=== PATIENT | female | born 1960 | race Caucasian/White ===

== ENCOUNTER 2019-08-20 13:36 | Outpatient (CLI) | payer MEDICAID, SELFPAY ==
--- NOTE | 2019-08-20 | XR_ITS ---
WS: [id number] PROCEDURE: XR chest 2V* [id number] CLINICAL INFORMATION: COPD,SEVERE COMPARISON: June 03, 2018 FINDINGS: Heart: Normal cardiac silhouette. Lungs: Moderate chronic emphysematous changes. No acute pulmonary infiltrates. No focal pneumonia. Bones: Mild thoracic curve convex right. Mild thoracic kyphosis. XR/XR chest 2V* [id number] IMPRESSION: Moderate chronic emphysematous changes. No acute pulmonary infiltrates.
--- NOTE | 2019-09-07 12:24 | PC.SOCIAL ---
Dr Ross notified of sputum culture results. Provider reviewed and ordered Levaquin 750 mg once daily for 7 days.Updated patient and she verbalized understanding. She request the med be called to [facility] employee pharmacy. Called med to Jesus Manuel at pharmacy and he repeated back correct script. Patient had no questions and was advised to complete full 7 days and to berry picker this afternoon. She mentioned still being a little weak. Patient also did indicate she has taken this med before with no side effects.
== END 2019-08-20 13:37 | disposition home or self-care (01) ==
LOC: RADOUTREAD 08-23 07:49
PROVIDERS: Family Provider Family Medicine; Visit Provider Nurse Practitioner Family
DX: Z76.89 Persons encountering health services in other specified circumstances (principal)

== ENCOUNTER 2019-09-03 02:06 | Inpatient (IN) | payer MEDICAID, SELFPAY ==
[2019-09-03] VITALS (163 sets, daily range): BP systolic 74–166; BP diastolic 45–128; PULSE 61–125; RESP 12–32; TEMP 36.4–36.6; O2SAT 83–100; BMI 16.6
--- NOTE | 2019-09-03 02:12 | CTR_ITS ---
PROCEDURE INFORMATION: Exam: CT Head Without Contrast Exam date and time: 09/03/2019 2:14 AM Age: 55 years old Clinical indication: Altered mental status/memory loss; Confusion or disorientation; Additional info: Page/ams TECHNIQUE: Imaging protocol: Computed tomography of the head without contrast. Total DLP: 869.34 mGy-cm Radiation optimization: All CT scans at this facility use at least one of these dose optimization techniques: automated exposure control; mA and/or kV adjustment per patient size (includes targeted exams where dose is matched to clinical indication); or iterative reconstruction. COMPARISON: No relevant prior studies available. FINDINGS: Brain: Normal. No hemorrhage. Unremarkable white matter. No mass effect. Ventricles: Normal. No ventriculomegaly. Bones/joints: Unremarkable. No acute fracture. Sinuses: Visualized sinuses are unremarkable. No fluid levels. Mastoid air cells: Visualized mastoid air cells are well aerated. Soft tissues: Unremarkable. CT/CT head wo con* [id number] IMPRESSION: No acute intracranial abnormality. Radiation Dose CTDIVOL = (mGy): DLP = 869.34 (mGy-cm)
--- NOTE | 2019-09-03 02:12 | XRR_ITS ---
PROCEDURE INFORMATION: Exam: XR Chest, 1 View Exam date and time: 09/03/2019 3:18 AM Age: 55 years old Clinical indication: Device placement; Cough TECHNIQUE: Imaging protocol: XR of the chest Views: Frontal portable supine view of the chest. COMPARISON: No relevant prior studies available. FINDINGS: Tubes, catheters and devices: The endotracheal tube tip is approximately 6.5 cm above the gabby. The feeding tube enters the stomach with the tip off the limits of the image. Lungs: Moderate pulmonary hyperexpansion. Coarse bilateral central pulmonary markings with mild architectural distortion. The lungs are otherwise peripherally clear bilaterally. Pleural space: No pleural effusion. No pneumothorax. Heart/Mediastinum: The heart is normal in size and contour. Bones/joints: Unremarkable. Soft tissues: Calcifications in the left infraspinatus tendon insertion. XR/XR chest 1V portable [id number] IMPRESSION: Moderate pulmonary hyperexpansion.
--- NOTE | 2019-09-03 02:18 | ED_ITS ---
Entered by Melissa Gabriel, acting as scribe for Keely Hyatt HPI - Seizure General: Chief Complaint: Seizure Stated Complaint: POSSIBLE OVERDOSE Time Seen by Provider: 09/03/19 02:09 Source: EMS Mode of arrival: EMS Limitations: altered mental status History of Present Illness: HPI Narrative: 55 y/o female presents to the ED for possible seizure. EMS was called by significant because he though she was seizing. Upon EMS arrival, pt was out of control and fighting. Her significant other reports seeing her smoking something , but he does not know what. EMS administered 2 of Versed and pt went to sleep. [place] [facility] [place] G[place] of 9. Pt appears to have scratches and dried blood on her arms. MD complaint: possible seizure Witnessed: Yes - by Bystander Place: Home Possible Precipitating Event: drug use Review of Systems General: Reports: ROS unobtainable due to medical condition (GCS 9) PFS ED PFSH: Social History Smoking and tobacco status: unknown if ever smoked Physical Exam HENMT: COMMON NORMALS: normocephalic, head/scalp atraumatic, hearing grossly normal bilaterally, external ears normal, EAC's normal, external nose normal and moist oral mucous membranes HEAD & SCALP: normal to inspection, normocephalic and atraumatic FACE & SINUS: normal facial exam and face symmetric NOSE: external nose normal and nares normal EXTERNAL EAR: Yes external ears normal EXTERNAL AUDITORY CANAL: EAC's normal MOUTH: oral and palatal mucosa normal and tongue normal Eye: COMMON NORMALS: PERRL, EOMs intact bilaterally, conjunctivae normal and no scleral icterus GENERAL EYE: normal appearance of both eyes and normal light reflex CONJUNCTIVA: Yes conjunctivae normal SCLERA: sclerae normal CORNEA: Yes corneas normal PUPIL: Yes PERRL DIRECT OPHTHALMOSCOPY: Yes normal light reflex Neck/C-Spine: COMMON NORMALS: full ROM, no lymphadenopathy, supple, no meningeal signs and no JVD GENERAL: Yes normal visual inspection and Yes trachea midline CERVICAL SPINE: Yes cervical ROM normal Chest: COMMONS NORMALS: inspection of chest normal and palpation of chest normal Resp: COMMON NORMALS: normal respiratory effort, no retractions, no use of accessory muscles and clear to auscultation bilaterally EFFORT & INSPECTION: Yes able to speak in complete sentences AUSCULTATION: clear to auscultation bilaterally Cardio: COMMON NORMALS: no JVD, regular rate, regular rhythm, S1 normal heart sound, S2 normal heart sound, no gallops, no clicks, no murmurs and no rub JUGULAR VENOUS DISTENTION: no JVD RATE: regular rate RHYTHM: regular rhythm HEART SOUNDS: S1 normal and S2 normal GI: COMMON NORMALS: soft to palpation, non-tender, no hepatosplenomegaly and no masses INSPECTION: Yes normal to inspection PALPATION: Yes soft and Yes no hepatosplenomegaly : COMMON NORMALS: Yes no CVA tenderness BLADDER/KIDNEY EXAM: Yes no CVA tenderness Back/Pelvis: COMMON NORMALS: no CVA tenderness, thoracic and lumbar spine normal to inspection, no thoracic nor lumbar tenderness and thoraco-lumbar ROM normal Neuro: CORTEZ COMA SCALE: document GCS findings MENINGEAL SIGNS: Yes no meningeal signs Skin: COMMON NORMALS: skin turgor normal, no jaundice, no petechiae and no mottling GENERAL SKIN EXAM: turgor normal Procedures Intubation Time out performed: Yes sedative: Etomidate Mg Given: 20 paralytic: Succinylcholine Mg Given: 100 Laryngoscope: David ET Tube Size: 7.5 ET Tube Uncuffed: Yes Tube Secured Depth (cm): 23 Tube Secured Location: lips Tube Placement Confirmation: visualized tube passing through cords, equal breath sounds bilaterally, no breath sounds over epigastrium and confirmation by capnometry Patient Tolerated Procedure: well Intubation Complications: none Course ED course: 024 -the patient became progressively more unresponsive to the point she was not breathing effectively and becoming hypoxic. She had no gag reflex. I elected to intubate her at that time. Still unclear whether this is a toxic inhalation/ingestion or some other type of respiratory failure. Patient is now on the ventilator and we will proceed with her work-up. Vital Signs: Vital signs: Vital Signs Temperature 97.8 F 09/03/19 02:07 Pulse Rate 86 09/03/19 16:45 Respiratory Rate 23 H 09/03/19 17:36 Blood Pressure 92/55 09/03/19 16:45 Pulse Oximetry 99 09/03/19 16:45 MDM - Seizure MDM Narrative: Medical decision making narrative: 7575 -the case was reviewed with Dr. Quarles. She agrees to admission. The patient comes in altered. EMS reports the patient had smoked some type of drug with her and then began to roll on the ground with agitation. There is been no report of any recent illness per the family. Patient arrived here with a GCS of 9 but then within 15 minutes declined significantly. The fentanyl is believed to cause her positive opiate screen although another type of opiate is possible. The fentanyl was given as a drip after intubation. The patient does test positive for amphetamines which could be the cause of the patient's behavior. CT scan of the head and neck are unremarkable. Currently the patient is resting comfortably on the vent with stable vital signs. She does have an elevated white count but no fever. Her potassium is being replaced IV. Her magnesium is normal. Patient be continued be cared for in the ICU. Lab Data: Labs: Lab Results 09/03/19 09/03/19 09/03/19 Range/Units 02:43 02:43 02:43 WBC 21.5 H (4.0-10.0) 10^3/ uL RBC 4.02 L (4.1-5.3) 10^6/u L Hgb 11.2 L (11.5-15.3) g/dL Hct 33.2 L (37.0-47.0) % MCV 82.6 (81-99) fL MCH 27.9 L (28.0-34.0) pg MCHC 33.7 (30.0-36.0) g/dL RDW 12.5 (12.1-15.1) % Plt Count 302 (130-400) 10^3/c mm MPV 10.5 H (7.4-10.4) fL Neut % (Auto) 94.9 % Lymph % (Auto) 2.1 % [place] % (Auto) 2.0 % Eos % (Auto) 0.0 % Baso % (Auto) 0.2 % Neut # (Auto) 20.4 H (1.8-7.7) 10^3/u L Lymph # (Auto) 0.5 L (0.8-4.8) 10^3/u L [place] # (Auto) 0.4 (0.2-0.9) 10^3/u L Eos # (Auto) 0.0 (0.0-0.8) 10^3/u L Baso # (Auto) 0.0 (0.0-0.1) 10^3/u L Nucleated RBC % (a uto) 0 % Nucleated RBCs # 0.0 /100WBC PT (10.5-13.3) SECO NDS INR (0.8-1.2) APTT (23.9-36.7) SECO NDS Specimen Type Sample Site ABG pH (7.35-7.45) ABG pCO2 (35-45) mmHg ABG pO2 (80.0-100.0) mmH g ABG HCO3 (22-26) mmol/L ABG Base Excess (-2.0-2.0) mmol/ L Herminio Test Hematocrit (37-47) % Respiration Rate % O2 Delivery Device Spontaneous Rate % FiO2 % Tidal Volume PEEP cmH20 Specimen Drawn By Word Processing Machine Operator ID Sodium 133 L (136-145) mmol/L Potassium 2.7 L* (3.5-5.1) mmol/L Chloride 91 L (98-107) mmol/L Carbon Dioxide 24 (22-29) mmol/L Anion Gap 20.7 H (5-19) BUN 10 (6-20) mg/dL Creatinine 0.5 (0.5-0.9) mg/dL GFR Calculation 129.1 (90-130) mL/min Glucose 125 H (65-115) mg/dL Lactic Acid (0.5-2.2) mmol/L Calcium 9.0 (8.5-10.5) mg/dL Phosphorus (2.5-4.5) mg/dL Magnesium 1.8 (1.7-2.3) mg/dL Total Bilirubin 1.1 (0.15-1.2) mg/dL AST 37 H (0-32) U/L ALT 14 (0-33) U/L Alkaline Phosphata se 102 (35-105) IU/L Ammonia 45 (11-51) umol/L Troponin T Baselin e (0-10) ng/mL Troponin T 120 Min [place] (0-10) ng/mL Delta Troponin T (0-10) ABS# Total Protein 6.8 (6.6-8.7) g/dL Albumin 3.5 (3.5-5.2) g/dL Globulin 3.3 (1.3-4.6) g/dL Lipase 9 L (13-60) U/L HCG, Qual (Negative) Urine Color (Yellow) Urine Appearance (CLEAR) Urine pH (5-7) Ur Specific Gravit y (1.005-1.030) Urine Protein (Negative) Urine Glucose (UA) (Normal) Urine Ketones (Negative) Urine Blood (Negative) Urine Nitrate (Negative) Urine Bilirubin (NEGATIVE) Urine Urobilinogen (Negative) mg/dL Ur Leukocyte Angeli ase (Negative) Urine RBC (0-2) /hpf Urine WBC (0-5) /hpf Ur Squamous Epith Cells (0-5) Urine Bacteria (NONE) Hyaline Casts Urine Opiates Scre en (Negative) ng/mL Ur Barbiturates Sc reen (Negative) ng/mL Ur Phencyclidine S crn (Negative) ng/mL Ur Amphetamines Sc reen (Negative) ng/mL U Benzodiazepines Scrn (Negative) ng/mL Urine Cocaine Scre en (Negative) ng/mL U Marijuana (THC) Screen (Negative) ng/mL Ethyl Alcohol < 10 (0-10) mg/dL Serum Ketones (Negative) Hep Bs Antigen (Nonreactive) Hep Bs Antibody (0-8.5) Hepatitis C Antibo dy (Nonreactive) HIV 1&2 Ab & HIV 1 Ag (Non-Reactiv) HIV 1&2 Antibody (Non-Reactiv) 09/03/19 09/03/19 09/03/19 Range/Units 02:43 02:43 02:43 WBC (4.0-10.0) 10^3/ uL RBC (4.1-5.3) 10^6/u L Hgb (11.5-15.3) g/dL Hct (37.0-47.0) % MCV (81-99) fL MCH (28.0-34.0) pg MCHC (30.0-36.0) g/dL RDW (12.1-15.1) % Plt Count (130-400) 10^3/c mm MPV (7.4-10.4) fL Neut % (Auto) % Lymph % (Auto) % [place] % (Auto) % Eos % (Auto) % Baso % (Auto) % Neut # (Auto) (1.8-7.7) 10^3/u L Lymph # (Auto) (0.8-4.8) 10^3/u L [place] # (Auto) (0.2-0.9) 10^3/u L Eos # (Auto) (0.0-0.8) 10^3/u L Baso # (Auto) (0.0-0.1) 10^3/u L Nucleated RBC % (a uto) % Nucleated RBCs # /100WBC PT 15.20 H (10.5-13.3) SECO NDS INR 1.16 (0.8-1.2) APTT 25.2 (23.9-36.7) SECO NDS Specimen Type Sample Site ABG pH (7.35-7.45) ABG pCO2 (35-45) mmHg ABG pO2 (80.0-100.0) mmH g ABG HCO3 (22-26) mmol/L ABG Base Excess (-2.0-2.0) mmol/ L Herminio Test Hematocrit (37-47) % Respiration Rate % O2 Delivery Device Spontaneous Rate % FiO2 % Tidal Volume PEEP cmH20 Specimen Drawn By Word Processing Machine Operator ID Sodium (136-145) mmol/L Potassium (3.5-5.1) mmol/L Chloride (98-107) mmol/L Carbon Dioxide (22-29) mmol/L Anion Gap (5-19) BUN (6-20) mg/dL Creatinine (0.5-0.9) mg/dL GFR Calculation (90-130) mL/min Glucose (65-115) mg/dL Lactic Acid (0.5-2.2) mmol/L Calcium (8.5-10.5) mg/dL Phosphorus (2.5-4.5) mg/dL Magnesium (1.7-2.3) mg/dL Total Bilirubin (0.15-1.2) mg/dL AST (0-32) U/L ALT (0-33) U/L Alkaline Phosphata se (35-105) IU/L Ammonia (11-51) umol/L Troponin T Baselin e (0-10) ng/mL Troponin T 120 Min [place] (0-10) ng/mL Delta Troponin T (0-10) ABS# Total Protein (6.6-8.7) g/dL Albumin (3.5-5.2) g/dL Globulin (1.3-4.6) g/dL Lipase (13-60) U/L HCG, Qual Negative (Negative) Urine Color (Yellow) Urine Appearance (CLEAR) Urine pH (5-7) Ur Specific Gravit y (1.005-1.030) Urine Protein (Negative) Urine Glucose (UA) (Normal) Urine Ketones (Negative) Urine Blood (Negative) Urine Nitrate (Negative) Urine Bilirubin (NEGATIVE) Urine Urobilinogen (Negative) mg/dL Ur Leukocyte Angeli ase (Negative) Urine RBC (0-2) /hpf Urine WBC (0-5) /hpf Ur Squamous Epith Cells (0-5) Urine Bacteria (NONE) Hyaline Casts Urine Opiates Scre en (Negative) ng/mL Ur Barbiturates Sc reen (Negative) ng/mL Ur Phencyclidine S crn (Negative) ng/mL Ur Amphetamines Sc reen (Negative) ng/mL U Benzodiazepines Scrn (Negative) ng/mL Urine Cocaine Scre en (Negative) ng/mL U Marijuana (THC) Screen (Negative) ng/mL Ethyl Alcohol (0-10) mg/dL Serum Ketones Negative (Negative) Hep Bs Antigen (Nonreactive) Hep Bs Antibody (0-8.5) Hepatitis C Antibo dy (Nonreactive) HIV 1&2 Ab & HIV 1 Ag (Non-Reactiv) HIV 1&2 Antibody (Non-Reactiv) 09/03/19 09/03/19 09/03/19 Range/Units 02:43 02:43 02:43 WBC (4.0-10.0) 10^3/ uL RBC (4.1-5.3) 10^6/u L Hgb (11.5-15.3) g/dL Hct (37.0-47.0) % MCV (81-99) fL MCH (28.0-34.0) pg MCHC (30.0-36.0) g/dL RDW (12.1-15.1) % Plt Count (130-400) 10^3/c mm MPV (7.4-10.4) fL Neut % (Auto) % Lymph % (Auto) % [place] % (Auto) % Eos % (Auto) % Baso % (Auto) % Neut # (Auto) (1.8-7.7) 10^3/u L Lymph # (Auto) (0.8-4.8) 10^3/u L [place] # (Auto) (0.2-0.9) 10^3/u L Eos # (Auto) (0.0-0.8) 10^3/u L Baso # (Auto) (0.0-0.1) 10^3/u L Nucleated RBC % (a uto) % Nucleated RBCs # /100WBC PT (10.5-13.3) SECO NDS INR (0.8-1.2) APTT (23.9-36.7) SECO NDS Specimen Type Sample Site ABG pH (7.35-7.45) ABG pCO2 (35-45) mmHg ABG pO2 (80.0-100.0) mmH g ABG HCO3 (22-26) mmol/L ABG Base Excess (-2.0-2.0) mmol/ L Herminio Test Hematocrit (37-47) % Respiration Rate % O2 Delivery Device Spontaneous Rate % FiO2 % Tidal Volume PEEP cmH20 Specimen Drawn By Word Processing Machine Operator ID Sodium (136-145) mmol/L Potassium (3.5-5.1) mmol/L Chloride (98-107) mmol/L Carbon Dioxide (22-29) mmol/L Anion Gap (5-19) BUN (6-20) mg/dL Creatinine (0.5-0.9) mg/dL GFR Calculation (90-130) mL/min Glucose (65-115) mg/dL Lactic Acid (0.5-2.2) mmol/L Calcium (8.5-10.5) mg/dL Phosphorus 3.6 (2.5-4.5) mg/dL Magnesium (1.7-2.3) mg/dL Total Bilirubin (0.15-1.2) mg/dL AST (0-32) U/L ALT (0-33) U/L Alkaline Phosphata se (35-105) IU/L Ammonia (11-51) umol/L Troponin T Baselin e 10 (0-10) ng/mL Troponin T 120 Min [place] (0-10) ng/mL Delta Troponin T (0-10) ABS# Total Protein (6.6-8.7) g/dL Albumin (3.5-5.2) g/dL Globulin (1.3-4.6) g/dL Lipase (13-60) U/L HCG, Qual (Negative) Urine Color (Yellow) Urine Appearance (CLEAR) Urine pH (5-7) Ur Specific Gravit y (1.005-1.030) Urine Protein (Negative) Urine Glucose (UA) (Normal) Urine Ketones (Negative) Urine Blood (Negative) Urine Nitrate (Negative) Urine Bilirubin (NEGATIVE) Urine Urobilinogen (Negative) mg/dL Ur Leukocyte Angeli ase (Negative) Urine RBC (0-2) /hpf Urine WBC (0-5) /hpf Ur Squamous Epith Cells (0-5) Urine Bacteria (NONE) Hyaline Casts Urine Opiates Scre en (Negative) ng/mL Ur Barbiturates Sc reen (Negative) ng/mL Ur Phencyclidine S crn (Negative) ng/mL Ur Amphetamines Sc reen (Negative) ng/mL U Benzodiazepines Scrn (Negative) ng/mL Urine Cocaine Scre en (Negative) ng/mL U Marijuana (THC) Screen (Negative) ng/mL Ethyl Alcohol (0-10) mg/dL Serum Ketones (Negative) Hep Bs Antigen Non-reactive (Nonreactive) Hep Bs Antibody 8.6 H (0-8.5) Hepatitis C Antibo dy (Nonreactive) HIV 1&2 Ab & HIV 1 Ag (Non-Reactiv) HIV 1&2 Antibody (Non-Reactiv) 09/03/19 09/03/19 09/03/19 Range/Units 02:43 02:43 03:20 WBC (4.0-10.0) 10^3/ uL RBC (4.1-5.3) 10^6/u L Hgb (11.5-15.3) g/dL Hct (37.0-47.0) % MCV (81-99) fL MCH (28.0-34.0) pg MCHC (30.0-36.0) g/dL RDW (12.1-15.1) % Plt Count (130-400) 10^3/c mm MPV (7.4-10.4) fL Neut % (Auto) % Lymph % (Auto) % [place] % (Auto) % Eos % (Auto) % Baso % (Auto) % Neut # (Auto) (1.8-7.7) 10^3/u L Lymph # (Auto) (0.8-4.8) 10^3/u L [place] # (Auto) (0.2-0.9) 10^3/u L Eos # (Auto) (0.0-0.8) 10^3/u L Baso # (Auto) (0.0-0.1) 10^3/u L Nucleated RBC % (a uto) % Nucleated RBCs # /100WBC PT (10.5-13.3) SECO NDS INR (0.8-1.2) APTT (23.9-36.7) SECO NDS Specimen Type Sample Site ABG pH (7.35-7.45) ABG pCO2 (35-45) mmHg ABG pO2 (80.0-100.0) mmH g ABG HCO3 (22-26) mmol/L ABG Base Excess (-2.0-2.0) mmol/ L Herminio Test Hematocrit (37-47) % Respiration Rate % O2 Delivery Device Spontaneous Rate % FiO2 % Tidal Volume PEEP cmH20 Specimen Drawn By Word Processing Machine Operator ID Sodium (136-145) mmol/L Potassium (3.5-5.1) mmol/L Chloride (98-107) mmol/L Carbon Dioxide (22-29) mmol/L Anion Gap (5-19) BUN (6-20) mg/dL Creatinine (0.5-0.9) mg/dL GFR Calculation (90-130) mL/min Glucose (65-115) mg/dL Lactic Acid (0.5-2.2) mmol/L Calcium (8.5-10.5) mg/dL Phosphorus (2.5-4.5) mg/dL Magnesium (1.7-2.3) mg/dL Total Bilirubin (0.15-1.2) mg/dL AST (0-32) U/L ALT (0-33) U/L Alkaline Phosphata se (35-105) IU/L Ammonia (11-51) umol/L Troponin T Baselin e (0-10) ng/mL Troponin T 120 Min [place] (0-10) ng/mL Delta Troponin T (0-10) ABS# Total Protein (6.6-8.7) g/dL Albumin (3.5-5.2) g/dL Globulin (1.3-4.6) g/dL Lipase (13-60) U/L HCG, Qual (Negative) Urine Color (Yellow) Urine Appearance (CLEAR) Urine pH (5-7) Ur Specific Gravit y (1.005-1.030) Urine Protein (Negative) Urine Glucose (UA) (Normal) Urine Ketones (Negative) Urine Blood (Negative) Urine Nitrate (Negative) Urine Bilirubin (NEGATIVE) Urine Urobilinogen (Negative) mg/dL Ur Leukocyte Angeli ase (Negative) Urine RBC (0-2) /hpf Urine WBC (0-5) /hpf Ur Squamous Epith Cells (0-5) Urine Bacteria (NONE) Hyaline Casts Urine Opiates Scre en Positve (Negative) ng/mL Ur Barbiturates Sc reen Negative (Negative) ng/mL Ur Phencyclidine S crn Negative (Negative) ng/mL Ur Amphetamines Sc reen Positive H (Negative) ng/mL U Benzodiazepines Scrn Positive H (Negative) ng/mL Urine Cocaine Scre en Negative (Negative) ng/mL U Marijuana (THC) Screen Negative (Negative) ng/mL Ethyl Alcohol (0-10) mg/dL Serum Ketones (Negative) Hep Bs Antigen (Nonreactive) Hep Bs Antibody (0-8.5) Hepatitis C Antibo dy Non-reactive (Nonreactive) HIV 1&2 Ab & HIV 1 Ag Non-reactive (Non-Reactiv) HIV 1&2 Antibody Non-reactive (Non-Reactiv) 09/03/19 09/03/19 09/03/19 Range/Units 03:20 03:58 04:00 WBC (4.0-10.0) 10^3/ uL RBC (4.1-5.3) 10^6/u L Hgb (11.5-15.3) g/dL Hct (37.0-47.0) % MCV (81-99) fL MCH (28.0-34.0) pg MCHC (30.0-36.0) g/dL RDW (12.1-15.1) % Plt Count (130-400) 10^3/c mm MPV (7.4-10.4) fL Neut % (Auto) % Lymph % (Auto) % [place] % (Auto) % Eos % (Auto) % Baso % (Auto) % Neut # (Auto) (1.8-7.7) 10^3/u L Lymph # (Auto) (0.8-4.8) 10^3/u L [place] # (Auto) (0.2-0.9) 10^3/u L Eos # (Auto) (0.0-0.8) 10^3/u L Baso # (Auto) (0.0-0.1) 10^3/u L Nucleated RBC % (a uto) % Nucleated RBCs # /100WBC PT (10.5-13.3) SECO NDS INR (0.8-1.2) APTT (23.9-36.7) SECO NDS Specimen Type arterial Sample Site brachial,right ABG pH 7.38 (7.35-7.45) ABG pCO2 39.3 (35-45) mmHg ABG pO2 156.0 H* (80.0-100.0) mmH g ABG HCO3 23.4 (22-26) mmol/L ABG Base Excess -1.5 (-2.0-2.0) mmol/ L Herminio Test n/a Hematocrit 33.2 L (37-47) % Respiration Rate 14.0 % O2 Delivery Device vent Spontaneous Rate 14.0 % FiO2 40.0 % Tidal Volume .4 PEEP 8.0 cmH20 Specimen Drawn By aleshia Word Processing Machine Operator ID Jh Sodium (136-145) mmol/L Potassium (3.5-5.1) mmol/L Chloride (98-107) mmol/L Carbon Dioxide (22-29) mmol/L Anion Gap (5-19) BUN (6-20) mg/dL Creatinine (0.5-0.9) mg/dL GFR Calculation (90-130) mL/min Glucose (65-115) mg/dL Lactic Acid (0.5-2.2) mmol/L Calcium (8.5-10.5) mg/dL Phosphorus (2.5-4.5) mg/dL Magnesium (1.7-2.3) mg/dL Total Bilirubin (0.15-1.2) mg/dL AST (0-32) U/L ALT (0-33) U/L Alkaline Phosphata se (35-105) IU/L Ammonia (11-51) umol/L Troponin T Baselin e (0-10) ng/mL Troponin T 120 Min [place] 8.77 (0-10) ng/mL Delta Troponin T -1.23 L (0-10) ABS# Total Protein (6.6-8.7) g/dL Albumin (3.5-5.2) g/dL Globulin (1.3-4.6) g/dL Lipase (13-60) U/L HCG, Qual (Negative) Urine Color Yellow (Yellow) Urine Appearance Clear (CLEAR) Urine pH 5 (5-7) Ur Specific Gravit y 1.025 (1.005-1.030) Urine Protein 1+ H (Negative) Urine Glucose (UA) Norm (Normal) Urine Ketones 1+ H (Negative) Urine Blood 3+ H (Negative) Urine Nitrate Negative (Negative) Urine Bilirubin 1+ H (NEGATIVE) Urine Urobilinogen Norm (Negative) mg/dL Ur Leukocyte Angeli ase Negative (Negative) Urine RBC 5-10 H (0-2) /hpf Urine WBC None (0-5) /hpf Ur Squamous Epith Cells 0-4 H (0-5) Urine Bacteria 1+ H (NONE) Hyaline Casts 25-40 H Urine Opiates Scre en (Negative) ng/mL Ur Barbiturates Sc reen (Negative) ng/mL Ur Phencyclidine S crn (Negative) ng/mL Ur Amphetamines Sc reen (Negative) ng/mL U Benzodiazepines Scrn (Negative) ng/mL Urine Cocaine Scre en (Negative) ng/mL U Marijuana (THC) Screen (Negative) ng/mL Ethyl Alcohol (0-10) mg/dL Serum Ketones (Negative) Hep Bs Antigen (Nonreactive) Hep Bs Antibody (0-8.5) Hepatitis C Antibo dy (Nonreactive) HIV 1&2 Ab & HIV 1 Ag (Non-Reactiv) HIV 1&2 Antibody (Non-Reactiv) 09/03/19 Range/Units 04:45 WBC (4.0-10.0) 10^3/ uL RBC (4.1-5.3) 10^6/u L Hgb (11.5-15.3) g/dL Hct (37.0-47.0) % MCV (81-99) fL MCH (28.0-34.0) pg MCHC (30.0-36.0) g/dL RDW (12.1-15.1) % Plt Count (130-400) 10^3/c mm MPV (7.4-10.4) fL Neut % (Auto) % Lymph % (Auto) % [place] % (Auto) % Eos % (Auto) % Baso % (Auto) % Neut # (Auto) (1.8-7.7) 10^3/u L Lymph # (Auto) (0.8-4.8) 10^3/u L [place] # (Auto) (0.2-0.9) 10^3/u L Eos # (Auto) (0.0-0.8) 10^3/u L Baso # (Auto) (0.0-0.1) 10^3/u L Nucleated RBC % (a uto) % Nucleated RBCs # /100WBC PT (10.5-13.3) SECO NDS INR (0.8-1.2) APTT (23.9-36.7) SECO NDS Specimen Type Sample Site ABG pH (7.35-7.45) ABG pCO2 (35-45) mmHg ABG pO2 (80.0-100.0) mmH g ABG HCO3 (22-26) mmol/L ABG Base Excess (-2.0-2.0) mmol/ L Herminio Test Hematocrit (37-47) % Respiration Rate % O2 Delivery Device Spontaneous Rate % FiO2 % Tidal Volume PEEP cmH20 Specimen Drawn By Word Processing Machine Operator ID Sodium (136-145) mmol/L Potassium (3.5-5.1) mmol/L Chloride (98-107) mmol/L Carbon Dioxide (22-29) mmol/L Anion Gap (5-19) BUN (6-20) mg/dL Creatinine (0.5-0.9) mg/dL GFR Calculation (90-130) mL/min Glucose (65-115) mg/dL Lactic Acid 1.3 (0.5-2.2) mmol/L Calcium (8.5-10.5) mg/dL Phosphorus (2.5-4.5) mg/dL Magnesium (1.7-2.3) mg/dL Total Bilirubin (0.15-1.2) mg/dL AST (0-32) U/L ALT (0-33) U/L Alkaline Phosphata se (35-105) IU/L Ammonia (11-51) umol/L Troponin T Baselin e (0-10) ng/mL Troponin T 120 Min [place] (0-10) ng/mL Delta Troponin T (0-10) ABS# Total Protein (6.6-8.7) g/dL Albumin (3.5-5.2) g/dL Globulin (1.3-4.6) g/dL Lipase (13-60) U/L HCG, Qual (Negative) Urine Color (Yellow) Urine Appearance (CLEAR) Urine pH (5-7) Ur Specific Gravit y (1.005-1.030) Urine Protein (Negative) Urine Glucose (UA) (Normal) Urine Ketones (Negative) Urine Blood (Negative) Urine Nitrate (Negative) Urine Bilirubin (NEGATIVE) Urine Urobilinogen (Negative) mg/dL Ur Leukocyte Angeli ase (Negative) Urine RBC (0-2) /hpf Urine WBC (0-5) /hpf Ur Squamous Epith Cells (0-5) Urine Bacteria (NONE) Hyaline Casts Urine Opiates Scre en (Negative) ng/mL Ur Barbiturates Sc reen (Negative) ng/mL Ur Phencyclidine S crn (Negative) ng/mL Ur Amphetamines Sc reen (Negative) ng/mL U Benzodiazepines Scrn (Negative) ng/mL Urine Cocaine Scre en (Negative) ng/mL U Marijuana (THC) Screen (Negative) ng/mL Ethyl Alcohol (0-10) mg/dL Serum Ketones (Negative) Hep Bs Antigen (Nonreactive) Hep Bs Antibody (0-8.5) Hepatitis C Antibo dy (Nonreactive) HIV 1&2 Ab & HIV 1 Ag (Non-Reactiv) HIV 1&2 Antibody (Non-Reactiv) Imaging Data^: CXR: My impression: No acute cardiopulmonary findings. ET tube with good placement. C Spine: Radiologist's impression: [address] [address] [address] Scan Report Signed Patient: HEMA 09/03/2019,DOEUnit #: [id number] : 08/24/1964Acct#:[id number] Age/Sex: 55 / FADM Date: 09/03/19 Loc: ERRoom/Bed: Attending Dr: Ordering Provider/Ordering MD: Keely Hyatt DO Date of Service: 09/03/19 Procedure(s): CT cervical spin wo con* 24089 Accession Number(s): [id number] Report Number: [id number] PROCEDURE INFORMATION: Exam: CT Cervical Spine Without Contrast Exam date and time: 09/03/2019 3:30 AM Age: 55 years old Clinical indication: Neck pain TECHNIQUE: Imaging protocol: Computed tomography images of the cervical spine without contrast. Total DLP: 412.89 mGy-cm Radiation optimization: All CT scans at this facility use at least one of these dose optimization techniques: automated exposure control; mA and/or kV adjustment per patient size (includes targeted exams where dose is matched to clinical indication); or iterative reconstruction. COMPARISON: No relevant prior studies available. FINDINGS: Tubes, catheters and devices: Endotracheal and gastric tube. Vertebrae: Minimal degenerative C4-C5 anterolisthesis. No acute vertebral fracture/subluxation. Discs/Spinal canal/Neural foramina: Diffuse degenerative disc space loss with degenerative disc osteophyte complexes, facet arthropathy, and ligamentum flavum thickening causes up to moderate spinal and foraminal stenosis greatest at C4-C6. Left greater than right degenerative cervical facet arthropathy. Soft tissues: Unremarkable. Lungs: Apical pulmonary scarring. Apical mild pulmonary emphysema. Vague ground-glass left apical opacity. CT/CT cervical spin wo con* [id number] IMPRESSION: No acute vertebral fracture/subluxation. Radiation Dose CTDIVOL = (mGy): DLP = 412.89 (mGy-cm) Dictated By:Molina Pepper MD CT Head: Radiologist's impression: Ordering Provider/Ordering MD: Keely Hyatt DO Date of Service: 09/03/19 Procedure(s): CT head wo con* [id number] Accession Number(s): [id number] Report Number: [id number] PROCEDURE INFORMATION: Exam: CT Head Without Contrast Exam date and time: 09/03/2019 2:14 AM Age: 55 years old Clinical indication: Altered mental status/memory loss; Confusion or disorientation; Additional info: Page/ams TECHNIQUE: Imaging protocol: Computed tomography of the head without contrast. Total DLP: 869.34 mGy-cm Radiation optimization: All CT scans at this facility use at least one of these dose optimization techniques: automated exposure control; mA and/or kV adjustment per patient size (includes targeted exams where dose is matched to clinical indication); or iterative reconstruction. COMPARISON: No relevant prior studies available. FINDINGS: Brain: Normal. No hemorrhage. Unremarkable white matter. No mass effect. Ventricles: Normal. No ventriculomegaly. Bones/joints: Unremarkable. No acute fracture. Sinuses: Visualized sinuses are unremarkable. No fluid levels. Mastoid air cells: Visualized mastoid air cells are well aerated. Soft tissues: Unremarkable. CT/CT head wo con* [id number] IMPRESSION: No acute intracranial abnormality. EKG Data^: EKG 1: Attestation: I personally reviewed and interpreted this EKG as follows: EKG interpretation date: 09/03/19 EKG interpretation time: 03:22 Interpretation: Normal sinus rhythm at 87 beats a minute, prolonged QT, no bl ocks. Nonspecific ST-T wave changes. EKG 2: Attestation: I personally reviewed and interpreted this EKG as follows: EKG interpretation date: 09/03/19 EKG interpretation time: 04:38 Interpretation: Normal sinus rhythm at 79 beats a minute, prolonged QT, nonspecific ST and T wave changes. Unchanged from previous. Discharge Plan Discharge Patient Disposition: Admitted As Inpatient Admit Provider: Richa Calderon Clinical Impression: Altered mental status, Hypokalemia, Amphetamine intoxication Condition: Stable Interventions: ED Discharge Assessment Last Done: 09/03/19 06:02 Discharge Date/Time: 09/03/19 07:15 Coding Level of Care Code ED Insurance Account Specialist for Chg Fwd Exam Comprehensive The documentation recorded by the Harvey nazario Ashley, accurately reflects the service I personally performed and the decisions made by Edmar spencer Eli N
--- NOTE | 2019-09-03 02:30 | PC.NURSE ---
Patient presents in flacid state with occasional flailing of arms and legs. Pt has a hematoma on front of head and various abraisions bilaterally on arms.
[2019-09-03] MEDS: vecuronium 10 mg SDV IVP (02:50)
[2019-09-03 03:00] LABS: INR 1.16 (0.8-1.2)
[2019-09-03 03:01] LABS: Partial Thromboplastin Time 25.2 SECONDS (23.9-36.7)
[2019-09-03 03:06] LABS: Ammonia 45 umol/L (11-51)
[2019-09-03] MEDS: ondansetron 2 mg/ML SDV 2 mL 4 MG IVP (03:12)
[2019-09-03 03:13] LABS: Alanine Aminotransferase 14 U/L (0-33); Albumin Level 3.5 g/dL (3.5-5.2); Alkaline Phosphatase 102 IU/L (35-105); Anion Gap 20.7 (5-19); Blood Urea Nitrogen 10 mg/dL (6-20); Carbon Dioxide 24 mmol/L (22-29); Chloride 91 mmol/L (98-107); Globulin 3.3 g/dL (1.3-4.6); Glomerular Filtration Rate 129.1 mL/min (90-130); Glucose 125 mg/dL (65-115); Lipase 9 U/L (13-60); Magnesium 1.8 mg/dL (1.7-2.3); Sodium 133 mmol/L (136-145); Total Bilirubin 1.1 mg/dL (0.15-1.2); Total Protein 6.8 g/dL (6.6-8.7)
[2019-09-03] MEDS: sodium chloride 0.9% 1,000 ML 100 ML IV (03:13)
[2019-09-03 03:14] LABS: Ketone (Acetest) Serum Negative (Negative)
[2019-09-03] MEDS: propofol 1,000 MG/100 ML INJ 5 MG (03:14)
[2019-09-03] MEDS: succinylcholine 20 mg/mL SDV 10mL 150 MG IV (03:15)
[2019-09-03 03:16] LABS: Troponin(5th) Baseline 10 ng/mL (0-10)
[2019-09-03 03:17] LABS: HCG, Serum Qual Negative (Negative)
[2019-09-03 03:26] LABS: Basophils % 0.2 %; Hematocrit 33.2 % (37.0-47.0); Hemoglobin 11.2 g/dL (11.5-15.3); Lymphocytes # 0.5 10^3/uL (0.8-4.8); Lymphocytes % 2.1 %; Mean Corpuscular HGB Conc 33.7 g/dL (30.0-36.0); Mean Corpuscular Hemoglobin 27.9 pg (28.0-34.0); Mean Corpuscular Volume 82.6 fL (81-99); Mean Platelet Volume 10.5 fL (7.4-10.4); Monocytes # 0.4 10^3/uL (0.2-0.9); Neutrophils # 20.4 10^3/uL (1.8-7.7); Neutrophils % 94.9 %; Nucleated Red Blood Cells % 0 %; Platelet Count 302 10^3/cmm (130-400); Red Blood Count 4.02 10^6/uL (4.1-5.3); Red Cell Distribution Width 12.5 % (12.1-15.1); White Blood Count 21.5 10^3/uL (4.0-10.0)
--- NOTE | 2019-09-03 03:29 | CTR_ITS ---
PROCEDURE INFORMATION: Exam: CT Cervical Spine Without Contrast Exam date and time: 09/03/2019 3:30 AM Age: 55 years old Clinical indication: Neck pain TECHNIQUE: Imaging protocol: Computed tomography images of the cervical spine without contrast. Total DLP: 412.89 mGy-cm Radiation optimization: All CT scans at this facility use at least one of these dose optimization techniques: automated exposure control; mA and/or kV adjustment per patient size (includes targeted exams where dose is matched to clinical indication); or iterative reconstruction. COMPARISON: No relevant prior studies available. FINDINGS: Tubes, catheters and devices: Endotracheal and gastric tube. Vertebrae: Minimal degenerative C4-C5 anterolisthesis. No acute vertebral fracture/subluxation. Discs/Spinal canal/Neural foramina: Diffuse degenerative disc space loss with degenerative disc osteophyte complexes, facet arthropathy, and ligamentum flavum thickening causes up to moderate spinal and foraminal stenosis greatest at C4-C6. Left greater than right degenerative cervical facet arthropathy. Soft tissues: Unremarkable. Lungs: Apical pulmonary scarring. Apical mild pulmonary emphysema. Vague ground-glass left apical opacity. CT/CT cervical spin wo con* [id number] IMPRESSION: No acute vertebral fracture/subluxation. Radiation Dose CTDIVOL = (mGy): DLP = 412.89 (mGy-cm)
--- NOTE | 2019-09-03 03:30 | NPU.GN ---
Scanner not utilized due to no arm band on patient because identity is not verified.
--- NOTE | 2019-09-03 03:32 | PC.NURSE ---
0247 - Etomidate - 20 mg 0248 - Succinylcholine - 150mg 0250 - Vecuronium - 10 0250 - Fentanyl
[2019-09-03 03:53] LABS: Barbiturates Screen Urine Negative (Negative); Benzodiazepines Screen Urine Positive (Negative); Cocaine Screen Urine Negative (Negative); PCP Screen Urine Negative (Negative); THC Screen Urine Negative (Negative)
[2019-09-03 04:08] LABS: Blood Urine 3+ (Negative); Glucose Urine UA Norm (Normal); Ketones Urine 1+ (Negative); Nitrate Urine Negative (Negative); Protein Urine 1+ (Negative); Specific Gravity, Urine 1.025 (1.005-1.030); Urine Appearance Clear (CLEAR); Urine Color Yellow (Yellow); pH Urine 5 (5-7)
[2019-09-03 04:09] LABS: Bilirubin Urine 1+ (NEGATIVE); Leukocyte Esterase Urine Negative (Negative); Urobilinogen Urine Norm (Negative)
[2019-09-03 04:10] LABS: Bacteria Urine 1+; Hyaline Casts Urine 25-40; Squamous Epithelial Cell Urine 0-4 (0-5)
[2019-09-03 04:11] LABS: Add Urine Culture? No
--- NOTE | 2019-09-03 04:13 | ECG_ITS ---
Measurements Intervals [place] Rate: 79 P: 79 KS: 127 QRS: 88 QRSD: 102 T: 73 QT: 458 QTc: 526 SINUS RHYTHM PROLONGED QT INTERVAL No previous ECG available for comparison Electronically Signed On 09-03-2019 11:14:32 NECK PINNER by Francisca Burciaga M.D. [email or web address]
--- NOTE | 2019-09-03 04:36 | PC.NURSE ---
EKG done at 0432 and shown to ER doctor
[2019-09-03 04:37] LABS: ABG PCO2 39.3 mmHg (35-45); ABG PH Result 7.38 (7.35-7.45); Base Excess ABG -1.5 mmol/L (-2.0-2.0); HCO3 ABG 23.4 mmol/L (22-26); Oxygen Device vent
[2019-09-03 04:37] LABS: Alcohol Level < 10 mg/dL (0-10); Aspartate Amino Transferase 37 U/L (0-32); Potassium 2.7 mmol/L (3.5-5.1)
[2019-09-03 04:51] LABS: Amphetamines Screen Urine Positive (Negative)
[2019-09-03 05:02] LABS: Lactic Sepsis W/Reflex 1.3 mmol/L (0.5-2.2)
[2019-09-03] MEDS: potassium chloride premix 40 MEQ/100 ML PREMIX 25 MEQ IV (05:42)
[2019-09-03] MEDS: cefTRIAXone 2,000 MG in sodium chloride 0.9% (plus) 50 ML 100 MG IV (05:43)
[2019-09-03 05:45] LABS: Troponin 5 2HR 8.77 ng/mL (0-10); Troponin 5 2HR Delta -1.23 ABS# (0-10)
--- NOTE | 2019-09-03 06:17 | PM.HP ---
Providers/Chief Complaint Admitting Physician: Richa Calderon MD Primary Care Provider: Unknown Chief Complaint: POSSIBLE OVERDOSE History of Present Illness SELIN GARRIDO 09/03/2017 is a 55 year old female who presented to the emergency room via EMS with was suspected to be a possible overdose. Limited information is known. Somebody called for an ambulance. The story is that she smoked something or took something and a short time later started acting unusual and thrashing around all over the place. The gentleman that was at the scene with her only knew that her name was Shreya. No other information is known. She received 2 mg of intranasal Versed by EMS. She was arousable on arrival and had quit thrashing around so much. Later on she became completely unresponsive and ultimately ended up requiring intubation for airway protection. She was identified as having a white count of 21,000 but no clear source of infection was noted. Review of Systems General: Reports: ROS unobtainable due to endotracheal tube, ROS unobtainable due to medical condition and ROS unobtainable due to mental status Medications/Allergies Additional Medication Information Additional Medication Information: Medications unknown PFSH Acute PFSH: Social History Smoking and tobacco status: unknown if ever smoked Supplemental PFSH Information: Past medical, family and social history not able to be obtained due to medical condition. Vitals/I&O/Wt Last Vital Signs Temp 97.8 F 09/03/19 02:07 Pulse 72 09/03/19 02:12 Resp 14 09/03/19 03:16 BP 124/76 09/03/19 02:12 Pulse Ox 100 09/03/19 02:12 Weight last 48 hrs Weight 45.359 kg Physical Exam Const: GENERAL APPEARANCE: patient mechanically ventilated HENMT: HEAD & SCALP: hematoma left frontal Head hematoma size: 3 cm, Left lateral orbit Head hematoma size: 2 cm Eye: COMMON NORMALS: PERRL and no scleral icterus CONJUNCTIVA: Yes conjunctiva abnormal positive bilateral conjunctival injection diffuse Neck/C-Spine: COMMON NORMALS: supple Resp: COMMON NORMALS: clear to auscultation bilaterally Cardio: COMMON NORMALS: regular rate, regular rhythm and no murmurs GI: COMMON NORMALS: soft to palpation and non-tender AUSCULTATION: Yes normoactive bowel sounds : COMMON NORMALS: Yes external appearance normal Extremity: COMMON NORMALS: normal capillary refill and no clubbing, cyanosis or edema Neuro: COMMON NORMALS: moves all extremities and deep tendon reflexes 2+ bilaterally MOTOR EXAM: strength 5/5 throughout Skin: COMMON NORMALS: no mottling NARRATIVE SKIN EXAM: Hematoma left medial malleolus and proximal to this on medial foot, large on left hip. Hematoma bilateral lateral knees. Smaller on on right hip. Small bruises both hands and forearms. Evidence of old cuts to left thigh. Urinary Catheter Management^: Smith: Cath Placed During This Visit: yes Urethral Indwelling: Yes Reason for Continuing Indwelling Catheter: Accurate Measurement of Urinary Output in Critically Ill Patients Urinary Catheter Date of Insertion: 09/03/19 Urinary Catheter Time of Insertion: 03:00 Data : 09/03/19 02:43 09/03/19 02:43 Micro: Microbiology 09/03/19 02:54 Blood Culture - Preliminary Blood SPECIMEN COLLECTED 09/03/19 02:43 Blood Culture - Preliminary Blood SPECIMEN COLLECTED A&P Assessment and plan (1) Altered mental status: Currently felt secondary to acute intoxication with at least one substance. Amphetamines were positive and not administered here. Urine drug screen also showed benzodiazepines and opiates however these had been administered by medical personnel. Status: Acute Qualifiers: Altered mental status type: unspecified Qualified Code(s): R41.82 - Altered mental status, unspecified Code(s): R41.82 - Altered mental status, unspecified (2) Amphetamine intoxication: With acute delirium and possible seizure activity Status: Acute Qualifiers: Complication of substance-induced condition: with delirium Qualified Code(s): F15.921 - Other stimulant use, unspecified with intoxication delirium Code(s): F15.929 - Other stimulant use, unspecified with intoxication, unspecified (3) Leukocytosis: Suspect reactive in nature to acute events, no clear foci of acute infection at the moment beyond the suggestion of mental status changes which appear to be due to acute intoxication Status: Acute Qualifiers: Leukocytosis type: leukemoid reaction Qualified Code(s): D72.823 - Leukemoid reaction Code(s): D72.829 - Elevated white blood cell count, unspecified (4) Hypokalemia: Suspect secondary to some volume depletion especially with elevated specific gravity, unknown if she takes any chronic medications which might contribute. Has slightly low sodium as well. Status: Acute Code(s): E87.6 - Hypokalemia (5) Normocytic anemia: Likely chronic, no gross blood loss noted at the moment Status: Acute Code(s): D64.9 - Anemia, unspecified Additional A&P Information Inpatient admission ICU care Maintain intubation currently Sedation with fentanyl and propofol started in the emergency room, consider Precedex IV fluids Check magnesium and phosphorus Potassium replacement Repeat labs tomorrow GI prophylaxis DVT prophylaxis with lovenox Supportive care otherwise Case management to assist with identifying patient as able FULL CODE Attestations Medical Necessity Statement*: LYDIA SMALLWOOD's hospital stay will require greater than 2 midnights for patient intubated after acute event as described. Plans as noted Coding Level of Care Code Acute Siding Installer for Abad Fwd Exam Comprehensive Diagnoses Altered mental status R41.82 Altered mental status type: unspecified Amphetamine intoxication F15.921 Complication of substance-induced condition: with delirium Leukocytosis D72.823 Leukocytosis type: leukemoid reaction Hypokalemia E87.6 Normocytic anemia D64.9
--- NOTE | 2019-09-03 07:10 | PC.NURSE ---
COULD NOT SCAN MEDS DUE TO NO NAME.
[2019-09-03 07:39] LABS: Phosphorus 3.6 mg/dL (2.5-4.5)
--- NOTE | 2019-09-03 08:13 | ECG_ITS ---
Measurements Intervals [place] Rate: 87 P: 83 DE: 144 QRS: 87 QRSD: 105 T: 74 QT: 430 QTc: 518 SINUS RHYTHM PROLONGED QT INTERVAL No previous ECG available for comparison Electronically Signed On 09-03-2019 11:15:03 STONE SETTER APPRENTICE by Francisca Burciaga M.D. [email or web address]
[2019-09-03] MEDS: sodium chlor 0.9% + KCl 20 mEq 20 MEQ/1,000 ML BAG 100 MEQ IV ×2 (08:49→18:56)
[2019-09-03] MEDS: enoxaparin 30 mg/0.3 mL Syringe SUBCUT (08:50)
[2019-09-03 10:01] LABS: Influenza A by IFA Negative (Negative); Influenza B by IFA Negative (Negative)
--- NOTE | 2019-09-03 11:09 | PC.CHAP ---
Pastoral Care Encounter/Spiritual Assessment Type of Contact [] Declined size cutter visit [] Patient/Family/Request visit [] Outpatient visit [] Follow-up visit [] Physician referral [] Code/Alert [x] Routine visit [] Staff referral [] Actively dying [] Patient sleeping [] Family support [] [] Out of room [] Palliative care [] [] Receiving care in room [] Pre-surgical visit [] Trauma [] Long length of stay [x] ICU visit [] Other: Relational/Emotional Strength [] Patient feels connected with others/family/visitors/staff [] Distress [] Loneliness/isolation [] Abandonment Spirituality of Patient [] Person of [place] [] Attends Adventism of their [place] [] Believes in Prayer [] Reads Bible or Sabianism materials [] There are Spiritual issues to be addressed Artificial Stone Applicator Interventions [x] Prayer [] Active listening [] Non-anxious presence [] Spiritual/emotional support [] Crisis/trauma care [] Spiritual counseling [] Bereavement support [] Provided bereavement packet [] Provided Bible/devotional materials [] Provided toy/stuffed animal, coloring book to patient or family member [] Provided Communion [] Anointing/[place] [] Salvation [x] Completed spiritual assessment [] Other: Impact on Illness or Injury [] Angry [] Fearful [] Anxious [] Often cries [] Exhaustion [] Unable to work [] Unable to attend methodist [] Unable to walk/stand [] Unable to read [] Unable to drive [] Unable to eat/drink [] Unable to sleep [] Unable to be with family [] Patient intubated [] Other: Summary Patient not responsive. On ventilator. Patient very thin,shows signs of homelessness. Prayed outside room as not to disturb Time spent with patient 5 min
[2019-09-03 11:11] LABS: Arterial Blood Gas Hematocrit 33.2 % (37-47)
[2019-09-03] MEDS: propofol 1,000 MG/100 ML INJ 13.6 MG IV ×2 (11:50→18:37)
--- NOTE | 2019-09-03 13:17 | PM.PN ---
Subjective Subjective: Interval history: Patient is sedated on the ventilator. History and physical reviewed. Nursing is attempting to identify the patient. Medications: Reviewed: Yes Vitals/I&O/Wt Last Vital Signs Temp 97.8 F 09/03/19 02:07 Pulse 101 H 09/03/19 12:10 Resp 14 09/03/19 11:18 BP 148/89 09/03/19 12:10 Pulse Ox 97 09/03/19 12:10 09/02/19 09/03/19 09/03/19 22:59 06:59 14:59 Intake Total 24.0 / 24.0 43.833 / 43.833 Balance 24.0 / 24.0 43.833 / 43.833 Weight last 48 hrs Weight 45.359 kg Physical Exam Narrative: EXAM NARRATIVE: General exam is a thin appearing white female, sedated on the ventilator Neck supple, no masses Cardiovascular regular rate and rhythm. No murmur Lungs clear no wheezing or crackles Abdomen is soft, positive bowel sounds Extremities no cyanosis clubbing or edema Skin scattered bruising Urinary Catheter Management^: Smith: Cath Placed During This Visit: yes Urethral Indwelling: Yes Reason for Continuing Indwelling Catheter: Accurate Measurement of Urinary Output in Critically Ill Patients Urinary Catheter Date of Insertion: 09/03/19 Urinary Catheter Time of Insertion: 03:00 Data : 09/03/19 02:43 09/03/19 02:43 Micro: Microbiology 09/03/19 02:54 Blood Culture - Preliminary Blood SPECIMEN COLLECTED 09/03/19 02:43 Blood Culture - Preliminary Blood SPECIMEN COLLECTED A&P Assessment and plan (1) Altered mental status: Secondary to acute intoxication with amphetamine. It is unknown if other substances are playing a role Status: Acute Qualifiers: Altered mental status type: unspecified Qualified Code(s): R41.82 - Altered mental status, unspecified Code(s): R41.82 - Altered mental status, unspecified (2) Amphetamine intoxication: Acute delirium. Cannot rule out seizure. Status: Acute Qualifiers: Complication of substance-induced condition: with delirium Qualified Code(s): F15.921 - Other stimulant use, unspecified with intoxication delirium Code(s): F15.929 - Other stimulant use, unspecified with intoxication, unspecified (3) Leukocytosis: No infection has been noted currently. Will monitor closely. Further antibiotics have been held. Status: Acute Qualifiers: Leukocytosis type: leukemoid reaction Qualified Code(s): D72.823 - Leukemoid reaction Code(s): D72.829 - Elevated white blood cell count, unspecified (4) Hypokalemia: Supplemented. Repeat check tomorrow Status: Acute Code(s): E87.6 - Hypokalemia (5) Normocytic anemia: Mild. We will continue to follow Status: Acute Code(s): D64.9 - Anemia, unspecified Additional A&P Information Respiratory failure secondary to agitation and inability to control airway. We will continue mechanical ventilation until tomorrow, transition to Precedex, and hopefully extubate if agitation has passed. Continue propofol and fentanyl currently. Precedex has been added secondary to breakthrough agitation GI prophylaxis with Pepcid DVT prophylaxis with lovenox Continue hydration Full code Attestations Medical Necessity Statement*: Needs continued hospitalization secondary to acute ingestion, agitation, respiratory failure requiring mechanical ventilation Critical Care Time: 36 minutes spent in critical care time reviewing ventilator settings, hospital course current laboratory, etc. Coding Level of Care Code Acute Journeyman Pressman for Abad Goyal Diagnoses Altered mental status R41.82 Altered mental status type: unspecified Amphetamine intoxication F15.921 Complication of substance-induced condition: with delirium Leukocytosis D72.823 Leukocytosis type: leukemoid reaction Hypokalemia E87.6 Normocytic anemia D64.9
[2019-09-03] MEDS: famotidine 20 mg/2 mL INJ IVP (13:51)
--- NOTE | 2019-09-03 17:00 | PC.NURSE ---
Pt woke up and attempted extubation. At this time, Dr. Ross was called and an order for Precedex was placed. Precedex was started in addition Propofol and Fentanyl, which were already running at the peak of their ordered titratable level.
[2019-09-03 17:05] LABS: HIV 1 & 2 Antibody Non-Reactive (Non-Reactiv); HIV 1 & 2 Antigen Non-Reactive (Non-Reactiv)
[2019-09-03 17:40] LABS: Hepatitis B Surface AB. 8.6 (0-8.5); Hepatitis B Surface Antigen. Non-Reactive (Nonreactive); Hepatitis C Virus Antibody Non-Reactive (Nonreactive)
[2019-09-03] MEDS: sodium chloride 0.9% 500 ML IV (20:34)
[2019-09-03] MEDS: quetiapine 100 mg Tablet PO (20:39)
--- NOTE | 2019-09-03 21:00 | PC.NURSE ---
patient's son here, left name and phone number, also clarified that patient has no known drug allergies, chart updated to confirm this. Fabby RN
[2019-09-03] MEDS: sodium chloride 0.9% 500 ML 999 ML IV (23:26)
[2019-09-04] VITALS (70 sets, daily range): BP systolic 76–140; BP diastolic 42–76; PULSE 69–144; RESP 14–36; TEMP 36.7; O2SAT 87–97
[2019-09-04] MEDS: famotidine 20 mg/2 mL INJ IVP (00:42)
[2019-09-04] MEDS: propofol 1,000 MG/100 ML INJ 8.2 MG IV (02:58)
[2019-09-04] MEDS: sodium chlor 0.9% + KCl 20 mEq 20 MEQ/1,000 ML BAG 100 MEQ IV (02:59)
[2019-09-04 04:20] LABS: Basophils % 0.5 %; Eosinophils # 0.1 10^3/uL (0.0-0.8); Eosinophils % 1.3 %; Hematocrit 31.6 % (37.0-47.0); Hemoglobin 9.8 g/dL (11.5-15.3); Lymphocytes # 1.3 10^3/uL (0.8-4.8); Lymphocytes % 15.6 %; Mean Corpuscular Hemoglobin 27.3 pg (28.0-34.0); Mean Platelet Volume 10.3 fL (7.4-10.4); Monocytes # 0.6 10^3/uL (0.2-0.9); Monocytes % 6.4 %; Neutrophils # 6.5 10^3/uL (1.8-7.7); Neutrophils % 75.8 %; Nucleated Red Blood Cells % 0 %; Platelet Count 210 10^3/cmm (130-400); Red Blood Count 3.59 10^6/uL (4.1-5.3); Red Cell Distribution Width 13.5 % (12.1-15.1); White Blood Count 8.5 10^3/uL (4.0-10.0)
[2019-09-04 04:40] LABS: Alanine Aminotransferase 10 U/L (0-33); Albumin Level 2.6 g/dL (3.5-5.2); Alkaline Phosphatase 79 IU/L (35-105); Anion Gap 16.6 (5-19); Aspartate Amino Transferase 18 U/L (0-32); Blood Urea Nitrogen 6 mg/dL (6-20); Carbon Dioxide 19 mmol/L (22-29); Chloride 108 mmol/L (98-107); Globulin 2.6 g/dL (1.3-4.6); Glomerular Filtration Rate 164.5 mL/min (90-130); Glucose 90 mg/dL (65-115); Potassium 3.6 mmol/L (3.5-5.1); Sodium 140 mmol/L (136-145); Total Bilirubin 0.3 mg/dL (0.15-1.2); Total Protein 5.2 g/dL (6.6-8.7)
[2019-09-04] MEDS: enoxaparin 30 mg/0.3 mL Syringe SUBCUT (06:34)
--- NOTE | 2019-09-04 06:44 | PC.NURSE ---
patient's son Jose Rafael Joy visited last pm and left phone number to be placed on chart: [phone]. MMorgan RN
--- NOTE | 2019-09-04 07:52 | XRR_ITS ---
PROCEDURE INFORMATION: Exam: XR Chest, 1 View Exam date and time: 09/04/2019 7:53 AM Age: 59 years old Clinical indication: Shortness of breath; Additional info: Resp failure TECHNIQUE: Imaging protocol: XR of the chest Views: 1 view. COMPARISON: No relevant prior studies available. FINDINGS: Tubes, catheters and devices: There is an ET tube with tip at the clavicular heads an orogastric tube with tip just barely entering the stomach. For ideal placement, the orogastric tube should be advanced about 4 cm. Lungs: There is severe hyperinflation. There is interstitial prominence compatible with fibrosis, bronchitis, viral pneumonitis or mild interstitial edema. Asymmetric ground-glass opacity is also noted in the left lung compared to the right concerning for early asymmetric airspace edema or pneumonic infiltrates. Pleural space: Unremarkable. No pleural effusion. No pneumothorax. Heart/Mediastinum: Unremarkable. No cardiomegaly. Bones/joints: Old left rib fracture deformities are noted. XR/XR chest 1V portable [id number] IMPRESSION: 1. There is an ET tube with tip at the clavicular heads an orogastric tube with tip just barely entering the stomach. For ideal placement, the orogastric tube should be advanced about 4 cm. 2. There is interstitial prominence compatible with fibrosis, bronchitis, viral pneumonitis or mild interstitial edema.
--- NOTE | 2019-09-04 07:53 | P.PN_ITS ---
Subjective Subjective: Interval history: Shreya is sedated on the ventilator. She required the addition of norepinephrine last night, secondary to hypotension and received several fluid boluses. Medications: Reviewed: Yes Vitals/I&O/Wt Last Vital Signs Temp 97.5 F L 09/03/19 20:00 Pulse 70 09/04/19 04:45 Resp 14 09/04/19 05:25 BP 128/68 09/04/19 04:45 Pulse Ox 97 09/04/19 04:45 09/03/19 09/04/19 09/04/19 22:59 06:59 14:59 Intake Total 1303.266 / 6096.646 3886.377 / 2350.476 Output Total 450 / 450 200 / 650 Balance 853.266 / 897.099 803.377 / 1700.476 Weight last 48 hrs Weight 45.359 kg Physical Exam Narrative: EXAM NARRATIVE: General exam is a thin appearing white female, sedated on the ventilator Neck supple, no masses Cardiovascular regular rate and rhythm. No murmur Lungs clear no wheezing or crackles Abdomen is soft, positive bowel sounds Extremities no cyanosis clubbing or edema Skin scattered bruising Urinary Catheter Management^: Smith: Cath Placed During This Visit: yes Urethral Indwelling: Yes Reason for Continuing Indwelling Catheter: Accurate Measurement of Urinary Output in Critically Ill Patients Urinary Catheter Date of Insertion: 09/03/19 Urinary Catheter Time of Insertion: 03:00 Data : 09/04/19 03:59 09/04/19 03:59 Micro: Microbiology 09/03/19 02:54 Blood Culture - Preliminary Blood NEGATIVE TO DATE 09/03/19 02:43 Blood Culture - Preliminary Blood NEGATIVE TO DATE 09/03/19 08:00 Gram Stain - Final Sputum - Endotracheal Tube Aspirate A&P Assessment and plan (1) Altered mental status: Secondary to acute intoxication with amphetamine. It is unknown if other substances are playing a role Required endotracheal intubation mechanical ventilation. We will lessen her sedation today of propofol and fentanyl, go up on Precedex, and see if we can awaken her and extubate. We will check an ABG and chest x-ray this morning. Status: Acute Qualifiers: Altered mental status type: unspecified Qualified Code(s): R41.82 - Altered mental status, unspecified Code(s): R41.82 - Altered mental status, unspecified (2) Amphetamine intoxication: Acute delirium. Cannot rule out seizure.. Keppra was started as she had been on this in the past. Status: Acute Qualifiers: Complication of substance-induced condition: with delirium Qualified Code(s): F15.921 - Other stimulant use, unspecified with intoxication delirium Code(s): F15.929 - Other stimulant use, unspecified with intoxication, unspecified (3) Leukocytosis: No infection has been noted currently. Will monitor closely. Further antibiotics have been held. Status: Acute Qualifiers: Leukocytosis type: leukemoid reaction Qualified Code(s): D72.823 - Leukemoid reaction Code(s): D72.829 - Elevated white blood cell count, unspecified (4) Hypokalemia: Resolved Status: Acute Code(s): E87.6 - Hypokalemia (5) Normocytic anemia: Present but stable Status: Acute Code(s): D64.9 - Anemia, unspecified Additional A&P Information Underlying mental health issues. Seroquel was started last night which she was on previous hospital stays. GI prophylaxis with Pepcid DVT prophylaxis with lovenox Continue hydration Full code Attestations Medical Necessity Statement*: Needs continued hospitalization secondary to respiratory failure requiring mechanical ventilation status post intoxication. Coding Level of Care Code Acute Knit Goods Cutter Hand for Abad Goyal Diagnoses Altered mental status R41.82 Altered mental status type: unspecified Amphetamine intoxication F15.921 Complication of substance-induced condition: with delirium Leukocytosis D72.823 Leukocytosis type: leukemoid reaction Hypokalemia E87.6 Normocytic anemia D64.9
[2019-09-04 10:56] LABS: ABG PCO2 43.8 mmHg (35-45); ABG PH Result 7.29 (7.35-7.45); Base Excess ABG -5.4 mmol/L (-2.0-2.0); Blood Gas Allen Test Pos; Blood Gas Sample Site Brachial, left; Blood Gas Sample Type Arterial; Blood Gas Tidal Volume 0.35; Oxygen Device VENT; PO2 ABG 66.4 mmHg (80.0-100.0)
[2019-09-04] MEDS: D5-NS 0.45% + KCL 20 mEq 20 MEQ/1,000 ML BAG 100 MEQ IV ×2 (11:48→21:02)
--- NOTE | 2019-09-04 12:55 | PC.NURSE ---
awaken and off meds extubated and restraints removed at this time alert and cooperative ice chips po given at this time
[2019-09-04] MEDS: levETIRAcetam 500 mg Tablet PO (17:37)
[2019-09-04] MEDS: famotidine 20 mg Tablet PO (17:37)
[2019-09-04] MEDS: LORazepam 0.5 mg Tablet 0.25 MG PO (19:21)
[2019-09-04] MEDS: quetiapine 100 mg Tablet PO (21:02)
--- NOTE | 2019-09-04 22:02 | PC.CHAP ---
Pastoral Care Encounter/Spiritual Assessment Type of Contact [] Declined asbestos coverer visit [] Patient/Family/Request visit [] Outpatient visit [] Follow-up visit [] Physician referral [] Code/Alert [X] Routine visit [] Staff referral [] Actively dying [X] Patient sleeping [] Family support [] [] Out of room [] Palliative care [] [] Receiving care in room [] Pre-surgical visit [] Trauma [] Long length of stay [] ICU visit [] Other: Relational/Emotional Strength [] Patient feels connected with others/family/visitors/staff [] Distress [] Loneliness/isolation [] Abandonment Spirituality of Patient [] Person of [place] [] Attends Voodoo of their [place] [] Believes in Prayer [] Reads Bible or Moravian materials [] There are Spiritual issues to be addressed Model Set Artist Interventions [] Prayer [] Active listening [] Non-anxious presence [] Spiritual/emotional support [] Crisis/trauma care [] Spiritual counseling [] Bereavement support [] Provided bereavement packet [] Provided Bible/devotional materials [] Provided toy/stuffed animal, coloring book to patient or family member [] Provided Communion [] Anointing/[place] [] Salvation [] Completed spiritual assessment [] Other: Impact on Illness or Injury [] Angry [] Fearful [] Anxious [] Often cries [] Exhaustion [] Unable to work [] Unable to attend jehovah's witness [] Unable to walk/stand [] Unable to read [] Unable to drive [] Unable to eat/drink [] Unable to sleep [] Unable to be with family [] Patient intubated [] Other: Summary PATIENT ASLEEP, NEED FOLLOWUP NEXT DAY Time spent with patient
[2019-09-05] VITALS (15 sets, daily range): BP systolic 104–126; BP diastolic 55–73; PULSE 101–111; RESP 20–36; TEMP 36.6–37.1; O2SAT 87–98
[2019-09-05] MEDS: levETIRAcetam 500 mg Tablet PO ×2 (07:49→17:51)
[2019-09-05] MEDS: enoxaparin 30 mg/0.3 mL Syringe SUBCUT (07:49)
[2019-09-05] MEDS: famotidine 20 mg Tablet PO ×2 (07:49→17:51)
--- NOTE | 2019-09-05 11:24 | PC.NURSE ---
Took patient's martell out. Got a walker and portable oxygen to see how patient could ambulate. Ambulated 60 feet and had to sit down. Became moderately short of breath. Taught patient the tripod breathing and pursed lip breathing exercises. Needs the walker as patient is very weak from prolonged immobility. Gait belt used during ambulation. Pt resting on side of bed with present. After ambulation O2 sat was 89% on 2L NC. After 5 minutes of sitting and rest patients O2 was 94% on 2L NC. HR was elevated to 112 and respirations were 36. Pt slowed breathing down to 24 after 5 more minutes of rest and reported some relief of shortness of breath.
--- NOTE | 2019-09-05 13:10 | PM.DCS ---
Discharge Providers Date of Admission: 09/03/19 05:44 Date of Discharge: September 05, 2019 Attending Provider at Admission: Richa Calderon MD Attending Provider at Discharge: Wayne Ross MD Diagnoses at Discharge Discharge Diagnosis (1) Altered mental status: Status: Acute Problem details: Resolved Qualifiers: Altered mental status type: unspecified Qualified Code(s): R41.82 - Altered mental status, unspecified (2) Amphetamine intoxication: Status: Acute Problem details: Resolved. Denied any suicidal attempt. Refused rehabilitation. Qualifiers: Complication of substance-induced condition: with delirium Qualified Code(s): F15.921 - Other stimulant use, unspecified with intoxication delirium (3) Leukocytosis: Status: Acute Problem details: Resolved Qualifiers: Leukocytosis type: leukemoid reaction Qualified Code(s): D72.823 - Leukemoid reaction (4) Hypokalemia: Status: Acute Problem details: Resolved (5) Normocytic anemia: Status: Acute Reason for Visit Reason for Visit: Reason For Visit: POSSIBLE OVERDOSE Hospital Course Hospital Course: Sury is a 59-year-old white female who presented to the hospital with agitation, question of seizure, and reportedly smoking something. She has a history of amphetamine use. Secondary to agitation, and difficulty protecting her airway she was sedated and intubated. Urine drug screen here was positive for amphetamines. She was given supportive care in the ventilator. She was extubated the following day. Her mental status was at baseline. Her common-law /boyfriend arrived. He reported she was back to baseline. He had concerned she was using amphetamine. She had prior history of recent rehabilitation stay. I discussed with her in depth on multiple occasions whether she had any suicidal attempt, severe depression which she denied. Boyfriend confirmed that this had not been a suicide attempt. I offered the patient rehabilitation which she refused. I discussed with the if there was any other concerns regarding her wellbeing. He had no particular concerns. Secondary to all of these reasons she will be discharged home. She was instructed not to use methamphetamine. This appears to be a unintentional complication of stimulant use. A home oxygen evaluation will be done prior to discharge secondary to her history of severe COPD requiring oxygen at baseline and prior history of partial lung removal. Physical Exam Narrative: EXAM NARRATIVE: General exam is no apparent distress Cardiovascular regular rate and rhythm Lungs diminished breath sounds bilaterally but no wheezing or crackles Abdomen is soft, positive bowel sounds Extremities no cyanosis clubbing or edema Urinary Catheter Management^: Smith: Cath Placed During This Visit: yes Urethral Indwelling: Yes Reason for Continuing Indwelling Catheter: Accurate Measurement of Urinary Output in Critically Ill Patients Urinary Catheter Date of Insertion: 09/03/19 Urinary Catheter Time of Insertion: 03:00 Discharge Data Data Completed and Pending: Completed Studies During Hospitalization Category Date Time Status CT cervical spin wo con* 17573 Urge nt Cat Scan 09/03/19 03:[address] head wo con* 7 0450 Urgent Cat Scan 09/03/19 02:12 Completed XR chest 1V moiz ble 82480 Routine Exams 09/04/19 07:52 Completed XR chest 1V moiz ble 28087 Stat Exams 09/03/19 02:12 Completed Pending at discharge Category Date Time Status Blood Culture Sta t Lab 09/03/19 02:54 Results Sputum Culture an d Gram Stain Stat Lab 09/03/19 08:00 Results Vitals: Last Vital Signs Temp 97.9 F 09/05/19 11:16 Pulse 105 H 09/05/19 11:16 Resp 36 H 09/05/19 11:16 BP 126/73 09/05/19 11:16 Pulse Ox 93 09/05/19 11:16 Discharge Plan Discharge Patient Disposition: Home, Self-Care Condition: Stable Prescriptions: New levetiracetam 500 mg Tablet 500 mg PO Q12H Qty: 60 RF: 0 Continued quetiapine 300 mg tablet 300 mg PO BID RF: 0 ProAir HFA 90 mcg/actuation HFA aerosol inhaler 2 puff INHALATION Q6H PRN (Reason: Shortness Of Breath) RF: 0 ipratropium bromide 0.02 % solution See Rx Instructions .ROUTE .COMPLEX RF: 0 Discharge Orders: Discharge Order (Routine); Ordered 09/05/19 Ordered By: Wayne Ross Discharge Diet: Regular Discharge Activity: Increase activity as tolerated Activity Restrictions/Additional Instructions: Arrange for primary care provider follow-up 3 to 5 days Home oxygen evaluation prior to discharge. Notify me for DME order Discharge with walker Do not use drugs, no tobacco. Discharge Attestations Time Spent in Discharge Care*: greater than 30 min Quality Metrics Clinical Quality Measures During this hospital stay, did patient experience: None Coding Level of Care Code Acute Communication Coordinator for Chg Fwd Diagnoses Altered mental status R41.82 Altered mental status type: unspecified Amphetamine intoxication F15.921 Complication of substance-induced condition: with delirium Leukocytosis D72.823 Leukocytosis type: leukemoid reaction Hypokalemia E87.6 Normocytic anemia D64.9
[2019-09-05 17:57] LABS: Glucose Point of Care 60 mg/dL (70-110)
--- NOTE | 2019-09-13 09:28 | PC.SOCIAL ---
Blood culture results reviewed with Dr Ross and no further orders given. He agrees this is more than likely a contaminant.
== END 2019-09-05 18:31 | disposition home or self-care (01) | DRG 896 ==
LOC: ER 05:20 → ICU 05:56 → MEDSURG 09-05 08:15
PROVIDERS: Admitting Provider Hospitalist; Emergency Provider Emergency Medicine; Visit Provider Internal Medicine
DX: F15.229 Other stimulant dependence with intoxication, unspecified (principal); J96.00 Acute respiratory failure, unspecified whether with hypoxia or hypercapnia; E87.6 Hypokalemia; D64.9 Anemia, unspecified; F17.210 Nicotine dependence, cigarettes, uncomplicated; J44.9 Chronic obstructive pulmonary disease, unspecified; I95.9 Hypotension, unspecified
CPT/HCPCS: 12345; 31500; 36415; 36416; 36600; 51702; 70450; 71045; 72125; 80053; 80307; 81001; 82009; 82140; 82803; 82962; 83605; 83690; 83735; 84100; 84484; 84703; 85025; 85610; 85730; 86706; 86803; 87040; 87070; 87077; 87186; 87205; 87340; 87804; 87806; 93005; 94002; 94003; 94799; 96372; 96374; 96375; 99284; J0330; J0696; J1650; J1953; J2405; J2704; J3010; J3480; J3490; J7030; J7040

== ENCOUNTER 2019-09-03 02:06 | Emergency (ER) | payer MEDICAID, SELFPAY | END 2019-09-03 07:15 | disposition admitted as inpatient to this hospital (09) | LOC: ER 10-04 10:44 | PROVIDERS: Emergency Provider Nurse Practitioner Family; Family Provider Family Medicine | DX: F15.929 Other stimulant use, unspecified with intoxication, unspecified (principal); R41.82 Altered mental status, unspecified; E87.6 Hypokalemia | CPT/HCPCS: 51702; 70450; 71045; 72125; 93005; 94002; 94799; 96365; 96366; 96367; 96375; 99291; J0330; J0696; J2405; J2704; J3010; J3480; J3490; J7030 ==

== ENCOUNTER → 2019-09-09 13:08 | Outpatient (BNVA) | payer MEDICAID, SELFPAY | PROVIDERS: Family Provider Family Medicine; Visit Provider Nurse Practitioner Psychiatric/Mental Health | DX: F41.1 Generalized anxiety disorder (principal) | CPT/HCPCS: 90832; 99213 ==

== ENCOUNTER → 2019-10-07 07:40 | Outpatient (BNVA) | payer MEDICAID, SELFPAY | PROVIDERS: Family Provider Family Medicine; Visit Provider Nurse Practitioner Psychiatric/Mental Health | DX: F39 Unspecified mood [affective] disorder (principal); F15.11 Other stimulant abuse, in remission; F17.200 Nicotine dependence, unspecified, uncomplicated | CPT/HCPCS: 99212 ==

== ENCOUNTER → 2019-12-06 07:56 | Outpatient (BNVA) | payer MEDICAID, SELFPAY | PROVIDERS: Family Provider Family Medicine; Visit Provider Nurse Practitioner Psychiatric/Mental Health | DX: F39 Unspecified mood [affective] disorder (principal); F15.11 Other stimulant abuse, in remission; F17.200 Nicotine dependence, unspecified, uncomplicated | CPT/HCPCS: 99212 ==

== ENCOUNTER 2020-01-17 15:40 | Outpatient (CLI) | payer MEDICAID, SELFPAY ==
--- NOTE | 2020-01-17 | USCV_ITS ---
Sury Joy Age: 59 Gender: F : 1960 Exam Date: 01/17/2020 16:05 Ordering Phys: Reema WebsterP TAIL SAWYER Technologist: [place] Lu Exam Location: [facility] [place] Indication: PAD RIGHT LEFT Brachial 109.00 mmHg Brachial 123.00 mmHg Pressure (mmHg) Waveform Pressure (mmHg) Waveform 127.00 ZIPPER LINING FOLDER 144.00 144.00 DPA 136.00 1.17 Ankle/Brachial Index 1.17 94.00 Pre-Exercise Toe Pressure 78.00 0.76 Pre-Exercise Toe/Brachial Index 0.63 FINDINGS Total of 10 systems were reviewed. Except for the ones which are mentioned below, other system review were unremarkable ABIs bilaterally Normal TBI on the right side Slightly diminished TBI on the left side CONCLUSIONS 1. Features of mild peripheral artery disease on the left side 2. No significant arterial obstruction on the right side. Dr Corrine Hoffman MD FAC (Electronically Signed) Final Date: 18 January 2020 08:39 S
== END 2020-01-17 15:41 | disposition home or self-care (01) ==
LOC: RAD 15:43
PROVIDERS: PCP Nurse Practitioner Family; Visit Provider Nurse Practitioner Family
DX: I73.9 Peripheral vascular disease, unspecified (principal)
CPT/HCPCS: 93922; 99212

== ENCOUNTER → 2020-04-10 09:03 | Outpatient (BNVA) | payer MEDICAID, SELFPAY | PROVIDERS: Absent Provider Psychiatry & Neurology Psychiatry; Family Provider Family Medicine; Visit Provider Nurse Practitioner Psychiatric/Mental Health | DX: F39 Unspecified mood [affective] disorder (principal); F17.200 Nicotine dependence, unspecified, uncomplicated; F15.11 Other stimulant abuse, in remission | CPT/HCPCS: G0463 ==

== ENCOUNTER 2023-04-19 14:17 | Emergency (ER) | payer MEDICAID, SELFPAY ==
[2023-04-19 14:25] VITALS: BP 115/54; PULSE 113; RESP 22; TEMP 36.7; O2SAT 91; BMI 15.0
[2023-04-19 15:01] VITALS: BP 152/60; PULSE 111; RESP 18; O2SAT 99
--- NOTE | 2023-04-19 15:02 | ECG_ITS ---
[facility] Test Date: 2023-04-19 Pat Name: Sury Joy Department: Room: Gender: Female Asset Protection Officer: : 1960 Requested By: Grisel Mtz Order Number: [id number] Reading MD: Corrine Hoffman M.D. Measurements Intervals [place] Rate: 109 P: 78 RI: 140 QRS: 91 QRSD: 94 T: 78 QT: 334 QTc: 451 Interpretive Statements SINUS TACHYCARDIA BORDERLINE RIGHT AXIS DEVIATION [QRS AXIS > 90] ABNORMAL RHYTHM ECG Compared to ECG 10/25/2017 14:20:08 Sinus rhythm no longer present Electronically Signed On 04-19-2023 21:27:28 CDT by Corrine Hoffman M.D. [email or web address]
[2023-04-19 15:34] LABS: Basophils # 0.1 10^3/uL (0.0-0.1); Basophils % 0.8 %; Eosinophils # 0.4 10^3/uL (0.0-0.8); Eosinophils % 6.8 %; Hematocrit 36.9 % (36-47); Lymphocytes # 0.9 10^3/uL (0.8-4.8); Lymphocytes % 14.6 %; Mean Corpuscular HGB Conc 30.6 g/dL (30-55); Mean Corpuscular Hemoglobin 29.3 pg (27-33); Mean Corpuscular Volume 95.6 fl (85-98); Mean Platelet Volume 10.1 fL (7.4-10.4); Monocytes # 0.7 10^3/uL (0.2-0.9); Monocytes % 10.1 %; Neutrophils # 4.37 10^3/uL (1.8-7.7); Neutrophils % 67.5 %; Nucleated Red Blood Cells % 0 %; Platelet Count 234 10^3/cmm (157-399); Red Blood Count 3.86 10^6/uL (3.85-5.65); Red Cell Distribution Width 13.2 % (12.1-15.1); White Blood Count 6.46 10^3/uL (3.29-11.43)
[2023-04-19 15:47] LABS: Alanine Aminotransferase 9 U/L (0-33); Albumin Level 3.4 g/dL (3.5-5.2); Alkaline Phosphatase 95 U/L (35-105); Anion Gap 13.3 (5-19); Aspartate Amino Transferase 10 U/L (0-32); Blood Urea Nitrogen 8 mg/dL (8-23); Calcium 8.8 mg/dL (8.5-10.5); Carbon Dioxide 29 mmol/L (22-29); Chloride 101 mmol/L (98-107); Globulin 2.7 g/dL (1.3-4.6); Glomerular Filtration Rate 162.3 mL/min (90-130); Glucose 81 mg/dL (65-115); Osmolality Calculated 287 mOsm/kg (285-295); Potassium 3.3 mmol/L (3.5-5.1); Sodium 140 mmol/L (136-145); Total Bilirubin 0.3 mg/dL (0.15-1.2); Total Protein 6.1 g/dL (6.6-8.7)
[2023-04-19 16:01] VITALS: BP 110/57; PULSE 116; RESP 18; O2SAT 98
--- NOTE | 2023-04-19 16:05 | XRR_ITS ---
PROCEDURE INFORMATION: Exam: XR Chest Exam date and time: 04/19/2023 4:40 PM Age: 63 years old Clinical indication: Cough; Prior surgery; Surgery date: 6+ months; Surgery type: RT upper lobe; Additional info: Wheezing, cough TECHNIQUE: Imaging protocol: Radiologic exam of the chest. Views: 2 views. COMPARISON: CR XR chest 1V portable [id number] 09/03/2019 2:50 AM FINDINGS: Lungs: There are centrilobular emphysematous changes in the bilateral lungs. Right upper lobe scarring. Pleural spaces: Unremarkable. No pleural effusion. No pneumothorax. Heart/Mediastinum: Unremarkable. No cardiomegaly. Bones/joints: Unremarkable. XR/XR chest 2V* [id number] IMPRESSION: 1. There are centrilobular emphysematous changes in the bilateral lungs. 2. Right upper lobe scarring.
[2023-04-19] MEDS: potassium chloride ER 20 mEq Tablet 40 MEQ PO (16:08)
--- NOTE | 2023-04-19 16:14 | W.ED.SOB ---
HPI - SOB/Dyspnea General: Chief Complaint: Shortness of Breath/Dyspnea Stated Complaint: SOB Time Seen by Provider: 04/19/23 14:52 History of Present Illness: HPI Narrative: Shreya Joy is a 63-year-old female that presents to the emergency department with increased shortness of breath and work of breathing. Onset of symptoms in the last 2 days. Patient reports she has had a very wet cough and is been coughing up thick green sputum. Patient has denied fever or chills. She reports that she has baseline COPD/emphysema which is pretty advanced. She has been taking all of her usual meds without relief of symptoms. Associated symptoms: Reports fever(s); Deny abdominal pain, chest congestion, chest pain, dizziness, extremity pain, nausea, orthopnea, palpitations, polydipsia, polyuria or vomiting Review of Systems General: Reports: 10 or more systems reviewed and unremarkable except in HPI and below Const: Reports: fever(s), chills and fatigue; Denies: change in appetite, change in weight or malaise Eyes: Denies: change in vision, eye discomfort, eye discharge or eye redness ENMT: Reports: nasal discharge and post nasal drip; Denies: throat pain, enlarged tonsils, odynophagia, hoarseness, ear or mastoid pain, ear discharge, change in hearing, tinnitus, nasal congestion or sinus pain Card: Denies: chest pain, palpitations, irregular heart rhythm, edema, dyspnea on exertion, orthopnea or leg pain with exertion Resp: Denies: dyspnea, productive cough, non-productive cough, wheezing, stridor or chest congestion GI: Denies: abdominal pain, nausea, vomiting, dysphagia, diarrhea, constipation, bloating, GI cramping or hematochezia : Denies: flank pain, difficulty voiding, dysuria, urinary frequency, urinary urgency, urinary hesitancy, oliguria or hematuria Musc: Denies: neck pain, back pain, extremity pain, joint pain, joint swelling, joint redness, joint warmth or muscle weakness Skin/Breast: Denies: rash, pruritus, erythema, photosensitivity or new lesions Neuro: Denies: headache(s), numbness in extremities, weakness in extremities, sensory changes, lack of coordination, difficulty walking, frequent falls, dizziness, confusion, Slurred speech present, difficulty communicating thoughts, seizure-like activity or involuntary movements Endo: Denies: polyuria, polydipsia or tired all the time Donaldo/Lymph: Denies: easy bruising or easy bleeding PFSH ED PFSH: Medical History (Updated 04/19/23 @ 17:11 by ANANT Levin) Abnormal EKG Affective disorder See comments below. Bilateral numbness and tingling of arms and legs Leg pain Leg swelling Methamphetamine use disorder, mild, in early remission, abuse SOB (shortness of breath) Pt refused stress test Substance abuse in remission Tobacco use disorder, severe, dependence Surgical History Hx of section S/P lobectomy of lung Social History (Updated 03/22/20 @ 14:38 by Danae Marie RN) Smoking and tobacco/nicotine status: current every day tobacco/nicotine user cigarettes Packs smoked per day: 0.5 Years cigarettes smoked: 44 Quit status (tobacco/nicotine): not considering quitting Second hand smoke exposure: No Alcohol intake: former Year of sobriety/quit date alcohol: 2007 Substance/Drug Use: former Date of last use: 08/2019 methamphetamine use, distant use of marijuana, PCP, and acid Lives independently: Yes Household members: none Current occupational status: disabled Do you think of yourself as: Straight/Heterosexual Current gender identity: Female Physical Exam Const: COMMON NORMALS: no acute distress, patient oriented x3 and alert GENERAL APPEARANCE: cooperative ORIENTATION/CONSCIOUSNESS: Yes awake, Yes oriented to person, Yes oriented to place and Yes oriented to time HENMT: COMMON NORMALS: normocephalic and atraumatic HEAD & SCALP: normocephalic and atraumatic FACE & SINUS: normal facial exam MOUTH: Normal oral and palatal mucosa present THROAT: posterior oropharynx normal Eye: COMMON NORMALS: Equal, round and reactive pupils present, EOMs intact bilaterally, conjunctivae normal and no scleral icterus GENERAL EYE: appearance normal, both eyes and all related structures ALIGNMENT: Yes alignment normal PERIORBITAL: periorbital findings normal CONJUNCTIVA: Yes conjunctivae normal PUPIL: Yes Equal, round and reactive pupils present Neck/C-Spine: COMMON NORMALS: full ROM GENERAL: Yes normal visual inspection Lymph: LYMPHATIC: no lymphadenopathy noted Chest: COMMONS NORMALS: normal inspection of the chest Breast/axilla inspection: Yes no chest deformity, asymmetry, normal contours, no nodules, masses, tenderness Resp: EFFORT & INSPECTION: No able to speak in complete sentences, Yes symmetric chest movement, Yes tachypneic, Yes respiratory distress, Yes labored, Yes uses accessory muscles and Yes audible wheezes AUSCULTATION: wheezes left upper and diminished lung sounds bilateral and diffuse Cardio: COMMON NORMALS: regular rhythm and Peripheral pulses 2+ throughout RATE: tachycardic RHYTHM: regular rhythm PERIPHERAL PULSES: Peripheral pulses 2+ throughout GI: COMMON NORMALS: Normal to inspection, nondistended, normoactive bowel sounds present, Soft to palpation, non-tender and No hepatosplenomegaly present INSPECTION: Yes normal to inspection AUSCULTATION: Yes normoactive bowel sounds PALPATION: Yes Soft to palpation and Yes No hepatosplenomegaly present RECTAL EXAM: deferred Extremity: COMMON NORMALS: normal to inspection GENERAL: Yes normal exam except as noted Neuro: COMMON NORMALS: patient oriented x3 SENSORIUM/ORIENTATION: Yes alert, Yes oriented to person, Yes oriented to place and Yes oriented to time CRANIAL NERVES: Yes CN normal except as noted Psych: COMMON NORMALS: mental status grossly normal, Normal thought process present, cooperative, activity/motor behavior normal, denies homicidal ideation and denies suicidal ideation THOUGHT PROCESS: Normal thought process present Skin: COMMON NORMALS: no rashes or lesions noted, no wounds and turgor normal GENERAL SKIN EXAM: no rashes or lesions noted and turgor normal Course Vital Signs: Vital signs: Vital Signs Temperature 98.1 F 04/19/23 14:25 Pulse Rate 109 H 04/19/23 16:25 Respiratory Rate 18 04/19/23 16:25 Blood Pressure 110/57 04/19/23 16:01 Pulse Oximetry 100 04/19/23 16:25 Oxygen Delivery Me thod Aerosol Mask 04/19/23 16:25 Oxygen Flow Rate 3 04/19/23 16:25 MDM - SOB/Dyspnea Medical Decision Making Patient is a 63-year-old end stage pulmonary patient that presents with productive cough and increased shortness of breath. Differential diagnosis includes pneumonia, COPD exacerbation, bronchitis, viral versus bacterial Patient underwent CBC, CMP, chest x-ray, EKG. EKG completed at 1528 and reveals sinus tachycardia without ST elevation, abnormal T wave inversion or ectopy. Chemistry panel reveals hypokalemia which she was treated with 40 mEq p.o. She was given steroids?80 mg methylprednisolone IM She was given a DuoNeb treatment. Unfortunately there was a tremendous delay about an hour and 15 minutes from order to completion. Patient was given ceftriaxone 1 g here and will discharge home with amoxicillin 875 twice daily for 5 days Lab Data 04/19/23 15:09 04/19/23 15:09 Labs/Radiology: Laboratory Results WBC 6.46 10^3/uL (3.29-11.43) 04/19/23 15:09 RBC 3.86 10^6/uL (3.85-5.65) 04/19/23 15:09 Hgb 11.30 g/dL (11.27-16.99) 04/19/23 15:09 Hct 36.9 % (36-47) 04/19/23 15:09 MCV 95.6 fl (85-98) 04/19/23 15:09 MCH 29.3 pg (27-33) 04/19/23 15:09 MCHC 30.6 g/dL (30-55) 04/19/23 15:09 RDW 13.2 % (12.1-15.1) 04/19/23 15:09 Plt Count 234 10^3/cmm (157-399) 04/19/23 15:09 MPV 10.1 fL (7.4-10.4) 04/19/23 15:09 Neut % (Auto) 67.5 % 04/19/23 15:09 Lymph % (Auto) 14.6 % 04/19/23 15:09 Mcpherson % (Auto) 10.1 % 04/19/23 15:09 Eos % (Auto) 6.8 % 04/19/23 15:09 Baso % (Auto) 0.8 % 04/19/23 15:09 Neut # (Auto) 4.37 10^3/uL (1.8-7.7) 04/19/23 15:09 Lymph # (Auto) 0.9 10^3/uL (0.8-4.8) 04/19/23 15:09 Mcpherson # (Auto) 0.7 10^3/uL (0.2-0.9) 04/19/23 15:09 Eos # (Auto) 0.4 10^3/uL (0.0-0.8) 04/19/23 15:09 Baso # (Auto) 0.1 10^3/uL (0.0-0.1) 04/19/23 15:09 Nucleated RBC % (auto) 0 % 04/19/23 15:09 Nucleated RBCs # 0.0 /100WBC 04/19/23 15:09 Sodium 140 mmol/L (136-145) 04/19/23 15:09 Potassium 3.3 mmol/L (3.5-5.1) L 04/19/23 15:09 Chloride 101 mmol/L (98-107) 04/19/23 15:09 Carbon Dioxide 29 mmol/L (22-29) 04/19/23 15:09 Anion Gap 13.3 (5-19) 04/19/23 15:09 BUN 8 mg/dL (8-23) 04/19/23 15:09 Creatinine 0.4 mg/dL (0.5-0.9) L 04/19/23 15:09 GFR Calculation 162.3 mL/min (90-130) H 04/19/23 15:09 Glucose 81 mg/dL (65-115) 04/19/23 15:09 Calculated Osmolality 287 mOsm/kg (285-295) 04/19/23 15:09 Calcium 8.8 mg/dL (8.5-10.5) 04/19/23 15:09 Total Bilirubin 0.3 mg/dL (0.15-1.2) 04/19/23 15:09 AST 10 U/L (0-32) 04/19/23 15:09 ALT 9 U/L (0-33) 04/19/23 15:09 Alkaline Phosphatase 95 U/L (35-105) 04/19/23 15:09 Total Protein 6.1 g/dL (6.6-8.7) L 04/19/23 15:09 Albumin 3.4 g/dL (3.5-5.2) L 04/19/23 15:09 Globulin 2.7 g/dL (1.3-4.6) 04/19/23 15:09 All radiology interpretation(s) finalized by discharge Discharge Plan Discharge Patient Disposition: Home Clinical Impression: COPD (chronic obstructive pulmonary disease), Acute exacerbation of chronic obstructive pulmonary disease Condition: Stable Prescriptions: New amoxicillin-pot clavulanate 875-125 mg tablet 1 tab PO Q12H Qty: 7 0RF prednisone 50 mg tablet 50 mg PO DAILY Qty: 5 0RF No Action cyclobenzaprine 10 mg tablet 10 mg PO TID PRN (Reason: muscle spasm) Anoro Ellipta 62.5-25 mcg/actuation blister with device 1 inh INHALATION Q24H 90 Days Qty: 60 3RF quetiapine [Seroquel] 300 mg tablet 300 mg PO .COMPLEX Qty: 90 2RF Rx Instructions: take one tablet every morning and two at bedtime ProAir HFA 90 mcg/actuation HFA aerosol inhaler 2 puff INHALATION Q6H PRN (Reason: Shortness Of Breath) ipratropium bromide 0.02 % solution See Rx Instructions .ROUTE .COMPLEX Rx Instructions: Inhale contents of 1 vial via neb every six hours Discharge Orders: Discharge ED (Routine); Ordered 04/19/23 Ordered By: Grisel Mtz McTeer Referrals: Ashley Busby MD [Family Provider] - Discharge Diet: Advance as tolerated Discharge Activity: Resume usual activity Patient Instructions: Pain Management, COPD (Chronic Obstructive Pulmonary Disease) (ED) Coding Level of Care Code ED Business Services Tech for Abad Goyal
[2023-04-19 16:25] VITALS: PULSE 109; RESP 18; O2SAT 100
[2023-04-19] MEDS: methylPREDNISolone (DEPO) 80 MG/ML INJ 1 mL IM (16:46)
[2023-04-19 17:36] VITALS: PULSE 106; RESP 18; O2SAT 94
== END 2023-04-19 17:37 | disposition home or self-care (01) ==
PROVIDERS: Nurse Practitioner; Emergency Provider Family Medicine
DX: J44.1 Chronic obstructive pulmonary disease with (acute) exacerbation (principal); F17.210 Nicotine dependence, cigarettes, uncomplicated; Z90.2 Acquired absence of lung [part of]
CPT/HCPCS: 36415; 71046; 80053; 85025; 93005; 94640; 96372; 96374; 99285; J1040

== ENCOUNTER 2023-06-24 10:23 | Emergency (ER) | payer MEDICAID, SELFPAY ==
[2023-06-24 10:24] VITALS: BP 117/64; PULSE 112; TEMP 36.4; O2SAT 93; BMI 15.9
--- NOTE | 2023-06-24 10:36 | ED.C_ITS ---
Documented by User: CARLOS Ivey 06/24/23 11:42 HPI - Psych General: Chief Complaint: Overdose Stated Complaint: Meth Abuse Time Seen by Provider: 06/24/23 10:26 Source: patient and EMS Mode of arrival: EMS Limitations: altered mental status History of Present Illness: Patient is a 63-year-old female with a longstanding history of meth abuse here via EMS for evaluation of paranoia. EMS states they were called out to patient's residence early this morning by her son but patient refused transportation to the emergency department. She states they were called later this morning and return to her residence where patient appeared acutely psychotic fearing that people were trying to shoot her and her son. Patient does admit to smoking methamphetamine and states I got a bad batch . Upon arrival to the emergency department patient is very fidgety and hyperactive. She is mildly tachycardic. She is slightly hypoxic. She does report a history of COPD and states she normally wears 2.5 to 3 L continuous oxygen. Patient tells me her current medications at home include Seroquel, Flexeril, Gabapentin, as well as her COPD medications. MD complaint: other (probable meth induced psychosis ) Onset (ago): hour(s) Duration: constant History of same: Yes Relieving factors: none Exacerbating factors: drug use Context: recent drug abuse Associated psychiatric symptoms: delusions Associated symptoms: Reports delusions and other (paranoia); Deny auditory hallucinations, visual hallucinations, homicidal ideation or suicidal ideation Treatments prior to arrival: none Review of Systems Const: Denies: fever(s) Card: Denies: chest pain, palpitations, lightheadedness, syncope or pre- syncope Resp: Denies: dyspnea GI: Denies: abdominal pain, nausea, vomiting or diarrhea Musc: Denies: neck pain, back pain, extremity pain or joint pain Skin/Breast: Denies: rash Neuro: Denies: headache(s), numbness in extremities, weakness in extremities, sensory changes, lack of coordination, difficulty walking, frequent falls, confusion or seizure-like activity Psych: Reports: paranoia; Denies: panic attacks, hopelessness, visual hallucinations, auditory hallucinations, suicidal ideation or homicidal ideation [facility] ED PFSH: Medical History Abnormal EKG SOB (shortness of breath) Pt refused stress test Substance abuse in remission Bilateral numbness and tingling of arms and legs Leg swelling Leg pain Tobacco use disorder, severe, dependence Affective disorder See comments below. Methamphetamine use disorder, mild, in early remission, abuse Surgical History S/P lobectomy of lung Hx of section Social History Smoking and tobacco/nicotine status: current every day tobacco/nicotine user cigarettes Packs smoked per day: 0.5 Years cigarettes smoked: 44 Quit status (tobacco/nicotine): not considering quitting Second hand smoke exposure: No Alcohol intake: former Year of sobriety/quit date alcohol: 2007 Substance/Drug Use: former Date of last use: 08/2019 methamphetamine use, distant use of marijuana, PCP, and acid Lives independently: Yes Household members: none Current occupational status: disabled Do you think of yourself as: Straight/Heterosexual Current gender identity: Female Physical Exam Const: COMMON NORMALS: alert GENERAL APPEARANCE: disheveled NUTRITIONAL APPEARANCE: thin and underweight ORIENTATION/CONSCIOUSNESS: Yes awake, Yes oriented to person and Yes oriented to place OTHER: looks much older than stated age HENMT: COMMON NORMALS: normocephalic and atraumatic HEAD & SCALP: normal to inspection, normocephalic and atraumatic FACE & SINUS: normal facial exam TEETH & GINGIVA: Yes edentulous and Yes poor dentition Resp: COMMON NORMALS: normal respiratory effort and clear to auscultation bilaterally AUSCULTATION: clear to auscultation bilaterally OTHER: satting normally on her 2-3L O2 Cardio: COMMON NORMALS: regular rhythm RATE: tachycardic RHYTHM: regular rhythm Extremity: GENERAL: Yes normal exam except as noted Neuro: CORTEZ COMA SCALE: document GCS findings [place] coma scale eye opening: Spontaneous [place] coma scale verbal response: Orientated [place] coma scale motor response: Obey commands [place] coma scale total score: 15 SENSORIUM/ORIENTATION: Yes alert, Yes oriented to person and Yes oriented to place Psych: COMMON NORMALS: denies hallucinations, denies homicidal ideation and denies suicidal ideation APPEARANCE: Yes unkempt and Yes disheveled ACTIVITY/MOTOR BEHAVIOR: Yes psychomotor agitation and Yes hyperactivity MOOD & AFFECT: Yes euthymic mood THOUGHT CONTENT: Yes delusions ATTENTION/CONCENTRATION: Yes attention grossly intact and Yes concentration grossly intact MEMORY/COGNITION: Yes memory grossly intact and Yes cognition grossly intact INSIGHT: Fair insight present (Psych) JUDGEMENT: Fair judgement present (Psych) Course Vital Signs: Vital signs: Vital Signs Temperature 97.5 F L 06/24/23 10:24 Pulse Rate 112 H 06/24/23 10:24 Blood Pressure 117/64 06/24/23 10:24 Pulse Oximetry 93 06/24/23 10:24 Oxygen Delivery Me thod Nasal Cannula 06/24/23 10:24 Oxygen Flow Rate 2 06/24/23 10:[address] [facility] - Psych Medical Decision Making Patient here for symptoms related to her recent methamphetamine use. She is not acutely suicidal or homicidal. She has a longstanding methamphetamine user. On arrival to the ED she is alert and oriented and is able to tell me all of her current home medications. She is slightly tachycardic most likely related to her amphetamine use. She was slightly hypoxic upon arrival however she was not on oxygen and tells me she normally wears 2.5 to 3 L continuous oxygen for her COPD. Once on oxygen her saturations quickly norma. Patient is refusing all blood work at this time. Patient did not arrive on a 96-hour hold or with an affidavit. I do not feel hospitalization is going to be overly useful for patient as this seems to be a longstanding chronic problem. She is not interested in drug rehab. Spoke to Dr. Rizzo who also evaluated patient and feels she can be discharged. Her brother is coming to pick her up. Differential Diagnosis Likely drug-induced psychotic disorder Medical Records I reviewed the patient's medical records. No radiology studies performed this visit Discharge Plan Discharge Patient Disposition: Home Clinical Impression: Drug-induced psychotic disorder with delusions, Methamphetamine abuse Condition: Stable Prescriptions: No Action cyclobenzaprine 10 mg tablet 10 mg PO TID PRN (Reason: muscle spasm) albuterol sulfate [ProAir HFA] 90 mcg/actuation HFA aerosol inhaler 2 puff INHALATION Q4H PRN (Reason: Shortness Of Breath) ipratropium-albuterol 0.5 mg-3 mg(2.5 mg base)/3 mL solution for nebulization 3 ml inhalation Q4H PRN (Reason: shortness of breath or wheezing) Qty: 180 0RF cetirizine 10 mg tablet 10 mg PO DAILY quetiapine 200 mg tablet 400 mg PO BID gabapentin 800 mg tablet 800 mg PO TID mirtazapine 15 mg tablet 15 mg PO BEDTIME Discharge Orders: Discharge ED (Routine); Ordered 06/24/23 Ordered By: Jessica Todd Coding Level of Care Code ED Post Partum Nurse for Chg Fwd Documented by User: Avtar Rizzo MD 06/24/23 11:55 HPI - Psych General: Chief Complaint: Overdose Stated Complaint: Meth Abuse Time Seen by Provider: 06/24/23 10:26 PFSH ED PFSH: Medical History Abnormal EKG SOB (shortness of breath) Pt refused stress test Substance abuse in remission Bilateral numbness and tingling of arms and legs Leg swelling Leg pain Tobacco use disorder, severe, dependence Affective disorder See comments below. Methamphetamine use disorder, mild, in early remission, abuse Surgical History S/P lobectomy of lung Hx of section Social History Smoking and tobacco/nicotine status: current every day tobacco/nicotine user cigarettes Packs smoked per day: 0.5 Years cigarettes smoked: 44 Quit status (tobacco/nicotine): not considering quitting Second hand smoke exposure: No Alcohol intake: former Year of sobriety/quit date alcohol: 2007 Substance/Drug Use: former Date of last use: 08/2019 methamphetamine use, distant use of marijuana, PCP, and acid Lives independently: Yes Household members: none Current occupational status: disabled Do you think of yourself as: Straight/Heterosexual Current gender identity: Female Physical Exam Neuro: CORTEZ COMA SCALE: document GCS findings [place] coma scale total score: 15 Course Vital Signs: Vital signs: Vital Signs Temperature 97.5 F L 06/24/23 10:24 Pulse Rate 112 H 06/24/23 10:24 Blood Pressure 117/64 06/24/23 10:24 Pulse Oximetry 93 06/24/23 10:24 Oxygen Delivery Me thod Nasal Cannula 06/24/23 10:24 Oxygen Flow Rate 2 06/24/23 10:[address] [facility] - Psych Medical Decision Making Patient here for symptoms related to her recent methamphetamine use. She is not acutely suicidal or homicidal. She has a longstanding methamphetamine user. On arrival to the ED she is alert and oriented and is able to tell me all of her current home medications. She is slightly tachycardic most likely related to her amphetamine use. She was slightly hypoxic upon arrival however she was not on oxygen and tells me she normally wears 2.5 to 3 L continuous oxygen for her COPD. Once on oxygen her saturations quickly norma. Patient is refusing all blood work at this time. Patient did not arrive on a 96-hour hold or with an affidavit. I do not feel hospitalization is going to be overly useful for patient as this seems to be a longstanding chronic problem. She is not interested in drug rehab. Spoke to Dr. Rizzo who also evaluated patient and feels she can be discharged. Her brother is coming to pick her up. I saw patient with above midlevel she has chronic methamphetamine abuse she has no appearance of acute psychosis here she is not a threat to herself and others she is stable for discharge patient is going home with her brother. Discharge Plan Discharge Patient Disposition: Home Clinical Impression: Drug-induced psychotic disorder with delusions, Methamphetamine abuse Condition: Stable Prescriptions: No Action cyclobenzaprine 10 mg tablet 10 mg PO TID PRN (Reason: muscle spasm) albuterol sulfate [ProAir HFA] 90 mcg/actuation HFA aerosol inhaler 2 puff INHALATION Q4H PRN (Reason: Shortness Of Breath) ipratropium-albuterol 0.5 mg-3 mg(2.5 mg base)/3 mL solution for nebulization 3 ml inhalation Q4H PRN (Reason: shortness of breath or wheezing) Qty: 180 0RF cetirizine 10 mg tablet 10 mg PO DAILY quetiapine 200 mg tablet 400 mg PO BID gabapentin 800 mg tablet 800 mg PO TID mirtazapine 15 mg tablet 15 mg PO BEDTIME Discharge Orders: Discharge ED (Routine); Ordered 06/24/23 Ordered By: Jessica Todd Coding Level of Care Code ED Post Partum Nurse for Abad Goyal
--- NOTE | 2023-06-24 10:59 | PC.PHAR ---
PT UNABLE TO VERIFY MEDICATIONS OR LAST TAKEN. VERIFIED MED LIST WITH KATHERIN AT [facility] 06/24/23.
[2023-06-24 11:55] VITALS: RESP 20
== END 2023-06-24 11:57 | disposition home or self-care (01) ==
PROVIDERS: Emergency Provider Physician Assistant
DX: F15.150 Other stimulant abuse with stimulant-induced psychotic disorder with delusions (principal); J44.9 Chronic obstructive pulmonary disease, unspecified; Z90.2 Acquired absence of lung [part of]; F17.210 Nicotine dependence, cigarettes, uncomplicated; Z99.81 Dependence on supplemental oxygen
CPT/HCPCS: 99281

== ENCOUNTER 2023-06-24 19:26 | Inpatient (IN) | payer MEDICAID, SELFPAY ==
[2023-06-24 19:32] VITALS: BP 104/80; PULSE 67; RESP 18; TEMP 36.7; O2SAT 88; BMI 16.8
--- NOTE | 2023-06-24 20:20 | ED.C_ITS ---
HPI - Psych 2 General: Chief Complaint: Psychiatric Symptoms Stated Complaint: MHE Time Seen by Provider: 06/24/23 19:34 Source: patient and family Mode of arrival: ambulatory Limitations: no limitations History of Present Illness: 63-year-old female who is a chronic hist ory of methamphetamine abuse patient was seen here earlier after she went home she started having worsening hallucinations and delusions placed were called. People outside her house. Patient here is much more paranoid she is screaming in the room not making much sense states she is seeing people she has had recent meth use. Associated symptoms: Reports auditory hallucinations, visual hallucinations and delusions; Deny depression Review of Systems 2 Const: Denies: fever(s), chills, body aches or change in appetite ENMT: Denies: throat pain or dental pain Card: Denies: chest pain Resp: Denies: dyspnea GI: Denies: abdominal pain, nausea, vomiting or diarrhea Musc: Denies: neck pain or back pain Skin/Breast: Denies: rash Neuro: Denies: headache(s) Psych: Reports: paranoia, visual hallucinations and auditory hallucinations; Denies: depression PFSH ED 2 PFSH: Medical History Abnormal EKG SOB (shortness of breath) Pt refused stress test Substance abuse in remission Bilateral numbness and tingling of arms and legs Leg swelling Leg pain Tobacco use disorder, severe, dependence Affective disorder See comments below. Methamphetamine use disorder, mild, in early remission, abuse Surgical History S/P lobectomy of lung Hx of section Social History Smoking and tobacco/nicotine status: current every day tobacco/nicotine user cigarettes Packs smoked per day: 0.5 Years cigarettes smoked: 44 Quit status (tobacco/nicotine): not considering quitting Second hand smoke exposure: No Alcohol intake: former Year of sobriety/quit date alcohol: 2007 Substance/Drug Use: former Date of last use: 08/2019 methamphetamine use, distant use of marijuana, PCP, and acid Lives independently: Yes Household members: none Current occupational status: disabled Do you think of yourself as: Straight/Heterosexual Current gender identity: Female Physical Exam 2 Const: COMMON NORMALS: patient oriented x3 HENMT: COMMON NORMALS: normocephalic and atraumatic HEAD & SCALP: n ormocephalic and atraumatic Eye: COMMON NORMALS: Equal, round and reactive pupils present and EOMs intact bilaterally PUPIL: Yes Equal, round and reactive pupils present Neck/C-Spine: COMMON NORMALS: full ROM and supple Chest: COMMONS NORMALS: normal inspection of the chest and normal palpation of entire chest wall Resp: COMMON NORMALS: normal respiratory effort, No retractions, No use of accessory muscles and clear to auscultation bilaterally AUSCULTATION: clear to auscultation bilaterally Cardio: COMMON NORMALS: regular rate, regular rhythm and No murmurs present (Cardio) RATE: regular rate RHYTHM: regular rhythm GI: COMMON NORMALS: Normal to inspection, nondistended, normoactive bowel sounds present, Soft to palpation, non-tender and no masses PALPATION: Yes Soft to palpation Extremity: COMMON NORMALS: normal to inspection and full ROM Neuro: COMMON NORMALS: patient oriented x3, moves all extremities and no focal motor deficits Psych: SPEECH: Yes excessive THOUGHT PROCESS: disorganized THOUGHT CONTENT: Yes delusions and Yes Hallucination(s) present Skin: COMMON NORMALS: no rashes or lesions noted and no wounds GENERAL SKIN EXAM: no rashes or lesions noted Course 2 Vital Signs: Vital signs: Vital Signs Temperature 98.0 F 06/24/23 19:32 Pulse Rate 67 06/24/23 19:32 Respiratory Rate 18 06/24/23 19:32 Blood Pressure 104/80 06/24/23 19:32 Pulse Oximetry 88 L 06/24/23 19:32 Oxygen Delivery Me thod Room Air 06/24/23 19:32 MDM - Psych Medical Decision Making 63-year-old female presents here with acute psychosis likely meth induced she is medically cleared I spoke to Dr. Montes will admit to the psychiatric unit. Medical Records I reviewed the patient's medical records. Lab Data I reviewed the patient's lab results. 06/24/23 21:40 06/24/23 21:40 Laboratory Results WBC 8.86 10^3/uL (3.29-11.43) 06/24/23 21:40 Corrected WBC Cancelled 06/24/23 20:14 RBC 4.31 10^6/uL (3.85-5.65) 06/24/23 21:40 Hgb 12.80 g/dL (11.27-16.99) 06/24/23 21:40 Hct 39.0 % (36-47) 06/24/23 21:40 MCV 90.5 fl (85-98) 06/24/23 21:40 MCH 29.7 pg (27-33) 06/24/23 21:40 MCHC 32.8 g/dL (30-55) 06/24/23 21:40 RDW 12.5 % (12.1-15.1) 06/24/23 21:40 Plt Count 357 10^3/cmm (157-399) 06/24/23 21:40 MPV 10.3 fL (7.4-10.4) 06/24/23 21:40 Gran % Cancelled 06/24/23 20:14 Neut % (Auto) 67.0 % 06/24/23 21:40 Lymph % (Auto) 20.5 % 06/24/23 21:40 [place] % (Auto) 9.7 % 06/24/23 21:40 Eos % (Auto) 1.6 % 06/24/23 21:40 Baso % (Auto) 1.0 % 06/24/23 21:40 Neut # (Auto) 5.93 10^3/uL (1.8-7.7) 06/24/23 21:40 Lymph # (Auto) 1.8 10^3/uL (0.8-4.8) 06/24/23 21:40 [place] # (Auto) 0.9 10^3/uL (0.2-0.9) 06/24/23 21:40 Eos # (Auto) 0.1 10^3/uL (0.0-0.8) 06/24/23 21:40 Baso # (Auto) 0.1 10^3/uL (0.0-0.1) 06/24/23 21:40 Absolute Gran (auto) Cancelled 06/24/23 20:14 Nucleated RBC % (auto) 0 % 06/24/23 21:40 Nucleated RBCs # 0.0 /100WBC 06/24/23 21:40 Sodium 141 mmol/L (136-145) 06/24/23 21:40 Potassium 3.4 mmol/L (3.5-5.1) L 06/24/23 21:40 Chloride 99 mmol/L (98-107) 06/24/23 21:40 Carbon Dioxide 33 mmol/L (22-29) H 06/24/23 21:40 Anion Gap 12.4 (5-19) 06/24/23 21:40 BUN 14 mg/dL (8-23) 06/24/23 21:40 Creatinine 0.8 mg/dL (0.5-0.9) 06/24/23 21:40 GFR Calculation 72.9 mL/min (90-130) L 06/24/23 21:40 Glucose 116 mg/dL (65-115) H 06/24/23 21:40 Calculated Osmolality 293 mOsm/kg (285-295) 06/24/23 21:40 Calcium 9.7 mg/dL (8.5-10.5) 06/24/23 21:40 Total Bilirubin 0.5 mg/dL (0.15-1.2) 06/24/23 21:40 AST 25 U/L (0-32) 06/24/23 21:40 ALT 21 U/L (0-33) 06/24/23 21:40 Alkaline Phosphatase 76 U/L (35-105) 06/24/23 21:40 Total Protein 6.5 g/dL (6.6-8.7) L 06/24/23 21:40 Albumin 4.5 g/dL (3.5-5.2) 06/24/23 21:40 Globulin 2.0 g/dL (1.3-4.6) 06/24/23 21:40 Salicylates < 0.3 mg/dL (3-10) L 06/24/23 21:40 Acetaminophen < 5.0 ug/mL (10-30) L 06/24/23 21:40 Ethyl Alcohol < 10 mg/dL (0-10) 06/24/23 21:40 No radiology studies performed this visit Discharge Plan Discharge Patient Disposition: Admitted As Inpatient Clinical Impression: Acute psychosis, Methamphetamine abuse Condition: Stable Prescriptions: No Action cyclobenzaprine 10 mg tablet 10 mg PO TID PRN (Reason: muscle spasm) albuterol sulfate [ProAir HFA] 90 mcg/actuation HFA aerosol inhaler 2 puff INHALATION Q4H PRN (Reason: Shortness Of Breath) ipratropium-albuterol 0.5 mg-3 mg(2.5 mg base)/3 mL solution for nebulization 3 ml inhalation Q4H PRN (Reason: shortness of breath or wheezing) Qty: 180 0RF cetirizine 10 mg tablet 10 mg PO DAILY quetiapine 200 mg tablet 400 mg PO BID gabapentin 800 mg tablet 800 mg PO TID mirtazapine 15 mg tablet 15 mg PO BEDTIME Referrals: Reema Webster FNP [Primary Care Provider] - Coding Level of Care Code ED Network Professional for Pareshg Jyotsna
[2023-06-24] MEDS: haloperidol inj 5 mg/mL INJ 1 mL IM (21:39)
[2023-06-24 21:46] LABS: Basophils # 0.1 10^3/uL (0.0-0.1); Eosinophils # 0.1 10^3/uL (0.0-0.8); Eosinophils % 1.6 %; Lymphocytes # 1.8 10^3/uL (0.8-4.8); Lymphocytes % 20.5 %; Mean Corpuscular HGB Conc 32.8 g/dL (30-55); Mean Corpuscular Hemoglobin 29.7 pg (27-33); Mean Corpuscular Volume 90.5 fl (85-98); Mean Platelet Volume 10.3 fL (7.4-10.4); Monocytes # 0.9 10^3/uL (0.2-0.9); Monocytes % 9.7 %; Neutrophils # 5.93 10^3/uL (1.8-7.7); Nucleated Red Blood Cells % 0 %; Platelet Count 357 10^3/cmm (157-399); Red Blood Count 4.31 10^6/uL (3.85-5.65); Red Cell Distribution Width 12.5 % (12.1-15.1); White Blood Count 8.86 10^3/uL (3.29-11.43)
[2023-06-24 22:03] LABS: Acetaminophen < 5.0 ug/mL (10-30); Alanine Aminotransferase 21 U/L (0-33); Albumin Level 4.5 g/dL (3.5-5.2); Alcohol Level < 10 mg/dL (0-10); Alkaline Phosphatase 76 U/L (35-105); Anion Gap 12.4 (5-19); Aspartate Amino Transferase 25 U/L (0-32); Blood Urea Nitrogen 14 mg/dL (8-23); Calcium 9.7 mg/dL (8.5-10.5); Carbon Dioxide 33 mmol/L (22-29); Chloride 99 mmol/L (98-107); Glomerular Filtration Rate 72.9 mL/min (90-130); Glucose 116 mg/dL (65-115); Osmolality Calculated 293 mOsm/kg (285-295); Potassium 3.4 mmol/L (3.5-5.1); Salicylate < 0.3 mg/dL (3-10); Sodium 141 mmol/L (136-145); Total Bilirubin 0.5 mg/dL (0.15-1.2); Total Protein 6.5 g/dL (6.6-8.7)
[2023-06-24 22:22] VITALS: BP 146/88; PULSE 91; RESP 20; O2SAT 100
--- NOTE | 2023-06-24 23:05 | PC.NURSE ---
Patient admission Patient came to unit unable to stand or answer questions. Speech was mumbled and slurred, she just wanted to sleep. Change to cloth scrubs, o2 connected and sitter a bedside
[2023-06-25 06:00] VITALS: RESP 16
[2023-06-25 06:12] VITALS: BP 121/72; PULSE 82; RESP 18; TEMP 36.5; O2SAT 91
[2023-06-25] MEDS: quetiapine 100 mg Tablet 400 MG PO (08:10)
[2023-06-25] MEDS: gabapentin 400 mg Capsule 800 MG PO (08:10)
[2023-06-25] MEDS: cetirizine 10 mg Tablet PO (08:10)
[2023-06-25 10:01] VITALS: PULSE 94; RESP 18; O2SAT 100
--- NOTE | 2023-06-25 11:26 | W.PM.NPUH&PS ---
Providers/Chief Complaint Admitting Physician: Anthony Montes MD Primary Care Provider: YSABEL Zamora Chief Complaint: MHE HPI NPU History of Present Illness Sury Joy is a 63 year old female who presented to the emergency department with complaints of hallucinations and bizarre delusions particularly that people were outside of her home. The patient was admitted to the neuropsychiatric unit for further evaluation and treatment. The patient had been unable to provide any further information but it indicated on the day of admission that she was feeling like people were after her. She had admitted to using methamphetamine and was positive for methamphetamine and benzodiazepines on admission. She had endorsed having auditory and visual hallucinations in the emergency department. She had received Haldol on the night of admission after she had been screaming while stating that people were trying to kill her. She was unable to provide any further information on interview. Inpatient psychiatric history: Per previous records she has had several inpatient hospitalizations. Outpatient psychiatric history: There is a past history of unspecified mood disorder and methamphetamine induced psychosis per previous records. Medical history: Anemia, hypokalemia, leg swelling, COPD Surgical Hx: lung lobectomy Allergies: Codeine and tramadol Medications: Zyrtec, cyclobenzaprine 10 mg 3 times a day, gabapentin 800 mg 3 times a day mirtazapine 15 mg at night, Seroquel 400 mg twice a day, albuterol inhaler. Drug and Alcohol history: per previous records methamphetamine abuse Family psychiatric history: unknown Social History: unknown, Meds NPU Home Medications Medication Instructions Recorded Confirmed Last Taken Type albuterol sulfate 90 mcg/actuation 2 puff inhalation Q4H PRN 09/05/19 06/24/23 09/03/19 History aerosol inhaler (ProAir HFA) Shortness Of Breath cyclobenzaprine 10 mg tablet 10 mg PO TID PRN muscle spasm 10/14/19 06/24/23 Unknown History ipratropium 0.5 mg-albuterol 3 mg 3 ml inhalation Q4H PRN shortness 04/19/23 06/24/23 Unknown Rx (2.5 mg base)/3 mL nebulization of breath or wheezing #180 mL soln cetirizine 10 mg tablet 10 mg PO DAILY 06/24/23 06/24/23 Unknown History gabapentin 800 mg tablet 800 mg PO TID 06/24/23 06/24/23 Unknown History mirtazapine 15 mg tablet 15 mg PO BEDTIME 06/24/23 06/24/23 Unknown History quetiapine 200 mg tablet 400 mg PO BID 06/24/23 06/24/23 Unknown History Allergies Allergy/AdvReac Type Severity Reaction Status Date / Time codeine AdvReac Severe ADR-Vomitin Verified 06/24/23 19:40 g tramadol AdvReac Severe ADR-Seizure Verified 06/24/23 19:40 PFSH NPU PFSH: Medical History Abnormal EKG SOB (shortness of breath) Pt refused stress test Substance abuse in remission Bilateral numbness and tingling of arms and legs Leg swelling Leg pain Tobacco use disorder, severe, dependence Affective disorder See comments below. Methamphetamine use disorder, mild, in early remission, abuse Surgical History S/P lobectomy of lung Hx of section Social History Smoking and tobacco/nicotine status: current every day tobacco/nicotine user cigarettes Packs smoked per day: 0.5 Years cigarettes smoked: 44 Quit status (tobacco/nicotine): not considering quitting Second hand smoke exposure: No Alcohol intake: former Year of sobriety/quit date alcohol: 2007 Substance/Drug Use: former Date of last use: 08/2019 methamphetamine use, distant use of marijuana, PCP, and acid Lives independently: Yes Household members: none Current occupational status: disabled Do you think of yourself as: Straight/Heterosexual Current gender identity: Female Mental Status Exam MSE Comments: The patient appears much older than stated age. She had a oxygen through nasal cannula here on the unit. She was unarousable by rub. She was not able to answer by name at this time. Her gait was not tested. She was not alert to person place or time. She was lying in bed and appeared cachectic. Her speech was slow and slurred and rambling. Her thought process was nonlinear. Her thought content showed no clear evidence of homicidal or suicidal ideation. Her insight is impaired. Her judgment is poor. Her impulse control appeared limited. There was no evidence of any abnormal involuntary motor movements tics or tremors appreciated. She had been responding to internal stimuli briefly while here on the unit. Vitals/I&O/Wt Last Vital Signs Temp 97.7 F 06/25/23 06:12 Pulse 94 06/25/23 10:01 Resp 18 06/25/23 10:01 BP 121/72 06/25/23 06:12 Pulse Ox 100 06/25/23 10:01 O2 Del Method Nasal Cannula 06/25/23 10:01 O2 Flow Rate 3 06/25/23 10:01 Weight last 48 hrs Weight 43.091 kg Data NPU 06/24/23 21:40 06/24/23 21:40 A&P Assessment and plan (1) Amphetamine-induced psychotic disorder: (2) Methamphetamine dependence: (3) Affective disorder: Plan 63-year-old female currently under the presence of methamphetamine likely withdrawing off methamphetamine with the presence of active psychosis and depression. She will continue to require acute inpatient hospitalization. 1. Encourage individual, group and milieu therapy. 2. Recommend sober living treatment at the highest level of care to which the patient is willing to commit. 3. Continue q-15 minute checks for safety.? 4.? Restart current medications. Changes made today include moving seroquel to 800mg at night instead of divided doses, D/C Remeron due to excess sedation. 5.? Will attempt to gather collateral information. Attestations NPU Medical Necessity Statement*: Inpatient hospitalization is medically necessary and deemed to be the clinically appropriate decision at this time. The patient will be started on medications and medications will be adjusted as clinically indicated. The patient will be in the hospital for at least 2 midnights. Her likely length of stay is 6 to 8 days. Coding Level of Care Code Acute Code for [facility] Fwd Diagnoses Amphetamine-induced psychotic disorder F15.959 Methamphetamine dependence F15.20 Affective disorder F39
[2023-06-25 14:00] VITALS: BP 104/66; PULSE 78; RESP 16; TEMP 36.6; O2SAT 100
--- NOTE | 2023-06-25 15:26 | PC.OT ---
OT EVALUATION ATTEMPTED BOTH IN A.M. AND P.M. PATIENT SLEEPING; 1:1 SITTER PRESENT.
[2023-06-25 20:45] VITALS: BP 124/75; PULSE 74; RESP 16; O2SAT 100
[2023-06-26] MEDS: OLANZapine 5 mg ODT PO (02:49)
[2023-06-26 06:00] VITALS: RESP 14
[2023-06-26] MEDS: cetirizine 10 mg Tablet PO (08:28)
[2023-06-26] MEDS: gabapentin 400 mg Capsule 800 MG PO ×3 (08:29→20:32)
[2023-06-26 14:00] VITALS: BP 99/66; PULSE 99; RESP 13; TEMP 37; O2SAT 97
--- NOTE | 2023-06-26 14:38 | W.PM.NPUPNS ---
Subjective NPU Subjective: 63-year-old white female with methamphetamine abuse admitted with paranoia and active psychosis. The patient was more alert this morning and stated that she had been using methamphetamine for several years. She had reported that she was on her current psychotropic medications because of her difficulties with being able to fall asleep. She had reported that the longest period of abstinence without the use of methamphetamine was a few days. She had a continue to appear confused on the milieu. She had continued to state that her family members and strangers around her were trying to kill her. Staff notes the patient required significant redirection. She had slept throughout the night despite Seroquel being held and Remeron being discontinued. Mental Status Exam MSE Comments: The patient appears much older than stated age with poor hygiene and fleeting eye contact. She had a oxygen through nasal cannula here on the unit. She was alert and oriented to person but not place or date. She appeared very confused and her speech was normal in regards to rate and volume with slight slurring noted in speech. Her thought process was linear but superficial. Her thought content showed no evidence of active homicidal or suicidal ideation. She did at times appear to be responding to internal stimuli and reported that she was hearing things that told her that her life was in danger. Her recent and remote memory appeared impaired. Her insight is fair impaired. Her judgment is poor. Her impulse control appeared limited. Her mood was described as okay. Her affect is odd, subdued, and mood incongruent. 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 She will continue to require acute inpatient hospitalization. 1. Encourage individual, group and milieu therapy. 2. Recommend sober living treatment at the highest level of care to which the patient is willing to commit. 3. Continue q-15 minute checks for safety.? 4.? Decrease seroquel to 600mg at night, patient may benefit from another atypical antipsychotic to target agitation and paranoia. 5.? Will attempt to gather collateral information. Attestations NPU Medical Necessity Statement*: Inpatient hospitalization is medically necessary and deemed to be the clinically appropriate decision at this time. The patient will be started on medications and medications will be adjusted as clinically indicated. The patient will be in the hospital for at least 2 midnights. Her likely length of stay is 6 to 8 days. Coding Level of Care Code Acute Code for [facility] Fwd Diagnoses Amphetamine-induced psychotic disorder F15.959 Methamphetamine dependence F15.20 Affective disorder F39
[2023-06-26 16:51] VITALS: PULSE 90; RESP 18; O2SAT 99
[2023-06-26 19:54] VITALS: BP 98/65; PULSE 101; RESP 15; O2SAT 97
[2023-06-26] MEDS: quetiapine 300 mg Tablet 600 MG PO (20:32)
[2023-06-27 06:00] VITALS: BP 115/70; PULSE 97; RESP 15; O2SAT 100
[2023-06-27] MEDS: ipratropium-albuterol 3 mL Neb INHALATION (07:23)
[2023-06-27 07:24] VITALS: PULSE 105; RESP 22; O2SAT 94
[2023-06-27 07:32] VITALS: PULSE 118
[2023-06-27] MEDS: gabapentin 400 mg Capsule 800 MG PO ×3 (08:45→20:44)
[2023-06-27] MEDS: cetirizine 10 mg Tablet PO (08:45)
[2023-06-27 08:49] LABS: Amphetamines Screen Urine Positive (Negative); Barbiturates Screen Urine Negative (Negative); Benzodiazepines Screen Urine Positive (Negative); Cocaine Screen Urine Positive (Negative); Opiate Screen Urine Negative (Negative); PCP Screen Urine Negative (Negative); THC Screen Urine Positive (Negative)
[2023-06-27 08:50] LABS: Bacteria Urine TRACE /hpf; Bilirubin Urine 1+ (Negative); Blood Urine Neg (Negative); Glucose Urine UA Norm (Normal); Ketones Urine 1+ (Negative); Leukocyte Esterase Urine Negative (Negative); Mucus Urine 2+ /hpf; Nitrate Urine Negative (Negative); Protein Urine Trace (Negative); RBC Urine 0-4 /hpf (0-2); Specific Gravity, Urine 1.025 (1.005-1.030); Squamous Epithelial Cell Urine 0-4 /hpf (0-5); Urine Appearance Clear (CLEAR); Urine Color Dark Yellow (Yellow); Urobilinogen Urine 1 mg/dL (Negative); WBC Urine 0-4 /hpf (0-5); pH Urine 5 (5-7)
--- NOTE | 2023-06-27 12:13 | W.PM.NPUPNS ---
Subjective NPU Subjective: 63-year-old white female with methamphetamine abuse admitted with paranoia and active psychosis. Patient was more alert and oriented on the milieu today. She continued to remain in bed with minimal interaction with her peers. She had admitted to the use of methamphetamine and stated that she felt ready to return home soon. The patient had stated that she was receiving her psychiatric medications to help her with her sleep but stated that she was not currently seeing a psychiatrist despite her large dose of Seroquel. She had reported that she was taking her afternoon Seroquel only as needed to help her when she became agitated or frustrated. She had denied having thoughts of hurting herself or others. The patient continued to appear somewhat isolative but did not appear hostile or requiring redirection today. Mental Status Exam MSE Comments: The patient is waif, and appears much older than stated age with poor hygiene and fleeting eye contact. She had a oxygen through nasal cannula here on the unit. She was alert and oriented to person and place today. She appeared less confused and her speech was slow in regards to rate and volume with slight slurring noted in speech. Her thought process was linear but superficial. Her thought content showed no evidence of active homicidal or suicidal ideation. She did not appear to be responding to internal stimuli. Her recent and remote memory appeared impaired. Her insight is fair impaired. Her judgment is poor. Her impulse control appeared limited. Her mood was described as allright. Her affect is odd, subdued, and mood incongruent. Vitals/I&O/Wt Last Vital Signs Temp 98.6 F 06/26/23 14:00 Pulse 118 H 06/27/23 07:32 Resp 22 H 06/27/23 07:24 BP 115/70 06/27/23 06:00 Pulse Ox 94 06/27/23 07:24 O2 Del Method Nasal Cannula 06/27/23 07:24 O2 Flow Rate 3 06/27/23 07:30 06/26/23 06/27/23 06/27/23 22:59 06:59 14:59 Intake Total 600 / 600 Balance 600 / 600 Data NPU 06/24/23 21:40 06/24/23 21:40 A&P Assessment and plan (1) Amphetamine-induced psychotic disorder: (2) Methamphetamine dependence: (3) Affective disorder: Plan 63-year-old female currently under the presence of methamphetamine likely withdrawing off methamphetamine with the presence of active psychosis and depression. She will continue to require acute inpatient hospitalization. 1. Encourage individual, group and milieu therapy. 2. Recommend sober living treatment at the highest level of care to which the patient is willing to commit. 3. Continue q-15 minute checks for safety.? 4.?Continue seroquel to 600mg at night, patient may benefit from another atypical antipsychotic to target agitation and paranoia. She appears slightly less sedated but still in recovery from her chronic meth use and withdrawal off methamphetamine. 5.? Will attempt to gather collateral information. Attestations NPU Medical Necessity Statement*: Inpatient hospitalization is medically necessary and deemed to be the clinically appropriate decision at this time. The patient will be started on medications and medications will be adjusted as clinically indicated. The patient will be in the hospital for at least 2 midnights. Her likely length of stay is 6 to 8 days. Coding Level of Care Code Acute Code for [facility] Fwd Diagnoses Amphetamine-induced psychotic disorder F15.959 Methamphetamine dependence F15.20 Affective disorder F39
--- NOTE | 2023-06-27 12:40 | PC.NURSE ---
Patient's SIS Dagmar Gibsonliff called to leave phone number: [phone].
[2023-06-27 13:47] VITALS: BP 97/58; PULSE 102; RESP 16; TEMP 36.9; O2SAT 94
[2023-06-27] MEDS: quetiapine 300 mg Tablet 600 MG PO (20:44)
[2023-06-27 21:09] VITALS: BP 108/53; PULSE 99; RESP 16; TEMP 36.5; O2SAT 91
[2023-06-28 06:00] VITALS: BP 99/65; PULSE 87; RESP 16; O2SAT 98
[2023-06-28] MEDS: gabapentin 400 mg Capsule 800 MG PO ×3 (09:16→20:32)
[2023-06-28] MEDS: cetirizine 10 mg Tablet PO (09:16)
--- NOTE | 2023-06-28 12:13 | P.NPUPN_ITS ---
Subjective NPU 2 Subjective: Patient presented today reporting that she is ready to go home. She was speaking and fairly magical thinking that she was done with methamphetamine use and that she was not really need to have any formal treatment or follow-up she is just going to discontinue using because she is ready now. We had a discussion about how that is generally not how it works and that people need some situation that allows them to help themselves to be accountable. She seemed to be focused on [place] being on Friday and wanting to be out even though it is unclear where she would go given her difficulties with living arrangement. She did not have a good answer for how she was going to stay sober given that was a stated goal. Mental Status Exam 2 MSE Comments: This is a thin/cachectic white female in hospital scrubs looking older than her stated age with limited grooming and eye contact. Sitting with a sitter as she is on continuous O2 monitoring. No abnormal movements except for mild psychomotor retardation and then psychomotor agitation when she is not given the answer she wants. Mostly uncooperative with exam and mild to moderate distress. Speech was decreased rate and volume and limited. Mood described as fine affect irritable. Thought process mostly organized. Thought content: Patient denied suicidal or homicidal ideation, there were no delusions reported but some paranoia and guardedness noted, she did not appear to be attending to internal stimuli. Attention and concentration were limited and memory was unreliable but none were formally tested. She is alert and oriented times person and place. Insight, judgment and impulse control are limited versus impaired. Vitals/I&O/Wt Last Vital Signs Temp 97.7 F 06/27/23 21:09 Pulse 87 06/28/23 06:00 Resp 16 06/28/23 06:00 BP 99/65 06/28/23 06:00 Pulse Ox 98 06/28/23 06:00 O2 Del Method Nasal Cannula 06/27/23 13:47 O2 Flow Rate 2 06/28/23 08:00 06/27/23 06/28/23 06/28/23 22:59 06:59 14:59 Intake Total 600 / 600 Balance 600 / 600 Data NPU 06/24/23 21:40 06/24/23 21:40 A&P Assessment and plan (1) Amphetamine-induced psychotic disorder: (2) Methamphetamine dependence: (3) Affective disorder: Plan 63-year-old female currently under the presence of methamphetamine likely withdrawing off methamphetamine with the presence of active psychosis and depression. She will continue to require acute inpatient hospitalization. 1. Encourage individual, group and milieu therapy. 2. Recommend sober living treatment at the highest level of care to which the patient is willing to commit. 3. Continue q-15 minute checks for safety.? 4.?Continue seroquel to 600mg at night, patient may benefit from another atypical antipsychotic to target agitation and paranoia. She appears slightly less sedated but still in recovery from her chronic meth use and withdrawal off methamphetamine. 5.? Will attempt to gather collateral information. Attestations NPU 2 Medical Necessity Statement*: Inpatient hospitalization is medically necessary and deemed to be the clinically appropriate decision at this time. The patient will be started on medications and medications will be adjusted as clinically indicated. Her likely length of stay is 5-7 days. Coding Level of Care Code Acute Code for [facility] Fwd Diagnoses Amphetamine-induced psychotic disorder F15.959 Methamphetamine dependence F15.20 Affective disorder F39
[2023-06-28 14:00] VITALS: BP 99/60; PULSE 89; RESP 16; TEMP 36.4; O2SAT 100
[2023-06-28 19:35] VITALS: BP 104/65; PULSE 102; RESP 16; TEMP 36.7; O2SAT 96
[2023-06-28] MEDS: quetiapine 300 mg Tablet 600 MG PO (20:32)
[2023-06-29 06:00] VITALS: BP 102/66; PULSE 86; RESP 17; O2SAT 100
[2023-06-29 09:18] VITALS: PULSE 94; RESP 17; O2SAT 98
[2023-06-29] MEDS: cetirizine 10 mg Tablet PO (09:27)
[2023-06-29] MEDS: gabapentin 400 mg Capsule 800 MG PO ×3 (09:27→19:31)
--- NOTE | 2023-06-29 11:11 | P.NPUPN_ITS ---
Subjective NPU 2 Subjective: Patient presented today reporting that she is doing fine. We did get a chance to speak with her who reports that she is doing much better and that he would be available for her. 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 She has no insight into what she is going to do to remove the methamphetamine from the situation and prevent recurrence. But she is continuing to be hopeful for discharge soon. Mental Status Exam 2 MSE Comments: This is a thin/cachectic white female in hospital scrubs looking older than her stated age with limited grooming and eye contact. Sitting with a sitter as she is on continuous O2 monitoring. No abnormal movements except for mild psychomotor retardation and then psychomotor agitation when she is not given the answer she wants. Mostly uncooperative with exam and mild to moderate distress. Speech was decreased rate and volume and limited. Mood described as fine affect irritable. Thought process mostly organized. Thought content: Patient denied suicidal or homicidal ideation, there were no delusions reported but some paranoia and guardedness noted, she did not appear to be attending to internal stimuli. Attention and concentration were limited and memory was unreliable but none were formally tested. She is alert and oriented times person and place. Insight, judgment and impulse control are limited versus impaired. Vitals/I&O/Wt Last Vital Signs Temp 98.0 F 06/28/23 19:35 Pulse 94 06/29/23 09:18 Resp 17 06/29/23 09:18 BP 102/66 06/29/23 06:00 Pulse Ox 98 06/29/23 09:18 O2 Del Method Nasal Cannula 06/29/23 09:18 O2 Flow Rate 2 06/29/23 09:18 Weight last 48 hrs Weight 38.272 kg Weight 43.091 kg Data NPU 06/24/23 21:40 06/24/23 21:40 A&P Assessment and plan (1) Amphetamine-induced psychotic disorder: (2) Methamphetamine dependence: (3) Affective disorder: Plan 63-year-old female currently under the presence of methamphetamine likely withdrawing off methamphetamine with the presence of active psychosis and depression. She will continue to require acute inpatient hospitalization. 1. Encourage individual, group and milieu therapy. 2. Recommend sober living treatment at the highest level of care to which the patient is willing to commit. 3. Continue q-15 minute checks for safety.? 4.?Continue seroquel to 600mg at night, patient may benefit from another atypical antipsychotic to target agitation and paranoia. She appears slightly less sedated but still in recovery from her chronic meth use and withdrawal off methamphetamine. 5.? Will attempt to gather collateral information. Attestations NPU 2 Medical Necessity Statement*: Inpatient hospitalization is medically necessary and deemed to be the clinically appropriate decision at this time. The patient will be started on medications and medications will be adjusted as clinically indicated. Her likely length of stay is 1-4 days. Coding Level of Care Code Acute Code for [facility] Fwd Diagnoses Amphetamine-induced psychotic disorder F15.959 Methamphetamine dependence F15.20 Affective disorder F39
[2023-06-29 14:00] VITALS: BP 110/68; PULSE 88; RESP 16; TEMP 36.6; O2SAT 100
[2023-06-29] MEDS: quetiapine 300 mg Tablet 600 MG PO (19:32)
[2023-06-29] MEDS: trazodone 50 mg Tablet PO (19:32)
[2023-06-29 19:36] VITALS: BP 118/64; PULSE 96; RESP 16; TEMP 37.1; O2SAT 98
[2023-06-30 06:00] VITALS: BP 107/65; PULSE 95; RESP 16; O2SAT 99
[2023-06-30] MEDS: cetirizine 10 mg Tablet PO (08:18)
[2023-06-30] MEDS: gabapentin 400 mg Capsule 800 MG PO (08:18)
[2023-06-30 10:26] VITALS: BP 107/65; PULSE 95; RESP 16; O2SAT 99
--- NOTE | 2023-06-30 10:32 | W.PM.NPUDCS ---
Diagnoses at Discharge Discharge Diagnosis (1) Amphetamine-induced psychotic disorder: Status: Acute (2) Methamphetamine dependence: Status: Acute (3) Affective disorder: Status: Chronic Permanent problem details: See comments below. Reason for Visit Reason for Visit: MHE Brief History: History of Present Illness Sury Joy is a 63 year old female who presented to the emergency department with complaints of hallucinations and bizarre delusions particularly that people were outside of her home. The patient was admitted to the neuropsychiatric unit for further evaluation and treatment. The patient had been unable to provide any further information but it indicated on the day of admission that she was feeling like people were after her. She had admitted to using methamphetamine and was positive for methamphetamine and benzodiazepines on admission. She had endorsed having auditory and visual hallucinations in the emergency department. She had received Haldol on the night of admission after she had been screaming while stating that people were trying to kill her. She was unable to provide any further information on interview. Inpatient psychiatric history: Per previous records she has had several inpatient hospitalizations. Outpatient psychiatric history: There is a past history of unspecified mood disorder and methamphetamine induced psychosis per previous records. Medical history: Anemia, hypokalemia, leg swelling, COPD Surgical Hx: lung lobectomy Allergies: Codeine and tramadol Medications: Zyrtec, cyclobenzaprine 10 mg 3 times a day, gabapentin 800 mg 3 times a day mirtazapine 15 mg at night, Seroquel 400 mg twice a day, albuterol inhaler. Drug and Alcohol history: per previous records methamphetamine abuse Family psychiatric history: unknown Social History: unknown, Hospital Course Hospital Course She slowly acclimated to the individual, group and milieu therapies provided. She presented psychosis positive for methamphetamine with a history of methamphetamine use disorder. Her home medications were continued with Remeron being discontinued and Seroquel being decreased from 800 mg to 600 mg p.o. nightly. She was often a hostile interviewee. With the absence of the methamphetamine and the medication changes she showed improvement. We worked with her to get some sense of what baseline looks like. She had positive response to that regimen. She worked with the social work team for her appropriate aftercare appointments. She had significant improvement and was able to contract for safety outside of the hospital prior to discharge. During the hospitalization, the patient had routine laboratory studies which were within normal limits except for a few outliers.? Additionally, there was a general medical evaluation which was also within normal limits and revealed no new acute processes.? At the time of discharge, she denied psychosis or lethality.? Mood and anxiety were well managed.? The patient endorsed a plan to avoid all drugs of abuse and follow up with the aftercare recommendations of the treatment team.? The patient was evaluated and deemed to be absent credible lethality and had achieved the maximum benefit from an inpatient hospitalization, and so was discharged. Mental Status Exam MSE Comments: This is a thin/cachectic white female in hospital scrubs looking older than her stated age with limited grooming and eye contact. Sitting with a sitter as she is on continuous O2 monitoring. No abnormal movements except for mild psychomotor retardation. More cooperative with exam in no acute distress. Speech was more normal rate and volume and limited. Mood described as better, affect congruent. Thought process mostly organized. Thought content: Patient denied suicidal or homicidal ideation, there were no delusions reported or noted, she did not appear to be attending to internal stimuli. Attention and concentration were improving and memory was unreliable but none were formally tested. She is alert and oriented times 3. Insight, judgment and impulse control are limited, but improving. Discharge Data Studies Completed and Pending: Laboratory Results WBC 8.86 10^3/uL (3.2 9-11.43) 06/24/23 21:40 Corrected WBC Cancelled 06/24/23 20:14 RBC 4.31 10^6/uL (3.8 5-5.65) 06/24/23 21:40 Hgb 12.80 g/dL (11.27 -16.99) 06/24/23 21:40 Hct 39.0 % (36-47) 06/24/23 21:40 MCV 90.5 fl (85-98) 06/24/23 21:40 MCH 29.7 pg (27-33) 06/24/23 21:40 MCHC 32.8 g/dL (30-55) 06/24/23 21:40 RDW 12.5 % (12.1-15.1 ) 06/24/23 21:40 Plt Count 357 10^3/cmm (157 -399) 06/24/23 21:40 MPV 10.3 fL (7.4-10.4 ) 06/24/23 21:40 Gran % Cancelled 06/24/23 20:14 Neut % (Auto) 67.0 % 06/24/23 21:40 Lymph % (Auto) 20.5 % 06/24/23 21:40 Hitchcock % (Auto) 9.7 % 06/24/23 21:40 Eos % (Auto) 1.6 % 06/24/23 21:40 Baso % (Auto) 1.0 % 06/24/23 21:40 Neut # (Auto) 5.93 10^3/uL (1.8 -7.7) 06/24/23 21:40 Lymph # (Auto) 1.8 10^3/uL (0.8- 4.8) 06/24/23 21:40 Hitchcock # (Auto) 0.9 10^3/uL (0.2- 0.9) 06/24/23 21:40 Eos # (Auto) 0.1 10^3/uL (0.0- 0.8) 06/24/23 21:40 Baso # (Auto) 0.1 10^3/uL (0.0- 0.1) 06/24/23 21:40 Absolute Gran (aut o) Cancelled 06/24/23 20:14 Nucleated RBC % (a uto) 0 % 06/24/23 21:40 Nucleated RBCs # 0.0 /100WBC 06/24/23 21:40 Sodium 141 mmol/L (136-1 45) 06/24/23 21:40 Potassium 3.4 mmol/L (3.5-5 .1) L 06/24/23 21:40 Chloride 99 mmol/L (98-107 ) 06/24/23 21:40 Carbon Dioxide 33 mmol/L (22-29) H 06/24/23 21:40 Anion Gap 12.4 (5-19) 06/24/23 21:40 BUN 14 mg/dL (8-23) 06/24/23 21:40 Creatinine 0.8 mg/dL (0.5-0. 9) 06/24/23 21:40 GFR Calculation 72.9 mL/min (90-1 30) L 06/24/23 21:40 Glucose 116 mg/dL (65-115 ) H 06/24/23 21:40 Calculated Osmolal ity 293 mOsm/kg (285- 295) 06/24/23 21:40 Calcium 9.7 mg/dL (8.5-10 .5) 06/24/23 21:40 Total Bilirubin 0.5 mg/dL (0.15-1 .2) 06/24/23 21:40 AST 25 U/L (0-32) 06/24/23 21:40 ALT 21 U/L (0-33) 06/24/23 21:40 Alkaline Phosphata se 76 U/L (35-105) 06/24/23 21:40 Total Protein 6.5 g/dL (6.6-8.7 ) L 06/24/23 21:40 Albumin 4.5 g/dL (3.5-5.2 ) 06/24/23 21:40 Globulin 2.0 g/dL (1.3-4.6 ) 06/24/23 21:40 Urine Color Dark yellow (Yel low) 06/27/23 07:39 Urine Appearance Clear (CLEAR) 06/27/23 07:39 Urine pH 5 (5-7) 06/27/23 07:39 Ur Specific Gravit y 1.025 (1.005-1.0 30) 06/27/23 07:39 Urine Protein Trace (Negative) 06/27/23 07:39 Urine Glucose (UA) Norm (Normal) 06/27/23 07:39 Urine Ketones 1+ (Negative) H 06/27/23 07:39 Urine Blood Neg (Negative) 06/27/23 07:39 Urine Nitrate Negative (Negati ve) 06/27/23 07:39 Urine Bilirubin 1+ (Negative) H 06/27/23 07:39 Urine Urobilinogen 1 mg/dL (Negative ) H 06/27/23 07:39 Ur Leukocyte Angeli ase Negative (Negati ve) 06/27/23 07:39 Urine RBC 0-4 /hpf (0-2) H 06/27/23 07:39 Urine WBC 0-4 /hpf (0-5) H 06/27/23 07:39 Ur Squamous Epith Cells 0-4 /hpf (0-5) H 06/27/23 07:39 Amorphous Sediment Not Reportable 06/27/23 07:39 Urine Bacteria Trace /hpf (NONE) 06/27/23 07:39 Urine Mucus 2+ /hpf 06/27/23 07:39 Salicylates < 0.3 mg/dL (3-10 ) L 06/24/23 21:40 Urine Opiates Scre en Negative ng/mL (N egative) 06/27/23 07:39 Acetaminophen < 5.0 ug/mL (10-3 0) L 06/24/23 21:40 Ur Barbiturates Sc reen Negative ng/mL (N egative) 06/27/23 07:39 Ur Phencyclidine S crn Negative ng/mL (N egative) 06/27/23 07:39 Ur Amphetamines Sc reen Positive ng/mL (N egative) H 06/27/23 07:39 U Benzodiazepines Scrn Positive ng/mL (N egative) H 06/27/23 07:39 Urine Cocaine Scre en Positive ng/mL (N egative) H 06/27/23 07:39 U Marijuana (THC) Screen Positive ng/mL (N egative) H 06/27/23 07:39 Ethyl Alcohol < 10 mg/dL (0-10) 06/24/23 21:40 Vitals: Last Vital Signs Temp 98.8 F 06/29/23 19:36 Pulse 95 06/30/23 10:26 Resp 16 06/30/23 10:26 BP 107/65 06/30/23 10:26 Pulse Ox 99 06/30/23 10:26 O2 Del Method Nasal Cannula 06/29/23 14:00 O2 Flow Rate 3 06/30/23 08:19 Discharge Plan Discharge Patient Disposition: Home Condition: Stable Prescriptions: New trazodone 50 mg Tablet 50 mg PO BEDTIME PRN (Reason: Sleep) 30 Days Qty: 30 1RF Continued cyclobenzaprine 10 mg tablet 10 mg PO TID PRN (Reason: muscle spasm) albuterol sulfate [ProAir HFA] 90 mcg/actuation HFA aerosol inhaler 2 puff INHALATION Q4H PRN (Reason: Shortness Of Breath) ipratropium-albuterol 0.5 mg-3 mg(2.5 mg base)/3 mL solution for nebulization 3 ml inhalation Q4H PRN (Reason: shortness of breath or wheezing) Qty: 180 0RF cetirizine 10 mg tablet 10 mg PO DAILY gabapentin 800 mg tablet 800 mg PO TID Discontinued quetiapine 200 mg tablet 400 mg PO BID mirtazapine 15 mg tablet 15 mg PO BEDTIME quetiapine [Seroquel] 200 mg tablet 400 mg PO BID No Action quetiapine 200 mg tablet 400 mg PO BID mirtazapine 15 mg tablet 15 mg PO BEDTIME Discharge Orders: Discharge Order (Routine); Ordered 06/30/23 Ordered By: Anthony Montes Referrals: [facility] [Outside] Reema Webster FNP [Primary Care Provider] - Discharge Diet: Regular Discharge Activity: Resume usual activity Patient Instructions: Trazodone (By mouth), Quetiapine (By mouth), Methamphetamine Use Disorder (DC), Opioid Safety Discharge Attestations NPU Time Spent in Discharge Care*: less than 30 min Specific Discharge Activities: Specific discharge activities: educating patient, discussing with protective services case worker/social workers/dc planners, documenting/other paperwork and evaluating patient/reviewing data Coding Level of Care Code Acute Code for [facility] Fwd Diagnoses Amphetamine-induced psychotic disorder F15.959 Methamphetamine dependence F15.20 Affective disorder F39
== END 2023-06-30 12:08 | disposition home or self-care (01) | DRG 897 ==
LOC: ER 22:10 → NP 22:20
PROVIDERS: Psychiatry & Neurology Psychiatry; Admitting Provider Psychiatry & Neurology Psychiatry; Emergency Provider Emergency Medicine; PCP Nurse Practitioner Family; Visit Provider Psychiatry & Neurology Psychiatry
DX: F15.251 Other stimulant dependence with stimulant-induced psychotic disorder with hallucinations (principal); R64 Cachexia; Z68.1 Body mass index [BMI] 19.9 or less, adult; J44.9 Chronic obstructive pulmonary disease, unspecified; F17.210 Nicotine dependence, cigarettes, uncomplicated; F39 Unspecified mood [affective] disorder; E87.6 Hypokalemia; Z90.2 Acquired absence of lung [part of]
CPT/HCPCS: 80053; 80306; 80307; 81001; 85025; 94640; 96372; 97165; 99285; J1630; J2060

== ENCOUNTER 2023-07-01 00:59 | Emergency (ER) | payer MEDICAID, SELFPAY ==
[2023-07-01] VITALS (8 sets, daily range): BP systolic 84–135; BP diastolic 46–75; PULSE 80–116; RESP 16–17; TEMP 36.4; O2SAT 88–100; BMI 14.5
--- NOTE | 2023-07-01 01:26 | XRR_ITS ---
PROCEDURE INFORMATION: Exam: XR Chest Exam date and time: 07/01/2023 1:30 AM Age: 63 years old Clinical indication: Shortness of breath; Prior surgery; Surgery date: 6+ months; Surgery type: RT lobectomy; Patient HX: SOB. History of copd. TECHNIQUE: Imaging protocol: Radiologic exam of the chest. Views: 1 view. COMPARISON: CR XR chest 2V* [id number] 04/19/2023 4:40 PM FINDINGS: Lungs: Surgical changes of prior right upper lobectomy with scarring. No new focal consolidation. Background emphysema. Lung hyperexpansion consistent with COPD. Pleural spaces: No large pleural effusion. No pneumothorax. Heart/Mediastinum: No cardiomegaly. Nodular opacity in the superior aspect of the right mainstem bronchus, may represent confluence of overlapping structures or adenopathy, not definitely seen on prior exam, although there are slight differences in patient positioning. Bones/joints: No acute abnormality. XR/XR chest 1V portable [id number] IMPRESSION: 1. No consolidation. 2. Question right nodule or adenopathy, not definitely seen on prior exam, although there are slight differences in patient positioning, could also be confluence of overlapping structures.
--- NOTE | 2023-07-01 01:26 | ECG_ITS ---
[facility] Test Date: 2023-07-01 Pat Name: Sury Joy Department: Room: Gender: Female Tank Charger: : 1960 Requested By: Ranjan Montez Order Number: [id number] Lizzette MD: Corrine Hoffman M.D. Measurements Intervals [place] Rate: 97 P: 71 MS: 117 QRS: 87 QRSD: 90 T: 74 QT: 360 QTc: 459 Interpretive Statements SINUS RHYTHM WITH SHORT MS INTERVAL Compared to ECG 04/19/2023 15:28:15 Short MS interval now present Sinus tachycardia no longer present Electronically Signed On 07-02-2023 0:30:09 SUPERVISING LIBRARIAN by Corrine Hoffmna M.D. [id number]
[2023-07-01 02:19] LABS: Basophils # 0.1 10^3/uL (0.0-0.1); Basophils % 1.2 %; Eosinophils # 0.2 10^3/uL (0.0-0.8); Eosinophils % 4.1 %; Hematocrit 34.7 % (36-47); Lymphocytes # 1.1 10^3/uL (0.8-4.8); Lymphocytes % 25.1 %; Mean Corpuscular HGB Conc 31.1 g/dL (30-55); Mean Corpuscular Hemoglobin 29.1 pg (27-33); Mean Corpuscular Volume 93.5 fl (85-98); Mean Platelet Volume 10.3 fL (7.4-10.4); Monocytes # 0.4 10^3/uL (0.2-0.9); Monocytes % 9.4 %; Nucleated Red Blood Cells % 0 %; Platelet Count 204 10^3/cmm (157-399); Red Blood Count 3.71 10^6/uL (3.85-5.65); Red Cell Distribution Width 12.4 % (12.1-15.1); White Blood Count 4.34 10^3/uL (3.29-11.43)
[2023-07-01 02:37] LABS: Add Urine Microscopic? NO; Charge for UA Resulting for Rev
[2023-07-01 02:41] LABS: Bilirubin Urine Neg (Negative); Blood Urine Neg (Negative); Glucose Urine UA Norm (Normal); Ketones Urine Negative (Negative); Leukocyte Esterase Urine Negative (Negative); Nitrate Urine Negative (Negative); Protein Urine Neg (Negative); Sulfosalicylic Acid Urine Negative (Negative); Urine Appearance Clear (CLEAR); Urine Color Light yellow (Yellow); Urobilinogen Urine Neg (Negative); pH Urine 8 (5-7)
[2023-07-01 02:49] LABS: Amphetamines Screen Urine Positive (Negative); Barbiturates Screen Urine Negative (Negative); Benzodiazepines Screen Urine Negative (Negative); Cocaine Screen Urine Negative (Negative); Opiate Screen Urine Negative (Negative); PCP Screen Urine Negative (Negative); THC Screen Urine Negative (Negative)
[2023-07-01 02:52] LABS: SARS Covid-2 Antigen negative (Negative)
[2023-07-01 02:56] LABS: Alanine Aminotransferase 10 U/L (0-33); Albumin Level 3.4 g/dL (3.5-5.2); Alkaline Phosphatase 55 U/L (35-105); Anion Gap 8.3 (5-19); Aspartate Amino Transferase 12 U/L (0-32); Blood Urea Nitrogen 14 mg/dL (8-23); Calcium 8.9 mg/dL (8.5-10.5); Carbon Dioxide 35 mmol/L (22-29); Chloride 103 mmol/L (98-107); Globulin 1.9 g/dL (1.3-4.6); Glomerular Filtration Rate 162.3 mL/min (90-130); Glucose 103 mg/dL (65-115); Osmolality Calculated 295 mOsm/kg (285-295); Potassium 4.3 mmol/L (3.5-5.1); Salicylate 0.6 mg/dL (3-10); Sodium 142 mmol/L (136-145); Thyroid Stimulating Hormone 2.69 uIU/mL (0.27-4.20); Total Bilirubin 0.2 mg/dL (0.15-1.2); Total Protein 5.3 g/dL (6.6-8.7)
[2023-07-01 02:58] LABS: Acetaminophen < 5.0 ug/mL (10-30); Alcohol Level < 10 mg/dL (0-10)
--- NOTE | 2023-07-01 07:01 | W.ED.PSYCHS ---
Documented by User: Ranjan Carrillo DO 07/02/23 15:08 HPI - Psych General: Chief Complaint: Psychiatric Symptoms Stated Complaint: hearing voices Time Seen by Provider: 07/01/23 01:13 History of Present Illness: 63-year-old female who was discharged from the neuropsychiatric facility 06/30. She presents 13 or 14 hours after discharge. Her chief complaint is that she is hearing voices. The voices are telling the patient that they are going to kill her and her . She is exhibiting no suicidal ideation or homicidal ideation, only intrusive thoughts of these voices. She seems improved to some degree on arrival, and has been calm. Her notes that she had a good day Day, ate a good meal, and seem to interact well with family. It was only later in the night that she began to complain of hearing voices again. Review of Systems General: Reports: Other (taken from the patient and her whom as he is more alert. ) Const: Denies: fever(s) Card: Denies: chest pain Resp: Denies: dyspnea, productive cough or non-productive cough GI: Denies: vomiting PFSH ED PFSH: Medical History Abnormal EKG SOB (shortness of breath) Pt refused stress test Substance abuse in remission Bilateral numbness and tingling of arms and legs Leg swelling Leg pain Tobacco use disorder, severe, dependence Affective disorder See comments below. Methamphetamine use disorder, mild, in early remission, abuse Surgical History S/P lobectomy of lung Hx of section Social History Smoking and tobacco/nicotine status: current every day tobacco/nicotine user cigarettes Packs smoked per day: 0.5 Years cigarettes smoked: 44 Quit status (tobacco/nicotine): not considering quitting Second hand smoke exposure: No Alcohol intake: former Year of sobriety/quit date alcohol: 2007 Substance/Drug Use: former Date of last use: 08/2019 methamphetamine use, distant use of marijuana, PCP, and acid Lives independently: Yes Household members: none Current occupational status: disabled Do you think of yourself as: Straight/Heterosexual Current gender identity: Female Physical Exam Const: COMMON NORMALS: no acute distress GENERAL APPEARANCE: cooperative, lethargic (mildly), frail appearing (mildly) and appears older than stated age ORIENTATION/CONSCIOUSNESS: Yes lethargic (mildly) HENMT: COMMON NORMALS: normocephalic, atraumatic and Normal external nose present HEAD & SCALP: normocephalic and atraumatic FACE & SINUS: normal facial exam NOSE: Normal external nose present Eye: COMMON NORMALS: Equal, round and reactive pupils present and EOMs intact bilaterally PUPIL: Yes Equal, round and reactive pupils present Neck/C-Spine: GENERAL: Yes trachea midline Chest: CHEST: Yes Symmetrical chest wall rise Resp: COMMON NORMALS: normal respiratory effort, No retractions, No use of accessory muscles and clear to auscultation bilaterally AUSCULTATION: clear to auscultation bilaterally Cardio: COMMON NORMALS: regular rate and regular rhythm RATE: regular rate RHYTHM: regular rhythm GI: COMMON NORMALS: Normal to inspection, nondistended, normoactive bowel sounds present Extremity: COMMON NORMALS: no pedal edema Neuro: SUSSY COMA SCALE: document GCS findings Young coma scale eye opening: To sound Young coma scale verbal response: Orientated Young coma scale motor response: Obey commands Sussy coma scale total score: 14 SENSORIUM/ORIENTATION: Yes lethargic (mildly) SENSORY EXAM: Yes extremities (intact) Course Vital Signs: Vital signs: Vital Signs Temperature 97.5 F L 07/01/23 01:06 Pulse Rate 91 07/01/23 11:56 Respiratory Rate 16 07/01/23 06:51 Blood Pressure 104/60 07/01/23 11:56 Pulse Oximetry 100 07/01/23 11:56 Oxygen Delivery Me thod Nasal Cannula 07/01/23 09:30 [facility] - Psych Medical Decision Making Medically, this patient is quite stable. I spoke with psychiatry earlier this morning, and he would like to evaluate the patient in the ER. Currently no NPU beds are available for this patient, but some may free up later today if deemed necessary to admit by psychiatry. Interestingly, her urine is positive yet again for amphetamines, which could be a source of the psychosis. Otherwise, laboratory workup is quite unremarkable. Discharge planning per psychiatry recommendations. She is checked out at shift change. Lab Data 07/01/23 02:10 07/01/23 02:10 Radiology Impressions Chest X-Ray 07/01/23 01:26 IMPRESSION: 1. No consolidation. 2. Question right nodule or adenopathy, not definitely seen on prior exam, although there are slight differences in patient positioning, could also be confluence of overlapping structures. Laboratory Results WBC 4.34 10^3/uL (3.29-11.43) 07/01/23 02:10 RBC 3.71 10^6/uL (3.85-5.65) L 07/01/23 02:10 Hgb 10.80 g/dL (11.27-16.99) L 07/01/23 02:10 Hct 34.7 % (36-47) L 07/01/23 02:10 MCV 93.5 fl (85-98) 07/01/23 02:10 MCH 29.1 pg (27-33) 07/01/23 02:10 MCHC 31.1 g/dL (30-55) 07/01/23 02:10 RDW 12.4 % (12.1-15.1) 07/01/23 02:10 Plt Count 204 10^3/cmm (157-399) 07/01/23 02:10 MPV 10.3 fL (7.4-10.4) 07/01/23 02:10 Neut % (Auto) 60.0 % 07/01/23 02:10 Lymph % (Auto) 25.1 % 07/01/23 02:10 [place] % (Auto) 9.4 % 07/01/23 02:10 Eos % (Auto) 4.1 % 07/01/23 02:10 Baso % (Auto) 1.2 % 07/01/23 02:10 Neut # (Auto) 2.60 10^3/uL (1.8-7.7) 07/01/23 02:10 Lymph # (Auto) 1.1 10^3/uL (0.8-4.8) 07/01/23 02:10 [place] # (Auto) 0.4 10^3/uL (0.2-0.9) 07/01/23 02:10 Eos # (Auto) 0.2 10^3/uL (0.0-0.8) 07/01/23 02:10 Baso # (Auto) 0.1 10^3/uL (0.0-0.1) 07/01/23 02:10 Nucleated RBC % (auto) 0 % 07/01/23 02:10 Nucleated RBCs # 0.0 /100WBC 07/01/23 02:10 Sodium 142 mmol/L (136-145) 07/01/23 02:10 Potassium 4.3 mmol/L (3.5-5.1) 07/01/23 02:10 Chloride 103 mmol/L (98-107) 07/01/23 02:10 Carbon Dioxide 35 mmol/L (22-29) H 07/01/23 02:10 Anion Gap 8.3 (5-19) 07/01/23 02:10 BUN 14 mg/dL (8-23) 07/01/23 02:10 Creatinine 0.4 mg/dL (0.5-0.9) L 07/01/23 02:10 GFR Calculation 162.3 mL/min (90-130) H 07/01/23 02:10 Glucose 103 mg/dL (65-115) 07/01/23 02:10 Calculated Osmolality 295 mOsm/kg (285-295) 07/01/23 02:10 Calcium 8.9 mg/dL (8.5-10.5) 07/01/23 02:10 Total Bilirubin 0.2 mg/dL (0.15-1.2) 07/01/23 02:10 AST 12 U/L (0-32) 07/01/23 02:10 ALT 10 U/L (0-33) 07/01/23 02:10 Alkaline Phosphatase 55 U/L (35-105) 07/01/23 02:10 Total Protein 5.3 g/dL (6.6-8.7) L 07/01/23 02:10 Albumin 3.4 g/dL (3.5-5.2) L 07/01/23 02:10 Globulin 1.9 g/dL (1.3-4.6) 07/01/23 02:10 TSH 2.69 uIU/mL (0.27-4.20) 07/01/23 02:10 Urine Color Light yellow (Yellow) 07/01/23 02:30 Urine Appearance Clear (CLEAR) 07/01/23 02:30 Urine pH 8 (5-7) H 07/01/23 02:30 Ur Specific [place] 1.010 (1.005-1.030) 07/01/23 02:30 Urine Protein Neg (Negative) 07/01/23 02:30 Urine Glucose (UA) Norm (Normal) 07/01/23 02:30 Urine Ketones Negative (Negative) 07/01/23 02:30 Urine Blood Neg (Negative) 07/01/23 02:30 Urine Nitrate Negative (Negative) 07/01/23 02:30 Urine Bilirubin Neg (Negative) 07/01/23 02:30 Prot Sulfosalicylic Acd Negative (Negative) 07/01/23 02:30 Urine Urobilinogen Neg mg/dL (Negative) 07/01/23 02:30 Ur Leukocyte Esterase Negative (Negative) 07/01/23 02:30 Salicylates 0.6 mg/dL (3-10) L 07/01/23 02:10 Urine Opiates Screen Negative ng/mL (Negative) 07/01/23 02:30 Acetaminophen < 5.0 ug/mL (10-30) L 07/01/23 02:10 Ur Barbiturates Screen Negative ng/mL (Negative) 07/01/23 02:30 Ur Phencyclidine Scrn Negative ng/mL (Negative) 07/01/23 02:30 Ur Amphetamines Screen Positive ng/mL (Negative) H 07/01/23 02:30 U Benzodiazepines Scrn Negative ng/mL (Negative) 07/01/23 02:30 Urine Cocaine Screen Negative ng/mL (Negative) 07/01/23 02:30 U Marijuana (THC) Screen Negative ng/mL (Negative) 07/01/23 02:30 Ethyl Alcohol < 10 mg/dL (0-10) 07/01/23 02:10 SARS-CoV-2 Ag (Rapid) negative (Negative) 07/01/23 02:30 Discharge Plan Discharge Patient Disposition: Home Clinical Impression: Methamphetamine abuse, Amphetamine-induced psychotic disorder, Acute psychosis Condition: Stable Prescriptions: No Action cyclobenzaprine 10 mg tablet 10 mg PO TID PRN (Reason: muscle spasm) albuterol sulfate [ProAir HFA] 90 mcg/actuation HFA aerosol inhaler 2 puff INHALATION Q4H PRN (Reason: Shortness Of Breath) ipratropium-albuterol 0.5 mg-3 mg(2.5 mg base)/3 mL solution for nebulization 3 ml inhalation Q4H PRN (Reason: shortness of breath or wheezing) Qty: 180 0RF quetiapine 200 mg tablet 400 mg PO BID mirtazapine 15 mg tablet 15 mg PO BEDTIME cetirizine 10 mg tablet 10 mg PO DAILY gabapentin 800 mg tablet 800 mg PO TID trazodone 50 mg Tablet 50 mg PO BEDTIME PRN (Reason: Sleep) 30 Days Qty: 30 1RF Discharge Orders: Discharge ED (Routine); Ordered 07/01/23 Ordered By: Rodolfo Liu Referrals: Reema Webster FNP [Primary Care Provider] - Discharge Diet: Usual diet Discharge Activity: Resume usual activity Patient Instructions: Methamphetamine Abuse, Methamphetamine Use Disorder (ED), Opioid Safety, Pain Management Activity Restrictions/Additional Instructions: Thank you for choosing [facility] for your healthcare needs today. Please realize this is an emergency room and that we are providing you with a medical screening exam and this may not be complete and all inclusive of all the testing and or work up that you may need to determine your ailment or severity of your illness. It is very important that you follow up as instructed or that you return to the Emergency Department should you have concerns or if your condition changes or worsens in any way. Abstain from methamphetamines (do not use methamphetamines). It is bad for you Sign Out Sign Out Data: Patient Sign Out occurred on 07/01/23 at 08:12. Patient's care was discussed, and care was transferred from Ranjan Carrillo DO to Rodolfo Liu DO. Coding Level of Care Code ED Book Cleaner for Chg Fwd Documented by User: Rodolfo Liu DO 07/01/23 11:20 HPI - Psych General: Chief Complaint: Psychiatric Symptoms Stated Complaint: hearing voices Time Seen by Provider: 07/01/23 01:13 PFS ED PFSH: Medical History Abnormal EKG SOB (shortness of breath) Pt refused stress test Substance abuse in remission Bilateral numbness and tingling of arms and legs Leg swelling Leg pain Tobacco use disorder, severe, dependence Affective disorder See comments below. Methamphetamine use disorder, mild, in early remission, abuse Surgical History S/P lobectomy of lung Hx of section Social History Smoking and tobacco/nicotine status: current every day tobacco/nicotine user cigarettes Packs smoked per day: 0.5 Years cigarettes smoked: 44 Quit status (tobacco/nicotine): not considering quitting Second hand smoke exposure: No Alcohol intake: former Year of sobriety/quit date alcohol: 2007 Substance/Drug Use: former Date of last use: 08/2019 methamphetamine use, distant use of marijuana, PCP, and acid Lives independently: Yes Household members: none Current occupational status: disabled Do you think of yourself as: Straight/Heterosexual Current gender identity: Female Course Vital Signs: Vital signs: Vital Signs Temperature 97.5 F L 07/01/23 01:06 Pulse Rate 91 07/01/23 11:56 Respiratory Rate 16 07/01/23 06:51 Blood Pressure 104/60 07/01/23 11:56 Pulse Oximetry 100 07/01/23 11:56 Oxygen Delivery Me thod Nasal Cannula 07/01/23 09:30 [facility] - Psych Medical Decision Making Medically, this patient is quite stable. I spoke with psychiatry earlier this morning, and he would like to evaluate the patient in the ER. Currently no NPU beds are available for this patient, but some may free up later today if deemed necessary to admit by psychiatry. Interestingly, her urine is positive yet again for amphetamines, which could be a source of the psychosis. Otherwise, laboratory workup is quite unremarkable. Discharge planning per psychiatry recommendations. She is checked out at shift change. Care assumed at change of shift patient has not had any difficulty or need for further psychosis. Dr. Montes had been consulted by Dr. Carrillo. He seen the patient advised discharge and abstention from methamphetamines Differential Diagnosis Likely acute psychosis and drug-induced psychotic disorder Medical Records I reviewed the patient's medical records. Lab Data I reviewed the patient's lab results. 07/01/23 02:10 07/01/23 02:10 Radiology Impressions Chest X-Ray 07/01/23 01:26 IMPRESSION: 1. No consolidation. 2. Question right nodule or adenopathy, not definitely seen on prior exam, although there are slight differences in patient positioning, could also be confluence of overlapping structures. Laboratory Results WBC 4.34 10^3/uL (3.29-11.43) 07/01/23 02:10 RBC 3.71 10^6/uL (3.85-5.65) L 07/01/23 02:10 Hgb 10.80 g/dL (11.27-16.99) L 07/01/23 02:10 Hct 34.7 % (36-47) L 07/01/23 02:10 MCV 93.5 fl (85-98) 07/01/23 02:10 MCH 29.1 pg (27-33) 07/01/23 02:10 MCHC 31.1 g/dL (30-55) 07/01/23 02:10 RDW 12.4 % (12.1-15.1) 07/01/23 02:10 Plt Count 204 10^3/cmm (157-399) 07/01/23 02:10 MPV 10.3 fL (7.4-10.4) 07/01/23 02:10 Neut % (Auto) 60.0 % 07/01/23 02:10 Lymph % (Auto) 25.1 % 07/01/23 02:10 [place] % (Auto) 9.4 % 07/01/23 02:10 Eos % (Auto) 4.1 % 07/01/23 02:10 Baso % (Auto) 1.2 % 07/01/23 02:10 Neut # (Auto) 2.60 10^3/uL (1.8-7.7) 07/01/23 02:10 Lymph # (Auto) 1.1 10^3/uL (0.8-4.8) 07/01/23 02:10 [place] # (Auto) 0.4 10^3/uL (0.2-0.9) 07/01/23 02:10 Eos # (Auto) 0.2 10^3/uL (0.0-0.8) 07/01/23 02:10 Baso # (Auto) 0.1 10^3/uL (0.0-0.1) 07/01/23 02:10 Nucleated RBC % (auto) 0 % 07/01/23 02:10 Nucleated RBCs # 0.0 /100WBC 07/01/23 02:10 Sodium 142 mmol/L (136-145) 07/01/23 02:10 Potassium 4.3 mmol/L (3.5-5.1) 07/01/23 02:10 Chloride 103 mmol/L (98-107) 07/01/23 02:10 Carbon Dioxide 35 mmol/L (22-29) H 07/01/23 02:10 Anion Gap 8.3 (5-19) 07/01/23 02:10 BUN 14 mg/dL (8-23) 07/01/23 02:10 Creatinine 0.4 mg/dL (0.5-0.9) L 07/01/23 02:10 GFR Calculation 162.3 mL/min (90-130) H 07/01/23 02:10 Glucose 103 mg/dL (65-115) 07/01/23 02:10 Calculated Osmolality 295 mOsm/kg (285-295) 07/01/23 02:10 Calcium 8.9 mg/dL (8.5-10.5) 07/01/23 02:10 Total Bilirubin 0.2 mg/dL (0.15-1.2) 07/01/23 02:10 AST 12 U/L (0-32) 07/01/23 02:10 ALT 10 U/L (0-33) 07/01/23 02:10 Alkaline Phosphatase 55 U/L (35-105) 07/01/23 02:10 Total Protein 5.3 g/dL (6.6-8.7) L 07/01/23 02:10 Albumin 3.4 g/dL (3.5-5.2) L 07/01/23 02:10 Globulin 1.9 g/dL (1.3-4.6) 07/01/23 02:10 TSH 2.69 uIU/mL (0.27-4.20) 07/01/23 02:10 Urine Color Light yellow (Yellow) 07/01/23 02:30 Urine Appearance Clear (CLEAR) 07/01/23 02:30 Urine pH 8 (5-7) H 07/01/23 02:30 Ur Specific [place] 1.010 (1.005-1.030) 07/01/23 02:30 Urine Protein Neg (Negative) 07/01/23 02:30 Urine Glucose (UA) Norm (Normal) 07/01/23 02:30 Urine Ketones Negative (Negative) 07/01/23 02:30 Urine Blood Neg (Negative) 07/01/23 02:30 Urine Nitrate Negative (Negative) 07/01/23 02:30 Urine Bilirubin Neg (Negative) 07/01/23 02:30 Prot Sulfosalicylic Acd Negative (Negative) 07/01/23 02:30 Urine Urobilinogen Neg mg/dL (Negative) 07/01/23 02:30 Ur Leukocyte Esterase Negative (Negative) 07/01/23 02:30 Salicylates 0.6 mg/dL (3-10) L 07/01/23 02:10 Urine Opiates Screen Negative ng/mL (Negative) 07/01/23 02:30 Acetaminophen < 5.0 ug/mL (10-30) L 07/01/23 02:10 Ur Barbiturates Screen Negative ng/mL (Negative) 07/01/23 02:30 Ur Phencyclidine Scrn Negative ng/mL (Negative) 07/01/23 02:30 Ur Amphetamines Screen Positive ng/mL (Negative) H 07/01/23 02:30 U Benzodiazepines Scrn Negative ng/mL (Negative) 07/01/23 02:30 Urine Cocaine Screen Negative ng/mL (Negative) 07/01/23 02:30 U Marijuana (THC) Screen Negative ng/mL (Negative) 07/01/23 02:30 Ethyl Alcohol < 10 mg/dL (0-10) 07/01/23 02:10 SARS-CoV-2 Ag (Rapid) negative (Negative) 07/01/23 02:30 All radiology interpretation(s) finalized by discharge Discharge Plan Discharge Patient Disposition: Home Clinical Impression: Methamphetamine abuse, Amphetamine-induced psychotic disorder, Acute psychosis Condition: Stable Prescriptions: No Action cyclobenzaprine 10 mg tablet 10 mg PO TID PRN (Reason: muscle spasm) albuterol sulfate [ProAir HFA] 90 mcg/actuation HFA aerosol inhaler 2 puff INHALATION Q4H PRN (Reason: Shortness Of Breath) ipratropium-albuterol 0.5 mg-3 mg(2.5 mg base)/3 mL solution for nebulization 3 ml inhalation Q4H PRN (Reason: shortness of breath or wheezing) Qty: 180 0RF quetiapine 200 mg tablet 400 mg PO BID mirtazapine 15 mg tablet 15 mg PO BEDTIME cetirizine 10 mg tablet 10 mg PO DAILY gabapentin 800 mg tablet 800 mg PO TID trazodone 50 mg Tablet 50 mg PO BEDTIME PRN (Reason: Sleep) 30 Days Qty: 30 1RF Discharge Orders: Discharge ED (Routine); Ordered 07/01/23 Ordered By: Rodolfo Liu Referrals: Reema Webster FNP [Primary Care Provider] - Discharge Diet: Usual diet Discharge Activity: Resume usual activity Patient Instructions: Methamphetamine Abuse, Methamphetamine Use Disorder (ED), Opioid Safety, Pain Management Activity Restrictions/Additional Instructions: Thank you for choosing [facility] for your healthcare needs today. Please realize this is an emergency room and that we are providing you with a medical screening exam and this may not be complete and all inclusive of all the testing and or work up that you may need to determine your ailment or severity of your illness. It is very important that you follow up as instructed or that you return to the Emergency Department should you have concerns or if your condition changes or worsens in any way. Abstain from methamphetamines (do not use methamphetamines). It is bad for you Sign Out Sign Out Data: Patient Sign Out occurred on 07/01/23 at 08:12. Patient's care was discussed, and care was transferred from Ranjan Carrillo DO to Rodolfo Liu DO. Coding Level of Care Code ED Book Cleaner for Abad Goyal
--- NOTE | 2023-07-01 09:29 | PC.NURSE ---
pt was placed in paper scrubs at 0920 and belongings were removed from pts room.
--- NOTE | 2023-07-01 11:20 | P.NPUCON_ITS ---
Providers/Reason for Consult 2 Consulting Physican/Specialty*: Anthony Montes MD. Psychiatry. Reason for Consult*: Evaluate for safety for discharge. Primary Care Provider: YSABEL Zamora Psych Consult HPI History of Present Illness Sury Joy is a 63 year old female who presented to the emergency department with the following report: Chief Complaint: Psychiatric Symptoms Stated Complaint: hearing voices Time Seen by Provider: 07/01/23 01:13 History of Present Illness: 63-year-old female who was discharged from the neuropsychiatric facility 06/30. She presents 13 or 14 hours after discharge. Her chief complaint is that she is hearing voices. The voices are telling the patient that they are going to kill her and her . She is exhibiting no suicidal ideation or homicidal ideation, only intrusive thoughts of these voices. She seems improved to some degree on arrival, and has been calm. Her notes that she had a good day Uli Day, ate a good meal, and seem to interact well with family. It was only later in the night that she began to complain of hearing voices again. Patient presented to the emergency department having just been discharged from the inpatient psychiatric unit yesterday and a psychiatric consult was requested to determine whether we admission was indicated. Patient presents today reporting that she made some air in taking her medication. We discussed the fact that she had not been gone long enough to make it air that should lead to some kind of clinical relevance. She was an absolute denial that she relapsed even though her behavior was suggestive of relapse. She was very insistent however that there was no need for readmission. She reported that she wanted to have another chance to get a ride. We spent most of the time talking about recovery and sobriety and the different resources that are available. We also talked about the crisis stabilization center and the resources that exist there for moments of challenges. She was able to contract for safety outside the hospital. We discussed the importance of her following up as scheduled and considering more intense sober living services. Per her 06/30/2023 [facility] inpatient psychiatric discharge summary: Discharge Diagnosis (1) Amphetamine-induced psychotic disorder: Status: Acute (2) Methamphetamine dependence: Status: Acute (3) Affective disorder: Status: Chronic Permanent problem details: See comments below. Reason for Visit Reason for Visit: MHE Brief History: History of Present Illness Sury Joy is a 63 year old female who presented to the emergency department with complaints of hallucinations and bizarre delusions particularly that people were outside of her home. The patient was admitted to the neuropsychiatric unit for further evaluation and treatment. The patient had been unable to provide any further information but it indicated on the day of admission that she was feeling like people were after her. She had admitted to using methamphetamine and was positive for methamphetamine and benzodiazepines on admission. She had endorsed having auditory and visual hallucinations in the emergency department. She had received Haldol on the night of admission after she had been screaming while stating that people were trying to kill her. She was unable to provide any further information on interview. Inpatient psychiatric history: Per previous records she has had several inpatient hospitalizations. Outpatient psychiatric history: There is a past history of unspecified mood disorder and methamphetamine induced psychosis per previous records. Medical history: Anemia, hypokalemia, leg swelling, COPD Surgical Hx: lung lobectomy Allergies: Codeine and tramadol Medications: Zyrtec, cyclobenzaprine 10 mg 3 times a day, gabapentin 800 mg 3 times a day mirtazapine 15 mg at night, Seroquel 400 mg twice a day, albuterol inhaler. Drug and Alcohol history: per previous records methamphetamine abuse Family psychiatric history: unknown Social History: unknown, Hospital Course She slowly acclimated to the individual, group and milieu therapies provided. She presented psychosis positive for methamphetamine with a history of methamphetamine use disorder. Her home medications were continued with Remeron being discontinued and Seroquel being decreased from 800 mg to 600 mg p.o. nightly. She was often a hostile interviewee. With the absence of the methamphetamine and the medication changes she showed improvement. We worked with her to get some sense of what baseline looks like. She had positive response to that regimen. She worked with the social work team for her appropriate aftercare appointments. She had significant improvement and was able to contract for safety outside of the hospital prior to discharge. During the hospitalization, the patient had routine laboratory studies which were within normal limits except for a few outliers. Additionally, there was a general medical evaluation which was also within normal limits and revealed no new acute processes. At the time of discharge, she denied psychosis or lethality. Mood and anxiety were well managed. The patient endorsed a plan to avoid all drugs of abuse and follow up with the aftercare recommendations of the treatment team. The patient was evaluated and deemed to be absent credible lethality and had achieved the maximum benefit from an inpatient hospitalization, and so was discharged. Meds Home Medications and Allergies Home Medications Medication Instructions Recorded Confirmed Last Taken Type albuterol sulfate 90 mcg/actuation 2 puff inhalation Q4H PRN 09/05/19 07/01/23 09/03/19 History aerosol inhaler (ProAir HFA) Shortness Of Breath cyclobenzaprine 10 mg tablet 10 mg PO TID PRN muscle spasm 10/14/19 07/01/23 06/30/23 History ipratropium 0.5 mg-albuterol 3 mg 3 ml inhalation Q4H PRN shortness 04/19/23 07/01/23 Unknown Rx (2.5 mg base)/3 mL nebulization of breath or wheezing #180 mL soln cetirizine 10 mg tablet 10 mg PO DAILY 06/24/23 07/01/23 06/30/23 History gabapentin 800 mg tablet 800 mg PO TID 06/24/23 07/01/23 06/30/23 History trazodone 50 mg tablet 50 mg PO BEDTIME PRN Sleep 30 days 06/30/23 07/01/23 06/30/23 Rx #30 tabs mirtazapine 15 mg tablet 15 mg PO BEDTIME 07/01/23 07/01/23 06/30/23 History quetiapine 200 mg tablet 400 mg PO BID 07/01/23 07/01/23 06/30/23 History Allergies Allergy/AdvReac Type Severity Reaction Status Date / Time codeine AdvReac Severe ADR-Vomitin Verified 06/24/23 19:40 g tramadol AdvReac Severe ADR-Seizure Verified 06/24/23 19:40 PFSH NPU 2 PFSH: Medical History Abnormal EKG SOB (shortness of breath) Pt refused stress test Substance abuse in remission Bilateral numbness and tingling of arms and legs Leg swelling Leg pain Tobacco use disorder, severe, dependence Affective disorder See comments below. Methamphetamine use disorder, mild, in early remission, abuse Surgical History S/P lobectomy of lung Hx of section Social History Smoking and tobacco/nicotine status: current every day tobacco/nicotine user cigarettes Packs smoked per day: 0.5 Years cigarettes smoked: 44 Quit status (tobacco/nicotine): not considering quitting Second hand smoke exposure: No Alcohol intake: former Year of sobriety/quit date alcohol: 2007 Substance/Drug Use: former Date of last use: 08/2019 methamphetamine use, distant use of marijuana, PCP, and acid Lives independently: Yes Household members: none Current occupational status: disabled Do you think of yourself as: Straight/Heterosexual Current gender identity: Female Mental Status Exam 2 MSE Comments: This is a thin/cachectic white female in hospital scrubs looking older than her stated age with limited grooming and eye contact. Patient with nasal cannula and continuous O2 in. No abnormal movements except for mild psychomotor retardation. Cooperative with exam in no acute distress. Speech was more normal rate and volume. Mood described as better than earlier, affect congruent. Thought process mostly organized. Thought content: Patient denied suicidal or homicidal ideation, there were no delusions reported or noted, she did not appear to be attending to internal stimuli. Attention and concentration were intact and memory was unreliable but none were formally tested. She is alert and oriented times 3. Insight, judgment and impulse control are limited. Vitals/I&O/Wt Last Vital Signs Temp 97.5 F L 07/01/23 01:06 Pulse 98 07/01/23 10:19 Resp 16 07/01/23 06:51 BP 135/75 07/01/23 10:19 Pulse Ox 97 07/01/23 10:19 O2 Del Method Nasal Cannula 07/01/23 09:30 Weight last 48 hrs Weight 37.195 kg Data NPU 07/01/23 02:10 07/01/23 02:10 A&P Assessment and plan (1) Amphetamine-induced psychotic disorder: (2) Methamphetamine dependence: (3) Affective disorder: Plan 63-year-old female with significant history of addiction specifically methamphetamine use disorder who was just discharged from the inpatient unit yesterday returns reporting she made some medication errors by reporting she can run through this from home. 1. Continue current medication. 2. No credible lethality noted. No need for inpatient hospitalization. 3. Agree with discharge to home with scheduled follow-up. 4. Appears that she relapsed. We discussed the importance of sobriety. She continues to be resistant to any drug and alcohol treatment. Attestations NPU 2 Medical Necessity Statement*: N/A. Please see primary provider note for medical necessity but no need for inpatient psychiatric services necessary at this time. Coding Level of Care Code Acute Code for [facility] Fwd Diagnoses Amphetamine-induced psychotic disorder F15.959 Methamphetamine dependence F15.20 Affective disorder F39
== END 2023-07-01 11:57 | disposition home or self-care (01) ==
PROVIDERS: Emergency Medicine; Emergency Provider Family Medicine; PCP Nurse Practitioner Family
DX: F23 Brief psychotic disorder (principal); F15.159 Other stimulant abuse with stimulant-induced psychotic disorder, unspecified; Z11.52 Encounter for screening for COVID-19; F17.210 Nicotine dependence, cigarettes, uncomplicated
CPT/HCPCS: 36415; 71045; 80053; 80306; 80307; 81003; 84443; 85025; 87426; 93005; 99285

== ENCOUNTER 2023-09-09 17:19 | Emergency (ER) | payer MEDICAID, SELFPAY ==
[2023-09-09 17:22] VITALS: BP 101/51; PULSE 110; TEMP 36.8; O2SAT 97
--- NOTE | 2023-09-09 17:25 | XRR_ITS ---
PROCEDURE INFORMATION: Exam: XR Chest Exam date and time: 09/09/2023 5:32 PM Age: 63 years old Clinical indication: Other: Weakness; Prior surgery; Surgery date: 6+ months; Surgery type: RT lobectomy TECHNIQUE: Imaging protocol: Radiologic exam of the chest. Views: 1 view. COMPARISON: CR XR chest 1V portable [id number] 07/01/2023 1:30 AM FINDINGS: Pulmonary emphysema. Patient is status post a lobectomy on the right. Cardiomediastinal silhouette does not appear changed from 04/19/2023.. Hyperexpansion of the left lung. Lungs: Clear. Pleural spaces: No pleural effusion identified. Heart/Mediastinum: Cardiomediastinal silhouette is stable. Bones/joints: No acute osseous abnormality identified. XR/XR chest 1V portable [id number] IMPRESSION: 1. Stable postoperative appearance of the chest. The previously noted focal density superimposing the superior aspect of the right mainstem bronchus is less apparent currently than on previous. Please note that due to the postoperative configuration of the chest, assessment in the right perihilar region is limited.
--- NOTE | 2023-09-09 17:56 | ED_ITS ---
HPI - Overdose 2 General: Chief Complaint: Overdose Stated Complaint: Hallucinations -Poss drug abuse Time Seen by Provider: 09/09/23 17:21 Source: patient and EMS Mode of arrival: EMS Limitations: no limitations History of Present Illness: 63-year-old female is very well-known to the ER presents here from home after snorting meth last night and been hallucinating at home. Patient here is moving constantly she denies SI or HI. Patient is very frail appearing she denies any pain anywhere. She denies hearing or seeing anything currently at this time. But does appear to be under the influence of methamphetamine Review of Systems 2 Const: Denies: fever(s) or chills ENMT: Denies: throat pain or dental pain Card: Denies: chest pain Resp: Denies: dyspnea GI: Denies: abdominal pain, nausea, vomiting or diarrhea Musc: Denies: neck pain or back pain Skin/Breast: Denies: rash Neuro: Denies: headache(s) Psych: Reports: auditory hallucinations PFSH ED 2 PFSH: Medical History Abnormal EKG SOB (shortness of breath) Pt refused stress test Substance abuse in remission Bilateral numbness and tingling of arms and legs Leg swelling Leg pain Tobacco use disorder, severe, dependence Affective disorder See comments below. Methamphetamine use disorder, mild, in early remission, abuse Surgical History S/P lobectomy of lung Hx of section Social History Smoking and tobacco/nicotine status: current every day tobacco/nicotine user cigarettes Packs smoked per day: 0.5 Years cigarettes smoked: 44 Quit status (tobacco/nicotine): not considering quitting Second hand smoke exposure: No Alcohol intake: former Year of sobriety/quit date alcohol: 2007 Substance/Drug Use: former Date of last use: 08/2019 methamphetamine use, distant use of marijuana, PCP, and acid Lives independently: Yes Household members: none Current occupational status: disabled Do you think of yourself as: Straight/Heterosexual Current gender identity: Female Physical Exam 2 Const: COMMON NORMALS: patient oriented x3 GENERAL APPEARANCE: disheveled and frail appearing HENMT: COMMON NORMALS: normocephalic and atraumatic HEAD & SCALP: n ormocephalic and atraumatic Eye: COMMON NORMALS: Equal, round and reactive pupils present and EOMs intact bilaterally PUPIL: Yes Equal, round and reactive pupils present Neck/C-Spine: COMMON NORMALS: full ROM and supple Chest: COMMONS NORMALS: normal inspection of the chest and normal palpation of entire chest wall Resp: COMMON NORMALS: normal respiratory effort, No retractions, No use of accessory muscles and clear to auscultation bilaterally AUSCULTATION: clear to auscultation bilaterally Cardio: COMMON NORMALS: regular rate, regular rhythm and No murmurs present (Cardio) RATE: regular rate RHYTHM: regular rhythm GI: COMMON NORMALS: Normal to inspection, nondistended, normoactive bowel sounds present, Soft to palpation, non-tender and no masses PALPATION: Yes Soft to palpation Extremity: COMMON NORMALS: normal to inspection and full ROM Neuro: COMMON NORMALS: patient oriented x3, moves all extremities and no focal motor deficits Psych: COMMON NORMALS: mental status grossly normal, Normal thought process present and cooperative THOUGHT PROCESS: Normal thought process present Skin: COMMON NORMALS: no rashes or lesions noted and no wounds GENERAL SKIN EXAM: no rashes or lesions noted Course 2 Vital Signs: Vital signs: Vital Signs Temperature 98.2 F 09/09/23 17:22 Pulse Rate 105 H 09/09/23 18:38 Blood Pressure 84/54 09/09/23 18:38 Pulse Oximetry 93 09/09/23 18:38 Oxygen Delivery Me thod Room Air 09/09/23 17:22 MDM - Overdose Medical Decision Making Patient presents here with methamphetamine abuse blood work here is all normal she has been seen here for multiple times for this she is currently calm no longer hallucinating at this point does not require psych admission discharged with her . Medical Records I reviewed the patient's medical records. Lab Data I reviewed the patient's lab results. 09/09/23 18:05 09/09/23 18:05 Radiology Impressions Chest X-Ray 09/09/23 17:25 IMPRESSION: 1. Stable postoperative appearance of the chest. The previously noted focal density superimposing the superior aspect of the right mainstem bronchus is less apparent currently than on previous. Please note that due to the postoperative configuration of the chest, assessment in the right perihilar region is limited. Laboratory Results WBC 5.03 10^3/uL (3.29-11.43) 09/09/23 18:05 RBC 3.92 10^6/uL (3.85-5.65) 09/09/23 18:05 Hgb 11.20 g/dL (11.27-16.99) L 09/09/23 18:05 Hct 34.1 % (36-47) L 09/09/23 18:05 MCV 87.0 fl (85-98) 09/09/23 18:05 MCH 28.6 pg (27-33) 09/09/23 18:05 MCHC 32.8 g/dL (30-55) 09/09/23 18:05 RDW 13.2 % (12.1-15.1) 09/09/23 18:05 Plt Count 318 10^3/cmm (157-399) 09/09/23 18:05 MPV 10.0 fL (7.4-10.4) 09/09/23 18:05 Neut % (Auto) 67.3 % 09/09/23 18:05 Lymph % (Auto) 22.3 % 09/09/23 18:05 [place] % (Auto) 7.6 % 09/09/23 18:05 Eos % (Auto) 1.0 % 09/09/23 18:05 Baso % (Auto) 1.4 % 09/09/23 18:05 Neut # (Auto) 3.39 10^3/uL (1.8-7.7) 09/09/23 18:05 Lymph # (Auto) 1.1 10^3/uL (0.8-4.8) 09/09/23 18:05 [place] # (Auto) 0.4 10^3/uL (0.2-0.9) 09/09/23 18:05 Eos # (Auto) 0.1 10^3/uL (0.0-0.8) 09/09/23 18:05 Baso # (Auto) 0.1 10^3/uL (0.0-0.1) 09/09/23 18:05 Nucleated RBC % (auto) 0 % 09/09/23 18:05 Nucleated RBCs # 0.0 /100WBC 09/09/23 18:05 PT 13.10 SECONDS (12.1-14.9) 09/09/23 18:05 INR 0.96 (0.8-1.2) 09/09/23 18:05 Sodium 138 mmol/L (136-145) 09/09/23 18:05 Potassium 3.7 mmol/L (3.5-5.1) 09/09/23 18:05 Chloride 101 mmol/L (98-107) 09/09/23 18:05 Carbon Dioxide 28 mmol/L (22-29) 09/09/23 18:05 Anion Gap 12.7 (5-19) 09/09/23 18:05 BUN 17 mg/dL (8-23) 09/09/23 18:05 Creatinine 0.5 mg/dL (0.5-0.9) 09/09/23 18:05 GFR Calculation 125.4 mL/min (90-130) 09/09/23 18:05 Glucose 116 mg/dL (65-115) H 09/09/23 18:05 Calculated Osmolality 289 mOsm/kg (285-295) 09/09/23 18:05 Lactic Acid 1.3 mmol/L (0.5-2.2) 09/09/23 18:05 Calcium 8.8 mg/dL (8.5-10.5) 09/09/23 18:05 Magnesium 1.8 mg/dL (1.7-2.3) 09/09/23 18:05 Total Bilirubin 0.6 mg/dL (0.15-1.2) 09/09/23 18:05 AST 20 U/L (0-32) 09/09/23 18:05 ALT 14 U/L (0-33) 09/09/23 18:05 Alkaline Phosphatase 71 U/L (35-105) 09/09/23 18:05 Creatine Kinase 155 U/L (26-192) 09/09/23 18:05 Total Protein 6.1 g/dL (6.6-8.7) L 09/09/23 18:05 Albumin 4.1 g/dL (3.5-5.2) 09/09/23 18:05 Globulin 2.0 g/dL (1.3-4.6) 09/09/23 18:05 Salicylates < 0.3 mg/dL (3-10) L 09/09/23 18:05 Acetaminophen < 5.0 ug/mL (10-30) L 09/09/23 18:05 Ethyl Alcohol < 10 mg/dL (0-10) 09/09/23 18:05 All radiology interpretation(s) finalized by discharge EKG Data EKG 1: I personally reviewed and interpreted this EKG as follows: EKG interpretation date: 09/09/23 EKG interpretation time: 18:13 Interpretation: nsr hr [address] or t wave abnormalities qrs 100 qtc 429 Discharge Plan Discharge Patient Disposition: Home Clinical Impression: Methamphetamine abuse Condition: Stable Prescriptions: No Action cyclobenzaprine 10 mg tablet 10 mg PO TID PRN (Reason: muscle spasm) albuterol sulfate [ProAir HFA] 90 mcg/actuation HFA aerosol inhaler 2 puff INHALATION Q4H PRN (Reason: Shortness Of Breath) ipratropium-albuterol 0.5 mg-3 mg(2.5 mg base)/3 mL solution for nebulization 3 ml inhalation Q4H PRN (Reason: shortness of breath or wheezing) Qty: 180 0RF quetiapine 200 mg tablet 400 mg PO BID mirtazapine 15 mg tablet 15 mg PO BEDTIME cetirizine 10 mg tablet 10 mg PO DAILY gabapentin 800 mg tablet 800 mg PO TID trazodone 50 mg Tablet 50 mg PO BEDTIME PRN (Reason: Sleep) 30 Days Qty: 30 1RF Discharge Orders: Discharge ED (Routine); Ordered 09/09/23 Ordered By: Avtar Rizzo Referrals: Reema Webster FNP [Primary Care Provider] - Discharge Diet: Advance as tolerated Discharge Activity: Resume usual activity Patient Instructions: Methamphetamine Abuse Coding Level of Care Code ED Environmental Services Manager for [facility]
--- NOTE | 2023-09-09 17:59 | PC.NURSE ---
PT REQUESTED TO BE IN ROOM. DR SPIKE LYNN. PT CALM AND COOPERATIVE AT THIS TIME. AT BEDSIDE.
--- NOTE | 2023-09-09 18:13 | ECG_ITS ---
[facility] Test Date: 2023-09-09 Pat Name: Sury Joy Department: Room: Gender: Female Digital Media Planner: : 1960 Requested By: Avtar Rizzo Order Number: [id number] Reading MD: Corrine Hoffman M.D. Measurements Intervals [place] Rate: 99 P: 85 UT: 129 QRS: 96 QRSD: 100 T: 88 QT: 372 QTc: 479 Interpretive Statements SINUS RHYTHM BORDERLINE RIGHT AXIS DEVIATION [QRS AXIS > 90] Compared to ECG 07/01/2023 01:47:48 Short UT interval no longer present Electronically Signed On 09-09-2023 18:31:28 PROJECT SCIENTIST by Corrine Hoffman M.D. [id number]
[2023-09-09] MEDS: sodium chloride 0.9% 1,000 ML 999 ML IV ×2 (18:15→18:16)
[2023-09-09 18:18] LABS: Basophils # 0.1 10^3/uL (0.0-0.1); Basophils % 1.4 %; Eosinophils # 0.1 10^3/uL (0.0-0.8); Hematocrit 34.1 % (36-47); Lymphocytes # 1.1 10^3/uL (0.8-4.8); Lymphocytes % 22.3 %; Mean Corpuscular HGB Conc 32.8 g/dL (30-55); Mean Corpuscular Hemoglobin 28.6 pg (27-33); Monocytes # 0.4 10^3/uL (0.2-0.9); Monocytes % 7.6 %; Neutrophils # 3.39 10^3/uL (1.8-7.7); Neutrophils % 67.3 %; Nucleated Red Blood Cells % 0 %; Platelet Count 318 10^3/cmm (157-399); Red Blood Count 3.92 10^6/uL (3.85-5.65); Red Cell Distribution Width 13.2 % (12.1-15.1); White Blood Count 5.03 10^3/uL (3.29-11.43)
[2023-09-09 18:34] LABS: INR 0.96 (0.8-1.2)
[2023-09-09 18:36] LABS: Lactic Sepsis W/Reflex 1.3 mmol/L (0.5-2.2)
[2023-09-09 18:38] VITALS: BP 84/54; PULSE 105; O2SAT 93
[2023-09-09 18:41] LABS: Alanine Aminotransferase 14 U/L (0-33); Albumin Level 4.1 g/dL (3.5-5.2); Alkaline Phosphatase 71 U/L (35-105); Blood Urea Nitrogen 17 mg/dL (8-23); Calcium 8.8 mg/dL (8.5-10.5); Carbon Dioxide 28 mmol/L (22-29); Chloride 101 mmol/L (98-107); Creatine Phosphokinase 155 U/L (26-192); Glomerular Filtration Rate 125.4 mL/min (90-130); Glucose 116 mg/dL (65-115); Magnesium 1.8 mg/dL (1.7-2.3); Osmolality Calculated 289 mOsm/kg (285-295); Sodium 138 mmol/L (136-145); Total Bilirubin 0.6 mg/dL (0.15-1.2); Total Protein 6.1 g/dL (6.6-8.7)
[2023-09-09 18:54] LABS: Acetaminophen < 5.0 ug/mL (10-30); Alcohol Level < 10 mg/dL (0-10); Anion Gap 12.7 (5-19); Potassium 3.7 mmol/L (3.5-5.1); Salicylate < 0.3 mg/dL (3-10)
[2023-09-09 18:55] LABS: Aspartate Amino Transferase 20 U/L (0-32)
[2023-09-09] MEDS: quetiapine 100 mg Tablet PO (19:56)
[2023-09-09 20:04] VITALS: BP 105/48; PULSE 88; RESP 18; O2SAT 90
== END 2023-09-09 19:59 | disposition home or self-care (01) ==
PROVIDERS: Emergency Provider Emergency Medicine; PCP Nurse Practitioner Family
DX: F15.10 Other stimulant abuse, uncomplicated (principal); F17.210 Nicotine dependence, cigarettes, uncomplicated
CPT/HCPCS: 36415; 71045; 80053; 80307; 82550; 83605; 83735; 85025; 85610; 87040; 93005; 96360; 96361; 99285; J7030

== ENCOUNTER 2023-09-12 02:25 | Inpatient (IN) | payer MEDICAID, SELFPAY ==
[2023-09-12 02:26] VITALS: BP 87/50; PULSE 107; RESP 20; TEMP 36.9; O2SAT 95; BMI 12.4
--- NOTE | 2023-09-12 02:38 | ED.C_ITS ---
Documented by User: Juancarlos Ness DO 09/12/23 02:47 HPI - Psych 2 General: Chief Complaint: Psychiatric Symptoms Stated Complaint: Med reaction Time Seen by Provider: 09/12/23 02:35 History of Present Illness: Patient presents to the ER with complaints from the EMS with patient took her trazodone and Seroquel about an hour and a half ago and now she is hearing things and seeing things. Patient does not deny this however patient goes on to state that she is having anxiety and she has not taken Valium in a long time but took some Valium as well. The patient states she is suicidal and homicidal. Patient says she wants to take a gun and kill her and herself. qPatient does admit to being here a couple days ago for similar instances and at first she request no blood or urine to be drawn but then she agrees to it. Patient is very squirmy and fidgety and can barely sit still does appear that she is acting like she has been using methamphetamines. Review of Systems 2 General: Reports: 10 or more systems reviewed and unremarkable except in HPI and below PFSH ED 2 PFSH: Medical History Methamphetamine abuse Abnormal EKG SOB (shortness of breath) Pt refused stress test Substance abuse in remission Bilateral numbness and tingling of arms and legs Leg swelling Leg pain Tobacco use disorder, severe, dependence Affective disorder See comments below. Methamphetamine use disorder, mild, in early remission, abuse Surgical History S/P lobectomy of lung Hx of section Social History Smoking and tobacco/nicotine status: current every day tobacco/nicotine user cigarettes Packs smoked per day: 0.5 Years cigarettes smoked: 44 Quit status (tobacco/nicotine): not considering quitting Second hand smoke exposure: No Alcohol intake: former Year of sobriety/quit date alcohol: 2007 Substance/Drug Use: former Date of last use: 08/2019 methamphetamine use, distant use of marijuana, PCP, and acid Lives independently: Yes Household members: none Current occupational status: disabled Do you think of yourself as: Straight/Heterosexual Current gender identity: Female Physical Exam 2 Const: COMMON NORMALS: no acute distress, average body habitus, patient oriented x3, no limitations, healthy appearing, alert and well nourished HENMT: COMMON NORMALS: normocephalic, atraumatic, hearing grossly normal bilaterally, external ears normal, Normal external nose present, moist oral mucous membranes and oropharynx normal HEAD & SCALP: normocephalic and atraumatic NOSE: Normal external nose present EXTERNAL EAR: Yes external ears normal Neck/C-Spine: COMMON NORMALS: no JVD Chest: COMMONS NORMALS: normal inspection of the chest and normal palpation of entire chest wall Resp: COMMON NORMALS: normal respiratory effort, No retractions, No use of accessory muscles and clear to auscultation bilaterally AUSCULTATION: clear to auscultation bilaterally Cardio: COMMON NORMALS: no JVD, regular rate, regular rhythm, S1 normal heart sound present, S2 normal heart sound present, No gallops present (Cardio), No clicks present (Cardio) and No rub (Cardio) RATE: regular rate RHYTHM: r egular rhythm HEART SOUNDS: S1 normal heart sound present and S2 normal heart sound present GI: COMMON NORMALS: Normal to inspection, nondistended, normoactive bowel sounds present, Soft to palpation, non-tender, No hepatosplenomegaly present and no masses PALPATION: Yes Soft to palpation and Yes No hepatosplenomegaly present Neuro: COMMON NORMALS: patient oriented x3 SENSORIUM/ORIENTATION: Yes alert Course 2 Vital Signs: Vital signs: Vital Signs Temperature 98.4 F 09/12/23 02:26 Pulse Rate 74 09/12/23 07:15 Respiratory Rate 16 09/12/23 07:15 Blood Pressure 122/65 09/12/23 07:15 Pulse Oximetry 90 09/12/23 07:15 Oxygen Delivery Me thod Room Air 09/12/23 07:15 Oxygen Flow Rate 2 09/12/23 05:50 MDM - Psych Differential Diagnosis Likely suicidal ideation and drug-induced psychotic disorder Medical Records I reviewed the patient's medical records. Lab Data I reviewed the patient's lab results. 09/12/23 02:41 09/12/23 02:41 Laboratory Results WBC 6.02 10^3/uL (3.29-11.43) 09/12/23 02:41 RBC 3.87 10^6/uL (3.85-5.65) 09/12/23 02:41 Hgb 11.20 g/dL (11.27-16.99) L 09/12/23 02:41 Hct 33.6 % (36-47) L 09/12/23 02:41 MCV 86.8 fl (85-98) 09/12/23 02:41 MCH 28.9 pg (27-33) 09/12/23 02:41 MCHC 33.3 g/dL (30-55) 09/12/23 02:41 RDW 13.3 % (12.1-15.1) 09/12/23 02:41 Plt Count 282 10^3/cmm (157-399) 09/12/23 02:41 MPV 9.8 fL (7.4-10.4) 09/12/23 02:41 Neut % (Auto) 65.2 % 09/12/23 02:41 Lymph % (Auto) 21.8 % 09/12/23 02:41 [place] % (Auto) 9.5 % 09/12/23 02:41 Eos % (Auto) 2.3 % 09/12/23 02:41 Baso % (Auto) 1.0 % 09/12/23 02:41 Neut # (Auto) 3.93 10^3/uL (1.8-7.7) 09/12/23 02:41 Lymph # (Auto) 1.3 10^3/uL (0.8-4.8) 09/12/23 02:41 [place] # (Auto) 0.6 10^3/uL (0.2-0.9) 09/12/23 02:41 Eos # (Auto) 0.1 10^3/uL (0.0-0.8) 09/12/23 02:41 Baso # (Auto) 0.1 10^3/uL (0.0-0.1) 09/12/23 02:41 Nucleated RBC % (auto) 0 % 09/12/23 02:41 Nucleated RBCs # 0.0 /100WBC 09/12/23 02:41 Sodium 137 mmol/L (136-145) 09/12/23 02:41 Potassium 3.2 mmol/L (3.5-5.1) L 09/12/23 02:41 Chloride 99 mmol/L (98-107) 09/12/23 02:41 Carbon Dioxide 28 mmol/L (22-29) 09/12/23 02:41 Anion Gap 13.2 (5-19) 09/12/23 02:41 BUN 9 mg/dL (8-23) 09/12/23 02:41 Creatinine 0.7 mg/dL (0.5-0.9) 09/12/23 02:41 GFR Calculation 85.1 mL/min (90-130) L 09/12/23 02:41 Glucose 101 mg/dL (65-115) 09/12/23 02:41 Calculated Osmolality 283 mOsm/kg (285-295) L 09/12/23 02:41 Calcium 8.5 mg/dL (8.5-10.5) 09/12/23 02:41 Total Bilirubin 0.5 mg/dL (0.15-1.2) 09/12/23 02:41 AST 17 U/L (0-32) 09/12/23 02:41 ALT 16 U/L (0-33) 09/12/23 02:41 Alkaline Phosphatase 69 U/L (35-105) 09/12/23 02:41 Total Protein 5.6 g/dL (6.6-8.7) L 09/12/23 02:41 Albumin 3.8 g/dL (3.5-5.2) 09/12/23 02:41 Globulin 1.8 g/dL (1.3-4.6) 09/12/23 02:41 Salicylates 0.5 mg/dL (3-10) L 09/12/23 02:41 Acetaminophen < 5.0 ug/mL (10-30) L 09/12/23 02:41 Ethyl Alcohol < 10 mg/dL (0-10) 09/12/23 02:41 No radiology studies performed this visit Discharge Plan Discharge Patient Disposition: Admitted As Inpatient Clinical Impression: Suicidal ideation, Drug-induced psychotic disorder Condition: Stable Prescriptions: No Action cyclobenzaprine 10 mg tablet 10 mg PO TID PRN (Reason: muscle spasm) albuterol sulfate [ProAir HFA] 90 mcg/actuation HFA aerosol inhaler 2 puff INHALATION Q4H PRN (Reason: Shortness Of Breath) ipratropium-albuterol 0.5 mg-3 mg(2.5 mg base)/3 mL solution for nebulization 3 ml inhalation Q4H PRN (Reason: shortness of breath or wheezing) Qty: 180 0RF quetiapine 200 mg tablet 400 mg PO BID mirtazapine 15 mg tablet 15 mg PO BEDTIME cetirizine 10 mg tablet 10 mg PO DAILY gabapentin 800 mg tablet 800 mg PO TID trazodone 50 mg Tablet 50 mg PO BEDTIME PRN (Reason: Sleep) 30 Days Qty: 30 1RF Referrals: Reema Webster FNP [Primary Care Provider] - Coding Level of Care Code ED Food Safety Field Specialist for Chg Fwd Documented by User: Dimas Hawk DO 09/12/23 07:57 HPI - Psych 2 General: Chief Complaint: Psychiatric Symptoms Stated Complaint: Med reaction Time Seen by Provider: 09/12/23 02:35 PFSH ED 2 PFSH: Medical History Methamphetamine abuse Abnormal EKG SOB (shortness of breath) Pt refused stress test Substance abuse in remission Bilateral numbness and tingling of arms and legs Leg swelling Leg pain Tobacco use disorder, severe, dependence Affective disorder See comments below. Methamphetamine use disorder, mild, in early remission, abuse Surgical History S/P lobectomy of lung Hx of section Social History Smoking and tobacco/nicotine status: current every day tobacco/nicotine user cigarettes Packs smoked per day: 0.5 Years cigarettes smoked: 44 Quit status (tobacco/nicotine): not considering quitting Second hand smoke exposure: No Alcohol intake: former Year of sobriety/quit date alcohol: 2007 Substance/Drug Use: former Date of last use: 08/2019 methamphetamine use, distant use of marijuana, PCP, and acid Lives independently: Yes Household members: none Current occupational status: disabled Do you think of yourself as: Straight/Heterosexual Current gender identity: Female Course 2 Reevaluation(s): Reevaluation #1: This patient was checked out to me as being transported to our emergency department endorsing symptoms of suicidality and homicidality. I interviewed the patient briefly. She is alert and aware of herself and surroundings. She does admit to regular methamphetamine use. She does also still admit that she has feelings of harming herself and as well as others in her family. No other focal findings other than her thin body habitus noted at this time. Discussed with psychiatry and she will admitted for further evaluation. Time: 07:56 Vital Signs: Vital signs: Vital Signs Temperature 98.4 F 09/12/23 02:26 Pulse Rate 74 09/12/23 07:15 Respiratory Rate 16 09/12/23 07:15 Blood Pressure 122/65 09/12/23 07:15 Pulse Oximetry 90 09/12/23 07:15 Oxygen Delivery Me thod Room Air 09/12/23 07:15 Oxygen Flow Rate 2 09/12/23 05:50 MDM - Psych Medical Decision Making Patient who presented to this emergency department by EMS after expressing thoughts of harming herself and others by using a gun to shoot both herself and others in her family. The patient continues to endorse the symptoms when interviewed by a second ER physician and therefore is being admitted to psychiatry for further evaluation. Lab Data 09/12/23 02:41 09/12/23 02:41 Laboratory Results WBC 6.02 10^3/uL (3.29-11.43) 09/12/23 02:41 RBC 3.87 10^6/uL (3.85-5.65) 09/12/23 02:41 Hgb 11.20 g/dL (11.27-16.99) L 09/12/23 02:41 Hct 33.6 % (36-47) L 09/12/23 02:41 MCV 86.8 fl (85-98) 09/12/23 02:41 MCH 28.9 pg (27-33) 09/12/23 02:41 MCHC 33.3 g/dL (30-55) 09/12/23 02:41 RDW 13.3 % (12.1-15.1) 09/12/23 02:41 Plt Count 282 10^3/cmm (157-399) 09/12/23 02:41 MPV 9.8 fL (7.4-10.4) 09/12/23 02:41 Neut % (Auto) 65.2 % 09/12/23 02:41 Lymph % (Auto) 21.8 % 09/12/23 02:41 [place] % (Auto) 9.5 % 09/12/23 02:41 Eos % (Auto) 2.3 % 09/12/23 02:41 Baso % (Auto) 1.0 % 09/12/23 02:41 Neut # (Auto) 3.93 10^3/uL (1.8-7.7) 09/12/23 02:41 Lymph # (Auto) 1.3 10^3/uL (0.8-4.8) 09/12/23 02:41 [place] # (Auto) 0.6 10^3/uL (0.2-0.9) 09/12/23 02:41 Eos # (Auto) 0.1 10^3/uL (0.0-0.8) 09/12/23 02:41 Baso # (Auto) 0.1 10^3/uL (0.0-0.1) 09/12/23 02:41 Nucleated RBC % (auto) 0 % 09/12/23 02:41 Nucleated RBCs # 0.0 /100WBC 09/12/23 02:41 Sodium 137 mmol/L (136-145) 09/12/23 02:41 Potassium 3.2 mmol/L (3.5-5.1) L 09/12/23 02:41 Chloride 99 mmol/L (98-107) 09/12/23 02:41 Carbon Dioxide 28 mmol/L (22-29) 09/12/23 02:41 Anion Gap 13.2 (5-19) 09/12/23 02:41 BUN 9 mg/dL (8-23) 09/12/23 02:41 Creatinine 0.7 mg/dL (0.5-0.9) 09/12/23 02:41 GFR Calculation 85.1 mL/min (90-130) L 09/12/23 02:41 Glucose 101 mg/dL (65-115) 09/12/23 02:41 Calculated Osmolality 283 mOsm/kg (285-295) L 09/12/23 02:41 Calcium 8.5 mg/dL (8.5-10.5) 09/12/23 02:41 Total Bilirubin 0.5 mg/dL (0.15-1.2) 09/12/23 02:41 AST 17 U/L (0-32) 09/12/23 02:41 ALT 16 U/L (0-33) 09/12/23 02:41 Alkaline Phosphatase 69 U/L (35-105) 09/12/23 02:41 Total Protein 5.6 g/dL (6.6-8.7) L 09/12/23 02:41 Albumin 3.8 g/dL (3.5-5.2) 09/12/23 02:41 Globulin 1.8 g/dL (1.3-4.6) 09/12/23 02:41 Salicylates 0.5 mg/dL (3-10) L 09/12/23 02:41 Acetaminophen < 5.0 ug/mL (10-30) L 09/12/23 02:41 Ethyl Alcohol < 10 mg/dL (0-10) 09/12/23 02:41 Discharge Plan Discharge Patient Disposition: Admitted As Inpatient Clinical Impression: Suicidal ideation, Drug-induced psychotic disorder Condition: Stable Prescriptions: No Action cyclobenzaprine 10 mg tablet 10 mg PO TID PRN (Reason: muscle spasm) albuterol sulfate [ProAir HFA] 90 mcg/actuation HFA aerosol inhaler 2 puff INHALATION Q4H PRN (Reason: Shortness Of Breath) ipratropium-albuterol 0.5 mg-3 mg(2.5 mg base)/3 mL solution for nebulization 3 ml inhalation Q4H PRN (Reason: shortness of breath or wheezing) Qty: 180 0RF quetiapine 200 mg tablet 400 mg PO BID mirtazapine 15 mg tablet 15 mg PO BEDTIME cetirizine 10 mg tablet 10 mg PO DAILY gabapentin 800 mg tablet 800 mg PO TID trazodone 50 mg Tablet 50 mg PO BEDTIME PRN (Reason: Sleep) 30 Days Qty: 30 1RF Referrals: Reema Webster, SECURITIES COMPLIANCE EXAMINER [Primary Care Provider] - Coding Level of Care Code ED Food Safety Field Specialist for Chg J[facility]ots[facility]
[2023-09-12 02:53] LABS: Basophils # 0.1 10^3/uL (0.0-0.1); Eosinophils # 0.1 10^3/uL (0.0-0.8); Eosinophils % 2.3 %; Hematocrit 33.6 % (36-47); Lymphocytes # 1.3 10^3/uL (0.8-4.8); Lymphocytes % 21.8 %; Mean Corpuscular HGB Conc 33.3 g/dL (30-55); Mean Corpuscular Hemoglobin 28.9 pg (27-33); Mean Corpuscular Volume 86.8 fl (85-98); Mean Platelet Volume 9.8 fL (7.4-10.4); Monocytes # 0.6 10^3/uL (0.2-0.9); Monocytes % 9.5 %; Neutrophils # 3.93 10^3/uL (1.8-7.7); Neutrophils % 65.2 %; Nucleated Red Blood Cells % 0 %; Platelet Count 282 10^3/cmm (157-399); Red Blood Count 3.87 10^6/uL (3.85-5.65); Red Cell Distribution Width 13.3 % (12.1-15.1); White Blood Count 6.02 10^3/uL (3.29-11.43)
[2023-09-12 03:08] LABS: Alanine Aminotransferase 16 U/L (0-33); Albumin Level 3.8 g/dL (3.5-5.2); Alkaline Phosphatase 69 U/L (35-105); Anion Gap 13.2 (5-19); Aspartate Amino Transferase 17 U/L (0-32); Blood Urea Nitrogen 9 mg/dL (8-23); Calcium 8.5 mg/dL (8.5-10.5); Carbon Dioxide 28 mmol/L (22-29); Chloride 99 mmol/L (98-107); Creatinine Clr Calc Pharmacy 42.3032; Globulin 1.8 g/dL (1.3-4.6); Glomerular Filtration Rate 85.1 mL/min (90-130); Glucose 101 mg/dL (65-115); Osmolality Calculated 283 mOsm/kg (285-295); Potassium 3.2 mmol/L (3.5-5.1); Salicylate 0.5 mg/dL (3-10); Sodium 137 mmol/L (136-145); Total Bilirubin 0.5 mg/dL (0.15-1.2); Total Protein 5.6 g/dL (6.6-8.7)
[2023-09-12 03:19] LABS: Acetaminophen < 5.0 ug/mL (10-30); Alcohol Level < 10 mg/dL (0-10)
[2023-09-12 05:50] VITALS: RESP 18
[2023-09-12 07:15] VITALS: BP 122/65; PULSE 74; RESP 16; O2SAT 90
--- NOTE | 2023-09-12 07:58 | PC.PHAR ---
pt states her takes care of her medications-khang escamilla [phone] verified pts medications-states the pt is no longer taking ropinirole 1mg hs ext shows last filled 03/28/23 30d/s-khang states the pts quetiapine was dced-khang states the pts trazodone 50mg hs is taken every night rx filled 09/02/23 30d/s 50mg hs prn-khang states the pt takes zyrtec 10mg daily prn rx filled 08/01/23 90d/s 10mg daily
[2023-09-12 10:14] VITALS: BP 88/60; PULSE 96; RESP 16; TEMP 36.7; O2SAT 92
[2023-09-12] MEDS: hyDROXYzine 25 mg Capsule 50 MG PO (12:31)
[2023-09-12 14:00] VITALS: BP 93/53; PULSE 86; RESP 17; TEMP 36.9; O2SAT 97
--- NOTE | 2023-09-12 15:10 | P.NPUHP_ITS ---
Providers/Chief Complaint 2 Admitting Physician: Rajinder Alicia MD Primary Care Provider: YSABEL Zamora Chief Complaint: Med reaction HPI NPU History of Present Illness Sury Joy is a 63 year old female Who presented to the emergency department with complaints of auditory hallucinations despite reports of being compliant with her trazodone and Seroquel prescribed. The patient had also reported auditory and visual hallucinations. She was admitted to the neuropsychiatric unit for further evaluation and treatment. She reports that she had a desire to take a gun out and kill her along with herself. She had reported that she uses methamphetamines nearly every day for several months. She reported no new changes since her last admission onto the neuropsychiatric unit in June 2023. No new changes were reported since her last hospitalization on the unit 2 and half months ago. Excerpt from HPI from ED by Dr. Montes, Psychiatrist, below History of Present Illness Sury Joy is a 63 year old female who presented to the emergency department with the following report: Chief Complaint: Psychiatric Symptoms Stated Complaint: hearing voices Time Seen by Provider: 07/01/23 01:13 History of Present Illness: 63-year-old female who was discharged from the neuropsychiatric facility 06/30. She presents 13 or 14 hours after discharge. Her chief complaint is that she is hearing voices. The voices are telling the patient that they are going to kill her and her . She is exhibiting no suicidal ideation or homicidal ideation, only intrusive thoughts of these voices. She seems improved to some degree on arrival, and has been calm. Her notes that she had a good day Uli Day, ate a good meal, and seem to interact well with family. It was only later in the night that she began to complain of hearing voices again. Patient presented to the emergency department having just been discharged from the inpatient psychiatric unit yesterday and a psychiatric consult was requested to determine whether we admission was indicated. Patient presents today reporting that she made some air in taking her medication. We discussed the fact that she had not been gone long enough to make it air that should lead to some kind of clinical relevance. She was an absolute denial that she relapsed even though her behavior was suggestive of relapse. She was very insistent however that there was no need for readmission. She reported that she wanted to have another chance to get a ride. We spent most of the time talking about recovery and sobriety and the different resources that are available. We also talked about the crisis stabilization center and the resources that exist there for moments of challenges. She was able to contract for safety outside the hospital. We discussed the importance of her following up as scheduled and considering more intense sober living services. Per her 06/30/2023 [facility] inpatient psychiatric discharge summary: Discharge Diagnosis (1) Amphetamine-induced psychotic disorder: Status: Acute (2) Methamphetamine dependence: Status: Acute (3) Affective disorder: Status: Chronic Permanent problem details: See comments below. Reason for Visit Reason for Visit: MHE Brief History: History of Present Illness Sury Joy is a 63 year old female who presented to the emergency department with complaints of hallucinations and bizarre delusions particularly that people were outside of her home. The patient was admitted to the neuropsychiatric unit for further evaluation and treatment. The patient had been unable to provide any further information but it indicated on the day of admission that she was feeling like people were after her. She had admitted to using methamphetamine and was positive for methamphetamine and benzodiazepines on admission. She had endorsed having auditory and visual hallucinations in the emergency department. She had received Haldol on the night of admission after she had been screaming while stating that people were trying to kill her. She was unable to provide any further information on interview. Inpatient psychiatric history: Per previous records she has had several inpatient hospitalizations. Outpatient psychiatric history: There is a past history of unspecified mood disorder and methamphetamine induced psychosis per previous records. Medical history: Anemia, hypokalemia, leg swelling, COPD Surgical Hx: lung lobectomy Allergies: Codeine and tramadol Medications: Zyrtec, cyclobenzaprine 10 mg 3 times a day, gabapentin 800 mg 3 times a day mirtazapine 15 mg at night, Seroquel 400 mg twice a day, albuterol inhaler. Drug and Alcohol history: per previous records methamphetamine abuse Family psychiatric history: unknown Social History: unknown, Hospital Course She slowly acclimated to the individual, group and milieu therapies provided. She presented psychosis positive for methamphetamine with a history of methamphetamine use disorder. Her home medications were continued with Remeron being discontinued and Seroquel being decreased from 800 mg to 600 mg p.o. nightly. She was often a hostile interviewee. With the absence of the methamphetamine and the medication changes she showed improvement. We worked with her to get some sense of what baseline looks like. She had positive response to that regimen. She worked with the social work team for her appropriate aftercare appointments. She had significant improvement and was able to contract for safety outside of the hospital prior to discharge. During the hospitalization, the patient had routine laboratory studies which were within normal limits except for a few outliers. Additionally, there was a general medical evaluation which was also within normal limits and revealed no new acute processes. At the time of discharge, she denied psychosis or lethality. Mood and anxiety were well managed. The patient endorsed a plan to avoid all drugs of abuse and follow up with the aftercare recommendations of the treatment team. The patient was evaluated and deemed to be absent credible lethality and had achieved the maximum benefit from an inpatient hospitalization, and so was discharged. Meds NPU Home Medications Medication Instructions Recorded Confirmed Last Taken Type albuterol sulfate 90 mcg/actuation 2 puff inhalation Q4H PRN 09/05/19 09/12/23 09/03/19 History aerosol inhaler (ProAir HFA) Shortness Of Breath cyclobenzaprine 10 mg tablet 10 mg PO TID PRN muscle spasm 10/14/19 09/12/23 06/30/23 History ipratropium 0.5 mg-albuterol 3 mg 3 ml inhalation Q4H PRN shortness 04/19/23 09/12/23 Unknown Rx (2.5 mg base)/3 mL nebulization of breath or wheezing #180 mL soln cetirizine 10 mg tablet 10 mg PO DAILY PRN Allergy Symptoms 06/24/23 09/12/23 06/30/23 History gabapentin 800 mg tablet 800 mg PO TID 06/24/23 09/12/23 06/30/23 History quetiapine 300 mg tablet 600 mg PO BEDTIME 09/12/23 09/12/23 Unknown History trazodone 50 mg tablet 50 mg PO BEDTIME Sleep 09/12/23 09/12/23 Unknown History Allergies Allergy/AdvReac Type Severity Reaction Status Date / Time codeine AdvReac Severe ADR-Vomitin Verified 06/24/23 19:40 g tramadol AdvReac Severe ADR-Seizure Verified 06/24/23 19:40 PFSH NPU 2 PFSH: Medical History Methamphetamine abuse Abnormal EKG SOB (shortness of breath) Pt refused stress test Substance abuse in remission Bilateral numbness and tingling of arms and legs Leg swelling Leg pain Tobacco use disorder, severe, dependence Affective disorder See comments below. Methamphetamine use disorder, mild, in early remission, abuse Surgical History S/P lobectomy of lung Hx of section Social History Smoking and tobacco/nicotine status: current every day tobacco/nicotine user cigarettes Packs smoked per day: 0.5 Years cigarettes smoked: 44 Quit status (tobacco/nicotine): not considering quitting Second hand smoke exposure: No Alcohol intake: former Year of sobriety/quit date alcohol: 2007 Substance/Drug Use: former Date of last use: 08/2019 methamphetamine use, distant use of marijuana, PCP, and acid Lives independently: Yes Household members: none Current occupational status: disabled Do you think of yourself as: Straight/Heterosexual Current gender identity: Female Mental Status Exam 2 MSE Comments: The patient appears much older than stated age and is emaciated with poor hygiene. She had a oxygen through nasal cannula here on the unit. She was unarousable by rub to arm again. She was not able to answer by name at this time. Her gait was not tested. She was not alert to person place or time. She was lying in bed and appeared cachectic and lethargic. Her speech was nonexistent, with some slurring noted. Her thought process was nonlinear. Her thought content showed no clear evidence of homicidal or suicidal ideation. Her insight is impaired. Her judgment is poor. Her impulse control appeared limited. There was no evidence of any abnormal involuntary motor movements tics or tremors appreciated. She did appear to be responding to internal stimuli when arriving here on unit, but not at time of full interview. Vitals/I&O/Wt Last Vital Signs Temp 98.1 F 09/12/23 10:14 Pulse 96 09/12/23 10:14 Resp 16 09/12/23 10:14 BP 88/60 09/12/23 10:14 Pulse Ox 92 09/12/23 10:14 O2 Del Method Nasal Cannula 09/12/23 10:04 O2 Flow Rate 2 09/12/23 05:50 Weight last 48 hrs Weight 31.751 kg Data NPU 09/12/23 02:41 09/12/23 02:41 A&P Assessment and plan (1) Amphetamine-induced psychotic disorder: (2) Methamphetamine dependence: (3) Depression, unspecified: Plan 63-year-old female currently under the presence of methamphetamine again likely withdrawing off methamphetamine with the presence of active psychosis and depression. She will continue to require acute inpatient hospitalization. 1. Encourage individual, group and milieu therapy. 2. Recommend sober living treatment at the highest level of care to which the patient is willing to commit. 3. Continue q-15 minute checks for safety.? 4.? Restart current medications. 5.? Will attempt to gather collateral information. Involuntary Hold Information 2 96 Hour Hold: 96 Hour Involuntary Admission: No Attestations NPU 2 Medical Necessity Statement*: Inpatient hospitalization is medically necessary and deemed to be the clinically appropriate decision at this time. The patient will be started on medications and medications will be adjusted as clinically indicated. The patient will be in the hospital for at least 2 midnights. Her likely length of stay is 6 to 8 days. Coding Level of Care Code Acute Code for [facility] Fwd Diagnoses Amphetamine-induced psychotic disorder F15.959 Methamphetamine dependence F15.20 Depression, unspecified F32.A
[2023-09-12] MEDS: OLANZapine 5 mg ODT PO ×2 (15:12→20:22)
[2023-09-12] MEDS: haloperidol 5 mg Tablet PO (16:32)
[2023-09-12] MEDS: benztropine 1 mg Tablet PO (16:37)
[2023-09-12 17:04] LABS: Amphetamines Screen Urine Positive (Negative); Barbiturates Screen Urine Negative (Negative); Benzodiazepines Screen Urine Positive (Negative); Cocaine Screen Urine Negative (Negative); Opiate Screen Urine Negative (Negative); PCP Screen Urine Negative (Negative); THC Screen Urine Negative (Negative)
[2023-09-12 17:11] LABS: Urine Appearance Clear (CLEAR); Urine Color Yellow (Yellow)
[2023-09-12 17:12] LABS: Add Urine Microscopic? YES; Bilirubin Urine Neg (Negative); Blood Urine Neg (Negative); Glucose Urine UA Norm (Normal); Ketones Urine Negative (Negative); Leukocyte Esterase Urine Trace (Negative); Nitrate Urine Negative (Negative); Protein Urine Neg (Negative); Urobilinogen Urine Norm (Negative); pH Urine 5 (5-7)
[2023-09-12 17:13] LABS: Add Urine Culture? No; Bacteria Urine TRACE /hpf; Mucus Urine 2+ /hpf; Squamous Epithelial Cell Urine 0-4 /hpf (0-5); WBC Urine 0-4 /hpf (0-5)
[2023-09-12 19:48] VITALS: BP 96/51; PULSE 79; RESP 16; TEMP 36.8; O2SAT 100
[2023-09-12] MEDS: trazodone 50 mg Tablet PO (20:21)
[2023-09-12] MEDS: quetiapine 300 mg Tablet 600 MG PO (20:21)
--- NOTE | 2023-09-12 21:52 | PC.NURSE ---
PT IN BED RESTING WITH O2 AT 2 L VIA NC. PT DENIES PAIN. DENIES SI/HIAND AVH AT THIS TIME. PT RATES ANXIETY 6/10 AND DEPRESSION 0/10. PT REQUESTS MEDICATIONS FOR ANXIETY AND SLEEP. PT RECEIVED SCHEDULED DOSE OF SEROQUEL AND PRN ZYDIS 5 MG ORDERED FOR ANXIETY. PT IS NOTED TO HAVE A FLAT AFFECT AND IS DEMANIDING WITH STAFF. PT REPORTS SHE DOES NOT WANT TO WALK TO THE NURSES STATION AND THE NURSE CAN BRING MY MEDS TO ME. I ALSO WANT CHOCOLATE ICE CREAM AND CHOCOLATE MILK. PT IS NOTED TO BE CONFUSED AT TIMES. SITTER IS AT BEDSIDE DUE TO CONTINOUS OXYGEN ADMINISTRATION. RR 18 AT 100% ON 2LO2. ALL QUESTIONS ANSWERED AND SUPPORT WAS VOICED.
--- NOTE | 2023-09-12 22:38 | PC.NURSE ---
PT IS ON CONTINUOS OXYGEN THERAPY, DR. ROCHA NOTIFIED AND NEW ORDERS RECEIVED FOR OXYGEN THERAPY 2 LO2 VIA VT. ORDERS PLACED PT EDUCATED AND VERBALIZED UNDERSTANDING. SUPPORT VOICED.
[2023-09-13 06:00] VITALS: BP 93/55; PULSE 70; RESP 15; TEMP 36.6; O2SAT 92
--- NOTE | 2023-09-13 06:38 | PC.NURSE ---
PT REQUIRED PRN MEDICATION LAST NIGHT FOR REPORTS OF INCREASED ANXIETY. PT RECEIVED SCHEDULED SEROQUEL AND TRAZODONE, THEN RECEIVED ZYDIS 5 MG ORDERED FOR ANXIETY. MEDICATION DEEMED EFFECTIVE AT THIS TIME. PT HAS SLEPT APPROXIMATELY 10-11 HOURS THIS SHIFT WITH SITTER AT BEDSIDE. PT CONTINUES TO REST WITH EYES CLOSED ON 2 LO2 VIA NC WITH NO DISTRESS NOTED AT THIS TIME.
--- NOTE | 2023-09-13 11:39 | W.PM.NPUPNS ---
Subjective NPU Subjective: Patient presented today reporting that she is feeling better than yesterday. She reports that she is here because she was using methamphetamines again and became psychotic. She reports that she filled out a application for [facility] and we discussed the need for sober living treatment. She talked about where she could go if she was discharged but we discussed the fact that her feelings of the ability to remain sober and avoid the psychosis were limited. We discussed her side effect of using being not eating and her poor nutritional state and the need to correct that. She denied any side effects to the medication. Mental Status Exam MSE Comments: This is a thin/cachectic white female in hospital scrubs looking older than her stated age with limited grooming and eye contact. Sitting with a sitter as she is on continuous O2 monitoring. No abnormal movements except for mild psychomotor retardation. Cooperative with exam in mild distress. Speech was slightly increased rate and mostly normal volume. Mood described as better, affect congruent. Thought process mostly organized. Thought content: Patient denied suicidal or homicidal ideation, there were no delusions reported or noted but she did endorse having some paranoia, she did not appear to be attending to internal stimuli but did endorse having some auditory but denied visual hallucinations. Attention and concentration appeared intact and memory appeared reliable but none were formally tested. She is alert and oriented times 3. Insight, judgment and impulse control are limited. Vitals/I&O/Wt Last Vital Signs Temp 97.8 F 09/13/23 06:00 Pulse 70 09/13/23 06:00 Resp 15 09/13/23 06:00 BP 93/55 09/13/23 06:00 Pulse Ox 92 09/13/23 06:00 O2 Del Method Nasal Cannula 09/13/23 06:00 O2 Flow Rate 2 09/13/23 06:00 Weight last 48 hrs Weight 31.751 kg Data NPU 09/12/23 02:41 09/12/23 02:41 A&P Assessment and plan (1) Amphetamine-induced psychotic disorder: (2) Methamphetamine dependence: (3) Depression, unspecified: Plan 63-year-old female currently under the presence of methamphetamine again withdrawing off methamphetamine with the presence of active psychosis and depression. She will continue to require acute inpatient hospitalization. 1. Encourage individual, group and milieu therapy. 2. Recommend sober living treatment at the highest level of care to which the patient is willing to commit. 3. Continue q-15 minute checks for safety.? 4.? Restart current medications. 5.? Will attempt to gather collateral information. Involuntary Hold Information 96 Hour Hold: 96 Hour Involuntary Admission: No Attestations NPU Medical Necessity Statement*: Inpatient hospitalization is medically necessary and deemed to be the clinically appropriate decision at this time. The patient will be started on medications and medications will be adjusted as clinically indicated. Her likely length of stay is 5-7 days. Coding Level of Care Code Acute Code for [facility] F[facility] Diagnoses Amphetamine-induced psychotic disorder F15.959 Methamphetamine dependence F15.20 Depression, unspecified F32.A
[2023-09-13 14:00] VITALS: BP 85/50; PULSE 80; RESP 14; TEMP 36.8; O2SAT 100
[2023-09-13] MEDS: hyDROXYzine 25 mg Capsule 50 MG PO (20:07)
[2023-09-13] MEDS: quetiapine 300 mg Tablet 600 MG PO (20:07)
[2023-09-13] MEDS: trazodone 50 mg Tablet PO (20:20)
[2023-09-13 20:41] VITALS: PULSE 90; RESP 20; O2SAT 97
[2023-09-13] MEDS: ipratropium-albuterol 3 mL Neb INHALATION (20:41)
[2023-09-13 20:52] VITALS: BP 92/52; PULSE 82; RESP 15; TEMP 36.9; O2SAT 98
--- NOTE | 2023-09-13 21:32 | PC.NURSE ---
PT IN BED RESTING WITH SITTER AT BED SIDE. PT IS ON 2LO2 VIA NC AND CONTINUOS. PT O2 SAT WAS NOTED TO BE 99% ON RA. DENIES PAIN. DENIES SI/HI AND VH AT THIS TIME. PT ENDORSES HEARING VOICES THAT TELL HER TO HARM HERSELF, BUT STATES SHE IS NOTE SUICIDAL AND IS NOT GOING TO HURT HERSELF AFTER ALL THESE YEARS. PT AMBULATED TO NURSES STATION AND REPORTED SOB AND WHEEZING, REQUESTING RT COME TO GIVE BREATHING TX. PULSE OX TAKEN AND WAS 94%. RT WAS NOTIFIED AND THEY DID COMET TO PT ROOM AND COMPLETE TREATMENT. RATES ANXIETY 12/14 AND DEPRESSION 02/13. PT RECEIVED VISTARIL 50 MG ORDERED FOR INCREASED ANXIETY. PT NOTED TO BE DEMANDING WITH STAFF AT TIMES AND HAS FLAT AFFECT. ALL QUESTIONS WERE ANSWERED AND SUPPORT WAS VOICED.
[2023-09-14 06:00] VITALS: BP 104/65; PULSE 80; RESP 15; TEMP 36.2; O2SAT 94
--- NOTE | 2023-09-14 06:04 | PC.NURSE ---
PT REQUIRED PRN MEDICATIONS THIS SHIFT FOR REPORTS OF INCREASED ANXIETY. PT DID TAKE SEROQUEL AND TRAZODONE AT HS FOR SLEEP AND THEN WAS GIVEN VISTARIL ORDERED FOR ANXIETY. MEDIATION IS DEEMED EFFECTIVE AT THIS TIME. PT HAS SLEPT APPROXIMATELY 9-10 HOURS THIS SHIFT AND HAS HAD NO OTHER COMPLAINTS OF ANXIETY. PT CONTINUES TO REST WITH EYES CLOSED WITH 2 LO2 VIA NC WITH NO DISTRESS NOTED AT THIS TIME. SITTER REMAINS AT BEDSIDE.
--- NOTE | 2023-09-14 07:36 | P.NPUPN_ITS ---
Subjective NPU 2 Subjective: Patient presented today reporting that she is doing better. Unfortunately spent much of the time giving reasons why she should be discharged tomorrow as she feels her significant other needs her at some appointments. We talked about the significant level of impairment that she has secondary to her methamphetamine use leading to not eating leading to her cachectic presentation, oxygen necessity etc. We discussed working with the social work team in the morning to figure out what the options are from a inpatient rehab status and letting that impact our decision making. She denied any side effects to her medication. Mental Status Exam 2 MSE Comments: This is a thin/cachectic white female in hospital scrubs looking older than her stated age with limited grooming and eye contact. No abnormal movements except for mild psychomotor retardation. Cooperative with exam in mild distress. Speech was slightly increased rate and mostly normal volume. Mood described as better, affect congruent. Thought process mostly organized. Thought content: Patient denied suicidal or homicidal ideation, there were no delusions reported or noted but she did endorse having some paranoia, she did not appear to be attending to internal stimuli but did endorse having some auditory but denied visual hallucinations. Attention and concentration appeared intact and memory appeared reliable but none were formally tested. She is alert and oriented times 3. Insight, judgment and impulse control are limited. Vitals/I&O/Wt Last Vital Signs Temp 97.2 F L 09/14/23 06:00 Pulse 80 09/14/23 06:00 Resp 15 09/14/23 06:00 BP 104/65 09/14/23 06:00 Pulse Ox 94 09/14/23 06:00 O2 Del Method Nasal Cannula 09/14/23 06:00 O2 Flow Rate 2 09/14/23 06:00 Weight last 48 hrs Weight 35.97 kg Data NPU 09/12/23 02:41 09/12/23 02:41 A&P Assessment and plan (1) Amphetamine-induced psychotic disorder: (2) Methamphetamine dependence: (3) Depression, unspecified: Plan 63-year-old female currently under the presence of methamphetamine again withdrawing off methamphetamine with the presence of active psychosis and depression. She will continue to require acute inpatient hospitalization. 1. Encourage individual, group and milieu therapy. 2. Recommend sober living treatment at the highest level of care to which the patient is willing to commit. 3. Patient had been on one-to-one due to use of O2. Had a respiratory consult demonstrating no continued need for oxygen and so one-to-one was changed back to every 15 minute checks. 4.? Restarted current medications. 5.? Will attempt to gather collateral information. 6. Obtain PT/OT consult to assess her mobility given her significant frailty. Involuntary Hold Information 2 96 Hour Hold: 96 Hour Involuntary Admission: No Attestations NPU 2 Medical Necessity Statement*: Inpatient hospitalization is medically necessary and deemed to be the clinically appropriate decision at this time. The patient will be started on medications and medications will be adjusted as clinically indicated. Her likely length of stay is 2-4 days. Coding Level of Care Code Acute Code for [facility] Diagnoses Amphetamine-induced psychotic disorder F15.959 Methamphetamine dependence F15.20 Depression, unspecified F32.A
[2023-09-14 09:57] VITALS: PULSE 81; RESP 18; O2SAT 98
[2023-09-14 14:00] VITALS: BP 99/60; PULSE 99; RESP 16; TEMP 36.8; O2SAT 95
[2023-09-14] MEDS: hyDROXYzine 25 mg Capsule 50 MG PO (15:50)
[2023-09-14] MEDS: trazodone 50 mg Tablet PO (19:41)
[2023-09-14] MEDS: gabapentin 400 mg Capsule PO (19:41)
[2023-09-14] MEDS: quetiapine 300 mg Tablet 600 MG PO (19:42)
[2023-09-14 20:05] VITALS: BP 113/76; PULSE 89; RESP 16; TEMP 36.6; O2SAT 95
[2023-09-14] MEDS: OLANZapine 5 mg ODT PO (21:02)
[2023-09-15 06:00] VITALS: BP 100/66; PULSE 89; RESP 16; O2SAT 94
--- NOTE | 2023-09-15 08:14 | PC.NURSE ---
RESTING IN BED, AROUSES TO VOICE. PT ISOLATES AND IS WITHDRAWN TO ROOM. PT DENIES PAIN. DENIES SI/HI AND VH AT THIS TIME. ENDORSES HEARING VOICES BUT THATS NOT UNUSUAL. PT STATES THEY DO NOT BOTHER HER AND SHE ACTUALLY LIKES THEM. RATES ANXIETY AND DEPRESSION 0/10. EVASIVE WITH ASSESSMENT. ALL QUESTIONS ANSWERED AND SUPPORT WAS VOICED.
[2023-09-15] MEDS: gabapentin 400 mg Capsule PO ×2 (08:43→14:24)
--- NOTE | 2023-09-15 08:46 | PC.NURSE ---
pt performed 3 stand and sits o2 stayed at 92%. handled procedure well.
[2023-09-15 09:11] VITALS: PULSE 89; RESP 16; O2SAT 94
[2023-09-15] MEDS: hyDROXYzine 25 mg Capsule 50 MG PO (13:46)
[2023-09-15 14:00] VITALS: BP 105/65; PULSE 102; RESP 15; TEMP 36.6; O2SAT 96
[2023-09-15 16:22] VITALS: PULSE 102; RESP 22; O2SAT 96
[2023-09-15] MEDS: ipratropium-albuterol 3 mL Neb INHALATION (16:22)
--- NOTE | 2023-09-15 16:34 | P.NPUDS_ITS ---
Diagnoses at Discharge Discharge Diagnosis (1) Amphetamine-induced psychotic disorder: Status: Acute (2) Methamphetamine dependence: Status: Acute (3) Depression, unspecified: Status: Acute Reason for Visit Reason for Visit: Med reaction Brief History: History of Present Illness Sury Joy is a 63 year old female Who presented to the emergency department with complaints of auditory hallucinations despite reports of being compliant with her trazodone and Seroquel prescribed. The patient had also reported auditory and visual hallucinations. She was admitted to the neuropsychiatric unit for further evaluation and treatment. She reports that she had a desire to take a gun out and kill her along with herself. She had reported that she uses methamphetamines nearly every day for several months. She reported no new changes since her last admission onto the neuropsychiatric unit in June 2023. No new changes were reported since her last hospitalization on the unit 2 and half months ago. Excerpt from HPI from ED by Dr. Montes, Psychiatrist, below History of Present Illness Sury Joy is a 63 year old female who presented to the emergency department with the following report: Chief Complaint: Psychiatric Symptoms Stated Complaint: hearing voices Time Seen by Provider: 07/01/23 01:13 History of Present Illness: 63-year-old female who was discharged fr om the neuropsychiatric facility 06/30. She presents 13 or 14 hours after discharge. Her chief complaint is that she is hearing voices. The voices are telling the patient that they are going to kill her and her . She is exhibiting no suicidal ideation or homicidal ideation, only intrusive thoughts of these voices. She seems improved to some degree on arrival, and has been calm. Her notes that she had a good day [place], ate a good meal, and seem to interact well with family. It was only later in the night that she began to complain of hearing voices again. Patient presented to the emergency department having just been discharged from the inpatient psychiatric unit yesterday and a psychiatric consult was requested to determine whether we admission was indicated. Patient presents today reporting that she made some air in taking her medication. We discussed the fact that she had not been gone long enough to make it air that should lead to some kind of clinical relevance. She was an absolute denial that she relapsed even though her behavior was suggestive of relapse. She was very insistent however that there was no need for readmission. She reported that she wanted to have another chance to get a ride. We spent most of the time talking about recovery and sobriety and the different resources that are available. We also talked about the crisis stabilization center and the resources that exist there for moments of challenges. She was able to contract for safety outside the hospital. We discussed the importance of her following up as scheduled and considering more intense sober living services. Per her 06/30/2023 [facility] inpatient psychiatric discharge summary: Discharge Diagnosis (1) Amphetamine-induced psychotic disord er: Status: Acute (2) Methamphetamine dependence: Status: Acute (3) Affective disorder: Status: Chronic Permanent problem details: See comments below. Reason for Visit Reason for Visit: MHE Brief History: History of Present Illness Sury Joy is a 63 year old female who presented to the emergency department with complaints of hallucinations and bizarre delusions particularly that people were outside of her home. The patient was admitted to the neuropsychiatric unit for further evaluation and treatment. The patient had been unable to provide any further information but it indicated on the day of admission that she was feeling like people were after her. She had admitted to using methamphetamine and was positive for methamphetamine and benzodiazepines on admission. She had endorsed having auditory and visual hallucinations in the emergency department. She had received Haldol on the night of admission after she had been screaming while stating that people were trying to kill her. She was unable to provide any further information on interview. Inpatient psychiatric history: Per previous records she has had several inpatient hospitalizations. Outpatient psychiatric history: There is a past history of unspecified mood disorder and methamphetamine induced psychosis per previous records. Medical history: Anemia, hypokalemia, leg swelling, COPD Surgical Hx: lung lobectomy Allergies: Codeine and tramadol Medications: Zyrtec, cyclobenzaprine 10 mg 3 times a day, gabapentin 800 mg 3 times a day mirtazapine 15 mg at night, Seroquel 400 mg twice a day, albuterol inhaler. Drug and Alcohol history: per previous records methamphetamine abuse Family psychiatric history: unknown Social History: unknown, Hospital Course Hospital Course She slowly acclimated to the individual, group and milieu therapies provided. She once again presented psychosis positive for methamphetamine with a history of methamphetamine use disorder. Her home medications were restarted given her nonadherence and use. With the absence of the methamphetamine and the medications restarted, she showed improvement. She had positive response. She worked with the social work team for her appropriate aftercare appointments. She had modest improvement and was able to contract for safety outside of the hospital prior to discharge. During the hospitalization, the patient had rout ine laboratory studies which were within normal limits except for a few outliers. Additionally, there was a general medical evaluation which was also within normal limits and revealed no new acute processes. At the time of discharge, she denied psychosis or lethality. Mood and anxiety were well managed. The patient endorsed a plan to avoid all drugs of abuse and follow up with the aftercare recommendations of the treatment team. The patient was evaluated and deemed to be absent credible lethality and had achieved the maximum benefit from an inpatient hospitalization, and so was discharged. Involuntary Hold Information 96 Hour Hold: 96 Hour Involuntary Admission: No Mental Status Exam MSE Comments: This is a thin/cachectic white female in hospital scrubs looking older than her stated age with limited grooming and eye contact. No abnormal movements except for mild psychomotor retardation. Cooperative with exam in mild distress. Speech was slightly increased rate and mostly normal volume. Mood described as better, affect congruent. Thought process mostly organized. Thought content: Patient denied suicidal or homicidal ideation, there were no delusions reported or noted, she did not appear to be attending to internal stimuli and denied auditory or visual hallucinations. Attention and concentration appeared intact and memory appeared reliable but none were formally tested. She is alert and oriented times 3. Insight, judgment and impulse control are limited. Discharge Data Studies Completed and Pending: Laboratory Results WBC 6.02 10^3/uL (3.2 9-11.43) 09/12/23 02:41 RBC 3.87 10^6/uL (3.8 5-5.65) 09/12/23 02:41 Hgb 11.20 g/dL (11.27 -16.99) L 09/12/23 02:41 Hct 33.6 % (36-47) L 09/12/23 02:41 MCV 86.8 fl (85-98) 09/12/23 02:41 MCH 28.9 pg (27-33) 09/12/23 02:41 MCHC 33.3 g/dL (30-55) 09/12/23 02:41 RDW 13.3 % (12.1-15.1 ) 09/12/23 02:41 Plt Count 282 10^3/cmm (157 -399) 09/12/23 02:41 MPV 9.8 fL (7.4-10.4) 09/12/23 02:41 Neut % (Auto) 65.2 % 09/12/23 02:41 Lymph % (Auto) 21.8 % 09/12/23 02:41 [place] % (Auto) 9.5 % 09/12/23 02:41 Eos % (Auto) 2.3 % 09/12/23 02:41 Baso % (Auto) 1.0 % 09/12/23 02:41 Neut # (Auto) 3.93 10^3/uL (1.8 -7.7) 09/12/23 02:41 Lymph # (Auto) 1.3 10^3/uL (0.8- 4.8) 09/12/23 02:41 [place] # (Auto) 0.6 10^3/uL (0.2- 0.9) 09/12/23 02:41 Eos # (Auto) 0.1 10^3/uL (0.0- 0.8) 09/12/23 02:41 Baso # (Auto) 0.1 10^3/uL (0.0- 0.1) 09/12/23 02:41 Nucleated RBC % (a uto) 0 % 09/12/23 02:41 Nucleated RBCs # 0.0 /100WBC 09/12/23 02:41 Sodium 137 mmol/L (136-1 45) 09/12/23 02:41 Potassium 3.2 mmol/L (3.5-5 .1) L 09/12/23 02:41 Chloride 99 mmol/L (98-107 ) 09/12/23 02:41 Carbon Dioxide 28 mmol/L (22-29) 09/12/23 02:41 Anion Gap 13.2 (5-19) 09/12/23 02:41 BUN 9 mg/dL (8-23) 09/12/23 02:41 Creatinine 0.7 mg/dL (0.5-0. 9) 09/12/23 02:41 GFR Calculation 85.1 mL/min (90-1 30) L 09/12/23 02:41 Glucose 101 mg/dL (65-115 ) 09/12/23 02:41 Calculated Osmolal ity 283 mOsm/kg (285- 295) L 09/12/23 02:41 Calcium 8.5 mg/dL (8.5-10 .5) 09/12/23 02:41 Total Bilirubin 0.5 mg/dL (0.15-1 .2) 09/12/23 02:41 AST 17 U/L (0-32) 09/12/23 02:41 ALT 16 U/L (0-33) 09/12/23 02:41 Alkaline Phosphata se 69 U/L (35-105) 09/12/23 02:41 Total Protein 5.6 g/dL (6.6-8.7 ) L 09/12/23 02:41 Albumin 3.8 g/dL (3.5-5.2 ) 09/12/23 02:41 Globulin 1.8 g/dL (1.3-4.6 ) 09/12/23 02:41 Urine Color Yellow (Yellow) 09/12/23 16:15 Urine Appearance Clear (CLEAR) 09/12/23 16:15 Urine pH 5 (5-7) 09/12/23 16:15 Ur Specific Gravit y 1.010 (1.005-1.0 30) 09/12/23 16:15 Urine Protein Neg (Negative) 09/12/23 16:15 Urine Glucose (UA) Norm (Normal) 09/12/23 16:15 Urine Ketones Negative (Negati ve) 09/12/23 16:15 Urine Blood Neg (Negative) 09/12/23 16:15 Urine Nitrate Negative (Negati ve) 09/12/23 16:15 Urine Bilirubin Neg (Negative) 09/12/23 16:15 Urine Urobilinogen Norm mg/dL (Negat nelly) 09/12/23 16:15 Ur Leukocyte Angeli ase Trace (Negative) H 09/12/23 16:15 Urine RBC None /hpf (0-2) 09/12/23 16:15 Urine WBC 0-4 /hpf (0-5) H 09/12/23 16:15 Ur Squamous Epith Cells 0-4 /hpf (0-5) H 09/12/23 16:15 Amorphous Sediment Not Reportable 09/12/23 16:15 Urine Bacteria Trace /hpf (NONE) 09/12/23 16:15 Urine Mucus 2+ /hpf 09/12/23 16:15 Salicylates 0.5 mg/dL (3-10) L 09/12/23 02:41 Urine Opiates Scre en Negative ng/mL (N egative) 09/12/23 16:15 Acetaminophen < 5.0 ug/mL (10-3 0) L 09/12/23 02:41 Ur Barbiturates Sc reen Negative ng/mL (N egative) 09/12/23 16:15 Ur Phencyclidine S crn Negative ng/mL (N egative) 09/12/23 16:15 Ur Amphetamines Sc reen Positive ng/mL (N egative) H 09/12/23 16:15 U Benzodiazepines Scrn Positive ng/mL (N egative) H 09/12/23 16:15 Urine Cocaine Scre en Negative ng/mL (N egative) 09/12/23 16:15 U Marijuana (THC) Screen Negative ng/mL (N egative) 09/12/23 16:15 Ethyl Alcohol < 10 mg/dL (0-10) 09/12/23 02:41 Vitals: Last Vital Signs Temp 97.8 F 09/15/23 14:00 Pulse 102 H 09/15/23 16:22 Resp 22 H 09/15/23 16:22 BP 105/65 09/15/23 14:00 Pulse Ox 96 09/15/23 16:22 O2 Del Method Room Air 09/15/23 16:22 O2 Flow Rate 2 09/14/23 09:57 Discharge Plan Discharge Patient Disposition: Home Condition: Stable Prescriptions: Continued ipratropium-albuterol 0.5 mg-3 mg(2.5 mg base)/3 mL solution for nebulization 3 ml inhalation Q4H PRN (Reason: shortness of breath or wheezing) Qty: 180 0RF cetirizine 10 mg tablet 10 mg PO DAILY PRN (Reason: Allergy Symptoms) Changed trazodone 50 mg tablet 50 mg PO BEDTIME 30 Days Qty: 30 1RF Discontinued quetiapine 300 mg tablet 600 mg PO BEDTIME gabapentin 800 mg tablet 800 mg PO TID No Action olanzapine 5 mg Tablet 5 mg PO BEDTIME 30 Days Qty: 30 1RF hydroxyzine pamoate 25 mg Capsule 50 mg PO Q6H PRN (Reason: Anxiety) 30 Days Qty: 120 1RF paliperidone 6 mg Tablet Extended Release 24hr 6 mg PO BEDTIME 30 Days Qty: 30 1RF Discharge Orders: Discharge Order (Routine); Ordered 09/15/23 Ordered By: Anthony Montes Referrals: [facility] [Other] () Reema Webster FNP [Primary Care Provider] - Discharge Diet: Regular Discharge Activity: Resume usual activity Patient Instructions: Hydroxyzine (By mouth), Gabapentin (By mouth), Methamphetamine Abuse, Depression (DC), Methamphetamine Use Disorder (DC), Help Prevent Suicide (DC), Polysubstance Use Disorder (DC), Opioid Safety Discharge Attestations NPU Time Spent in Discharge Care*: less than 30 min Specific Discharge Activities: Specific discharge activities: educating patient, discussing with community case manager/social workers/dc planners, documenting/o ther paperwork and evaluating patient/reviewing data Coding Level of Care Code Acute Code for [facility] Fwd Diagnoses Amphetamine-induced psychotic disorder F15.959 Methamphetamine dependence F15.20 Depression, unspecified F32.A
[2023-09-15 16:42] VITALS: BP 105/65; PULSE 102; RESP 15; TEMP 36.6; O2SAT 96
--- NOTE | 2023-09-15 16:59 | PC.NURSE ---
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 PT STATES HER BOYFRIEND IS SUPPOSE TO PICK HER UP AND TAKE HER TO HER SON'S HOUSE IN [place]. RN WENT OVER APT TIMES WITH IN [place]. PT VERBALIZED UNDERSTANDING. LEFT WITH ALL BELONGINGS. ALL QUESTIONS ANSWERED AND SUPPORT WAS VOICED.
== END 2023-09-15 18:30 | disposition home or self-care (01) | DRG 897 ==
LOC: ER 07:57 → NP 09:08
PROVIDERS: Admitting Provider Psychiatry & Neurology Psychiatry; Emergency Provider Emergency Medicine; PCP Nurse Practitioner Family; Visit Provider Psychiatry & Neurology Psychiatry
DX: F15.251 Other stimulant dependence with stimulant-induced psychotic disorder with hallucinations (principal); R45.851 Suicidal ideations; R64 Cachexia; Z68.1 Body mass index [BMI] 19.9 or less, adult; R45.850 Homicidal ideations; F17.210 Nicotine dependence, cigarettes, uncomplicated; Z90.2 Acquired absence of lung [part of]; F32.A Depression, unspecified
CPT/HCPCS: 80053; 80306; 80307; 81001; 85025; 94640; 97150; 97161; 97165; 99285

== ENCOUNTER 2023-09-23 23:13 | Inpatient (IN) | payer MEDICAID, SELFPAY ==
[2023-09-23 23:15] VITALS: BP 103/60; PULSE 104; RESP 16; TEMP 36.6; O2SAT 92; BMI 14.1
--- NOTE | 2023-09-23 23:23 | ECG_ITS ---
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 Measurements Intervals [place] Rate: 95 P: 76 IL: 128 QRS: 91 QRSD: 98 T: 80 QT: 392 QTc: 493 Interpretive Statements SINUS RHYTHM BORDERLINE RIGHT AXIS DEVIATION [QRS AXIS > 90] Compared to ECG 09/09/2023 18:13:41 No significant changes Electronically Signed On 09-24-2023 16:52:26 CDT by Paddy Ivory M.D. [email or web address]
[2023-09-23 23:44] LABS: Basophils % 0.9 %; Eosinophils # 0.2 10^3/uL (0.0-0.8); Eosinophils % 4.1 %; Hematocrit 30.7 % (36-47); Lymphocytes # 1.2 10^3/uL (0.8-4.8); Lymphocytes % 27.1 %; Mean Corpuscular HGB Conc 32.2 g/dL (30-55); Mean Corpuscular Hemoglobin 29.2 pg (27-33); Mean Corpuscular Volume 90.6 fl (85-98); Mean Platelet Volume 9.4 fL (7.4-10.4); Monocytes # 0.4 10^3/uL (0.2-0.9); Monocytes % 9.1 %; Neutrophils # 2.57 10^3/uL (1.8-7.7); Neutrophils % 58.6 %; Nucleated Red Blood Cells % 0 %; Platelet Count 223 10^3/cmm (157-399); Red Blood Count 3.39 10^6/uL (3.85-5.65); Red Cell Distribution Width 13.8 % (12.1-15.1); White Blood Count 4.39 10^3/uL (3.29-11.43)
--- NOTE | 2023-09-23 23:51 | ED.C_ITS ---
HPI - Psych 2 General: Chief Complaint: Psychiatric Symptoms Stated Complaint: auditory hallucinations Time Seen by Provider: 09/23/23 23:22 History of Present Illness: 63-year-old female presents to the emerg ency department from her home via EMS personnel. Patient was recently seen and admitted to the inpatient neuropsychiatric unit and discharged on 09/15/2023. EMS personnel state that the patient today stated that she was hearing voices telling her that they were going to kill her family. She denies suicidal ideation or homicidal ideation. She does appear to be very cachectic and frail-appearing. She does not appear to be in acute distress but does appear to be withdrawn and has poor eye contact during the initial ER interview. She does appear to be preoccupied with the thought that someone is telling her they are going to kill her family lending to findings of paranoia. She denies tactile hallucinations or visual hallucinations. She does have a recent history of depression and methamphetamine use. Associated symptoms: Reports auditory hallucinations; Deny visual hallucinations, homicidal ideation or suicidal ideation Review of Systems 2 General: Reports: 10 or more systems reviewed and unremarkable except in HPI and below Card: Denies: chest pain Resp: Denies: dyspnea Psych: Reports: auditory hallucinations; Denies: visual hallucinations, tactile hallucinations, suicidal ideation or homicidal ideation [facility] ED 2 PFSH: Medical History Methamphetamine abuse Abnormal EKG SOB (shortness of breath) Pt refused stress test Substance abuse in remission Bilateral numbness and tingling of arms and legs Leg swelling Leg pain Tobacco use disorder, severe, dependence Affective disorder See comments below. Methamphetamine use disorder, mild, in early remission, abuse Surgical History S/P lobectomy of lung Hx of section Social History Smoking and tobacco/nicotine status: current every day tobacco/nicotine user cigarettes Packs smoked per day: 0.5 Years cigarettes smoked: 44 Quit status (tobacco/nicotine): not considering quitting Second hand smoke exposure: No Alcohol intake: former Year of sobriety/quit date alcohol: 2007 Substance/Drug Use: former Date of last use: 08/2019 methamphetamine use, distant use of marijuana, PCP, and acid Lives independently: Yes Household members: none Current occupational status: disabled Do you think of yourself as: Straight/Heterosexual Current gender identity: Female Physical Exam 2 Narrative: EXAM NARRATIVE: Constitutional: Thin, cachectic, frail. Vital signs as documented. No acute distress at present. Alert and oriented-to person, place, time and situation. Head, eyes, ears, nose, mouth, throat: Normocephalic, atraumatic. Pupils-equal, round, reactive to light. No scleral icterus. Normal-appearing external ears. Normal appearing nasal turbinates, no drainage. No obvious oral lesions, posterior oropharynx without erythema or exudates. Neck: Supple, trachea is midline, no lymphadenopathy, no jugular venous distension. Lungs: clear to auscultation to all lung chairez. Symmetrical rise and fall of chest, no obvious signs of increased work of breathing at present. Cardiac: Regular rate and rhythm, positive S1, S2. No murmurs, rubs or gallops that I can appreciate Abdomen: Soft, non-tender to palpation, normal active bowel sounds to all quadrants. Extremities: 2+ pulses in the upper extremities that are equal bilaterally, 2+ pulses in the lower extremities that are equal bilaterally. Non-edematous. Moves all extremities well, sensation to all extremities are noted. Skin: Warm, dry, intact. Psych: Auditory hallucinations, withdrawn, denies suicidal ideation/homicidal ideation Course 2 Vital Signs: Vital signs: Vital Signs Temperature 97.8 F 09/24/23 01:20 Pulse Rate 104 H 09/24/23 01:20 Respiratory Rate 16 09/24/23 01:20 Blood Pressure 103/60 09/24/23 01:20 Pulse Oximetry 92 09/24/23 01:20 Oxygen Delivery Me thod Room Air 09/24/23 01:13 MDM - Psych Medical Decision Making Physical exam completed and documented I will obtain laboratory evaluation for medical psych clearance and contact the psychiatrist to request admission to the neuropsychiatric unit. Medical Records I reviewed the patient's medical records. Lab Data I reviewed the patient's lab results. 09/23/23 23:40 09/23/23 23:40 Laboratory Results WBC 4.39 10^3/uL (3.29-11.43) 09/23/23 23:40 RBC 3.39 10^6/uL (3.85-5.65) L 09/23/23 23:40 Hgb 9.90 g/dL (11.27-16.99) L 09/23/23 23:40 Hct 30.7 % (36-47) L 09/23/23 23:40 MCV 90.6 fl (85-98) 09/23/23 23:40 MCH 29.2 pg (27-33) 09/23/23 23:40 MCHC 32.2 g/dL (30-55) 09/23/23 23:40 RDW 13.8 % (12.1-15.1) 09/23/23 23:40 Plt Count 223 10^3/cmm (157-399) 09/23/23 23:40 MPV 9.4 fL (7.4-10.4) 09/23/23 23:40 Neut % (Auto) 58.6 % 09/23/23 23:40 Lymph % (Auto) 27.1 % 09/23/23 23:40 [place] % (Auto) 9.1 % 09/23/23 23:40 Eos % (Auto) 4.1 % 09/23/23 23:40 Baso % (Auto) 0.9 % 09/23/23 23:40 Neut # (Auto) 2.57 10^3/uL (1.8-7.7) 09/23/23 23:40 Lymph # (Auto) 1.2 10^3/uL (0.8-4.8) 09/23/23 23:40 [place] # (Auto) 0.4 10^3/uL (0.2-0.9) 09/23/23 23:40 Eos # (Auto) 0.2 10^3/uL (0.0-0.8) 09/23/23 23:40 Baso # (Auto) 0.0 10^3/uL (0.0-0.1) 09/23/23 23:40 Nucleated RBC % (auto) 0 % 09/23/23:40 Nucleated RBCs # 0.0 /100WBC 09/23/23 23:40 Sodium 141 mmol/L (136-145) 09/23/23 23:40 Potassium 3.3 mmol/L (3.5-5.1) L 09/23/23 23:40 Chloride 100 mmol/L (98-107) 09/23/23 23:40 Carbon Dioxide 36 mmol/L (22-29) H 09/23/23 23:40 Anion Gap 8.3 (5-19) 09/23/23 23:40 BUN 10 mg/dL (8-23) 09/23/23 23:40 Creatinine 0.5 mg/dL (0.5-0.9) 09/23/23 23:40 GFR Calculation 125.4 mL/min (90-130) 09/23/23 23:40 Glucose 85 mg/dL (65-115) 09/23/23 23:40 Calculated Osmolality 290 mOsm/kg (285-295) 09/23/23 23:40 Calcium 8.6 mg/dL (8.5-10.5) 09/23/23 23:40 Total Bilirubin 0.2 mg/dL (0.15-1.2) 09/23/23 23:40 AST 8 U/L (0-32) 09/23/23 23:40 ALT 9 U/L (0-33) 09/23/23 23:40 Alkaline Phosphatase 78 U/L (35-105) 09/23/23 23:40 Total Protein 5.3 g/dL (6.6-8.7) L 09/23/23 23:40 Albumin 3.5 g/dL (3.5-5.2) 09/23/23 23:40 Globulin 1.8 g/dL (1.3-4.6) 09/23/23 23:40 TSH 0.97 uIU/mL (0.27-4.20) 09/23/23 23:40 Urine Color Yellow (Yellow) 09/23/23 23:47 Urine Appearance Clear (CLEAR) 09/23/23 23:47 Urine pH 7 (5-7) 09/23/23 23:47 Ur Specific [place] 1.005 (1.005-1.030) 09/23/23 23:47 Urine Protein Neg (Negative) 09/23/23 23:47 Urine Glucose (UA) Norm (Normal) 09/23/23 23:47 Urine Ketones Negative (Negative) 09/23/23 23:47 Urine Blood Neg (Negative) 09/23/23 23:47 Urine Nitrate Negative (Negative) 09/23/23 23:47 Urine Bilirubin Neg (Negative) 09/23/23 23:47 Urine Urobilinogen Neg mg/dL (Negative) 09/23/23 23:47 Ur Leukocyte Esterase Negative (Negative) 09/23/23 23:47 Salicylates < 0.3 mg/dL (3-10) L 09/23/23 23:40 Urine Opiates Screen Negative ng/mL (Negative) 09/23/23 23:47 Acetaminophen < 5.0 ug/mL (10-30) L 09/23/23 23:40 Ur Barbiturates Screen Negative ng/mL (Negative) 09/23/23 23:47 Ur Phencyclidine Scrn Negative ng/mL (Negative) 09/23/23 23:47 Ur Amphetamines Screen Positive ng/mL (Negative) H 09/23/23 23:47 U Benzodiazepines Scrn Positive ng/mL (Negative) H 09/23/23 23:47 Urine Cocaine Screen Negative ng/mL (Negative) 09/23/23 23:47 U Marijuana (THC) Screen Negative ng/mL (Negative) 09/23/23 23:47 Ethyl Alcohol < 10 mg/dL (0-10) 09/23/23 23:40 No radiology studies performed this visit Discharge Plan Discharge Patient Disposition: Admitted As Inpatient Admit Provider: Anthony Montes Clinical Impression: Paranoid behavior, Auditory hallucination, Methamphetamine abuse Condition: Stable Coding Level of Care Code ED Bunch [employer]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
[2023-09-23 23:53] LABS: Add Urine Microscopic? NO; Charge for UA Resulting for Rev
[2023-09-24] VITALS (8 sets, daily range): BP systolic 95–113; BP diastolic 59–71; PULSE 63–110; RESP 15–20; TEMP 36.5–36.6; O2SAT 92–96
[2023-09-24 00:04] LABS: Bilirubin Urine Neg (Negative); Blood Urine Neg (Negative); Glucose Urine UA Norm (Normal); Ketones Urine Negative (Negative); Leukocyte Esterase Urine Negative (Negative); Nitrate Urine Negative (Negative); Protein Urine Neg (Negative); Specific Gravity, Urine 1.005 (1.005-1.030); Urine Appearance Clear (CLEAR); Urine Color Yellow (Yellow); Urobilinogen Urine Neg (Negative); pH Urine 7 (5-7)
[2023-09-24 00:10] LABS: Amphetamines Screen Urine Positive (Negative); Barbiturates Screen Urine Negative (Negative); Benzodiazepines Screen Urine Positive (Negative); Cocaine Screen Urine Negative (Negative); Opiate Screen Urine Negative (Negative); PCP Screen Urine Negative (Negative); THC Screen Urine Negative (Negative)
[2023-09-24 00:22] LABS: Alanine Aminotransferase 9 U/L (0-33); Albumin Level 3.5 g/dL (3.5-5.2); Alkaline Phosphatase 78 U/L (35-105); Anion Gap 8.3 (5-19); Aspartate Amino Transferase 8 U/L (0-32); Blood Urea Nitrogen 10 mg/dL (8-23); Calcium 8.6 mg/dL (8.5-10.5); Carbon Dioxide 36 mmol/L (22-29); Chloride 100 mmol/L (98-107); Creatinine Clr Calc Pharmacy 67.6853; Globulin 1.8 g/dL (1.3-4.6); Glomerular Filtration Rate 125.4 mL/min (90-130); Glucose 85 mg/dL (65-115); Osmolality Calculated 290 mOsm/kg (285-295); Potassium 3.3 mmol/L (3.5-5.1); Sodium 141 mmol/L (136-145); Thyroid Stimulating Hormone 0.97 uIU/mL (0.27-4.20); Total Bilirubin 0.2 mg/dL (0.15-1.2); Total Protein 5.3 g/dL (6.6-8.7)
[2023-09-24 00:27] LABS: Acetaminophen < 5.0 ug/mL (10-30); Alcohol Level < 10 mg/dL (0-10); Salicylate < 0.3 mg/dL (3-10)
--- NOTE | 2023-09-24 01:55 | PC.NURSE ---
Admission Note Pt arrived to NPU at 0108 by wheelchair. Pt states that she is here because for the past month she has been hearing voices telling her that they are going to torture and kill her family and make her watch. Pt denies SI/HI upon assessment. Pt states that she hasnt used meth since the last time she was admitted. Pt was dressed into NPU scrubs and is observed to be very unsteady on her feet. Pt belongings were placed in NPU storage closet. Pt kept her glasses and a ring on her person. Staff attempted to take off ring but were unable to do so. Pt is now observed resting in bed quietly with eyes closed. Behavioral monitoring continues
[2023-09-24] MEDS: ipratropium-albuterol 3 mL Neb INHALATION (16:32)
--- NOTE | 2023-09-24 17:01 | P.NPUHP_ITS ---
Providers/Chief Complaint 2 Admitting Physician: Anthony Montes MD Primary Care Provider: YSABEL Zamora Chief Complaint: auditory hallucinations HPI NPU History of Present Illness Sury Joy is a 63 year old female recently discharged from the neuropsychiatric unit on 09/15/2023 who presented to the emergency department arriving via EMS with reports that she was hearing voices telling her that they were going to kill her family. The patient had reported that she had been sober off of methamphetamine since her discharge although she had tested positive for marijuana and amphetamine during her toxicology screen here. Patient was admitted to the neuropsychiatric unit involuntarily for further evaluation and treatment. The patient reports that she has been scared that the voices have not gone away and she endorsed being compliant with her medications as prescribed. She states that she had been taking her Seroquel 600 mg at night, gabapentin 400 mg 3 times a day and cyclobenzaprine as previously prescribed. She did not not endorse any new changes from her previous evaluation here 9 days prior. Excerpt from NPU Discharge Summary on 09/15/23. History of Present Illness Sury Joy is a 63 year old female Who presented to the emergency department with complaints of auditory hallucinations despite reports of being compliant with her trazodone and Seroquel prescribed. The patient had also reported auditory and visual hallucinations. She was admitted to the neuropsychiatric unit for further evaluation and treatment. She reports that she had a desire to take a gun out and kill her along with herself. She had reported that she uses methamphetamines nearly every day for several months. She reported no new changes since her last admission onto the neuropsychiatric unit in June 2023. No new changes were reported since her last hospitalization on the unit 2 and half months ago. Excerpt from HPI from ED by Dr. Montes, Psychiatrist, below History of Present Illness Sury Joy is a 63 year old female who presented to the emergency department with the following report: Chief Complaint: Psychiatric Symptoms Stated Complaint: hearing voices Time Seen by Provider: 07/01/23 01:13 History of Present Illness: 63-year-old female who was discharged from the neuropsychiatric facility 06/30. She presents 13 or 14 hours after discharge. Her chief complaint is that she is hearing voices. The voices are telling the patient that they are going to kill her and her . She is exhibiting no suicidal ideation or homicidal ideation, only intrusive thoughts of these voices. She seems improved to some degree on arrival, and has been calm. Her notes that she had a good day Uli Day, ate a good meal, and seem to interact well with family. It was only later in the night that she began to complain of hearing voices again. Patient presented to the emergency department having just been discharged from the inpatient psychiatric unit yesterday and a psychiatric consult was requested to determine whether we admission was indicated. Patient presents today reporting that she made some air in taking her medication. We discussed the fact that she had not been gone long enough to make it air that should lead to some kind of clinical relevance. She was an absolute denial that she relapsed even though her behavior was suggestive of relapse. She was very insistent however that there was no need for readmission. She reported that she wanted to have another chance to get a ride. We spent most of the time talking about recovery and sobriety and the different resources that are available. We also talked about the crisis stabilization center and the resources that exist there for moments of challenges. She was able to contract for safety outside the hospital. We discussed the importance of her following up as scheduled and considering more intense sober living services. Per her 06/30/2023 [facility] inpatient psychiatric discharge summary: Discharge Diagnosis (1) Amphetamine-induced psychotic disorder: Status: Acute (2) Methamphetamine dependence: Status: Acute (3) Affective disorder: Status: Chronic Permanent problem details: See comments below. Reason for Visit Reason for Visit: MHE Brief History: History of Present Illness Sury Joy is a 63 year old female who presented to the emergency department with complaints of hallucinations and bizarre delusions particularly that people were outside of her home. The patient was admitted to the neuropsychiatric unit for further evaluation and treatment. The patient had been unable to provide any further information but it indicated on the day of admission that she was feeling like people were after her. She had admitted to using methamphetamine and was positive for methamphetamine and benzodiazepines on admission. She had endorsed having auditory and visual hallucinations in the emergency department. She had received Haldol on the night of admission after she had been screaming while stating that people were trying to kill her. She was unable to provide any further information on interview. Inpatient psychiatric history: Per previous records she has had several inpatient hospitalizations. Outpatient psychiatric history: There is a past history of unspecified mood disorder and methamphetamine induced psychosis per previous records. Medical history: Anemia, hypokalemia, leg swelling, COPD Surgical Hx: lung lobectomy Allergies: Codeine and tramadol Medications: Zyrtec, cyclobenzaprine 10 mg 3 times a day, gabapentin 800 mg 3 times a day mirtazapine 15 mg at night, Seroquel 400 mg twice a day, albuterol inhaler. Drug and Alcohol history: per previous records methamphetamine abuse Family psychiatric history: unknown Social History: unknown, Hospital Course She slowly acclimated to the individual, group and milieu therapies provided. She presented psychosis positive for methamphetamine with a history of methamphetamine use disorder. Her home medications were continued with Remeron being discontinued and Seroquel being decreased from 800 mg to 600 mg p.o. nightly. She was often a hostile interviewee. With the absence of the methamphetamine and the medication changes she showed improvement. We worked with her to get some sense of what baseline looks like. She had positive response to that regimen. She worked with the social work team for her appropriate aftercare appointments. She had significant improvement and was able to contract for safety outside of the hospital prior to discharge. During the hospitalization, the patient had routine laboratory studies which were within normal limits except for a few outliers. Additionally, there was a general medical evaluation which was also within normal limits and revealed no new acute processes. At the time of discharge, she denied psychosis or lethality. Mood and anxiety were well managed. The patient endorsed a plan to avoid all drugs of abuse and follow up with the aftercare recommendations of the treatment team. The patient was evaluated and deemed to be absent credible lethality and had achieved the maximum benefit from an inpatient hospitalization, and so was discharged. Meds NPU Home Medications Medication Instructions Recorded Confirmed Last Taken Type cyclobenzaprine 10 mg tablet 10 mg PO TID PRN muscle spasm 10/14/19 09/24/23 06/30/23 History ipratropium 0.5 mg-albuterol 3 mg 3 ml inhalation Q4H PRN shortness 04/19/23 09/24/23 Unknown Rx (2.5 mg base)/3 mL nebulization of breath or wheezing #180 mL soln cetirizine 10 mg tablet 10 mg PO DAILY PRN Allergy Symptoms 06/24/23 09/24/23 06/30/23 History gabapentin 400 mg capsule 400 mg PO TID 30 days #90 caps 09/15/23 09/24/23 Unknown Rx quetiapine 300 mg tablet 600 mg (2 x 300 mg) PO BEDTIME 30 09/15/23 09/24/23 Unknown Rx days #60 tabs trazodone 50 mg tablet 50 mg PO BEDTIME Sleep 30 days #30 09/15/23 09/24/23 Unknown Rx tabs Allergies Allergy/AdvReac Type Severity Reaction Status Date / Time codeine AdvReac Severe ADR-Vomitin Verified 09/23/23 23:21 g tramadol AdvReac Severe ADR-Seizure Verified 09/23/23 23:21 PFSH NPU 2 PFSH: Medical History Methamphetamine abuse Abnormal EKG SOB (shortness of breath) Pt refused stress test Substance abuse in remission Bilateral numbness and tingling of arms and legs Leg swelling Leg pain Tobacco use disorder, severe, dependence Affective disorder See comments below. Methamphetamine use disorder, mild, in early remission, abuse Surgical History S/P lobectomy of lung Hx of section Social History Smoking and tobacco/nicotine status: current every day tobacco/nicotine user cigarettes Packs smoked per day: 0.5 Years cigarettes smoked: 44 Quit status (tobacco/nicotine): not considering quitting Second hand smoke exposure: No Alcohol intake: former Year of sobriety/quit date alcohol: 2007 Substance/Drug Use: former Date of last use: 08/2019 methamphetamine use, distant use of marijuana, PCP, and acid Lives independently: Yes Household members: none Current occupational status: disabled Do you think of yourself as: Straight/Heterosexual Current gender identity: Female Mental Status Exam 2 MSE Comments: This is a thin/cachectic white female in hospital scrubs looking much older than her stated age with limited grooming and eye contact. No abnormal movements except for moderate psychomotor retardation. She was cooperative with exam in moderate to severe distress. Speech was slightly decreased in rate and decreased in volume with increased latency in speech. Mood described as depressed, affect was tearful and dysphoric. Thought process was linear and organized. Thought content: Patient endorsed suicidal ideation but no homicidal ideation, there were no delusions reported but endorsed paranoia. She did not appear to be attending to internal stimuli but did endorse having some auditory but denied visual hallucinations. Attention and concentration appeared intact and memory appeared reliable but none were formally tested. She is alert and oriented times x3. Insight, judgment and impulse control are limited. Vitals/I&O/Wt Last Vital Signs Temp 97.8 F 09/24/23 14:00 Pulse 92 09/24/23 16:34 Resp 20 H 09/24/23 16:34 BP 95/59 09/24/23 14:00 Pulse Ox 94 09/24/23 16:34 O2 Del Method Room Air 09/24/23 16:34 Weight last 48 hrs Weight 36.287 kg Data NPU 09/23/23 23:40 09/23/23 23:40 A&P Assessment and plan (1) Amphetamine-induced psychotic disorder: (2) Methamphetamine dependence: (3) Depression, unspecified: Plan 63-year-old female currently under the presence of methamphetamine again with the presence of active psychosis and depression. She will continue to require acute inpatient hospitalization. 1. Encourage individual, group and milieu therapy. 2. Recommend sober living treatment at the highest level of care to which the patient is willing to commit. 3. Continue q-15 minute checks for safety.? 4.?Patient agreeable to trial of new antipsychotic to target psychosis. Seroquel appears wholly ineffective and we will begin taper. 5.? Will attempt to gather collateral information. Involuntary Hold Information 2 96 Hour Hold: 96 Hour Involuntary Admission: No Attestations NPU 2 Medical Necessity Statement*: Inpatient hospitalization is medically necessary and deemed to be the clinically appropriate decision at this time. The patient will be started on medications and medications will be adjusted as clinically indicated. The patient will be in the hospital for at least 2 midnights. Her likely length of stay is 6 to 8 days. Coding Level of Care Code Acute Code for g Fwd Diagnoses Amphetamine-induced psychotic disorder F15.959 Methamphetamine dependence F15.20 Depression, unspecified F32.A
[2023-09-24] MEDS: hyDROXYzine 25 mg Capsule 50 MG PO ×2 (17:21→23:22)
[2023-09-24] MEDS: trazodone 50 mg Tablet PO ×2 (20:05→21:13)
[2023-09-24] MEDS: paliperidone ER 3 mg Tablet PO (20:05)
[2023-09-25 06:00] VITALS: BP 121/73; PULSE 92; RESP 16; TEMP 36.6; O2SAT 97
[2023-09-25] MEDS: OLANZapine 5 mg ODT PO ×2 (08:44→21:54)
[2023-09-25] MEDS: ibuprofen 600 mg Tablet PO (08:44)
--- NOTE | 2023-09-25 08:53 | PC.NURSE ---
PT STATES I'M PISSED THAT WON'T GIVE ME MY SEROQUEL, I HAVEN'T SLEPT AT ALL. PT DENIES SI/HI AND AVH AT THIS TIME. PT DID REPORT WATCHING THE PAINT CRAWL UP THE WALL ALL NIGHT. PT ALSO REPORTS HER BROTHER VOICE SHE HEARD YESTERDAY WAS REAL, IT WAS REALLY HIM. RATES ANXIETY 10/14 AND DEPRESSION 11/13. ZYDIS 5 MG WAS GIVEN FOR INCREASED ANXIETY. RATES PAIN IN SHOULDER 12/14, IBUPROFEN WAS GIVEN ORDERED FOR PAIN, SEE MAR FOR DETAILS. ALL QUESTIONS ANSWERED AND SUPPORT WAS VOICED.
[2023-09-25] MEDS: ipratropium-albuterol 3 mL Neb INHALATION (09:06)
[2023-09-25 09:07] VITALS: PULSE 90; RESP 18; O2SAT 95
[2023-09-25 14:00] VITALS: BP 105/65; PULSE 96; RESP 20; TEMP 36.6; O2SAT 97
--- NOTE | 2023-09-25 14:15 | P.NPUPN_ITS ---
Subjective NPU 2 Subjective: 63-year-old white female with methamphet amine abuse admitted voluntarily with paranoia and active psychosis. She had continued to expressed to staff that she was seeing things bleeding on the wall. She had reported having some difficulties with falling asleep. She reported no side effects from her Invega oral. She had reported that her plan was to return home to live in [place] with a family member. She had minimized the significance of her methamphetamine use of greater than 20 years. She had reported in the past that she had felt like her thoughts were racing. No episodes of aggression were noted. Mental Status Exam 2 MSE Comments: This is a thin/cachectic white female in hospital scrubs looking much older than her stated age with limited grooming and fair eye contact. No abnormal movements except for moderate psychomotor retardation. She was cooperative with exam in moderate to severe distress. Speech was slightly decreased in rate and decreased in volume with increased latency in speech. Mood described as better, affect was odd and subdued. Thought process was linear and organized. Thought content: Patient denied suicidal ideation but no homicidal ideation. There was continued evidence of paranoia and she did appear to be responding to internal stimuli. Attention and concentration appeared intact and memory appeared reliable but none were formally tested. She is alert and oriented times x3. Insight is impaired. Her judgment and impulse control are limited. Vitals/I&O/Wt Last Vital Signs Temp 97.9 F 09/25/23 06:00 Pulse 90 09/25/23 09:07 Resp 18 09/25/23 09:07 BP 121/73 09/25/23 06:00 Pulse Ox 95 09/25/23 09:07 O2 Del Method Room Air 09/25/23 09:07 Weight last 48 hrs Weight 36.287 kg Data NPU 09/23/23 23:40 09/23/23 23:40 A&P Assessment and plan (1) Amphetamine-induced psychotic disorder: (2) Methamphetamine dependence: (3) Depression, unspecified: Plan 63-year-old female currently under the presence of methamphetamine again with the presence of active psychosis and depression. She will continue to require acute inpatient hospitalization. 1. Encourage individual, group and milieu therapy. 2. Recommend sober living treatment at the highest level of care to which the patient is willing to commit. 3. Continue q-15 minute checks for safety.? 4.?Increase Invega to 6mg at night. 5.? Will attempt to gather collateral information. Involuntary Hold Information 2 96 Hour Hold: 96 Hour Involuntary Admission: No Attestations NPU 2 Medical Necessity Statement*: Inpatient hospitalization is medically necessary and deemed to be the clinically appropriate decision at this time. The patient will be started on medications and they will be adjusted as clinically indicated. Her likely length of stay is 6 to 8 days. Coding Level of Care Code [facility] Amphetamine-induced psychotic disorder F15.959 Methamphetamine dependence F15.20 Depression, unspecified F32.A
[2023-09-25 20:13] VITALS: BP 116/64; PULSE 104; RESP 18; TEMP 36.3
[2023-09-25] MEDS: trazodone 50 mg Tablet PO (20:37)
[2023-09-25] MEDS: hyDROXYzine 25 mg Capsule 50 MG PO (20:37)
[2023-09-25] MEDS: paliperidone ER 6 mg Tablet PO (20:37)
[2023-09-25] MEDS: OLANZapine 5 mg TABLET PO (20:37)
[2023-09-26 06:00] VITALS: BP 120/70; PULSE 83; RESP 16; TEMP 36.4; O2SAT 98
--- NOTE | 2023-09-26 08:40 | PC.NURSE ---
RESTING IN ROOM. DENIES SI/HI AND AVH AT THIS TIME. RATES SHOULDER PAIN 6/10 PT STATES SHE WILL COME AND GET HER MEDICINE FOR IT LATER. RATES ANXIETY 10 AND DEPRESSION /10. PT STATES SHE SLEPT BETTER LAST NIGHT AND FEELS THE NEW MEDICATION DID WORK BETTER. PT DOES WITHDRAW AND ISOLATE TO ROOM. PT STATES I LIKE LAYING IN BED ALL DAY THAT'S ALL I DO AT HOME. ALL QUESTIONS ANSWERED AND SUPPORT WAS VOICED.
[2023-09-26 12:09] VITALS: PULSE 83; RESP 16; O2SAT 95
[2023-09-26] MEDS: ipratropium-albuterol 3 mL Neb INHALATION (12:09)
[2023-09-26 14:00] VITALS: BP 139/88; PULSE 102; RESP 22; TEMP 36.6; O2SAT 97
--- NOTE | 2023-09-26 18:19 | PC.NURSE ---
PT C/O OF BOTTOM HURTING RN INTO ASSESS AND COCCYX IS SLIGHTLY RED BUT NO OPEN AREAS ARE IDENTIFIED. PROTECTIVE OINTMENT APPLIED. PT EDUCATED TO NOT SLEEP ON BACK, USE PILLOW IN THE HARD CHAIRS AND ENCOURAGED SHOWER AND HYGIENE. PT HAS NOT SHOWERED SINCE ARRIVAL. PT STATES SHE CAN ONLY TAKES BATHS DUE TO THE STEAM IN THE SHOWER GETS HER SHORT OF BREATH. PT WAS INFORMED SHE CAN SHOWER IN THE JOSEPH SHOWER AND ADJUST THE WATER TEMPERATURE OR LEAVE THE DOOR OPEN IN THE BATHROOM WHILE SHE SHOWERS. PT STATED OK I WILL. ALL QUESTIONS ANSWERED AND SUPPORT WAS VOICED.
--- NOTE | 2023-09-26 19:06 | P.NPUPN_ITS ---
Subjective NPU 2 Subjective: Patient presented today reporting that she was feeling better and began discussing discharge planning. We discussed concerns about repeating the previous errors from the past hospitalization where she rushed off and came right back. She reports that she feels the medication is better and we discussed planning for discharge early next week. She denied any side effects to the medication and reports that she is eating a little better. Mental Status Exam 2 MSE Comments: This is a thin/cachectic white female in hospital scrubs looking much older than her stated age with limited grooming and fair eye contact. No abnormal movements except for moderate psychomotor retardation. She was cooperative with exam in moderate distress. Speech was slightly decreased in rate and decreased in volume with some latency in speech. Mood described as better, affect was odd and subdued. Thought process was linear and organized. Thought content: Patient denied suicidal or homicidal ideation. There was continued evidence of paranoia and she did appear to be responding to internal stimuli. Attention and concentration appeared intact and memory appeared reliable but none were formally tested. She is alert and oriented times x3. Insight is impaired. Her judgment and impulse control are limited. Vitals/I&O/Wt Last Vital Signs Temp 98 F 09/26/23 14:00 Pulse 102 H 09/26/23 14:00 Resp 22 H 09/26/23 14:00 BP 139/88 09/26/23 14:00 Pulse Ox 97 09/26/23 14:00 O2 Del Method Room Air 09/26/23 14:00 Data NPU 09/23/23 23:40 09/23/23 23:40 A&P Assessment and plan (1) Amphetamine-induced psychotic disorder: (2) Methamphetamine dependence: (3) Depression, unspecified: Plan 63-year-old female currently under the presence of methamphetamine again with the presence of active psychosis and depression. She will continue to require acute inpatient hospitalization. 1. Encourage individual, group and milieu therapy. 2. Recommend sober living treatment at the highest level of care to which the patient is willing to commit. 3. Continue q-15 minute checks for safety.? 4.?Increased Invega to 6mg at night. 5.? Will attempt to gather collateral information. Involuntary Hold Information 2 96 Hour Hold: 96 Hour Involuntary Admission: No Attestations NPU 2 Medical Necessity Statement*: Inpatient hospitalization is medically necessary and deemed to be the clinically appropriate decision at this time. The patient will be started on medications and they will be adjusted as clinically indicated. Her likely length of stay is 5-7 days. Coding Level of Care Code [facility] Amphetamine-induced psychotic disorder F15.959 Methamphetamine dependence F15.20 Depression, unspecified F32.A
[2023-09-26 20:12] VITALS: BP 89/59; PULSE 118; RESP 18; TEMP 36.3; O2SAT 98
[2023-09-26] MEDS: OLANZapine 5 mg TABLET PO (20:13)
[2023-09-26] MEDS: paliperidone ER 6 mg Tablet PO (20:14)
[2023-09-26] MEDS: ibuprofen 600 mg Tablet PO (20:14)
[2023-09-26] MEDS: hyDROXYzine 25 mg Capsule 50 MG PO (21:50)
[2023-09-26] MEDS: trazodone 50 mg Tablet PO ×2 (21:50→23:05)
[2023-09-27] MEDS: OLANZapine 5 mg ODT PO ×2 (00:32→22:25)
[2023-09-27] MEDS: acetaminophen 325 mg Tablet 650 MG PO ×2 (00:36→20:46)
[2023-09-27 06:00] VITALS: RESP 14
--- NOTE | 2023-09-27 06:15 | PC.NURSE ---
Pt requested not to be woke up for vital signs this morning. pt not able to fall asleep until 0200. hr clerk notified.
[2023-09-27 09:14] VITALS: RESP 16; O2SAT 97
--- NOTE | 2023-09-27 11:33 | P.NPUPN_ITS ---
Subjective NPU 2 Subjective: Patient presented today reporting that she is feeling okay. She has been very focused on restarting the Neurontin. However I did have the opportunity to discuss the situation with Dr. Alicia and he had discussed with her how she had been essentially sleeping the day away on the unit when she has been here and that he had concerns that the Neurontin was the source of that lethargy. We discussed sober living treatment and she seems to be wavering on commitment to a more intensive or inpatient treatment. She otherwise denied side effects to the medication. Mental Status Exam 2 MSE Comments: This is a thin/cachectic white female in hospital scrubs looking much older than her stated age with limited grooming and fair eye contact. No abnormal movements except for moderate psychomotor retardation. She was cooperative with exam in moderate distress. Speech was slightly decreased in rate and decreased in volume with some latency in speech. Mood described as better, affect was odd and subdued. Thought process was linear and organized. Thought content: Patient denied suicidal or homicidal ideation. There was continued evidence of paranoia and she did appear to be responding to internal stimuli. Attention and concentration appeared intact and memory appeared reliable but none were formally tested. She is alert and oriented times x3. Insight is impaired. Her judgment and impulse control are limited. Vitals/I&O/Wt Last Vital Signs Temp 97.4 F L 09/26/23 20:12 Pulse 118 H 09/26/23 20:12 Resp 16 09/27/23 09:14 BP 89/59 09/26/23 20:12 Pulse Ox 97 09/27/23 09:14 O2 Del Method Room Air 09/27/23 09:14 Data NPU 09/23/23 23:40 09/23/23 23:40 A&P Assessment and plan (1) Amphetamine-induced psychotic disorder: (2) Methamphetamine dependence: (3) Depression, unspecified: Plan 63-year-old female currently under the presence of methamphetamine again with the presence of active psychosis and depression. She will continue to require acute inpatient hospitalization. 1. Encourage individual, group and milieu therapy. 2. Recommend sober living treatment at the highest level of care to which the patient is willing to commit. 3. Continue q-15 minute checks for safety.? 4.?Increased Invega to 6mg at night. 5.? Will attempt to gather collateral information. Involuntary Hold Information 2 96 Hour Hold: 96 Hour Involuntary Admission: No Attestations NPU 2 Medical Necessity Statement*: Inpatient hospitalization is medically necessary and deemed to be the clinically appropriate decision at this time. The patient will be started on medications and they will be adjusted as clinically indicated. Her likely length of stay is 5-7 days. Coding Level of Care Code Acute Code for [facility] Diagnoses Amphetamine-induced psychotic disorder F15.959 Methamphetamine dependence F15.20 Depression, unspecified F32.A
[2023-09-27] MEDS: ipratropium-albuterol 3 mL Neb INHALATION (11:47)
[2023-09-27 11:48] VITALS: PULSE 97; RESP 16; O2SAT 98
[2023-09-27 11:54] VITALS: PULSE 100
[2023-09-27 14:00] VITALS: BP 107/64; PULSE 113; RESP 17; O2SAT 99
[2023-09-27 19:48] VITALS: BP 102/48; PULSE 108; RESP 16; TEMP 36.3; O2SAT 94
[2023-09-27] MEDS: trazodone 50 mg Tablet PO ×2 (20:47→22:25)
[2023-09-27] MEDS: paliperidone ER 6 mg Tablet PO (20:47)
[2023-09-27] MEDS: OLANZapine 5 mg TABLET PO (20:47)
[2023-09-27] MEDS: hyDROXYzine 25 mg Capsule 50 MG PO (20:47)
[2023-09-28 06:00] VITALS: BP 110/68; PULSE 84; RESP 16; O2SAT 96
[2023-09-28] MEDS: ipratropium-albuterol 3 mL Neb INHALATION (08:01)
[2023-09-28 08:02] VITALS: PULSE 94; RESP 16; O2SAT 96
[2023-09-28 08:03] VITALS: O2SAT 96
--- NOTE | 2023-09-28 09:03 | PC.NURSE ---
During shift assessment, patient stated that she was feeling angry and upset because she was unable to sleep during the night, stating them pills they give me to sleep don't work. Because of this, patient is experiecing anxiety and depression. Patient denies SI, HI, AVH.
--- NOTE | 2023-09-28 11:37 | P.NPUPN_ITS ---
Subjective NPU 2 Subjective: Patient presented today reporting that she is feeling optimistic about the prospect of discharge in the next couple of days. She talked about going to her son's place again in [place]. Reports that she did actually get there but was only there for 2 days. We discussed the need for significant sober living interventions and she reported being open to that possibility but seemed more focused on discharge. She denied any side effects to the medication. Mental Status Exam 2 MSE Comments: This is a thin/cachectic white female in hospital scrubs looking much older than her stated age with limited grooming and fair eye contact. No abnormal movements except for moderate psychomotor retardation. She was cooperative with exam in moderate distress. Speech was slightly decreased in rate and decreased in volume with some latency in speech. Mood described as better, affect was odd and subdued. Thought process was linear and organized. Thought content: Patient denied suicidal or homicidal ideation. There was continued evidence of paranoia and she did appear to be responding to internal stimuli. Attention and concentration appeared intact and memory appeared reliable but none were formally tested. She is alert and oriented times x3. Insight is impaired. Her judgment and impulse control are limited. Vitals/I&O/Wt Last Vital Signs Temp 97.4 F L 09/27/23 19:48 Pulse 94 09/28/23 08:02 Resp 16 09/28/23 08:02 BP 110/68 09/28/23 06:00 Pulse Ox 96 09/28/23 08:03 O2 Del Method Room Air 09/28/23 08:03 Weight last 48 hrs Weight 36.741 kg Data NPU 09/23/23 23:40 09/23/23 23:40 A&P Assessment and plan (1) Amphetamine-induced psychotic disorder: (2) Methamphetamine dependence: (3) Depression, unspecified: Plan 63-year-old female currently under the presence of methamphetamine again with the presence of active psychosis and depression. She will continue to require acute inpatient hospitalization. 1. Encourage individual, group and milieu therapy. 2. Recommend sober living treatment at the highest level of care to which the patient is willing to commit. 3. Continue q-15 minute checks for safety.? 4.?Increased Invega to 6mg at night. 5.? Will attempt to gather collateral information. Involuntary Hold Information 2 96 Hour Hold: 96 Hour Involuntary Admission: No Attestations NPU 2 Medical Necessity Statement*: Inpatient hospitalization is medically necessary and deemed to be the clinically appropriate decision at this time. The patient will be started on medications and they will be adjusted as clinically indicated. Her likely length of stay is 3-5 days. Coding Level of Care Code Acute Code for [facility] Diagnoses Amphetamine-induced psychotic disorder F15.959 Methamphetamine dependence F15.20 Depression, unspecified F32.A
[2023-09-28] MEDS: acetaminophen 325 mg Tablet 650 MG PO (13:11)
[2023-09-28 14:00] VITALS: BP 106/74; PULSE 100; RESP 16; O2SAT 98
[2023-09-28 20:12] VITALS: BP 110/55; PULSE 72; RESP 16; TEMP 36.4; O2SAT 95
[2023-09-28] MEDS: trazodone 50 mg Tablet PO (21:33)
[2023-09-28] MEDS: hyDROXYzine 25 mg Capsule 50 MG PO (21:33)
[2023-09-28] MEDS: paliperidone ER 6 mg Tablet PO (21:33)
[2023-09-28] MEDS: ibuprofen 600 mg Tablet PO (21:34)
[2023-09-28] MEDS: OLANZapine 5 mg TABLET PO (21:35)
[2023-09-28] MEDS: OLANZapine 5 mg ODT PO (22:51)
[2023-09-29 06:00] VITALS: RESP 15
--- NOTE | 2023-09-29 06:28 | PC.NURSE ---
Pt requested not to woke up to obtain vital signs. Respiration rate : 15. information technology assistant notified.
[2023-09-29] MEDS: ipratropium-albuterol 3 mL Neb INHALATION (09:11)
[2023-09-29 09:12] VITALS: PULSE 102; RESP 16; O2SAT 95
[2023-09-29 09:15] VITALS: PULSE 101
--- NOTE | 2023-09-29 13:15 | W.PM.NPUDCS ---
Diagnoses at Discharge Discharge Diagnosis (1) Amphetamine-induced psychotic disorder: Status: Acute (2) Methamphetamine dependence: Status: Acute (3) Depression, unspecified: Status: Acute Reason for Visit Reason for Visit: auditory hallucinations Brief History: History of Present Illness Sury Joy is a 63 year old female recently discharged from the neuropsychiatric unit on 09/15/2023 who presented to the emergency department arriving via EMS with reports that she was hearing voices telling her that they were going to kill her family. The patient had reported that she had been sober off of methamphetamine since her discharge although she had tested positive for marijuana and amphetamine during her toxicology screen here. Patient was admitted to the neuropsychiatric unit involuntarily for further evaluation and treatment. The patient reports that she has been scared that the voices have not gone away and she endorsed being compliant with her medications as prescribed. She states that she had been taking her Seroquel 600 mg at night, gabapentin 400 mg 3 times a day and cyclobenzaprine as previously prescribed. She did not not endorse any new changes from her previous evaluation here 9 days prior. Excerpt from NPU Discharge Summary on 09/15/23. History of Present Illness Sury Joy is a 63 year old female Who presented to the emergency department with complaints of auditory hallucinations despite reports of being compliant with her trazodone and Seroquel prescribed. The patient had also reported auditory and visual hallucinations. She was admitted to the neuropsychiatric unit for further evaluation and treatment. She reports that she had a desire to take a gun out and kill her along with herself. She had reported that she uses methamphetamines nearly every day for several months. She reported no new changes since her last admission onto the neuropsychiatric unit in June 2023. No new changes were reported since her last hospitalization on the unit 2 and half months ago. Excerpt from HPI from ED by Dr. Montes, Psychiatrist, below History of Present Illness Sury Joy is a 63 year old female who presented to the emergency department with the following report: Chief Complaint: Psychiatric Symptoms Stated Complaint: hearing voices Time Seen by Provider: 07/01/23 01:13 History of Present Illness: 63-year-old female who was discharged from the neuropsychiatric facility 06/30. She presents 13 or 14 hours after discharge. Her chief complaint is that she is hearing voices. The voices are telling the patient that they are going to kill her and her . She is exhibiting no suicidal ideation or homicidal ideation, only intrusive thoughts of these voices. She seems improved to some degree on arrival, and has been calm. Her notes that she had a good day [place] [employer], ate a good meal, and seem to interact well with family. It was only later in the night that she began to complain of hearing voices again. Patient presented to the emergency department having just been discharged from the inpatient psychiatric unit yesterday and a psychiatric consult was requested to determine whether we admission was indicated. Patient presents today reporting that she made some air in taking her medication. We discussed the fact that she had not been gone long enough to make it air that should lead to some kind of clinical relevance. She was an absolute denial that she relapsed even though her behavior was suggestive of relapse. She was very insistent however that there was no need for readmission. She reported that she wanted to have another chance to get a ride. We spent most of the time talking about recovery and sobriety and the different resources that are available. We also talked about the crisis stabilization center and the resources that exist there for moments of challenges. She was able to contract for safety outside the hospital. We discussed the importance of her following up as scheduled and considering more intense sober living services. Per her 06/30/2023 [facility] inpatient psychiatric discharge summary: Discharge Diagnosis (1) Amphetamine-induced psychotic disorder: Status: Acute (2) Methamphetamine dependence: Status: Acute (3) Affective disorder: Status: Chronic Permanent problem details: See comments below. Reason for Visit Reason for Visit: MHE Brief History: History of Present Illness Sury Joy is a 63 year old female who presented to the emergency department with complaints of hallucinations and bizarre delusions particularly that people were outside of her home. The patient was admitted to the neuropsychiatric unit for further evaluation and treatment. The patient had been unable to provide any further information but it indicated on the day of admission that she was feeling like people were after her. She had admitted to using methamphetamine and was positive for methamphetamine and benzodiazepines on admission. She had endorsed having auditory and visual hallucinations in the emergency department. She had received Haldol on the night of admission after she had been screaming while stating that people were trying to kill her. She was unable to provide any further information on interview. Inpatient psychiatric history: Per previous records she has had several inpatient hospitalizations. Outpatient psychiatric history: There is a past history of unspecified mood disorder and methamphetamine induced psychosis per previous records. Medical history: Anemia, hypokalemia, leg swelling, COPD Surgical Hx: lung lobectomy Allergies: Codeine and tramadol Medications: Zyrtec, cyclobenzaprine 10 mg 3 times a day, gabapentin 800 mg 3 times a day mirtazapine 15 mg at night, Seroquel 400 mg twice a day, albuterol inhaler. Drug and Alcohol history: per previous records methamphetamine abuse Family psychiatric history: unknown Social History: unknown, Hospital Course Hospital Course She slowly acclimated to the individual, group and milieu therapies provided. She once again presented psychosis positive for methamphetamine with a history of methamphetamine use disorder. Most of her home medications were discontinued including Seroquel, Neurontin, and cyclobenzaprine and Invega, zyprexa, and vistaril were started. With the absence of the methamphetamine and the medications changes, she showed improvement. She worked with the social work team for her appropriate aftercare appointments but she still was resistant to intensive inpatient sober living treatment. She had significant improvement and was able to contract for safety outside of the hospital prior to discharge. During the hospitalization, the patient had routine laboratory studies which were within normal limits except for a few outliers. Additionally, there was a general medical evaluation which was also within normal limits and revealed no new acute processes. At the time of discharge, she denied psychosis or lethality. Mood and anxiety were well managed. The patient endorsed a plan to avoid all drugs of abuse and follow up with the aftercare recommendations of the treatment team. The patient was evaluated and deemed to be absent credible lethality and had achieved the maximum benefit from an inpatient hospitalization, and so was discharged. Involuntary Hold Information 96 Hour Hold: 96 Hour Involuntary Admission: No Mental Status Exam MSE Comments: This is a thin/cachectic white female in hospital scrubs looking much older than her stated age with limited grooming and fair eye contact. No abnormal movements except for moderate psychomotor retardation. She was cooperative with exam in mild distress. Speech was slightly decreased in rate and decreased in volume with some latency in speech. Mood described as better, affect was brighter. Thought process was linear and organized. Thought content: Patient denied suicidal or homicidal ideation. There was continued evidence of paranoia and she did not appear to be responding to internal stimuli. Attention and concentration appeared intact and memory appeared reliable but none were formally tested. She is alert and oriented times x3. Insight is impaired. Her judgment and impulse control are limited. Discharge Data Studies Completed and Pending: Laboratory Results WBC 4.39 10^3/uL (3.2 9-11.43) 09/23/23 23:40 RBC 3.39 10^6/uL (3.8 5-5.65) L 09/23/23 23:40 Hgb 9.90 g/dL (11.27- 16.99) L 09/23/23 23:40 Hct 30.7 % (36-47) L 09/23/23 23:40 MCV 90.6 fl (85-98) 09/23/23 23:40 MCH 29.2 pg (27-33) 09/23/23 23:40 MCHC 32.2 g/dL (30-55) 09/23/23 23:40 RDW 13.8 % (12.1-15.1 ) 09/23/23 23:40 Plt Count 223 10^3/cmm (157 -399) 09/23/23 23:40 MPV 9.4 fL (7.4-10.4) 09/23/23 23:40 Neut % (Auto) 58.6 % 09/23/23 23:40 Lymph % (Auto) 27.1 % 09/23/23 23:40 Tompkins % (Auto) 9.1 % 09/23/23 23:40 Eos % (Auto) 4.1 % 09/23/23 23:40 Baso % (Auto) 0.9 % 09/23/23 23:40 Neut # (Auto) 2.57 10^3/uL (1.8 -7.7) 09/23/23 23:40 Lymph # (Auto) 1.2 10^3/uL (0.8- 4.8) 09/23/23 23:40 Tompkins # (Auto) 0.4 10^3/uL (0.2- 0.9) 09/23/23 23:40 Eos # (Auto) 0.2 10^3/uL (0.0- 0.8) 09/23/23 23:40 Baso # (Auto) 0.0 10^3/uL (0.0- 0.1) 09/23/23 23:40 Nucleated RBC % (a uto) 0 % 09/23/23 23:40 Nucleated RBCs # 0.0 /100WBC 09/23/23 23:40 Sodium 141 mmol/L (136-1 45) 09/23/23 23:40 Potassium 3.3 mmol/L (3.5-5 .1) L 09/23/23 23:40 Chloride 100 mmol/L (98-10 7) 09/23/23 23:40 Carbon Dioxide 36 mmol/L (22-29) H 09/23/23 23:40 Anion Gap 8.3 (5-19) 09/23/23 23:40 BUN 10 mg/dL (8-23) 09/23/23 23:40 Creatinine 0.5 mg/dL (0.5-0. 9) 09/23/23 23:40 GFR Calculation 125.4 mL/min (90- 130) 09/23/23 23:40 Glucose 85 mg/dL (65-115) 09/23/23 23:40 Calculated Osmolal ity 290 mOsm/kg (285- 295) 09/23/23 23:40 Calcium 8.6 mg/dL (8.5-10 .5) 09/23/23 23:40 Total Bilirubin 0.2 mg/dL (0.15-1 .2) 09/23/23 23:40 AST 8 U/L (0-32) 09/23/23 23:40 ALT 9 U/L (0-33) 09/23/23 23:40 Alkaline Phosphata se 78 U/L (35-105) 09/23/23 23:40 Total Protein 5.3 g/dL (6.6-8.7 ) L 09/23/23 23:40 Albumin 3.5 g/dL (3.5-5.2 ) 09/23/23 23:40 Globulin 1.8 g/dL (1.3-4.6 ) 09/23/23 23:40 TSH 0.97 uIU/mL (0.27 -4.20) 09/23/23 23:40 Urine Color Yellow (Yellow) 09/23/23 23:47 Urine Appearance Clear (CLEAR) 09/23/23 23:47 Urine pH 7 (5-7) 09/23/23 23:47 Ur Specific Gravit y 1.005 (1.005-1.0 30) 09/23/23 23:47 Urine Protein Neg (Negative) 09/23/23 23:47 Urine Glucose (UA) Norm (Normal) 09/23/23 23:47 Urine Ketones Negative (Negati ve) 09/23/23 23:47 Urine Blood Neg (Negative) 09/23/23 23:47 Urine Nitrate Negative (Negati ve) 09/23/23 23:47 Urine Bilirubin Neg (Negative) 09/23/23 23:47 Urine Urobilinogen Neg mg/dL (Negati ve) 09/23/23 23:47 Ur Leukocyte Angeli ase Negative (Negati ve) 09/23/23 23:47 Salicylates < 0.3 mg/dL (3-10 ) L 09/23/23 23:40 Urine Opiates Scre en Negative ng/mL (N egative) 09/23/23 23:47 Acetaminophen < 5.0 ug/mL (10-3 0) L 09/23/23 23:40 Ur Barbiturates Sc reen Negative ng/mL (N egative) 09/23/23 23:47 Ur Phencyclidine S crn Negative ng/mL (N egative) 09/23/23 23:47 Ur Amphetamines Sc reen Positive ng/mL (N egative) H 09/23/23 23:47 U Benzodiazepines Scrn Positive ng/mL (N egative) H 09/23/23 23:47 Urine Cocaine Scre en Negative ng/mL (N egative) 09/23/23 23:47 U Marijuana (THC) Screen Negative ng/mL (N egative) 09/23/23 23:47 Ethyl Alcohol < 10 mg/dL (0-10) 09/23/23 23:40 Vitals: Last Vital Signs Temp 97.5 F L 09/28/23 20:12 Pulse 101 H 09/29/23 09:15 Resp 16 09/29/23 09:12 BP 110/55 09/28/23 20:12 Pulse Ox 95 09/29/23 09:12 O2 Del Method Room Air 09/29/23 09:12 Discharge Plan Discharge Patient Disposition: Home Condition: Stable Prescriptions: New olanzapine 5 mg Tablet 5 mg PO BEDTIME 30 Days Qty: 30 1RF hydroxyzine pamoate 25 mg Capsule 50 mg PO Q6H PRN (Reason: Anxiety) 30 Days Qty: 120 1RF paliperidone 6 mg Tablet Extended Release 24hr 6 mg PO BEDTIME 30 Days Qty: 30 1RF Continued ipratropium-albuterol 0.5 mg-3 mg(2.5 mg base)/3 mL solution for nebulization 3 ml inhalation Q4H PRN (Reason: shortness of breath or wheezing) Qty: 180 0RF trazodone 50 mg tablet 50 mg PO BEDTIME 30 Days Qty: 30 1RF cetirizine 10 mg tablet 10 mg PO DAILY PRN (Reason: Allergy Symptoms) Discontinued cyclobenzaprine 10 mg tablet 10 mg PO TID PRN (Reason: muscle spasm) gabapentin 400 mg Capsule 400 mg PO TID 30 Days Qty: 90 1RF quetiapine 300 mg tablet 600 mg PO BEDTIME 30 Days Qty: 60 1RF Discharge Orders: Discharge Order (Routine); Ordered 09/29/23 Ordered By: Anthony Montes Referrals: [facility] [Other] - 10/14/23 10:45 am (Initial intake with Irena Khalil) Reema Webster FNP [Primary Care Provider] - Discharge Diet: Regular Discharge Activity: Resume usual activity Patient Instructions: Hydroxyzine (By mouth), Olanzapine (By mouth), Paliperidone (By mouth), Depression (DC), Methamphetamine Use Disorder (DC), Hallucinations (ED), Psychotic Disorder (DC), Opioid Safety Discharge Attestations NPU Time Spent in Discharge Care*: less than 30 min Specific Discharge Activities: Specific discharge activities: educating patient, discussing with case supervisor/social workers/dc planners, documenting/other paperwork and evaluating patient/reviewing data Coding Level of Care Code Acute Code for [facility] Diagnoses Amphetamine-induced psychotic disorder F15.959 Methamphetamine dependence F15.20 Depression, unspecified F32.A
[2023-09-29 13:27] VITALS: PULSE 101; TEMP 36.4
[2023-09-29 13:39] VITALS: BP 121/64; PULSE 119; RESP 16; TEMP 37; O2SAT 98
== END 2023-09-29 15:09 | disposition home or self-care (01) | DRG 897 ==
LOC: ER 09-24 00:02 → NP 09-24 01:12
PROVIDERS: Admitting Provider Psychiatry & Neurology Psychiatry; Emergency Provider Internal Medicine; PCP Nurse Practitioner Family; Visit Provider Psychiatry & Neurology Psychiatry
DX: F15.251 Other stimulant dependence with stimulant-induced psychotic disorder with hallucinations (principal); F32.A Depression, unspecified
CPT/HCPCS: 36415; 80053; 80306; 80307; 81003; 84443; 85025; 93005; 94640; 94664; 97150; 97165; 99285

== ENCOUNTER 2023-11-08 23:01 | Emergency (ER) | payer MEDICAID, SELFPAY ==
[2023-11-08 23:05] VITALS: BP 133/83; PULSE 99; RESP 20; TEMP 36.8; O2SAT 95; BMI 14.1
--- NOTE | 2023-11-08 23:19 | XRR_ITS ---
PROCEDURE INFORMATION: Exam: XR Chest Exam date and time: 11/09/2023 12:22 AM Age: 63 years old Clinical indication: Intercostal; Patient HX: SOB; Svt; Chest pain TECHNIQUE: Imaging protocol: Radiologic exam of the chest. Views: 1 view. COMPARISON: CR XR chest 1V portable [id number] 09/09/2023 5:32 PM FINDINGS: Lungs: Unremarkable. No consolidation. Pleural spaces: Unremarkable. No pleural effusion. No pneumothorax. Heart/Mediastinum: Unremarkable. No cardiomegaly. Bones/joints: Unremarkable. XR/XR chest 1V portable [id number] IMPRESSION: No acute findings.
--- NOTE | 2023-11-08 23:20 | ECG_ITS ---
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 Measurements Intervals [place] Rate: 92 P: 79 [place]: 130 QRS: 86 QRSD: 102 T: 73 QT: 380 QTc: 472 Interpretive Statements SINUS RHYTHM Compared to ECG 09/24/2023 00:01:11 No significant changes Electronically Signed On 11-09-2023 12:03:03 CDT by Paddy Ivory M.D. [email or web address]/[id number] f
[2023-11-08 23:27] LABS: Basophils % 0.4 %; Eosinophils # 0.1 10^3/uL (0.0-0.8); Eosinophils % 0.5 %; Hematocrit 35.3 % (36-47); Lymphocytes % 10.5 %; Mean Corpuscular HGB Conc 33.1 g/dL (30-55); Mean Corpuscular Hemoglobin 29.7 pg (27-33); Mean Corpuscular Volume 89.6 fl (85-98); Mean Platelet Volume 9.5 fL (7.4-10.4); Monocytes # 0.4 10^3/uL (0.2-0.9); Monocytes % 4.5 %; Neutrophils # 8.04 10^3/uL (1.8-7.7); Neutrophils % 83.7 %; Nucleated Red Blood Cells % 0 %; Platelet Count 260 10^3/cmm (157-399); Red Blood Count 3.94 10^6/uL (3.85-5.65); Red Cell Distribution Width 12.6 % (12.1-15.1); White Blood Count 9.61 10^3/uL (3.29-11.43)
--- NOTE | 2023-11-08 23:35 | ED_ITS ---
Documented by User: YSABEL Arceo 11/09/23 00:34 HPI - Arrhythmia/Palpitations 2 General: Chief Complaint: Arrhythmia/Palpitations Stated Complaint: SOB, SVT Time Seen by Provider: 11/08/23 23:18 History of Present Illness: 63-year-old female comes in today for SV T. Patient was in SVT and was converted by EMS with adenosine. Patient does endorse the use of methamphetamines today. Patient appears nontoxic. Patient is alert and oriented. Patient moves all extremities well. Patient knows that she is not to use methamphetamines as this may aggravate her SVT. Review of Systems 2 General: Reports: 10 or more systems reviewed and unremarkable except in HPI and below PFSH ED 2 PFSH: Medical History Methamphetamine abuse Abnormal EKG SOB (shortness of breath) Pt refused stress test Substance abuse in remission Bilateral numbness and tingling of arms and legs Leg swelling Leg pain Tobacco use disorder, severe, dependence Affective disorder See comments below. Methamphetamine use disorder, mild, in early remission, abuse Surgical History S/P lobectomy of lung Hx of section Social History Smoking and tobacco/nicotine status: current every day tobacco/nicotine user cigarettes Packs smoked per day: 0.5 Years cigarettes smoked: 44 Quit status (tobacco/nicotine): not considering quitting Second hand smoke exposure: No Alcohol intake: former Year of sobriety/quit date alcohol: 2007 Substance/Drug Use: former Date of last use: 08/2019 methamphetamine use, distant use of marijuana, PCP, and acid Lives independently: Yes Household members: none Current occupational status: disabled Do you think of yourself as: Straight/Heterosexual Current gender identity: Female Physical Exam 2 Const: COMMON NORMALS: alert HENMT: COMMON NORMALS: normocephalic HEAD & SCALP: normocephalic Neck/C-Spine: COMMON NORMALS: full ROM Chest: COMMONS NORMALS: normal inspection of the chest Resp: COMMON NORMALS: normal respiratory effort and clear to auscultation bilaterally AUSCULTATION: clear to auscultation bilaterally Cardio: COMMON NORMALS: regular rate and regular rhythm RATE: regular rate RHYTHM: regular rhythm GI: COMMON NORMALS: non-tender Back/Pelvis: COMMON NORMALS: thoracic and lumbar spine normal to inspection Extremity: COMMON NORMALS: no pedal edema Neuro: SENSORIUM/ORIENTATION: Yes alert Skin: COMMON NORMALS: turgor normal GENERAL SKIN EXAM: turgor normal Course 2 Vital Signs: Vital signs: Vital Signs Temperature 98.2 F 11/08/23 23:05 Pulse Rate 113 H 11/09/23 03:27 Respiratory Rate 18 11/09/23 03:27 Blood Pressure 133/83 11/09/23 03:27 Pulse Oximetry 95 11/08/23 23:05 MDM - Arrhythmia/Palpitations Medical Decision Making 63-year-old female comes in today for SVT. EMS converted the patient with 6 mg of adenosine. Patient comes in at this time with a heart rate in the 90s to low 100s. Patient appears nontoxic. Patient endorses the use of methamphetamines. Differential diagnosis includes not limited to SVT, electrolyte imbalance, acute drug intoxication, anxiety. CBC was unremarkable. CMP did note a bump in her creatinine to 1.0, sodium was 146, potassium was 3.3, and her glucose was 145. The patient probably has some mild dehydration secondary to methamphetamine use. Patient was given a 500 mL bolus which is approximately 15 mL/kg for patient's weight. Patient did have a mild increase in troponin at 20 which I think was not significant for ACS and was more likely stress from the methamphetamines and the short SVT event. Recommended oral fluids. Patient was able to eat and drink in the ER. Patient denies any chest pain and was discharged home after the fluids. Lab Data 11/08/23 23:20 11/08/23 23:20 Radiology Impressions Chest X-Ray 11/08/23 23:19 IMPRESSION: No acute findings. Laboratory Results WBC 9.61 10^3/uL (3.29-11.43) 11/08/23 23:20 RBC 3.94 10^6/uL (3.85-5.65) 11/08/23 23:20 Hgb 11.70 g/dL (11.27-16.99) 11/08/23 23:20 Hct 35.3 % (36-47) L 11/08/23 23:20 MCV 89.6 fl (85-98) 11/08/23 23:20 MCH 29.7 pg (27-33) 11/08/23 23:20 MCHC 33.1 g/dL (30-55) 11/08/23 23:20 RDW 12.6 % (12.1-15.1) 11/08/23 23:20 Plt Count 260 10^3/cmm (157-399) 11/08/23 23:20 MPV 9.5 fL (7.4-10.4) 11/08/23 23:20 Neut % (Auto) 83.7 % 11/08/23 23:20 Lymph % (Auto) 10.5 % 11/08/23 23:20 [place] % (Auto) 4.5 % 11/08/23 23:20 Eos % (Auto) 0.5 % 11/08/23 23:20 Baso % (Auto) 0.4 % 11/08/23 23:20 Neut # (Auto) 8.04 10^3/uL (1.8-7.7) H 11/08/23 23:20 Lymph # (Auto) 1.0 10^3/uL (0.8-4.8) 11/08/23 23:20 [place] # (Auto) 0.4 10^3/uL (0.2-0.9) 11/08/23 23:20 Eos # (Auto) 0.1 10^3/uL (0.0-0.8) 11/08/23 23:20 Baso # (Auto) 0.0 10^3/uL (0.0-0.1) 11/08/23 23:20 Nucleated RBC % (auto) 0 % 11/08/23 23:20 Nucleated RBCs # 0.0 /100WBC 11/08/23 23:20 Sodium 146 mmol/L (136-145) H 11/08/23 23:20 Potassium 3.3 mmol/L (3.5-5.1) L 11/08/23 23:20 Chloride 104 mmol/L (98-107) 11/08/23 23:20 Carbon Dioxide 22 mmol/L (22-29) 11/08/23 23:20 Anion Gap 23.3 (5-19) H 11/08/23 23:20 BUN 26 mg/dL (8-23) H 11/08/23 23:20 Creatinine 1.0 mg/dL (0.5-0.9) H 11/08/23 23:20 GFR Calculation 56.4 mL/min (90-130) L 11/08/23 23:20 Glucose 145 mg/dL (65-115) H 11/08/23 23:20 Calculated Osmolality 309 mOsm/kg (285-295) H 11/08/23 23:20 Calcium 9.5 mg/dL (8.5-10.5) 11/08/23 23:20 Total Bilirubin 1.3 mg/dL (0.15-1.2) H 11/08/23 23:20 AST 47 U/L (0-32) H 11/08/23 23:20 ALT 27 U/L (0-33) 11/08/23 23:20 Alkaline Phosphatase 106 U/L (35-105) H 11/08/23 23:20 Troponin T Baseline 20 ng/L (0-10) H 11/08/23 23:20 Troponin T 120 Minute 24.80 ng/L (0-10) H 11/09/23 01:31 Delta Troponin T 4.80 ABS# (0-10) 11/09/23 01:31 Total Protein 6.4 g/dL (6.6-8.7) L 11/08/23 23:20 Albumin 4.4 g/dL (3.5-5.2) 11/08/23 23:20 Globulin 2.0 g/dL (1.3-4.6) 11/08/23 23:20 XR interpretation done by ED provider, pending radiology final review Discharge Plan Discharge Patient Disposition: Home Clinical Impression: Acute dehydration, SVT (supraventricular tachycardia) Amphetamine intoxication Qualifiers: Complication of substance-induced condition: uncomplicated Qualified Code(s): F 15.920 - Other stimulant use, unspecified with intoxication, uncomplicated Condition: Stable Prescriptions: No Action ipratropium-albuterol 0.5 mg-3 mg(2.5 mg base)/3 mL solution for nebulization 3 ml inhalation Q4H PRN (Reason: shortness of breath or wheezing) Qty: 180 0RF trazodone 50 mg tablet 50 mg PO BEDTIME 30 Days Qty: 30 1RF olanzapine 5 mg Tablet 5 mg PO BEDTIME 30 Days Qty: 30 1RF hydroxyzine pamoate 25 mg Capsule 50 mg PO Q6H PRN (Reason: Anxiety) 30 Days Qty: 120 1RF paliperidone 6 mg Tablet Extended Release 24hr 6 mg PO BEDTIME 30 Days Qty: 30 1RF cetirizine 10 mg tablet 10 mg PO DAILY PRN (Reason: Allergy Symptoms) Discharge Orders: Discharge ED (Routine); Ordered 11/09/23 Ordered By: Burt Gage Referrals: Reema Webster FNP [Primary Care Provider] - Discharge Diet: Usual diet Discharge Activity: Increase activity as tolerated Patient Instructions: Supraventricular Tachycardia (ED) Activity Restrictions/Additional Instructions: Drink plenty of water to maintain hydration. Try to limit methamphetamine use. Follow-up with primary care for further instructions. Return to ED for new concerns. Coding Level of Care Code ED Glaze Supervisor for Chg Fwd Documented by User: Ranjan Carrillo DO 11/09/23 17:00 HPI - Arrhythmia/Palpitations 2 General: Chief Complaint: Arrhythmia/Palpitations Stated Complaint: SOB, SVT Time Seen by Provider: 11/08/23 23:18 [facility] ED 2 PFSH: Medical History Methamphetamine abuse Abnormal EKG SOB (shortness of breath) Pt refused stress test Substance abuse in remission Bilateral numbness and tingling of arms and legs Leg swelling Leg pain Tobacco use disorder, severe, dependence Affective disorder See comments below. Methamphetamine use disorder, mild, in early remission, abuse Surgical History S/P lobectomy of lung Hx of section Social History Smoking and tobacco/nicotine status: current every day tobacco/nicotine user cigarettes Packs smoked per day: 0.5 Years cigarettes smoked: 44 Quit status (tobacco/nicotine): not considering quitting Second hand smoke exposure: No Alcohol intake: former Year of sobriety/quit date alcohol: 2007 Substance/Drug Use: former Date of last use: 08/2019 methamphetamine use, distant use of marijuana, PCP, and acid Lives independently: Yes Household members: none Current occupational status: disabled Do you think of yourself as: Straight/Heterosexual Current gender identity: Female Course 2 Vital Signs: Vital signs: Vital Signs Temperature 98.2 F 11/08/23 23:05 Pulse Rate 113 H 11/09/23 03:27 Respiratory Rate 18 11/09/23 03:27 Blood Pressure 133/83 11/09/23 03:27 Pulse Oximetry 95 11/08/23 23:05 MDM - Arrhythmia/Palpitations Medical Decision Making 63-year-old female comes in today for SVT. EMS converted the patient with 6 mg of adenosine. Patient comes in at this time with a heart rate in the 90s to low 100s. Patient appears nontoxic. Patient endorses the use of methamphetamines. Differential diagnosis includes not limited to SVT, electrolyte imbalance, acute drug intoxication, anxiety. CBC was unremarkable. CMP did note a bump in her creatinine to 1.0, sodium was 146, potassium was 3.3, and her glucose was 145. The patient probably has some mild dehydration secondary to methamphetamine use. Patient was given a 500 mL bolus which is approximately 15 mL/kg for patient's weight. Patient did have a mild increase in troponin at 20 which I think was not significant for ACS and was more likely stress from the methamphetamines and the short SVT event. Recommended oral fluids. Patient was able to eat and drink in the ER. Patient denies any chest pain and was discharged home after the fluids. This patient was originally seen by YSABEL Dueñas. I agree with his history, evaluation, and treatment. Lab Data 11/08/23 23:20 11/08/23 23:20 Radiology Impressions Chest X-Ray 11/08/23 23:19 IMPRESSION: No acute findings. Laboratory Results WBC 9.61 10^3/uL (3.29-11.43) 11/08/23 23:20 RBC 3.94 10^6/uL (3.85-5.65) 11/08/23 23:20 Hgb 11.70 g/dL (11.27-16.99) 11/08/23 23:20 Hct 35.3 % (36-47) L 11/08/23 23:20 MCV 89.6 fl (85-98) 11/08/23 23:20 MCH 29.7 pg (27-33) 11/08/23 23:20 MCHC 33.1 g/dL (30-55) 11/08/23 23:20 RDW 12.6 % (12.1-15.1) 11/08/23 23:20 Plt Count 260 10^3/cmm (157-399) 11/08/23 23:20 MPV 9.5 fL (7.4-10.4) 11/08/23 23:20 Neut % (Auto) 83.7 % 11/08/23 23:20 Lymph % (Auto) 10.5 % 11/08/23 23:20 [place] % (Auto) 4.5 % 11/08/23 23:20 Eos % (Auto) 0.5 % 11/08/23 23:20 Baso % (Auto) 0.4 % 11/08/23 23:20 Neut # (Auto) 8.04 10^3/uL (1.8-7.7) H 11/08/23 23:20 Lymph # (Auto) 1.0 10^3/uL (0.8-4.8) 11/08/23 23:20 [place] # (Auto) 0.4 10^3/uL (0.2-0.9) 11/08/23 23:20 Eos # (Auto) 0.1 10^3/uL (0.0-0.8) 11/08/23 23:20 Baso # (Auto) 0.0 10^3/uL (0.0-0.1) 11/08/23 23:20 Nucleated RBC % (auto) 0 % 11/08/23 23:20 Nucleated RBCs # 0.0 /100WBC 11/08/23 23:20 Sodium 146 mmol/L (136-145) H 11/08/23 23:20 Potassium 3.3 mmol/L (3.5-5.1) L 11/08/23 23:20 Chloride 104 mmol/L (98-107) 11/08/23 23:20 Carbon Dioxide 22 mmol/L (22-29) 11/08/23 23:20 Anion Gap 23.3 (5-19) H 11/08/23 23:20 BUN 26 mg/dL (8-23) H 11/08/23 23:20 Creatinine 1.0 mg/dL (0.5-0.9) H 11/08/23 23:20 GFR Calculation 56.4 mL/min (90-130) L 11/08/23 23:20 Glucose 145 mg/dL (65-115) H 11/08/23 23:20 Calculated Osmolality 309 mOsm/kg (285-295) H 11/08/23 23:20 Calcium 9.5 mg/dL (8.5-10.5) 11/08/23 23:20 Total Bilirubin 1.3 mg/dL (0.15-1.2) H 11/08/23 23:20 AST 47 U/L (0-32) H 11/08/23 23:20 ALT 27 U/L (0-33) 11/08/23 23:20 Alkaline Phosphatase 106 U/L (35-105) H 11/08/23 23:20 Troponin T Baseline 20 ng/L (0-10) H 11/08/23 23:20 Troponin T 120 Minute 24.80 ng/L (0-10) H 11/09/23 01:31 Delta Troponin T 4.80 ABS# (0-10) 11/09/23 01:31 Total Protein 6.4 g/dL (6.6-8.7) L 11/08/23 23:20 Albumin 4.4 g/dL (3.5-5.2) 11/08/23 23:20 Globulin 2.0 g/dL (1.3-4.6) 11/08/23 23:20 Discharge Plan Discharge Patient Disposition: Home Clinical Impression: Acute dehydration, SVT (supraventricular tachycardia) Amphetamine intoxication Qualifiers: Complication of substance-induced condition: uncomplicated Qualified Code(s): F 15.920 - Other stimulant use, unspecified with intoxication, uncomplicated Condition: Stable Prescriptions: No Action ipratropium-albuterol 0.5 mg-3 mg(2.5 mg base)/3 mL solution for nebulization 3 ml inhalation Q4H PRN (Reason: shortness of breath or wheezing) Qty: 180 0RF trazodone 50 mg tablet 50 mg PO BEDTIME 30 Days Qty: 30 1RF olanzapine 5 mg Tablet 5 mg PO BEDTIME 30 Days Qty: 30 1RF hydroxyzine pamoate 25 mg Capsule 50 mg PO Q6H PRN (Reason: Anxiety) 30 Days Qty: 120 1RF paliperidone 6 mg Tablet Extended Release 24hr 6 mg PO BEDTIME 30 Days Qty: 30 1RF cetirizine 10 mg tablet 10 mg PO DAILY PRN (Reason: Allergy Symptoms) Discharge Orders: Discharge ED (Routine); Ordered 11/09/23 Ordered By: Burt Gage Referrals: Reema Webster FNP [Primary Care Provider] - Discharge Diet: Usual diet Discharge Activity: Increase activity as tolerated Patient Instructions: Supraventricular Tachycardia (ED) Activity Restrictions/Additional Instructions: Drink plenty of water to maintain hydration. Try to limit methamphetamine use. Follow-up with primary care for further instructions. Return to ED for new concerns. Coding Level of Care Code ED Glaze Supervisor for Abad Goyal
[2023-11-08 23:44] LABS: Troponin(5th) Baseline 20 ng/L (0-10)
[2023-11-08 23:47] LABS: Alanine Aminotransferase 27 U/L (0-33); Albumin Level 4.4 g/dL (3.5-5.2); Alkaline Phosphatase 106 U/L (35-105); Anion Gap 23.3 (5-19); Aspartate Amino Transferase 47 U/L (0-32); Blood Urea Nitrogen 26 mg/dL (8-23); Calcium 9.5 mg/dL (8.5-10.5); Carbon Dioxide 22 mmol/L (22-29); Chloride 104 mmol/L (98-107); Creatinine Clr Calc Pharmacy 33.8427; Glomerular Filtration Rate 56.4 mL/min (90-130); Glucose 145 mg/dL (65-115); Osmolality Calculated 309 mOsm/kg (285-295); Potassium 3.3 mmol/L (3.5-5.1); Sodium 146 mmol/L (136-145); Total Bilirubin 1.3 mg/dL (0.15-1.2); Total Protein 6.4 g/dL (6.6-8.7)
[2023-11-09] MEDS: sodium chloride 0.9% 500 ML 999 ML IV (00:48)
[2023-11-09 03:27] VITALS: BP 133/83; PULSE 113; RESP 18
== END 2023-11-09 01:40 | disposition home or self-care (01) ==
PROVIDERS: Emergency Provider Nurse Practitioner Family; PCP Nurse Practitioner Family
DX: I47.10 Supraventricular tachycardia, unspecified (principal); E86.0 Dehydration; F15.929 Other stimulant use, unspecified with intoxication, unspecified; F17.210 Nicotine dependence, cigarettes, uncomplicated
CPT/HCPCS: 36415; 71045; 80053; 84484; 85025; 93005; 96360; 99285; J7040

== ENCOUNTER 2023-11-19 00:11 | Emergency (ER) | payer MEDICAID, SELFPAY ==
[2023-11-19 00:14] VITALS: BP 147/106; PULSE 122; RESP 20; O2SAT 96; BMI 14.1
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
[2023-11-19] MEDS: tetanus-dipt-pertussis 0.5 mL SDV IM (00:22)
[2023-11-19 00:44] VITALS: BP 147/106; PULSE 95; RESP 22; O2SAT 95
== END 2023-11-19 00:46 | disposition home or self-care (01) ==
PROVIDERS: Emergency Provider Emergency Medicine; PCP Nurse Practitioner Family
DX: S41.111A Laceration without foreign body of right upper arm, initial encounter (principal); Y35 Legal intervention; Z23 Encounter for immunization; F17.210 Nicotine dependence, cigarettes, uncomplicated
CPT/HCPCS: 90471; 90715; 99283

== ENCOUNTER 2024-01-04 07:28 | Emergency (ER) | payer MEDICAID, SELFPAY ==
--- NOTE | 2024-01-04 07:40 | ED_ITS ---
HPI - Altered Mental Status 2 General: Chief Complaint: Altered Mental Status Stated Complaint: ANXIETY Time Seen by Provider: 01/04/24 07:32 Source: patient Mode of arrival: ambulatory History of Present Illness: 63-year-old female presents emergency ro om via EMS with altered mental status. Patient is acutely paranoid and psychotic. She thinks someone is going to shoot her. She was found on the floor. She admits to having done methamphetamine and taken her Seroquel. She denies suicidal or homicidal ideation. She is requesting to be admitted to the psychiatric unit. She has a known history of chronic methamphetamine abuse. Associated symptoms: Reports delusions Review of Systems 2 Const: Denies: fever(s) or chills Card: Denies: chest pain Resp: Denies: dyspnea GI: Denies: abdominal pain : Denies: dysuria, urinary frequency or urinary urgency Musc: Denies: neck pain or back pain Skin/Breast: Denies: rash PFSH ED 2 PFSH: Medical History Methamphetamine abuse Methamphetamine abuse Abnormal EKG SOB (shortness of breath) Pt refused stress test Substance abuse in remission Bilateral numbness and tingling of arms and legs Leg swelling Leg pain Tobacco use disorder, severe, dependence Affective disorder See comments below. Methamphetamine use disorder, mild, in early remission, abuse Surgical History S/P lobectomy of lung Hx of section Social History Smoking and tobacco/nicotine status: current every day tobacco/nicotine user cigarettes Packs smoked per day: 0.5 Years cigarettes smoked: 44 Quit status (tobacco/nicotine): not considering quitting Second hand smoke exposure: No Alcohol intake: former Year of sobriety/quit date alcohol: 2007 Substance/Drug Use: former Date of last use: 08/2019 methamphetamine use, distant use of marijuana, PCP, and acid Lives independently: Yes Household members: none Current occupational status: disabled Do you think of yourself as: Straight/Heterosexual Current gender identity: Female Physical Exam 2 Const: GENERAL APPEARANCE: disheveled and frail appearing NUTRITIONAL APPEARANCE: cachectic (Significant temporal wasting) O RIENTATION/CONSCIOUSNESS: Yes awake HENMT: COMMON NORMALS: normocephalic, atraumatic and hearing grossly normal bilaterally HEAD & SCALP: normocephalic and atraumatic Resp: COMMON NORMALS: normal respiratory effort, No retractions, No use of accessory muscles and clear to auscultation bilaterally AUSCULTATION: clear to auscultation bilaterally Cardio: COMMON NORMALS: regular rate, regular rhythm and No murmurs present (Cardio) RATE: regular rate RHYTHM: regular rhythm GI: COMMON NORMALS: Soft to palpation and No hepatosplenomegaly present A USCULTATION: Yes normoactive bowel sounds PALPATION: Yes Soft to palpation, No Tenderness to palpation present (GI), No Guarding due to palpation present (GI) and Yes No hepatosplenomegaly present Extremity: COMMON NORMALS: normal to inspection, capillary refill normal, no clubbing, cyanosis or edema, no calf tenderness and no pedal edema Psych: THOUGHT CONTENT: Yes delusions Skin: COMMON NORMALS: no rashes or lesions noted GENERAL SKIN EXAM: no rashes or lesions noted MDM - Altered Mental Status Medical Decision Making Patient is able to ambulate medically clear she does have a mild cystitis for which we will give her Macrobid 1 p.o. twice daily for 7 days. Patient is extremely underweight with a BMI of 12 she is not able to care for self at this point. She has been well-behaved since she is arrived here. We discussed with Dr. Zhu they will accept her on transfer Medical Records I reviewed the patient's medical records. Lab Data I reviewed the patient's lab results. 01/04/24 08:24 01/04/24 08:24 Radiology Impressions Chest X-Ray 01/04/24 07:40 IMPRESSION: Unchanged COPD and right upper lobe scarring without acute abnormality Laboratory Results WBC 7.83 10^3/uL (3.29-11.43) 01/04/24 08:24 RBC 4.05 10^6/uL (3.85-5.65) 01/04/24 08:24 Hgb 11.90 g/dL (11.27-16.99) 01/04/24 08:24 Hct 35.5 % (36-47) L 01/04/24 08:24 MCV 87.7 fl (85-98) 01/04/24 08:24 MCH 29.4 pg (27-33) 01/04/24 08:24 MCHC 33.5 g/dL (30-55) 01/04/24 08:24 RDW 12.5 % (12.1-15.1) 01/04/24 08:24 Plt Count 317 10^3/cmm (157-399) 01/04/24 08:24 MPV 9.1 fL (7.4-10.4) 01/04/24 08:24 Neut % (Auto) 71.4 % 01/04/24 08:24 Lymph % (Auto) 17.4 % 01/04/24 08:24 [place] % (Auto) 7.7 % 01/04/24 08:24 Eos % (Auto) 2.0 % 01/04/24 08:24 Baso % (Auto) 1.1 % 01/04/24 08:24 Neut # (Auto) 5.59 10^3/uL (1.8-7.7) 01/04/24 08:24 Lymph # (Auto) 1.4 10^3/uL (0.8-4.8) 01/04/24 08:24 [place] # (Auto) 0.6 10^3/uL (0.2-0.9) 01/04/24 08:24 Eos # (Auto) 0.2 10^3/uL (0.0-0.8) 01/04/24 08:24 Baso # (Auto) 0.1 10^3/uL (0.0-0.1) 01/04/24 08:24 Nucleated RBC % (auto) 0 % 01/04/24 08:24 Nucleated RBCs # 0.0 /100WBC 01/04/24 08:24 Sodium 138 mmol/L (136-145) 01/04/24 08:24 Potassium 3.4 mmol/L (3.5-5.1) L 01/04/24 08:24 Chloride 100 mmol/L (98-107) 01/04/24 08:24 Carbon Dioxide 29 mmol/L (22-29) 01/04/24 08:24 Anion Gap 12.4 (5-19) 01/04/24 08:24 BUN 12 mg/dL (8-23) 01/04/24 08:24 Creatinine 0.5 mg/dL (0.5-0.9) 01/04/24 08:24 GFR Calculation 125.4 mL/min (90-130) 01/04/24 08:24 Glucose 144 mg/dL (65-115) H 01/04/24 08:24 Calculated Osmolality 288 mOsm/kg (285-295) 01/04/24 08:24 Calcium 8.6 mg/dL (8.5-10.5) 01/04/24 08:24 Magnesium 2.0 mg/dL (1.7-2.3) 01/04/24 08:24 Total Bilirubin 0.3 mg/dL (0.15-1.2) 01/04/24 08:24 AST 21 U/L (0-32) 01/04/24 08:24 ALT 15 U/L (0-33) 01/04/24 08:24 Alkaline Phosphatase 94 U/L (35-105) 01/04/24 08:24 Total Protein 6.2 g/dL (6.6-8.7) L 01/04/24 08:24 Albumin 3.9 g/dL (3.5-5.2) 01/04/24 08:24 Globulin 2.3 g/dL (1.3-4.6) 01/04/24 08:24 Lipase 60 U/L (13-60) 01/04/24 08:24 TSH 2.26 uIU/mL (0.27-4.20) 01/04/24 08:24 Urine Color Yellow (Yellow) 01/04/24 09:26 Urine Appearance Clear (CLEAR) 01/04/24 09:26 Urine pH 5 (5-7) 01/04/24 09:26 Ur Specific [place] 1.010 (1.005-1.030) 01/04/24 09:26 Urine Protein Neg (Negative) 01/04/24 09:26 Urine Glucose (UA) Norm (Normal) 01/04/24 09: Urine Ketones Negative (Negative) 01/04/24 09: Urine Blood Neg (Negative) 01/04/24 09: Urine Nitrate Negative (Negative) 01/04/24 09: Urine Bilirubin Neg (Negative) 01/04/24 09: Urine Urobilinogen Norm mg/dL (Negative) 01/04/24 09:26 Ur Leukocyte Esterase 1+ (Negative) H 01/04/24 09:26 Urine RBC None /hpf (0-2) 01/04/24 09:26 Urine WBC 5-10 /hpf (0-5) H 01/04/24 09:26 Ur Squamous Epith Cells 0-4 /hpf (0-5) H 01/04/24 09:26 Amorphous Sediment Not Reportable 01/04/24 09:26 Urine Bacteria Trace /hpf (NONE) 01/04/24 09:26 Salicylates 0.9 mg/dL (3-10) L 01/04/24 08:24 Urine Opiates Screen Negative ng/mL (Negative) 01/04/24 09:26 Acetaminophen < 5.0 ug/mL (10-30) L 01/04/24 08:24 Ur Barbiturates Screen Negative ng/mL (Negative) 01/04/24 09:26 Ur Phencyclidine Scrn Negative ng/mL (Negative) 01/04/24 09:26 Ur Amphetamines Screen Positive ng/mL (Negative) H 01/04/24 09:26 U Benzodiazepines Scrn Negative ng/mL (Negative) 01/04/24 09:26 Urine Cocaine Screen Negative ng/mL (Negative) 01/04/24 09:26 U Marijuana (THC) Screen Negative ng/mL (Negative) 01/04/24 09:26 Ethyl Alcohol < 10 mg/dL (0-10) 01/04/24 08:24 Influenza Type A Ag negative (Negative) 01/04/24 14:43 Influenza Type B Ag negative (Negative) 01/04/24 14:43 RSV Antigen Negative (Negative) 01/04/24 14:43 SARS-CoV-2 Ag (Rapid) negative (Negative) 01/04/24 09:44 All radiology interpretation(s) finalized by discharge Discharge Plan Discharge Patient Disposition: Xfer Psychiatric Hosp Clinical Impression: Methamphetamine dependence, Paranoid behavior Drug-induced psychotic disorder Qualifiers: Complication of substance-induced condition: with unspecified complication Q ualified Code(s): F19.959 - Other psychoactive substance use, unspecified with psychoactive substance-induced psychotic disorder, unspecified Condition: Stable Referrals: Reema Webster FNP [Primary Care Provider] - Patient Instructions: Altered Mental Status (ED) Coding Level of Care Code ED Central Service Supply Distributor for Abad Goyal
--- NOTE | 2024-01-04 07:40 | XRR_ITS ---
PROCEDURE INFORMATION: Exam: XR Chest Exam date and time: 01/04/2024 7:44 AM Age: 63 years old Clinical indication: Cough and dyspnea; Smoker's cough; Additional info: Dyspnea/cough TECHNIQUE: Imaging protocol: Radiologic exam of the chest. Views: 1 view. COMPARISON: 1. CR XR chest 1V portable [id number] 11/09/2023 12:22 AM 2. CR XR chest 2V* [id number] 04/19/2023 4:40 PM FINDINGS: Lungs: There is unchanged COPD. No acute infiltrates are identified. There is a stable medial right upper lobe densities since 04/19/2023, suspicious for scarring Pleural spaces: Unremarkable. No pleural effusion. No pneumothorax. Heart/Mediastinum: Unremarkable. No cardiomegaly. Bones/joints: Unremarkable. XR/XR chest 1V portable [id number] IMPRESSION: Unchanged COPD and right upper lobe scarring without acute abnormality
[2024-01-04 08:31] LABS: Basophils # 0.1 10^3/uL (0.0-0.1); Basophils % 1.1 %; Eosinophils # 0.2 10^3/uL (0.0-0.8); Hematocrit 35.5 % (36-47); Lymphocytes # 1.4 10^3/uL (0.8-4.8); Lymphocytes % 17.4 %; Mean Corpuscular HGB Conc 33.5 g/dL (30-55); Mean Corpuscular Hemoglobin 29.4 pg (27-33); Mean Corpuscular Volume 87.7 fl (85-98); Mean Platelet Volume 9.1 fL (7.4-10.4); Monocytes # 0.6 10^3/uL (0.2-0.9); Monocytes % 7.7 %; Neutrophils # 5.59 10^3/uL (1.8-7.7); Neutrophils % 71.4 %; Nucleated Red Blood Cells % 0 %; Platelet Count 317 10^3/cmm (157-399); Red Blood Count 4.05 10^6/uL (3.85-5.65); Red Cell Distribution Width 12.5 % (12.1-15.1); White Blood Count 7.83 10^3/uL (3.29-11.43)
[2024-01-04 08:51] LABS: Alanine Aminotransferase 15 U/L (0-33); Albumin Level 3.9 g/dL (3.5-5.2); Alkaline Phosphatase 94 U/L (35-105); Anion Gap 12.4 (5-19); Aspartate Amino Transferase 21 U/L (0-32); Blood Urea Nitrogen 12 mg/dL (8-23); Calcium 8.6 mg/dL (8.5-10.5); Carbon Dioxide 29 mmol/L (22-29); Chloride 100 mmol/L (98-107); Creatinine Clr Calc Pharmacy 59.2244; Globulin 2.3 g/dL (1.3-4.6); Glomerular Filtration Rate 125.4 mL/min (90-130); Glucose 144 mg/dL (65-115); Lipase 60 U/L (13-60); Osmolality Calculated 288 mOsm/kg (285-295); Potassium 3.4 mmol/L (3.5-5.1); Salicylate 0.9 mg/dL (3-10); Sodium 138 mmol/L (136-145); Total Bilirubin 0.3 mg/dL (0.15-1.2); Total Protein 6.2 g/dL (6.6-8.7)
[2024-01-04 08:53] LABS: Acetaminophen < 5.0 ug/mL (10-30)
--- NOTE | 2024-01-04 08:57 | ECG_ITS ---
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 Measurements Intervals [place] Rate: 85 P: 80 [place]: 130 QRS: 85 QRSD: 101 T: 78 QT: 403 QTc: 479 Interpretive Statements SINUS RHYTHM Nonspecific T wave changes Compared to ECG 11/08/2023 23:06:13 No significant changes Electronically Signed On 01-04-2024 21:02:28 CDT by Corrine Hoffman M.D. [id number]
[2024-01-04] MEDS: sodium chloride 0.9% 1,000 ML 999 ML IV (09:16)
[2024-01-04 09:21] LABS: Alcohol Level < 10 mg/dL (0-10); Thyroid Stimulating Hormone 2.26 uIU/mL (0.27-4.20)
[2024-01-04 09:46] LABS: Add Urine Culture? No; Add Urine Microscopic? YES; Bacteria Urine TRACE /hpf; Bilirubin Urine Neg (Negative); Blood Urine Neg (Negative); Glucose Urine UA Norm (Normal); Ketones Urine Negative (Negative); Leukocyte Esterase Urine 1+ (Negative); Nitrate Urine Negative (Negative); Protein Urine Neg (Negative); Squamous Epithelial Cell Urine 0-4 /hpf (0-5); Urine Appearance Clear (CLEAR); Urine Color Yellow (Yellow); Urobilinogen Urine Norm (Negative); pH Urine 5 (5-7)
[2024-01-04 09:50] LABS: Amphetamines Screen Urine Positive (Negative); Barbiturates Screen Urine Negative (Negative); Benzodiazepines Screen Urine Negative (Negative); Cocaine Screen Urine Negative (Negative); Opiate Screen Urine Negative (Negative); PCP Screen Urine Negative (Negative); THC Screen Urine Negative (Negative)
[2024-01-04 10:06] LABS: SARS Covid-2 Antigen negative (Negative)
--- NOTE | 2024-01-04 14:03 | PC.NURSE ---
Patient stated that she took meth and seroquel a bunch of it but she stated after that but I take a bunch of meth and seroquel all the time . Patient did state someone is trying to shoot me . I asked the patient who and she could not tell me.
[2024-01-04 15:12] LABS: Influenza A by IFA negative (Negative); Influenza B by IFA negative (Negative)
[2024-01-04 15:18] LABS: RSV Transfer Patient (ED) Negative (Negative)
[2024-01-04] MEDS: nitrofurantoin SR (BID) 100 mg Capsule PO (17:16)
--- NOTE | 2024-01-04 18:45 | PC.NURSE ---
Assumed care from Isabella FOOTE at this time.
[2024-01-04] MEDS: haloperidol inj 5 mg/mL INJ 1 mL IM (20:50)
[2024-01-04] MEDS: LORazepam 2 mg/mL INJ 10 mL MDV 1 MG IM (20:50)
--- NOTE | 2024-01-04 21:14 | PC.NURSE ---
Report given to [facility]. All questions and concerns were addressed at time of report.
== END 2024-01-04 21:31 ==
PROVIDERS: Emergency Provider Family Medicine; PCP Nurse Practitioner Family
DX: F15.259 Other stimulant dependence with stimulant-induced psychotic disorder, unspecified (principal); F22 Delusional disorders; Z11.52 Encounter for screening for COVID-19; F17.210 Nicotine dependence, cigarettes, uncomplicated
CPT/HCPCS: 71045; 80053; 80306; 80307; 81001; 83690; 83735; 84443; 85025; 87426; 87804; 87899; 93005; 96360; 96372; 99285; J1630; J2060; J7030

== ENCOUNTER 2024-07-28 16:29 | Inpatient (IN) | payer MEDICAID, SELFPAY ==
[2024-07-28] VITALS (8 sets, daily range): BP systolic 95–134; BP diastolic 63–76; PULSE 99–110; RESP 16–25; TEMP 36.7–36.9; O2SAT 91–99
--- NOTE | 2024-07-28 16:40 | XRR_ITS ---
PROCEDURE INFORMATION: Exam: XR Chest Exam date and time: 07/28/2024 4:55 PM Age: 64 years old Clinical indication: Dyspnea; Prior surgery; Surgery date: 6+ months; Surgery type: Upper right lobectomy 20 yrs ago; Additional info: SOB TECHNIQUE: Imaging protocol: Radiologic exam of the chest. Views: 1 view. COMPARISON: CR XR chest 1V portable [id number] 01/04/2024 7:44 AM FINDINGS: Lungs: There is abnormal airspace disease projecting over the right lung base compatible with pneumonia. There is blunting of the right costophrenic angle suspicious for a small associated parapneumonic effusion. Stable abnormal density projecting over the right mediastinum and medial right upper lobe likely represents parenchymal scar. The left lung appears clear. There is underlying pulmonary hyperinflation suggesting COPD. No evidence for pulmonary edema. Pleural spaces: Suspect small right pleural effusion. Heart/Mediastinum: Abnormal density projecting over the right mediastinum and medial right upper lobe, stable compared to prior studies suggestive of scar. The cardiac silhouette is normal in size. Bones/joints: There is diffuse osteopenia with degenerative changes noted. No acute finding. XR/XR chest 1V portable [id number] IMPRESSION: 1. Right lower lobe pneumonia with small associated parapneumonic effusion, new since earlier studies. Short-term radiographic follow-up is recommended to ensure complete resolution. 2. Abnormal density in the medial right upper lobe and right mediastinum, stable since July 01, 2023 suggesting parenchymal scar. 3. COPD.
--- NOTE | 2024-07-28 16:42 | ED_ITS ---
HPI - SOB/Dyspnea 2 General: Chief Complaint: Shortness of Breath/Dyspnea Stated Complaint: SOB Time Seen by Provider: 07/28/24 16:35 Source: patient and EMS Mode of arrival: EMS Limitations: no limitations History of Present Illness: HPI Narrative: Patient is a 64-year-old female with past medical history of COPD and substance abuse who presents the emergency department by ambulance due to shortness of breath for the past few days. Patient notes she has felt ill over the past few days, including fever and some other general upper respiratory symptoms. She is chronically on 2 L of oxygen, she was found to be hypoxic in the mid 80s on EMS arrival. Patient notes doing 6-7 breathing treatments today, EMS did a DuoNeb therapy with 16 of Decadron en route, this seemed to help the patient's breathing. She was also placed on 6 L nasal cannula and has been maintaining above 95%. Patient noting some central chest pain that she states is pleurisy and that this has improved after DuoNeb. She states that she has been running intermittent fevers. No history of blood clots, strokes, or heart attacks. States that she is still an everyday smoker. MD elicited complaint: shortness of breath, pain with inspiration and chest pain Pertinent past history: COPD Onset (ago): day(s) Timing: constant and progressively worsening Severity: moderate Known history of: COPD Associated symptoms: Reports fever(s); Deny abdominal pain, chest pain, lightheadedness, nausea, palpitations or vomiting Related Data Home Medications Medication Instructions Recorded Confirmed cetirizine 10 mg tablet 10 mg PO DAILY PRN Allergy Symptoms 06/24/23 09/24/23 Previous Rx's Medication Instructions Recorded ipratropium 0.5 mg-albuterol 3 mg 3 ml inhalation Q4H PRN shortness 04/19/23 (2.5 mg base)/3 mL nebulization of breath or wheezing #180 mL soln trazodone 50 mg tablet 50 mg PO BEDTIME Sleep 30 days #30 09/15/23 tabs hydroxyzine pamoate 25 mg capsule 50 mg (2 x 25 mg) PO Q6H PRN 09/29/23 Anxiety 30 days #120 caps olanzapine 5 mg tablet 5 mg PO BEDTIME 30 days #30 tabs 09/29/23 paliperidone 6 mg tablet,extended 6 mg PO BEDTIME 30 days #30 tabs 09/29/23 release 24 hr Allergies Allergy/AdvReac Type Severity Reaction Status Date / Time codeine AdvReac Severe ADR-Vomitin Verified 11/19/23 00:18 g tramadol AdvReac Severe ADR-Seizure Verified 11/19/23 00:18 Review of Systems 2 General: Reports: 10 or more systems reviewed and unremarkable except in HPI and below Const: Reports: fever(s); Denies: chills or fatigue Eyes: Denies: change in vision ENMT: Reports: nasal discharge and nasal congestion; Denies: throat pain or ear or mastoid pain Card: Denies: chest pain, palpitations, swelling of feet/ankles or lightheadedness Resp: Reports: dyspnea, productive cough and pain on inspiration; Denies: wheezing GI: Denies: abdominal pain, nausea, vomiting, diarrhea or constipation : Denies: flank pain, difficulty voiding, dysuria or urinary frequency Musc: Denies: neck pain, back pain or joint pain Skin/Breast: Denies: rash Neuro: Denies: headache(s), numbness in extremities or weakness in extremities PFSH ED 2 PFSH: Medical History Methamphetamine abuse Methamphetamine abuse Abnormal EKG SOB (shortness of breath) Pt refused stress test Substance abuse in remission Bilateral numbness and tingling of arms and legs Leg swelling Leg pain Tobacco use disorder, severe, dependence Affective disorder See comments below. Methamphetamine use disorder, mild, in early remission, abuse Surgical History S/P lobectomy of lung Hx of section Social History Smoking and tobacco/nicotine status: current every day tobacco/nicotine user cigarettes Packs smoked per day: 0.5 Years cigarettes smoked: 44 Quit status (tobacco/nicotine): not considering quitting Second hand smoke exposure: No Alcohol intake: former Year of sobriety/quit date alcohol: 2007 Substance/Drug Use: former Date of last use: 08/2019 methamphetamine use, distant use of marijuana, PCP, and acid Lives independently: Yes Household members: none Current occupational status: disabled Do you think of yourself as: Straight/Heterosexual Current gender identity: Female Physical Exam 2 Const: COMMON NORMALS: patient oriented x3 and alert GENERAL APPEARANCE: c ooperative NUTRITIONAL APPEARANCE: cachectic ORIENTATION/CONSCIOUSNESS: Y es awake OTHER: Respiratory distress HENMT: COMMON NORMALS: normocephalic and atraumatic HEAD & SCALP: n ormocephalic and atraumatic OTHER: Dry oral mucosa Eye: COMMON NORMALS: EOMs intact bilaterally and conjunctivae normal C ONJUNCTIVA: Yes conjunctivae normal Neck/C-Spine: COMMON NORMALS: full ROM and no meningeal signs Chest: COMMONS NORMALS: normal inspection of the chest Resp: EFFORT & INSPECTION: Yes tachypneic, Yes respiratory distress, Yes labored and Yes uses accessory muscles AUSCULTATION: wheezes expiratory wheezes, inspiratory wheezes and throughout Cardio: COMMON NORMALS: regular rhythm, No gallops present (Cardio), No murmurs present (Cardio) and No rub (Cardio) RATE: tachycardic RHYTHM: r egular rhythm GI: COMMON NORMALS: Normal to inspection, nondistended, normoactive bowel sounds present, Soft to palpation and non-tender PALPATION: Yes Soft to palpation Extremity: COMMON NORMALS: full ROM NARRATIVE EXTREMITY EXAM: No pedal edema Neuro: COMMON NORMALS: patient oriented x3, moves all extremities, no focal motor deficits and no sensory deficits noted SENSORIUM/ORIENTATION: Yes alert MENINGEAL SIGNS: Yes no meningeal signs Skin: COMMON NORMALS: no rashes or lesions noted GENERAL SKIN EXAM: no rashes or lesions noted Course 2 Vital Signs: Vital signs: Vital Signs Temperature 98.4 F 07/28/24 16:42 Pulse Rate 107 H 07/28/24 17:30 Respiratory Rate 16 07/28/24 16:42 Blood Pressure 112/63 07/28/24 17:30 Pulse Oximetry 98 07/28/24 17:30 Oxygen Delivery Me thod Nasal Cannula 07/28/24 17:30 Oxygen Flow Rate 6 07/28/24 17:30 MDM - SOB/Dyspnea Medical Decision Making Patient presented by ambulance requiring 6 L of oxygen to maintain above 95%, chronically on 2 L with history of COPD. Was feeling ill over the past few days. Multiple nebulized breathing treatments reported today, EMS gave 1 DuoNeb en route with 16 of Decadron. Patient has been stable throughout ED course. Flu and COVID swab negative. All of her lab work seem to be within normal limits when compared to previous, did have an elevated D-dimer. On both chest x-ray and chest CTA, there were signs of developing pneumonia, no blood clot. Her lactic was normal, troponin and EKG were both unremarkable. Spoke with hospitalist who agrees to accept the patient and started on cefepime and azithromycin. Discussed admission with patient and family, all of the questions and concerns addressed. Dr. Rizzo putting in admit orders. Lab Data 07/28/24 16:14 07/28/24 16:14 Labs/Radiology: Radiology Impressions Chest X-Ray 07/28/24 16:40 IMPRESSION: 1. Right lower lobe pneumonia with small associated parapneumonic effusion, new since earlier studies. Short-term radiographic follow-up is recommended to ensure complete resolution. 2. Abnormal density in the medial right upper lobe and right mediastinum, stable since July 01, 2023 suggesting parenchymal scar. 3. COPD. Chest CTA 07/28/24 17:33 IMPRESSION: 1. Patchy densities throughout the right lung, particularly the right lower lobe, compatible with pneumonia. 2. Small associated right parapneumonic effusion. 3. Underlying COPD. 4. Scar and radiation change in the medial right upper lobe with volume loss and shift of the cardiac and mediastinal silhouette to the right. This was present on prior chest radiographs dating back to July 01, 2023. 5. No pulmonary embolism detected. Tiny subsegmental pulmonary emboli are difficult to exclude due to mild patient breathing motion artifact. COMMENTS: The presence of pulmonary emphysema on CT is an independent risk factor for lung cancer. In the absence of a history or active diagnosis of lung cancer, it is recommended that this patient with emphysema be evaluated for enrollment in a low dose CT lung cancer screening program. Laboratory Results WBC 10.17 10^3/uL (3.29-11.43) 07/28/24 16:14 RBC 3.74 10^6/uL (3.85-5.65) L 07/28/24 16:14 Hgb 10.40 g/dL (11.27-16.99) L 07/28/24 16:14 Hct 33.4 % (36-47) L 07/28/24 16:14 MCV 89.3 fl (85-98) 07/28/24 16:14 MCH 27.8 pg (27-33) 07/28/24 16:14 MCHC 31.1 g/dL (30-55) 07/28/24 16:14 RDW 13.8 % (12.1-15.1) 07/28/24 16:14 Plt Count 367 10^3/cmm (157-399) 07/28/24 16:14 MPV 10.3 fL (7.4-10.4) 07/28/24 16:14 Neut % (Auto) 78.5 % 07/28/24 16:14 Lymph % (Auto) 10.7 % 07/28/24 16:14 [place] % (Auto) 8.8 % 07/28/24 16:14 Eos % (Auto) 0.9 % 07/28/24 16:14 Baso % (Auto) 0.2 % 07/28/24 16:14 Neut # (Auto) 7.99 10^3/uL (1.8-7.7) H 07/28/24 16:14 Lymph # (Auto) 1.1 10^3/uL (0.8-4.8) 07/28/24 16:14 [place] # (Auto) 0.9 10^3/uL (0.2-0.9) 07/28/24 16:14 Eos # (Auto) 0.1 10^3/uL (0.0-0.8) 07/28/24 16:14 Baso # (Auto) 0.0 10^3/uL (0.0-0.1) 07/28/24 16:14 Nucleated RBC % (auto) 0 % 07/28/24 16:14 Nucleated RBCs # 0.0 /100WBC 07/28/24 16:14 D-Dimer 1.88 ug/mLFEU (0-0.59) H 07/28/24 16:14 Sodium 143 mmol/L (136-145) 07/28/24 16:14 Potassium 3.4 mmol/L (3.5-5.1) L 07/28/24 16:14 Chloride 98 mmol/L (98-107) 07/28/24 16:14 Carbon Dioxide 38 mmol/L (22-29) H 07/28/24 16:14 Anion Gap 10.4 (5-19) 07/28/24 16:14 BUN 11 mg/dL (8-23) 07/28/24 16:14 Creatinine 0.3 mg/dL (0.5-0.9) L 07/28/24 16:14 GFR Calculation 225.4 mL/min (90-130) H 07/28/24 16:14 Glucose 95 mg/dL (65-115) 07/28/24 16:14 Calculated Osmolality 295 mOsm/kg (285-295) 07/28/24 16:14 Lactic Acid 1.6 mmol/L (0.5-2.2) 07/28/24 16:14 Calcium 8.4 mg/dL (8.5-10.5) L 07/28/24 16:14 Total Bilirubin 0.2 mg/dL (0.15-1.2) 07/28/24 16:14 AST 93 U/L (0-32) H 07/28/24 16:14 ALT 61 U/L (0-33) H 07/28/24 16:14 Alkaline Phosphatase 131 U/L (35-105) H 07/28/24 16:14 Troponin T Baseline < 6 ng/L (0-10) 07/28/24 16:14 Troponin T 120 Minute 6.00 ng/L (0-10) 07/28/24 19:01 Delta Troponin T 0.71254 ABS# (0-10) 07/28/24 19:01 Total Protein 5.4 g/dL (6.6-8.7) L 07/28/24 16:14 Albumin 3.1 g/dL (3.5-5.2) L 07/28/24 16:14 Globulin 2.3 g/dL (1.3-4.6) 07/28/24 16:14 Coronavirus (PCR) Negative (Negative) 07/28/24 17:09 Influenza A (PCR) Negative (Negative) 07/28/24 17:09 Influenza Type B (PCR) Negative (Negative) 07/28/24 17:09 RSV (PCR) Negative (Negative) 07/28/24 17:09 All radiology interpretation(s) finalized by discharge Discharge Plan Discharge Patient Disposition: Admitted As Inpatient Clinical Impression: Acute exacerbation of chronic obstructive pulmonary disease, Pneumonia Condition: Stable Coding Level of Care Code ED [employer] for Abad Goyal
--- NOTE | 2024-07-28 16:50 | PC.RESP ---
ABG had been ordered and when rt went to perform task, pt adamantly refused stating that she absolutely would not allow it. rt attempted to educate and inform pt on purpose and need for test but pt still refused. dr. weinstein notified
--- NOTE | 2024-07-28 17:06 | ECG_ITS ---
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 Measurements Intervals [place] Rate: 111 P: 74 [place]: 129 QRS: 83 QRSD: 98 T: 68 QT: 341 QTc: 464 Interpretive Statements SINUS TACHYCARDIA POSSIBLE LEFT ATRIAL ENLARGEMENT [-0.1mV P-WAVE IN V1/V2] ABNORMAL RHYTHM ECG Compared to ECG 01/04/2024 09:41:43 Sinus rhythm no longer present T-wave abnormality no longer present Electronically Signed On 07-31-2024 23:12:25 WOOD PILER by Paddy Iovry M.D. [id number]
[2024-07-28 17:07] LABS: Basophils % 0.2 %; Eosinophils # 0.1 10^3/uL (0.0-0.8); Eosinophils % 0.9 %; Hematocrit 33.4 % (36-47); Lymphocytes # 1.1 10^3/uL (0.8-4.8); Lymphocytes % 10.7 %; Mean Corpuscular HGB Conc 31.1 g/dL (30-55); Mean Corpuscular Hemoglobin 27.8 pg (27-33); Mean Corpuscular Volume 89.3 fl (85-98); Mean Platelet Volume 10.3 fL (7.4-10.4); Monocytes # 0.9 10^3/uL (0.2-0.9); Monocytes % 8.8 %; Neutrophils # 7.99 10^3/uL (1.8-7.7); Neutrophils % 78.5 %; Nucleated Red Blood Cells % 0 %; Platelet Count 367 10^3/cmm (157-399); Red Blood Count 3.74 10^6/uL (3.85-5.65); Red Cell Distribution Width 13.8 % (12.1-15.1); White Blood Count 10.17 10^3/uL (3.29-11.43)
[2024-07-28 17:27] LABS: D Dimer 1.88 ug/mLFEU (0-0.59)
[2024-07-28 17:28] LABS: Troponin(5th) Baseline < 6 ng/L (0-10)
[2024-07-28 17:29] LABS: Lactic Sepsis W/Reflex 1.6 mmol/L (0.5-2.2)
--- NOTE | 2024-07-28 17:33 | CTR_ITS ---
PROCEDURE INFORMATION: Exam: CTA Chest With Contrast Exam date and time: 07/28/2024 6:43 PM Age: 64 years old Clinical indication: Shortness of breath; Prior surgery; Surgery date: 6+ months; Surgery type: RT upper lung; Additional info: SOB, hypoxia, elevated dimer TECHNIQUE: Imaging protocol: Computed tomographic angiography of the chest with contrast. Exam focused on the arteries. 3D rendering (Not supervised by radiologist): MIP and/or 3D reconstructed images were created by the technologist. Radiation optimization: All CT scans at this facility use at least one of these dose optimization techniques: automated exposure control; mA and/or kV adjustment per patient size (includes targeted exams where dose is matched to clinical indication); or iterative reconstruction. Contrast material: OMNIPAQUE 350; Contrast volume: 100 ml; Contrast route: INTRAVENOUS (IV); COMPARISON: CR (CHEST, ) 07/28/2024 4:55 PM RADIATION DOSE METRICS: Total DLP (mGy-cm): 125.7 FINDINGS: Pulmonary arteries: There is adequate opacification of the pulmonary arteries. However, evaluation for pulmonary emboli is limited by mild patient breathing motion artifact. No intraluminal filling defects are seen within the main pulmonary arteries or segmental pulmonary arteries to suggest pulmonary embolism. Tiny subsegmental pulmonary emboli are difficult to exclude on this exam. Aorta: Unremarkable. No aortic aneurysm. No aortic dissection. Lungs: There are emphysematous changes throughout the lungs. There are patchy scattered opacities throughout the right lung, particularly in the right lower lobe, suggestive of pneumonia.There is abnormal density in the medial right upper lobe extending from the hilum/mediastinum to the anterior pleural surface. There is associated volume loss with shift of the cardiac and mediastinal structures to the right. Findings were present on prior chest radiographs and are compatible with parenchymal scar related to the patient's prior radiation therapy. Pleural spaces: There is a small right pleural effusion. No significant coronary arterial calcification is seen. Heart: Normal in size with slight shift to the right. No significant coronary arterial calcification. Lymph nodes: Unremarkable. No enlarged lymph nodes. Bones/joints: Unremarkable. No acute fracture. Soft tissues: Unremarkable. CT/CT angio chest PE protcl [id number] IMPRESSION: 1. Patchy densities throughout the right lung, particularly the right lower lobe, compatible with pneumonia. 2. Small associated right parapneumonic effusion. 3. Underlying COPD. 4. Scar and radiation change in the medial right upper lobe with volume loss and shift of the cardiac and mediastinal silhouette to the right. This was present on prior chest radiographs dating back to July 01, 2023. 5. No pulmonary embolism detected. Tiny subsegmental pulmonary emboli are difficult to exclude due to mild patient breathing motion artifact. COMMENTS: The presence of pulmonary emphysema on CT is an independent risk factor for lung cancer. In the absence of a history or active diagnosis of lung cancer, it is recommended that this patient with emphysema be evaluated for enrollment in a low dose CT lung cancer screening program.
[2024-07-28 17:41] LABS: Alanine Aminotransferase 61 U/L (0-33); Albumin Level 3.1 g/dL (3.5-5.2); Alkaline Phosphatase 131 U/L (35-105); Anion Gap 10.4 (5-19); Aspartate Amino Transferase 93 U/L (0-32); Blood Urea Nitrogen 11 mg/dL (8-23); Calcium 8.4 mg/dL (8.5-10.5); Carbon Dioxide 38 mmol/L (22-29); Chloride 98 mmol/L (98-107); Creatinine Clr Calc Pharmacy 118.3424; Globulin 2.3 g/dL (1.3-4.6); Glomerular Filtration Rate 225.4 mL/min (90-130); Glucose 95 mg/dL (65-115); Osmolality Calculated 295 mOsm/kg (285-295); Potassium 3.4 mmol/L (3.5-5.1); Sodium 143 mmol/L (136-145); Total Bilirubin 0.2 mg/dL (0.15-1.2); Total Protein 5.4 g/dL (6.6-8.7)
[2024-07-28 18:21] LABS: Covid PCR NEGATIVE (Negative); Influenza A NEGATIVE (Negative); Influenza B NEGATIVE (Negative); Respiratory Syncytial Virus Ce NEGATIVE (Negative)
[2024-07-28] MEDS: iohexol 350 mg/mL 500 mL Btl (per mL) IV (18:45)
--- NOTE | 2024-07-28 18:51 | ECG_ITS ---
[facility] Test Date: 2024-07-28 Pat Name: Sury Joy Department: Room: Gender: Female Bag [employer] Worker: : 1960 Requested By: Molina Leon Order Number: [id number] Lizzette MD: Paddy Ivory M.D. Measurements Intervals [place] Rate: 100 P: 76 WI: 126 QRS: 89 QRSD: 101 T: 78 QT: 353 QTc: 456 Interpretive Statements SINUS TACHYCARDIA Compared to ECG 07/28/2024 17:06:20 No significant changes Electronically Signed On 07-31-2024 23:32:09 MANUFACTURING MAINTENANCE MECHANIC by Paddy Ivoyr M.D. [email or web address]
[2024-07-28 19:44] LABS: Troponin 5 2HR Delta 0.00001 ABS# (0-10)
--- NOTE | 2024-07-28 19:50 | P.HP_ITS ---
Providers/Chief Complaint 2 Admitting Physician: Priya Paris MD Primary Care Provider: YSABEL Zamora Chief Complaint: SOB History of Present Illness Sury Joy is a 64 yo woman w/ COPD, chronic hypoxic respiratory failure on continuous 2L NC, Depression, who presents to [facility] ED on 07/28/2024 w/ complaints of 4 days of progressive dyspnea. She states that 4 days ago she began to experience an oral temp of 101.3F, malaise, myalgias, SOB, R. pleuritic chest pain that resolved, non-productive cough, and chest tightness. Importantly, she noticed that her she desaturated to 88% w/ movement from her usual 92%, while on her 2L NC, so today, she increased her O2 to 3L. When her O2 sat remained 89% despite being on 3L NC, she called EMS. She endorses headaches and chronic dizziness in the last 4 days. She complains of a sore in her coccyx and wants a pad to cushion it. According to the ED staff, when EMS arrived, her O2 sat was in the 80s on 3 to 4 L. She was given DuoNebs x 1, and 16mg of dexamethasone. In the ED, her vital signs were significant for tachycardia to 110 a RR of 22. She declined an ABG in the ED. She had no leukocytosis, but she had elevated transaminases. Her Trop T were negative x 2. Her CXR showed a R. Lower lobe pneumonia with a new, small parapneumonic effusion, a parenchymal scar in the medial RUL, that has been stable since 07/01/2023, and COPD. A D-dimer was done that was elevated, so CTA chest with PE protocol was done that further confirmed pulmonary emphysema, patchy densities throughout the right lung, especially in the RLL consistent with pneumonia with the associated small R. Parapneumonic effusion, as well as COPD. While the CTA chest was negative for PE, it could not completely exclude tiny subsegmental PE due to motion artifact from the patient breathing. Blood cultures were ordered and the patient was admitted for further management. Review of Systems 2 Const: Reports: fever(s), chills, body aches and malaise Eyes: Reports: blurry vision (with olanzapine - chronic) ENMT: Denies: odynophagia, ear or mastoid pain, ear discharge, nasal discharge (chronic) or nasal congestion Card: Denies: chest pain, palpitations, lightheadedness or syncope Resp: Reports: dyspnea, non-productive cough and wheezing GI: Reports: vomiting; Denies: abdominal pain, nausea, diarrhea, constipation, hematochezia or melena : Denies: difficulty voiding, dysuria, urinary frequency, urinary urgency or hematuria Musc: Reports: joint pain (b/l hands, elbows and knees - chronic) and other (myalgias) Skin/Breast: Denies: rash or new lesions Neuro: Reports: dizziness (on getting up ) Psych: Reports: depression; Denies: suicidal ideation or homicidal ideation Endo: Denies: cold intolerance or heat intolerance Donaldo/Lymph: Reports: easy bruising; Denies: easy bleeding Medications/Allergies Home Medications Medication Instructions Recorded Confirmed Last Taken Type ipratropium 0.5 mg-albuterol 3 mg 3 ml inhalation Q4H PRN shortness 04/19/23 09/24/23 Unknown Rx (2.5 mg base)/3 mL nebulization of breath or wheezing #180 mL soln cetirizine 10 mg tablet 10 mg PO DAILY PRN Allergy Symptoms 06/24/23 09/24/23 06/30/23 History trazodone 50 mg tablet 50 mg PO BEDTIME Sleep 30 days #30 09/15/23 09/24/23 Unknown Rx tabs hydroxyzine pamoate 25 mg capsule 50 mg (2 x 25 mg) PO Q6H PRN 09/29/23 Unknown Rx Anxiety 30 days #120 caps olanzapine 5 mg tablet 5 mg PO BEDTIME 30 days #30 tabs 09/29/23 Unknown Rx paliperidone 6 mg tablet,extended 6 mg PO BEDTIME 30 days #30 tabs 09/29/23 Unknown Rx release 24 hr Allergies Allergy/AdvReac Type Severity Reaction Status Date / Time codeine AdvReac Severe ADR-Vomitin Verified 11/19/23 00:18 g tramadol AdvReac Severe ADR-Seizure Verified 11/19/23 00:18 PFSH Acute 2 PFSH: Medical History (Updated 07/28/24 @ 23:58 by Adela Paris MD) COPD (chronic obstructive pulmonary disease) Chronic hypoxic respiratory failure, on home oxygen therapy on continuous 2L NC Methamphetamine abuse Methamphetamine abuse Abnormal EKG SOB (shortness of breath) Pt refused stress test Substance abuse in remission Bilateral numbness and tingling of arms and legs Leg swelling Leg pain Tobacco use disorder, severe, dependence Affective disorder See comments below. 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 Hx of section one Family History (Updated 07/28/24 @ 23:11 by Adela Paris MD) Father Pancreatic cancer Social History (Updated 07/28/24 @ 23:12 by Adela Paris MD) Smoking and tobacco/nicotine status: current every day tobacco/nicotine user cigarettes Packs smoked per day: 0.5 Years cigarettes smoked: 44 Quit status (tobacco/nicotine): not considering quitting Second hand smoke exposure: No Alcohol intake: former Year of sobriety/quit date alcohol: 2007 Substance/Drug Use: former Date of last use: 08/2019 methamphetamine use, distant use of marijuana, PCP, and acid. Former substance use details: Never injected. Lives independently: Yes Household members: none Current occupational status: disabled Do you think of yourself as: Straight/Heterosexual Current gender identity: Female Vitals/I&O/Wt Last Vital Signs Temp 98.4 F 07/28/24 16:42 Pulse 107 H 07/28/24 17:30 Resp 16 07/28/24 16:42 BP 112/63 07/28/24 17:30 Pulse Ox 98 07/28/24 17:30 O2 Del Method Nasal Cannula 07/28/24 17:30 O2 Flow Rate 6 07/28/24 17:30 Weight last 48 hrs Weight 38.555 kg Physical Exam 2 Const: GENERAL APPEARANCE: cooperative, comfortable and disheveled N UTRITIONAL APPEARANCE: cachectic ORIENTATION/CONSCIOUSNESS: Yes awake, Yes oriented to person, Yes oriented to place and Yes oriented to time HENMT: HEAD & SCALP: normocephalic and atraumatic NOSE: Normal external nose present EXTERNAL EAR: Yes external ears normal MOUTH: Normal oral and palatal mucosa present THROAT: posterior oropharynx normal Eye: OTHER: EOMI, PERRL, b/l conjunctiva normal Neck/C-Spine: GENERAL: Yes normal visual inspection and Yes trachea midline THYROID: Thyroid normal CAROTIDS: No bruit CERVICAL SPINE: Yes cervical ROM normal Lymph: OTHER: no cervical or suprclavicular LAD Resp: OTHER: Diminished breath sounds in all lung chairez. Crackles in the L mid to lower lung chairez. b/l expiratory wheezes in all lung chairez. Use of accessory muscles on inspiration. Cardio: OTHER: RRR, no m/r/g or clicks. 2+ radial and DP pulses. no carotid bruits bilaterally. GI: OTHER: BS+, non tender, non distended, no guarding, no ridigity, no rebound tenderness,no hepatosplenomegaly. Extremity: GENERAL: No clubbing, No cyanosis and No edema Neuro: COMMON NORMALS: patient oriented x3 CRANIAL NERVES: Yes CN normal except as noted SPEECH: speech normal SENSORY EXAM: No sensory level loss detected MOTOR EXAM: 5/5 motor strength present throughout and Normal motor muscle tone present throughout Psych: APPEARANCE: Yes grossly normal ATTITUDE: Yes calm and Yes engaged ACTIVITY/MOTOR BEHAVIOR: Yes appropriate eye contact SPEECH: Yes normal speech MOOD & AFFECT: Yes euthymic mood THOUGHT PROCESS: Normal thought process present THOUGHT CONTENT: Yes Normal thought content present A TTENTION/CONCENTRATION: Yes attention grossly intact MEMORY/COGNITION: Yes memory grossly intact Skin: NARRATIVE SKIN EXAM: tender unstageable coccygeal ulcer Data 07/28/24 16:14 07/28/24 16:14 A&P Assessment and plan (1) Acute on chronic hypoxic respiratory failure: (2) COPD with acute exacerbation: (3) Gram-negative pneumonia: (4) Severe malnutrition: (5) Unstageable pressure ulcer of buttock: Plan Sury Joy is a 64 yo woman w/ COPD, chronic hypoxic respiratory failure on continuous 2L NC, Depression, who presents to [facility] ED on 07/28/2024 w/ complaints of 4 days of progressive dyspnea. She is admitted for Acute on Chronic Hypoxic Respiratory failure, R. sided likely Gram neg Pneumonia, Acute COPD Exacerbation, transaministis and electrolyte abnormalities. #Acute on Chronic Hypoxic Respiratory failure: On 4L Wean as Tolerated #Acute COPD Exacerbation: - Duonebs, abx, and PPI ordered. Patient can also continue her home Tiotropium and Symbicort, which I ordered. # R. sided likely Gram neg Pneumonia: - On Cefepime and Azithromycin. F/u BCx #Tranaminitis: - Possibly due to ischemia. Will start NS + 40mEQ of K at 100cc/hr and give 1L. RUQ US ordered. F/u liver enzymes. #Hypokalemia: Repleting w/ 40mEQK in NS #Depression #Insomnia - Resumed her Seroquel 300mg BID and #Substance use d/o: Methamphetamine dependence - Last use was one week ago. She snorts it. Never injected drugs because she is afraid of needles. #Tobacco use d/o: Declined a nicotine patch. She was encouraged to request for one if she needed it. #tender unstageable coccygeal ulcer: mepilex dressing. Encourage her offload by lying on her side. #severe malnutrition: consulted mathematician for supplements and recs. DVT ppx: Lovenox Attestations 2 Medical Necessity Statement*: Patient needs to be hospitalized for >2midnights for her Acute on chronic respiratory failure, Pneumonia and COPD exacerbation. Time Spent in Patient Care: >70mins was spent on patient interview/physical exam, lab review/imaging, plan formulation and coordination of care. Coding Level of Care Code 23063 Diagnoses Acute on chronic hypoxic respiratory failure J96.21 COPD with acute exacerbation J44.1 Gram-negative pneumonia J15.69 Severe malnutrition E43 Unstageable pressure ulcer of buttock L89.300
[2024-07-28] MEDS: cefepime 1,000 mg SDV 2000 MG IVP (20:26)
[2024-07-28] MEDS: azithromycin 250 MG in sodium chloride 0.9% 250 ML IV (20:29)
--- NOTE | 2024-07-28 20:33 | USR_ITS ---
PROCEDURE INFORMATION: Exam: US Abdomen, Limited; Right Upper Quadrant Exam date and time: 07/28/2024 8:57 PM Age: 64 years old Clinical indication: Other: Transaminitis TECHNIQUE: Imaging protocol: Real time ultrasound of the abdomen with image documentation. Limited exam focused on the right upper quadrant. COMPARISON: CT angio chest PE protcl [id number] 07/28/2024 6:43 PM FINDINGS: Pleural spaces: Small right pleural effusion. Liver: Normal. No masses. Gallbladder: Gallbladder wall thickened at 4 mm, negative for cholelithiasis, findings are not definitive for cholecystitis by ultrasound, consider further evaluation with nuclear medicine HIDA scan if concern for cholecystitis remains clinically. Biliary ducts: Normal. No stones. No dilation. Pancreas: Visualized pancreas is unremarkable. Right kidney: Normal. No mass. No hydronephrosis. US/US abdomen limited [id number] IMPRESSION: 1. Gallbladder wall thickened at 4 mm, negative for cholelithiasis, findings are not definitive for cholecystitis by ultrasound, consider further evaluation with nuclear medicine HIDA scan if concern for cholecystitis remains clinically. 2. Small right pleural effusion.
[2024-07-28 21:31] LABS: Magnesium 1.9 mg/dL (1.7-2.3); Phosphorus 2.2 mg/dL (2.5-4.5)
[2024-07-28] MEDS: enoxaparin 30 mg/0.3 mL Syringe SUBCUT (21:50)
[2024-07-28] MEDS: sodium chlor 0.9% + KCl 40 mEq 40 MEQ/1,000 ML BAG 100 MEQ IV (22:16)
[2024-07-28 22:42] LABS: Bilirubin Urine Negative (Negative); Blood Urine Negative (Negative); Glucose Urine UA Negative (Normal); Ketones Urine Negative (Negative); Leukocyte Esterase Urine Negative (Negative); Nitrate Urine Negative (Negative); Protein Urine Trace (Negative); Urine Appearance Clear (CLEAR); Urine Color Yellow (Yellow); Urobilinogen Urine 0.2 mg/dL (Negative)
[2024-07-28 22:45] LABS: Add Urine Microscopic? YES; Bacteria Urine None Seen /hpf; RBC Urine 0-2 /hpf (0-2); Squamous Epithelial Cell Urine 0-5 /hpf (0-5); WBC Urine 0-5 /hpf (0-5)
[2024-07-28 22:52] LABS: Specific Gravity, Urine 1.055 (1.005-1.030)
[2024-07-28 22:53] LABS: Add Urine Culture? No
[2024-07-29] VITALS (10 sets, daily range): BP systolic 104–120; BP diastolic 63–68; PULSE 85–103; RESP 16–20; TEMP 36.6–36.7; O2SAT 90–97; BMI 15.0
[2024-07-29] MEDS: quetiapine 300 mg Tablet PO ×2 (00:17→08:12)
[2024-07-29] MEDS: OLANZapine 5 mg TABLET PO (00:17)
[2024-07-29] MEDS: ipratropium-albuterol 3 mL Neb INHALATION ×3 (01:26→12:59)
[2024-07-29] MEDS: cefepime 2,000 mg SDV 2000 MG IVP (04:41)
[2024-07-29] MEDS: pantoprazole DR 40 mg Tablet PO (06:27)
[2024-07-29] MEDS: methylPREDNISolone sod succ 125 mg/2 mL INJ 60 MG IVP (08:12)
[2024-07-29] MEDS: sennosides 8.6 mg Tablet 17.2 MG PO (08:12)
[2024-07-29 10:20] LABS: Basophils % 0.2 %; Eosinophils % 0.3 %; Hematocrit 31.4 % (36-47); Lymphocytes # 0.8 10^3/uL (0.8-4.8); Lymphocytes % 7.7 %; Mean Corpuscular HGB Conc 31.2 g/dL (30-55); Mean Corpuscular Hemoglobin 28.3 pg (27-33); Mean Corpuscular Volume 90.8 fl (85-98); Mean Platelet Volume 9.7 fL (7.4-10.4); Monocytes # 0.3 10^3/uL (0.2-0.9); Monocytes % 2.6 %; Neutrophils # 9.27 10^3/uL (1.8-7.7); Neutrophils % 88.1 %; Nucleated Red Blood Cells % 0 %; Platelet Count 410 10^3/cmm (157-399); Red Blood Count 3.46 10^6/uL (3.85-5.65); Red Cell Distribution Width 14.3 % (12.1-15.1); White Blood Count 10.52 10^3/uL (3.29-11.43)
[2024-07-29 10:30] LABS: INR 1.01 (0.8-1.2)
[2024-07-29 10:31] LABS: Partial Thromboplastin Time 34.5 SECONDS (23.9-36.7)
[2024-07-29 10:43] LABS: Anion Gap 13.7 (5-19); Blood Urea Nitrogen 9 mg/dL (8-23); Calcium 8.3 mg/dL (8.5-10.5); Carbon Dioxide 30 mmol/L (22-29); Chloride 103 mmol/L (98-107); Creatinine Clr Calc Pharmacy 113.3942; Glomerular Filtration Rate 161.7 mL/min (90-130); Glucose 166 mg/dL (65-115); Osmolality Calculated 298 mOsm/kg (285-295); Phosphorus 1.9 mg/dL (2.5-4.5); Potassium 3.7 mmol/L (3.5-5.1); Sodium 143 mmol/L (136-145)
[2024-07-29 10:46] LABS: Alanine Aminotransferase 61 U/L (0-33); Aspartate Amino Transferase 59 U/L (0-32); Gamma Glutamyl Transferase 13 U/L (5-36); Lactate Dehydrogenase 160 U/L (135-214)
--- NOTE | 2024-07-29 15:42 | PM.DCS ---
Discharge Providers Date of Admission: 07/28/24 19:57 Date of Discharge: July 29, 2024 Attending Provider at Admission: Adela Paris MD Attending Provider at Discharge: Brandee Manzanares MD Primary Care Provider: YSABEL Zamora Diagnoses at Discharge Discharge Diagnosis (1) Acute on chronic hypoxic respiratory failure: Status: Acute (2) COPD with acute exacerbation: Status: Acute (3) Gram-negative pneumonia: Status: Acute (4) Severe malnutrition: Status: Acute (5) Unstageable pressure ulcer of buttock: Status: Acute Reason for Visit Reason for Visit: SOB Hospital Course Hospital Course 64 yo woman w/ COPD, chronic hypoxic respiratory failure on continuous 2L NC, Depression, who presents to [facility] ED on 07/28/2024 w/ complaints of 4 days of progressive dyspnea. She states that 4 days ago she began to experience an oral temp of 101.3F, malaise, myalgias, SOB, R. pleuritic chest pain that resolved, non-productive cough. She had an increased oxygen requirement of up to 3 to 4 L when typically she is on 2 L/min supplemental O2. CT of the chest was negative for PE. It revealed a right lower lobe pneumonia associated with a small right parapneumonic effusion. Patient was diagnosed with COPD exacerbation and community-acquired pneumonia and admitted for management of these issues. She started treatment with IV cefepime and azithromycin. She received scheduled nebulization with DuoNeb budesonide and treatment with IV steroids. Patient felt much improved this morning. She felt that she was back to her baseline and was eager to be discharged home. Her significant other was also at bedside and confirmed that patient breathing is back to baseline. She is chronically ill with advanced COPD, weighs only 44 kg and at high risk of complications patient. Patient understands her risks and still wishes to return home as she feels back to her baseline. She is currently saturating 90% on 2 L/min supplemental O2. Her hemodynamics are stable. She has been afebrile since admission. She does not have any significant leukocytosis at this time. Given the above parameters and patient request, she is being discharged home in stable to improved condition. Discharge medications include Augmentin 875 mg twice daily, azithromycin 500 mg p.o. daily, prednisone taper, pantoprazole 40 mg twice daily for GI prophylaxis. Patient has Advair and Symbicort inhalers at home, additionally has DuoNeb at home home for nebulizer use. Physical Exam Narrative: General: No acute distress, AO x3, chronically ill-appearing frail woman in no acute distress. Able to have a full conversation without tachypnea or hypoxia. HEENT: PERRLA, pupils bilaterally equal and reactive, pallors not present Chest: Clear bilaterally CVS: S1-S2 regular, no murmurs, no tachycardia, no gallops, no rubs Abdomen: Soft, nontender, no organomegaly, bowel sounds present Neuro: No focal deficits, no facial deformity, AO x3, power 5/5 in all limbs Discharge Data Studies Completed and Pending Completed Studies During Hospitalization Category Date Time Status CT angio chest PE protcl [id number] Stat Cat Scan 07/28/24 17:33 Completed XR chest 1V portable [id number] Stat Exams 07/28/24 16:40 Completed US abdomen limited [id number] Stat Ultrasound 07/28/24 20:33 Completed Pending at discharge Category Date Time Status Blood Culture Stat Lab 07/28/24 23:17 Received Radiology Impressions Chest X-Ray 07/28/24 16:40 IMPRESSION: 1. Right lower lobe pneumonia with small associated parapneumonic effusion, new since earlier studies. Short-term radiographic follow-up is recommended to ensure complete resolution. 2. Abnormal density in the medial right upper lobe and right mediastinum, stable since July 01, 2023 suggesting parenchymal scar. 3. COPD. Chest CTA 07/28/24 17:33 IMPRESSION: 1. Patchy densities throughout the right lung, particularly the right lower lobe, compatible with pneumonia. 2. Small associated right parapneumonic effusion. 3. Underlying COPD. 4. Scar and radiation change in the medial right upper lobe with volume loss and shift of the cardiac and mediastinal silhouette to the right. This was present on prior chest radiographs dating back to July 01, 2023. 5. No pulmonary embolism detected. Tiny subsegmental pulmonary emboli are difficult to exclude due to mild patient breathing motion artifact. COMMENTS: The presence of pulmonary emphysema on CT is an independent risk factor for lung cancer. In the absence of a history or active diagnosis of lung cancer, it is recommended that this patient with emphysema be evaluated for enrollment in a low dose CT lung cancer screening program. Abdomen Ultrasound 07/28/24 20:33 IMPRESSION: 1. Gallbladder wall thickened at 4 mm, negative for cholelithiasis, findings are not definitive for cholecystitis by ultrasound, consider further evaluation with nuclear medicine HIDA scan if concern for cholecystitis remains clinically. 2. Small right pleural effusion. Laboratory Results WBC 10.52 10^3/uL (3.29-11.43) 07/29/24 09:57 RBC 3.46 10^6/uL (3.85-5.65) L 07/29/24 09:57 Hgb 9.80 g/dL (11.27-16.99) L 07/29/24 09:57 Hct 31.4 % (36-47) L 07/29/24 09:57 MCV 90.8 fl (85-98) 07/29/24 09:57 MCH 28.3 pg (27-33) 07/29/24 09:57 MCHC 31.2 g/dL (30-55) 07/29/24 09:57 RDW 14.3 % (12.1-15.1) 07/29/24 09:57 Plt Count 410 10^3/cmm (157-399) H 07/29/24 09:57 MPV 9.7 fL (7.4-10.4) 07/29/24 09:57 Neut % (Auto) 88.1 % 07/29/24 09:57 Lymph % (Auto) 7.7 % 07/29/24 09:57 [place] % (Auto) 2.6 % 07/29/24 09:57 Eos % (Auto) 0.3 % 07/29/24 09:57 Baso % (Auto) 0.2 % 07/29/24 09:57 Neut # (Auto) 9.27 10^3/uL (1.8-7.7) H 07/29/24 09:57 Lymph # (Auto) 0.8 10^3/uL (0.8-4.8) 07/29/24 09:57 [place] # (Auto) 0.3 10^3/uL (0.2-0.9) 07/29/24 09:57 Eos # (Auto) 0.0 10^3/uL (0.0-0.8) 07/29/24 09:57 Baso # (Auto) 0.0 10^3/uL (0.0-0.1) 07/29/24 09:57 Nucleated RBC % (auto) 0 % 07/29/24 09:57 Nucleated RBCs # 0.0 /100WBC 07/29/24 09:57 PT 14.00 SECONDS (12.1-14.9) 07/29/24 09:57 INR 1.01 (0.8-1.2) 07/29/24 09:57 APTT 34.5 SECONDS (23.9-36.7) 07/29/24 09:57 D-Dimer 1.88 ug/mLFEU (0-0.59) H 07/28/24 16:14 Sodium 143 mmol/L (136-145) 07/29/24 09:57 Potassium 3.7 mmol/L (3.5-5.1) 07/29/24 09:57 Chloride 103 mmol/L (98-107) 07/29/24 09:57 Carbon Dioxide 30 mmol/L (22-29) H 07/29/24 09:57 Anion Gap 13.7 (5-19) 07/29/24 09:57 BUN 9 mg/dL (8-23) 07/29/24 09:57 Creatinine 0.4 mg/dL (0.5-0.9) L 07/29/24 09:57 GFR Calculation 161.7 mL/min (90-130) H 07/29/24 09:57 Glucose 166 mg/dL (65-115) H 07/29/24 09:57 Calculated Osmolality 298 mOsm/kg (285-295) H 07/29/24 09:57 Lactic Acid 1.6 mmol/L (0.5-2.2) 07/28/24 16:14 Calcium 8.3 mg/dL (8.5-10.5) L 07/29/24 09:57 Phosphorus 1.9 mg/dL (2.5-4.5) L 07/29/24 09:57 Magnesium 2.0 mg/dL (1.7-2.3) 07/29/24 09:57 Total Bilirubin 0.2 mg/dL (0.15-1.2) 07/28/24 16:14 GGT 13 U/L (5-36) 07/29/24 09:57 AST 59 U/L (0-32) H 07/29/24 09:57 ALT 61 U/L (0-33) H 07/29/24 09:57 Alkaline Phosphatase 131 U/L (35-105) H 07/28/24 16:14 Lactate Dehydrogenase 160 U/L (135-214) 07/29/24 09:57 Troponin T Baseline < 6 ng/L (0-10) 07/28/24 16:14 Troponin T 120 Minute 6.00 ng/L (0-10) 07/28/24 19:01 Delta Troponin T 0.97638 ABS# (0-10) 07/28/24 19:01 Total Protein 5.4 g/dL (6.6-8.7) L 07/28/24 16:14 Albumin 3.1 g/dL (3.5-5.2) L 07/28/24 16:14 Globulin 2.3 g/dL (1.3-4.6) 07/28/24 16:14 Urine Color Yellow (Yellow) 07/28/24 22:30 Urine Appearance Clear (CLEAR) 07/28/24 22: Urine pH 8.0 (5-7) A 07/28/24 22:30 Ur Specific [place] 1.055 (1.005-1.030) H 07/28/24 22:30 Urine Protein Trace (Negative) A 07/28/24 22:30 Urine Glucose (UA) Negative (Normal) 07/28/24: Urine Ketones Negative (Negative) 07/28/24 22:30 Urine Blood Negative (Negative) 07/28/24 22:30 Urine Nitrate Negative (Negative) 07/28/24 22:30 Urine Bilirubin Negative (Negative) 07/28/24 22: Urine Urobilinogen 0.2 mg/dL (Negative) 07/28/24 22:30 Ur Leukocyte Esterase Negative (Negative) 07/28/24 22:30 Urine RBC 0-2 /hpf (0-2) 07/28/24 22:30 Urine WBC 0-5 /hpf (0-5) 07/28/24 22:30 Ur Squamous Epith Cells 0-5 /hpf (0-5) 07/28/24 22:30 Amorphous Sediment Not Reportable 07/28/24 22:30 Urine Bacteria None seen /hpf (NONE) 07/28/24 22: Hyaline Casts 0.40 /lpf 07/28/24 22:30 Coronavirus (PCR) Negative (Negative) 07/28/24 17:09 Influenza A (PCR) Negative (Negative) 07/28/24 17:09 Influenza Type B (PCR) Negative (Negative) 07/28/24 17:09 RSV (PCR) Negative (Negative) 07/28/24 17:09 Vitals Last Vital Signs Temp 97.9 F 07/29/24 15:10 Pulse 100 07/29/24 15:10 Resp 18 07/29/24 15:10 BP 117/68 07/29/24 15:10 Pulse Ox 90 07/29/24 15:10 O2 Del Method Nasal Cannula 07/29/24 13:00 O2 Flow Rate 2 07/29/24 13:00 Discharge Plan Discharge Patient Disposition: Home Condition: Stable Prescriptions: New azithromycin 250 mg Tablet 500 mg PO DAILY 3 Days Qty: 3 0RF pantoprazole 40 mg Tablet,Delayed Release (Dr/Ec) 40 mg PO BID 30 Days Qty: 60 0RF prednisone 10 mg tablets,dose pack See Taper PO DIRECTED Qty: 21 0RF Taper: predniSONE 60-10 60 mg Daily for 2 Days and 0 Hour 50 mg Daily for 2 Days and 0 Hour 40 mg Daily for 2 Days and 0 Hour 30 mg Daily for 2 Days and 0 Hour 20 mg Daily for 2 Days and 0 Hour 10 mg Daily for 2 Days and 0 Hour Rx Instructions: orally; amoxicillin-pot clavulanate 875-125 mg tablet 1 tab PO BID 5 Days Qty: 10 0RF Continued ipratropium-albuterol 0.5 mg-3 mg(2.5 mg base)/3 mL solution for nebulization 3 ml inhalation Q4H PRN (Reason: shortness of breath or wheezing) Qty: 180 0RF olanzapine 5 mg Tablet 5 mg PO BEDTIME 30 Days Qty: 30 1RF quetiapine 200 mg tablet 400 mg PO BID budesonide-formoterol [Symbicort] 160-4.5 mcg/actuation HFA aerosol inhaler 2 puff INHALATION BID Spiriva Respimat 2.5 mcg/actuation mist 2 puff INHALATION DAILY Discharge Orders: Discharge Order (Routine); Ordered 07/29/24 Ordered By: Brandee Manzanares Referrals: Reema Webster FNP [Primary Care Provider] - 08/05/24 11:40 am Discharge Diet: Usual diet Discharge Activity: Resume usual activity Patient Instructions: COPD, Prednisone (By mouth), Amoxicillin/Clavulanate Potassium (By mouth), Azithromycin (By mouth), Pantoprazole (By mouth), Pneumonia (GEN), Opioid Safety, Pneumonia Stoplight Discharge Attestations Time Spent in Discharge Care*: greater than 30 min Quality Metrics Clinical Quality Measures [ No reported AMI, CVA or VTE this stay] Coding Level of Care Code Acute Code for Chg Fwd Diagnoses Acute on chronic hypoxic respiratory failure J96.21 COPD with acute exacerbation J44.1 Gram-negative pneumonia J15.69 Severe malnutrition E43 Unstageable pressure ulcer of buttock L89.300
== END 2024-07-29 15:14 | disposition home or self-care (01) | DRG 193 ==
LOC: ER 19:54 → MEDSURG 22:26
PROVIDERS: Admitting Provider Internal Medicine; Emergency Provider Physician Assistant; PCP Nurse Practitioner Family; Visit Provider Student in an Organized Health Care Education/Training Program
DX: J15.9 Unspecified bacterial pneumonia (principal); E43 Unspecified severe protein-calorie malnutrition; J96.21 Acute and chronic respiratory failure with hypoxia; J44.0 Chronic obstructive pulmonary disease with (acute) lower respiratory infection; J44.1 Chronic obstructive pulmonary disease with (acute) exacerbation; Z68.1 Body mass index [BMI] 19.9 or less, adult; F15.20 Other stimulant dependence, uncomplicated; F17.210 Nicotine dependence, cigarettes, uncomplicated; Z99.81 Dependence on supplemental oxygen; L89.151 Pressure ulcer of sacral region, stage 1; F32.A Depression, unspecified; R74.01 Elevation of levels of liver transaminase levels; E87.6 Hypokalemia; G47.00 Insomnia, unspecified
CPT/HCPCS: 36415; 71045; 71275; 76705; 80048; 80053; 81001; 82977; 83605; 83615; 83735; 84100; 84450; 84460; 84484; 85025; 85378; 85610; 85730; 87040; 87637; 93005; 94640; 94664; 96365; 96367; 96372; 96375; 99285; J0456; J0692; J1650; J2919; J7050